=== PATIENT | female | born 1955 | race Caucasian/White ===

== ENCOUNTER 2017-05-17 18:28 | Inpatient (IN) | payer MEDICARE, MEDICAID ==
[~2017-05-17] VITALS: Ht 147.3 cm; Wt 60.0 kg
[~2017-05-17 18:28] MED LIST: ACET1TAB12; ACET325T49 PO; ACET650S15 RC; AZIT-21; BISA10SU6 RC; BSC10SU; CEPH500C PO; DIAZ10TA3; DICL500C PO; DIVA125C10 PO; DIVA125C3; DOCU100C; DOCU50LI PO; DVL125C PO; DVL250TEC; ETHO250C; ETHOSUXIMIDE; FL025NA25; HYOS-19 SL; LEVE100S PO; LEVE100S16 PO; LEVO100T PO; LEVO100T7 PO; LEVO125T PO; LEVO125T6 PO; LORA1TAB SL; LORA2VIA29 IJ; LORA2VIA29 IM; LVT.025T; MAG30ORA2 PO; MAGN400O7 PO; MORP100S3 PO; MULT1TAB63; NAPH15DR51 OP; NAPH15DR51 OU; NF-DIASG RC; NFR150C; POLY119P5 PO; TETR15DR74 OU; VALP250S18; [UNRECOGNIZED DRUG - CODE]; [UNRECOGNIZED DRUG - CODE] PO
--- OUTSIDE RECORDS SUMMARY | 2017-05-17 18:33 | XMS REPORT ---
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 [address]-84 15 MG PT [facility] July 1 tablet by Oral route 2 times per day Results No Known Results Summary Purpose eClinicalWorks Submission
--- OUTSIDE RECORDS SUMMARY | 2017-05-17 18:33 | XMS REPORT ---
Author Author JEANETTE ZHU [facility] Address [address] [place] [address] Care Team Providers Care Animal Nurse Name Role Phone JEANETTE ZHU Unavailable PROBLEMS Type Condition ICD9-CM Code [id number] Code Onset Dates Condition Status SNOMED Code Problem Atopic dermatitis, mild L20.9 Active 47938306 Problem Seizure disorder G40.909 Active 554149441 Problem Seizures R56.9 Active 64347527 Problem Profoundly mentally retarded F73 Active 33183315 Problem Unspecified intellectual disabilities F79 Active 280370789 ALLERGIES No Information SOCIAL HISTORY Never Assessed PLAN OF CARE Activity Details Follow Up prn Reason: VITAL SIGNS MEDICATIONS Medication Instructions Dosage Frequency Start Date End Date Duration Status Visine-A 0.025-0.3 % PLACE TWO DROPS INTO AFFECTED EYE(S) FOUR TIMES DAILY NEEDED RED EYES 6h Active IBU-200 200 mg Orally 3 times a day 2 tablet 8h Active Ativan 1 MG Orally every 4 hours 1 tablet as needed for anxiety/air hunger 4h Active Ativan 2 MG/ML Injection as directed 1 ml as needed for seizures not to exceed 2 doses per day Mar, 30 days Active Divalproex Sodium 125 MG TAKE SIX CAPSULES BY MOUTH EVERY MORNING AND TAKE EIGHT CAPSULES IN THE EVENING 30 Active Acetaminophen 650 MG Rectal every 4 hours as needed 1 suppository Active Docusate Sodium 50 MG/5ML Orally twice a day 10 ml as needed 12h Active Bisacodyl 10 MG Rectal Once a day 1 suppository as needed 24h Active Mag-Al Plus 200-200-20 MG/5ML Orally Four times a day 30 ml as needed for heartburn 6h Active Phenobarbital 16.2 MG Orally Twice a day 1 tablet 12h 27 Apr, 2014 30 days Active Keppra 100 MG/ML Orally every 12 hrs 20 ml 12h 30 days Active Acetaminophen 325 MG Orally every 6 hrs 2 tablet 6h Jun, Active Mylanta 200-200-20 MG/5ML Orally Four times a day 10 ml as needed 6h Active HyoMax-SL 0.125 MG Sublingual every 2 hours 1 tablet under the tongue and allow to dissolve as needed for excessive secretions Active Haldol 5 MG/ML Injection every 8 hrs 0.5 ml 8h Sep, 30 day(s) Active MiraLax N/A Orally Once a day 17gm in 4-8oz of liquid 24h Sep, Active Diastat AcuDial 10 MG insert 1 vial as needed for seizure activity lasts over 5 minutes. Jan, Active Morphine Sulfate (Concentrate) 20 MG/ML Orally every 15 minutes up to 6 consecutive doses 0.5 ml as needed for moderate pain Active Milk of Magnesia 1200 MG/15ML Orally Once a day for Constipation 530as needed Feb, Active Levothyroxine Sodium 125 MCG TAKE 1 TABLET BY MOUTH DAILY AT 6:30 MORINING. 30 Active RESULTS No Results PROCEDURES Procedure Date Ordered Result Body Site Stable Visit (10 minutes) July 12, 2016 IMMUNIZATIONS No Known Immunizations
--- OUTSIDE RECORDS SUMMARY | 2017-05-17 18:33 | XMS REPORT ---
Author Author JEANETTE ZHU Organization eClinical[employer] Address Unknown Phone Unavailable Care Team Providers Care Csr Technician Name Role Phone JEANETTE ZHU CP Unavailable Allergies No Known Allergies Problems Problem Type Condition Code Onset Dates Condition Status Problem Seizures R56.9 Active Assessment Seizures R56.9 Active Problem Unspecified intellectual disabilities F79 Active Assessment Hypothyroidism E03.9 Active Assessment Profoundly mentally retarded F73 Active Assessment Hypoxia R09.02 Active Medications No Known Medications Procedures Procedure Coding System Code Date Stable Visit (10 minutes) CPT-4 89225 Oct 14, 2015 Results No Known Results Summary Purpose eClinicalWorks Submission
--- OUTSIDE RECORDS SUMMARY | 2017-05-17 18:33 | XMS REPORT ---
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 Problem Unspecified mental retardation 319 Active Problem Seizures R56.9 Active Problem Unspecified venous (peripheral) insufficiency 459.81 Active Problem Unspecified intellectual disabilities F79 Active Problem Rash and other nonspecific skin eruption 782.1 Active Problem Unspecified conjunctivitis 372.30 Active Problem 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
--- OUTSIDE RECORDS SUMMARY | 2017-05-17 18:33 | XMS REPORT ---
Author Author JEANETTE ZHU Organization [employer] Address Unknown Phone Unavailable Care Team Providers Care Supervisor Carbon Electrodes Name Role Phone JEANETTE ZHU CP Unavailable Allergies No Known Allergies Problems Problem Type Condition Code Onset Dates Condition Status Problem Seizures R56.9 Active Problem Unspecified intellectual disabilities F79 Active Medications No Known Medications Results No Known Results Summary Purpose eClinicalWorks Submission
--- OUTSIDE RECORDS SUMMARY | 2017-05-17 18:33 | XMS REPORT ---
Author Author JEANETTE ZHU [facility] eClinicalWorks Address Unknown Phone Unavailable Care Team Providers Care Wire Tinner Name Role Phone JEANETTE ZHU CP Unavailable Allergies No Known Allergies Problems Problem Type Condition Code Onset Dates Condition Status Problem Generalized convulsive epilepsy without mention of [...] ankle and foot joint 718.47 Active Medications Medication Code System Code Instructions Start Date End Date Status Dosage Docusate Sodium [facility] [address]-39 50 MG/5ML Orally 2 times a day 10 ml as needed Milk of Magnesia [facility] [address]-32 400 mg/5 mL Feb 20, 2013 1 time per day 30 ML Keppra [facility] [address]-71 100 MG/ML Orally every 12 hrs 20 ml Diastat AcuDial [facility] [address]-17 5-7.5-10 mg Jan 18, 2013 by Intramuscular route 1 time PRN if seizure activity lasts over 5 minutes. Divalproex Sodium [facility] [address]-93 125 MG Orally Once a day 8 capsules at bedtime Depakote Sprinkles [facility] [address]-47 125 MG Orally Once a day Dec 31, 2012 6 capsule Bisacodyl [facility] [address]-11 10 MG Rectal Once a day 1 suppository as needed Acetaminophen [facility] [address]-54 650 MG Rectal every 6 hrs 1 suppository as needed HyoMax-SL [facility] [address]-62 0.125 MG Sublingual every 2 hours 1 tablet under the tongue and allow to dissolve as needed for excessive secretions Morphine Sulfate (Concentrate) [facility] [address]-26 20 MG/ML Orally every 15 minutes up to 6 consecutive doses 0.5 ml as needed for moderate pain Acetaminophen [facility] [address]-19 325 MG Orally every 6 hrs June 06, 2012 2 tablet Mag-Al Plus [facility] [address]-21 200-200-20 MG/5ML Orally Four times a day 30 ml as needed for heartburn Ativan [facility] [address]-31 2 MG/ML Injection Mar 13, 2015 1 ml as needed for seizures not to exceed 2 doses per day Levothyroxine Sodium [facility] [address]-17 100 MCG Orally Once a day 1 tablet Ativan [facility] [address]-50 1 MG Orally every 4 hours 1 tablet as needed for anxiety/air hunger Phenobarbital [facility] [address]-68 16.2 mg May 02, 2014 take 1 tablets by Oral route 2 times per day Visine-A [facility] 19847730215 0.025-0.3 % PLACE TWO DROPS INTO AFFECTED EYE(S) FOUR TIMES DAILY NEEDED RED EYES Results No Known Results Summary Purpose eClinicalWorks Submission
--- OUTSIDE RECORDS SUMMARY | 2017-05-17 18:33 | XMS REPORT ---
Author Author JEANETTE ZHU Organization eClinicalWorks Address Unknown Phone Unavailable Care Team Providers Care Infrastructure Solutions Architect Name Role Phone JEANETTE ZHU CP Unavailable [...] Start Date End Date Status Dosage Phenobarbital [facility] [address]-22 15 MG 1 TAB orally 2 times a day July 05, 2012 1 tablet by Oral route 2 times per day Results No Known Results Summary Purpose eClinicalWorks Submission
--- OUTSIDE RECORDS SUMMARY | 2017-05-17 18:34 | XMS REPORT ---
Author Author JEANETTE ZHU Organization eClinicalWorks Address Unknown Phone Unavailable Care Team Providers Care Pediatric Dietician Name Role Phone JEANETTE ZHU CP Unavailable Allergies No Known Allergies Problems Problem Type Condition Code Onset Dates Condition Status Problem Seizures R56.9 Active Problem Unspecified intellectual disabilities F79 Active Medications Medication Code System Code Instructions Start Date End Date Status Dosage Phenobarbital [facility] [address]-28 16.2 MG Orally ([facility]) Twice a day May 02, 2014 1 tablet Results No Known Results Summary Purpose eClinicalWorks Submission
--- OUTSIDE RECORDS SUMMARY | 2017-05-17 18:34 | XMS REPORT ---
Author Author JEANETTE ZHU Organization eClinicalWorks Address Unknown Phone Unavailable Care Team Providers Care Greens Cutter Name Role Phone JEANETTE ZHU CP Unavailable [...] Instructions Start Date End Date Status Dosage MiraLax [facility] [address]-59 N/A Orally Once a day September 22, 2015 17gm in 4-8oz of liquid Results No Known Results Summary Purpose eClinicalWorks Submission
--- OUTSIDE RECORDS SUMMARY | 2017-05-17 18:34 | XMS REPORT ---
Author Author JEANETTE ZHU Organization eClinicalWorks Address Unknown Phone Unavailable Care Team Providers Care Molasses Preparer Name Role Phone JEANETTE ZHU CP Unavailable [...] Instructions Start Date End Date Status Dosage Ativan [facility] [address]-17 2 MG/ML Injection Mar 13, 2015 1 ml as needed for seizures not to exceed 2 doses per day Results No Known Results Summary Purpose eClinicalWorks Submission
--- OUTSIDE RECORDS SUMMARY | 2017-05-17 18:34 | XMS REPORT ---
Author Author JEANETTE ZHU Organization eClinicalWorks Address Unknown Phone Unavailable Care Team Providers Care Liquor Maker Name Role Phone JEANETTE ZHU CP Unavailable Allergies No Known Allergies Problems Problem Type Condition Code Onset Dates Condition Status Problem Seizures R56.9 Active Assessment Seizure disorder G40.909 Active Problem Unspecified intellectual disabilities F79 Active Assessment Seizures R56.9 Active Medications No Known Medications Procedures Procedure Coding System Code Date Stable Visit (10 minutes) CPT-4 91646 Nov 25, 2015 Results No Known Results Summary Purpose eClinicalWorks Submission
--- OUTSIDE RECORDS SUMMARY | 2017-05-17 18:34 | XMS REPORT ---
Author Author JEANETTE ZHU Organization eClinicalWorks Address Unknown Phone Unavailable Care Team Providers Care Artifacts Conservator Name Role Phone JEANETTE ZHU CP Unavailable [...] Active Problem Unspecified conjunctivitis 372.30 Active Medications No Known Medications Results No Known Results Summary Purpose eClinicalWorks Submission
--- OUTSIDE RECORDS SUMMARY | 2017-05-17 18:34 | XMS REPORT ---
Author Author JEANETTE ZHU [facility] Address [address] [place] [address] Care Team Providers Care Street Light Servicer Helper Name Role Phone JEANETTE ZHU Unavailable PROBLEMS Type Condition ICD9-CM Code [id number] Code Onset Dates Condition Status SNOMED Code Problem Atopic dermatitis, mild L20.9 Active 63399749 Problem Seizure disorder G40.909 Active 208668438 Problem Seizures R56.9 Active 64969602 Problem Profoundly mentally retarded F73 Active 34091958 Problem Unspecified intellectual disabilities F79 Active 631845491 ALLERGIES No Information SOCIAL HISTORY Never Assessed PLAN OF CARE VITAL SIGNS MEDICATIONS Medication Instructions Dosage Frequency Start Date End Date Duration Status Keppra 100 MG/ML Orally every 12 hrs 20 ml 12h 30 days Active RESULTS No Results PROCEDURES No Known procedures IMMUNIZATIONS No Known Immunizations
--- OUTSIDE RECORDS SUMMARY | 2017-05-17 18:34 | XMS REPORT ---
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
--- OUTSIDE RECORDS SUMMARY | 2017-05-17 18:34 | XMS REPORT ---
Author Author JEANETTE ZHU [facility] eClinicalWorks Address Unknown Phone Unavailable Care Team Providers Care Public Health Informatician Name Role Phone JEANETTE ZHU CP Unavailable [...] Start Date End Date Status Dosage Phenobarbital [facility] [address]-28 16.2 MG Orally Twice a day May 02, 2014 1 tablet Results No Known Results Summary Purpose eClinicalWorks Submission
--- OUTSIDE RECORDS SUMMARY | 2017-05-17 18:34 | XMS REPORT ---
Author Author JEANETTE ZHU [facility] Address [address] [place] [address] Care Team Providers Care Tar Boiler Name Role Phone JEANETTE ZHU Unavailable PROBLEMS Type Condition ICD9-CM Code [id number] Code Onset Dates Condition Status SNOMED Code Problem Seizure disorder G40.909 Active 592416427 Problem Profoundly mentally retarded F73 Active 43442979 Problem Unspecified intellectual disabilities F79 Active 077376461 Problem Seizures R56.9 Active 50334722 ALLERGIES Unknown Allergies SOCIAL HISTORY No smoking Hx information available PLAN OF CARE VITAL SIGNS MEDICATIONS Unknown Medications RESULTS No Results PROCEDURES No Known procedures IMMUNIZATIONS No Known Immunizations
--- OUTSIDE RECORDS SUMMARY | 2017-05-17 18:34 | XMS REPORT ---
Author Author JEANETTE ZHU Organization eClinicalWorks Address Unknown Phone Unavailable Care Team Providers Care Director Targeted Marketing Name Role Phone JEANETTE ZHU CP Unavailable Allergies No Known Allergies Problems Problem Type Condition Code Onset Dates Condition Status Problem Seizures R56.9 Active Assessment Fever, unspecified fever cause R50.9 Active Problem Unspecified intellectual disabilities F79 Active Medications No Known Medications Procedures Procedure Coding System Code Date Minor complication (15 mins) CPT-4 80881 Dec 23, 2015 Results No Known Results Summary Purpose eClinicalWorks Submission
--- OUTSIDE RECORDS SUMMARY | 2017-05-17 18:34 | XMS REPORT ---
Author Author JEANETTE ZHU Organization eClinicalWorks Address Unknown Phone Unavailable Care Team Providers Care Billet Inspector Name Role Phone JEANETTE ZHU CP Unavailable Allergies No Known Allergies Problems Problem Type Condition Code Onset Dates Condition Status Assessment Seizures R56.9 Active Assessment Profoundly mentally retarded F73 Active Problem Varicose veins of lower extremities [...] Code Date Stable Visit (10 minutes) CPT-4 56724 Dec 31, 2014 Results No Known Results Summary Purpose eClinicalWorks Submission
--- OUTSIDE RECORDS SUMMARY | 2017-05-17 18:34 | XMS REPORT ---
Author Author JEANETTE ZHU [facility] eClinicalWorks Address Unknown Phone Unavailable Care Team Providers Care Social Services Name Role Phone JEANETTE ZHU Unavailable Allergies No Known Allergies Problems Problem Type Condition Code Onset Dates Condition Status Problem Seizures R56.9 Active Problem Unspecified intellectual disabilities F79 Active Medications Medication Code System Code Instructions Start Date End Date Status Dosage Levothyroxine Sodium [facility] 94851407458 125 MCG TAKE 1 TABLET BY MOUTH DAILY AT 6:30 MORINING. Morphine Sulfate (Concentrate) [facility] [address]-20 20 MG/ML Orally every 15 minutes up to 6 consecutive doses 0.5 ml as needed for moderate pain Milk of Magnesia [facility] [address]-65 1200 MG/15ML Orally Once a day for Constipation Feb 20, 2013 530as needed MiraLax [facility] [address]-21 N/A Orally Once a day September 22, 2015 17gm in 4-8oz of liquid Visine-A [facility] [address]-80 0.025-0.3 % [address] TWO DROPS INTO AFFECTED EYE(S) FOUR TIMES DAILY NEEDED RED EYES Bisacodyl [facility] [address]-72 10 MG Rectal Once a day 1 suppository as needed Acetaminophen [facility] [address]-35 325 MG Orally every 6 hrs June 06, 2012 2 tablet Mag-Al Plus [facility] [address]-73 200-200-20 MG/5ML Orally Four times a day 30 ml as needed for heartburn Diastat AcuDial [facility] [address]-29 10 MG Rectal Jan 18, 2013 insert 1 vial as needed for seizure activity lasts over 5 minutes. Divalproex Sodium [facility] [address]-46 125 MG TAKE SIX CAPSULES BY MOUTH EVERY MORNING AND TAKE EIGHT CAPSULES IN THE EVENING Divalproex Sodium [facility] [address]-01 125 MG Orally ([facility]) Once a day 6 capsules in the morning HyoMax-SL [facility] [address]-20 0.125 MG Sublingual every 2 hours 1 tablet under the tongue and allow to dissolve as needed for excessive secretions Ativan [facility] [address]-37 2 MG/ML Injection as directed Mar 13, 2015 1 ml as needed for seizures not to exceed 2 doses per day Haldol [facility] [address]-44 5 MG/ML Injection every 8 hrs September 10, 2015 0.5 ml IBU-200 [facility] [address]-45 200 mg Orally 3 times a day 2 tablet Docusate Sodium [facility] [address]-12 50 MG/5ML Orally twice a day 10 ml as needed Acetaminophen [facility] [address]-96 650 MG Rectal every 4 hours as needed 1 suppository Keppra [facility] [address]-44 100 MG/ML Orally every 12 hrs 20 ml Mylanta [facility] 96867-[address]898 200-200-20 MG/5ML Orally Four times a day 10 ml as needed Phenobarbital [facility] [address]-55 16.2 MG Orally ([facility]) Twice a day May 02, 2014 1 tablet Ativan [facility] [address]-39 1 MG Orally every 4 hours 1 tablet as needed for anxiety/air hunger Results No Known Results Summary Purpose eClinicalWorks Submission
--- OUTSIDE RECORDS SUMMARY | 2017-05-17 18:34 | XMS REPORT ---
Author Author JEANETTE ZHU [facility] Address [address] [place] [address] Care Team Providers Care Club Lounge Attendant Name Role Phone JEANETTE ZHU Unavailable PROBLEMS Type Condition ICD9-CM Code [id number] Code Onset Dates Condition Status SNOMED Code Problem Atopic dermatitis, mild L20.9 Active 82728319 Problem Seizure disorder G40.909 Active 820430038 Problem Seizures R56.9 Active 08469921 Problem Profoundly mentally retarded F73 Active 09475718 Problem Unspecified intellectual disabilities F79 Active 509468879 ALLERGIES No Information SOCIAL HISTORY Never Assessed PLAN OF CARE VITAL SIGNS MEDICATIONS Medication Instructions Dosage Frequency Start Date End Date Duration Status Levothyroxine Sodium 100 MCG Orally Once a day 1 tablet 24h Active RESULTS No Results PROCEDURES No Known procedures IMMUNIZATIONS No Known Immunizations
--- OUTSIDE RECORDS SUMMARY | 2017-05-17 18:34 | XMS REPORT ---
Author Author JEANETTE ZHU [facility] eClinicalWorks Address Unknown Phone Unavailable Care Team Providers Care Patient Admitting Clerk Name Role Phone JEANETTE ZHU CP Unavailable [...] Start Date End Date Status Dosage Ativan [facility] [address]-64 2 MG/ML Injection Mar 13, 2015 1 ml as needed for seizures not to exceed 2 doses per day Ativan [facility] [address]-57 1 MG Orally every 4 hours 1 tablet as needed for anxiety/air hunger Diastat AcuDial [facility] [address]-68 10 MG Rectal Jan 18, 2013 insert 1 vial as needed for seizure activity lasts over 5 minutes. Keppra [facility] [address]-53 100 MG/ML Orally every 12 hrs 20 ml Phenobarbital [facility] [address]-25 16.2 MG Orally Twice a day May 02, 2014 1 tablet Bisacodyl [facility] [address]-05 10 MG Rectal Once a day 1 suppository as needed Visine-A [facility] [address]-35 0.025-0.3 % [address] TWO DROPS INTO AFFECTED EYE(S) FOUR TIMES DAILY NEEDED RED EYES HyoMax-SL [facility] [address]-26 0.125 MG Sublingual every 2 hours 1 tablet under the tongue and allow to dissolve as needed for excessive secretions Docusate Sodium [facility] [address]-08 50 MG/5ML Orally twice a day 10 ml as needed IBU-200 [facility] [address]-98 200 mg Orally 3 times a day 2 tablet Morphine Sulfate (Concentrate) [facility] [address]-74 20 MG/ML Orally every 15 minutes up to 6 consecutive doses 0.5 ml as needed for moderate pain Milk of Magnesia [facility] [address]-55 1200 MG/15ML Orally Once a day for Constipation Feb 20, 2013 530as needed Acetaminophen [facility] [address]-44 325 MG Orally every 6 hrs June 06, 2012 2 tablet Acetaminophen [facility] [address]8873-[address]02 650 MG Rectal every 4 hours as needed 1 suppository Mag-Al Plus [facility] [address]-90 200-200-20 MG/5ML Orally Four times a day 30 ml as needed for heartburn Divalproex Sodium [facility] [address]-87 125 MG Orally Once a day at HS 8 capsules Divalproex Sodium [facility] [address]-50 125 MG Orally ([facility]) Once a day 6 capsules in the morning Levothyroxine Sodium [facility] 29807996733 125 MCG TAKE 1 TABLET BY MOUTH DAILY AT 6:30 MORINING. Results No Known Results Summary Purpose eClinicalWorks Submission
--- OUTSIDE RECORDS SUMMARY | 2017-05-17 18:34 | XMS REPORT ---
Author Author JEANETTE ZHU Organization [employer] Address Unknown Phone Unavailable Care Team Providers Care Doughnut Batter Mixer Name Role Phone JEANETTE ZHU CP Unavailable Allergies No Known Allergies Problems Problem Type Condition Code Onset Dates Condition Status Assessment Hypoxia R09.02 Active Problem Generalized convulsive epilepsy without mention [...] Code Date Stable Visit (10 minutes) CPT-4 75411 June 10, 2015 Results No Known Results Summary Purpose [employer] Submission
[2017-05-17] MEDS ORDERED: fentaNYL INJECTION 100 MCG/2 ML AMP ONE (18:35)
--- OUTSIDE RECORDS SUMMARY | 2017-05-17 18:35 | XMS REPORT ---
Author Author JEANETTE ZHU [facility] Address [address] [place] [address] Care Team Providers Care Eating Disorder Specialist Name Role Phone JEANETTE ZHU Unavailable PROBLEMS Type Condition ICD9-CM Code WIO52-PL Code Onset Dates Condition Status SNOMED Code Problem Seizure disorder G40.909 Active 146480551 Problem Profoundly mentally retarded F73 Active 41672530 Problem Unspecified intellectual disabilities F79 Active 259448102 Problem Seizures R56.9 Active 91549978 ALLERGIES Unknown Allergies SOCIAL HISTORY No smoking Hx information available PLAN OF CARE VITAL SIGNS MEDICATIONS Medication Instructions Dosage Frequency Start Date End Date Duration Status Divalproex Sodium 125 MG Orally ([facility]) Once a day 6 capsules in the morning 24h 30 days Active RESULTS No Results PROCEDURES No Known procedures IMMUNIZATIONS No Known Immunizations
--- OUTSIDE RECORDS SUMMARY | 2017-05-17 18:35 | XMS REPORT ---
Author Author JEANETTE ZHU Organization [employer] Address Unknown Phone Unavailable Care Team Providers Care Director Of Construction Name Role Phone JEANETTE ZHU CP Unavailable [...] Instructions Start Date End Date Status Dosage Diastat AcuDial [facility] [address]-16 5-7.5-10 mg Jan 18, 2013 by Intramuscular route 1 time PRN if seizure activity lasts over 5 minutes. Results No Known Results Summary Purpose [employer] Submission
--- OUTSIDE RECORDS SUMMARY | 2017-05-17 18:35 | XMS REPORT ---
Author Author JEANETTE ZHU [facility] Address [address] [place] [address] Care Team Providers Care Novelty Worker Name Role Phone JEANETTE ZHU Unavailable PROBLEMS Type Condition ICD9-CM Code [id number]-ZD Code Onset Dates Condition Status SNOMED Code Problem Atopic dermatitis, mild L20.9 Active 14189883 Problem Seizure disorder G40.909 Active 745509773 Problem Seizures R56.9 Active 31509220 Problem Profoundly mentally retarded F73 Active 06723262 Problem Unspecified intellectual disabilities F79 Active [id number] ALLERGIES No Information SOCIAL HISTORY Never Assessed PLAN OF CARE Activity Details Follow Up prn Reason: VITAL SIGNS MEDICATIONS Unknown Medications RESULTS No Results PROCEDURES Procedure Date Ordered Result Body Site Stable Visit (10 minutes) May 05, 2016 IMMUNIZATIONS No Known Immunizations
--- OUTSIDE RECORDS SUMMARY | 2017-05-17 18:35 | XMS REPORT ---
Author Author JEANETTE ZHU Organization [employer] Address Unknown Phone Unavailable Care Team Providers Care Operations Trainer Name Role Phone JEANETTE ZHU CP Unavailable Allergies No Known Allergies Problems Problem Type Condition Code Onset Dates Condition Status Problem Seizures R56.9 Active Problem Unspecified intellectual disabilities F79 Active Medications Medication Code System Code Instructions Start Date End Date Status Dosage Phenobarbital [facility] [address]-09 16.2 MG Orally ([facility]) Twice a day May 02, 2014 1 tablet Results No Known Results Summary Purpose [employer] Submission
--- OUTSIDE RECORDS SUMMARY | 2017-05-17 18:35 | XMS REPORT ---
Author Author JEANETTE ZHU Organization [employer] Address Unknown Phone Unavailable Care Team Providers Care Tree Inspector Name Role Phone JEANETTE ZHU CP [...] Instructions Start Date End Date Status Dosage Haldol [facility] [address]-27 5 MG/ML Injection every 8 hrs September 10, 2015 0.5 ml Results No Known Results Summary Purpose [employer] Submission
--- OUTSIDE RECORDS SUMMARY | 2017-05-17 18:35 | XMS REPORT ---
Author Author JEANETTE ZHU Organization [employer] Address Unknown Phone Unavailable Care Team Providers Care Line Construction Engineer Name Role Phone JEANETTE ZHU CP Unavailable [...] Date End Date Status Dosage Phenobarbital [facility] [address]-86 15 MG 1 TAB orally 2 times a day July 05, 2012 1 tablet by Oral route 2 times per day Results No Known Results Summary Purpose [employer] Submission
[2017-05-17] MEDS ORDERED: ACETAMINOPHEN 650 MG SUPP (TYLENOL) ONE (18:36)
--- OUTSIDE RECORDS SUMMARY | 2017-05-17 18:36 | XMS REPORT | Continuity of Care Document ---
Author Author [facility] Address Unknown Phone Unavailable Allergies Active Description Code Type Severity Reaction Onset Reported/Identified Relationship to Patient Clinical Status Yes estrone Drug Allergy N/A N/A 07/16/2009 Yes piperacillin Drug Allergy N/ A N/A 07/16/2009 Yes Remeron Drug Allergy N/A N/A 07/16/2009 Yes estrone Drug Allergy 07/16/2009 Yes piperacillin Drug Allergy 07/16/2009 Yes Remeron Drug Allergy 07/16/2009 Yes sulfa drug Drug Allergy 07/16/2009 Yes piperacillin [id number] Drug Allergy Mild unknown 12/22/2015 Yes estrone [id number] Drug Allergy Unknown N/A 12/22/2015 Yes mirtazapine [id number] Drug Allergy Unknown N/A 12/22/2015 Yes piperazine [id number] Drug Allergy Unknown N/A 12/22/2015 Yes Sulfa (Sulfonamide Antibiotics) [id number] Drug Allergy Unknown N/A 2015 Medications There is no data. Problems Date Dx Coded Attending Type Code Diagnosis Diagnosed By 12/18/2007 780.39 Convulsions [ as Sx] 12/18/2007 V58.69 taking high- risk medication 12/18/2007 780.39 Convulsions [ as Sx] 12/18/2007 V58.69 taking high- risk medication 12/18/2007 JEANETTE ZHU APRN 780.39 Convulsions [as Sx] 12/18/2007 JEANETTE ZHU APRN V58.69 taking high-risk medication 12/18/2007 780.39 Convulsions [ as Sx] 12/18/2007 V58.69 taking high- risk medication 12/18/2007 780.39 Convulsions [ as Sx] 12/18/2007 V58.69 taking high- risk medication 12/18/2007 780.39 Convulsions [ as Sx] 12/18/2007 V58.69 taking high- risk medication 12/18/2007 MARKO NJ JEANETTE S 780.39 Convulsions [as Sx] 12/18/2007 ELAINE ZHU APRNNDA S V58.69 taking high-risk medication 12/18/2007 THUY ZHU APRNA S 780.39 Convulsions [as Sx] 12/18/2007 THUY ZHU APRNA S V58.69 taking high-risk medication 12/18/2007 TAMIKO MORGAN MD 780.39 Convulsions [as Sx] 12/18/2007 TAMIKO MORGAN MD V58.69 taking high-risk medication 12/18/2007 THUY ZHU APRNA S 780.39 Convulsions [as Sx] 12/18/2007 THUY ZHU APRNA S V58.69 taking high-risk medication 12/18/2007 DULCE GALLAGHER MD 780.39 Convulsions [as Sx] 12/18/2007 DULCE GALLAGHER MD V58.69 taking high-risk medication 12/18/2007 THUY ZHU APRNA S 780.39 Convulsions [as Sx] 12/18/2007 ELAINE ZHU APRNNDA S V58.69 taking high-risk medication 12/18/2007 ELAINE ZHU APRNNDA S 780.39 Convulsions [as Sx] 12/18/2007 ELAINE ZHU APRNNDA S V58.69 taking high-risk medication 12/18/2007 ELAINE ZHU APRNNDA S 780.39 Convulsions [as Sx] 12/18/2007 ELAINE ZHU APRNNDA S V58.69 taking high-risk medication 12/18/2007 ELAINE ZHU APRNNDA S 780.39 Convulsions [as Sx] 12/18/2007 ELAINE ZHU APRNNDA S V58.69 taking high-risk medication 12/18/2007 ELAINE ZHU APRNNDA S 780.39 Convulsions [as Sx] 12/18/2007 ELAINE ZHU APRNNDA S V58.69 taking high-risk medication 12/18/2007 MARKO UNDERGROUND MINE MACHINERY MECHANIC, JEANETTE S 780.39 Convulsions [as Sx] 12/18/2007 MARKO NJ, JEANETTE S V58.69 taking high-risk medication 09/16/2008 285.9 ANEMIA 09/16/2008 319 Mental Retardation 09/16/2008 486 Pneumonitis 09/16/2008 285.9 ANEMIA 09/16/2008 319 Mental Retardation 09/16/2008 486 Pneumonitis 09/16/2008 MARKO NJ, JEANETTE S 285.9 ANEMIA 09/16/2008 MARKO NJ, JEANETTE S 319 Mental Retardation 09/16/2008 MARKO NJ, JEANETTE S 486 Pneumonitis 09/16/2008 285.9 ANEMIA 09/16/2008 319 Mental Retardation 09/16/2008 486 Pneumonitis 09/16/2008 285.9 ANEMIA 09/16/2008 319 Mental Retardation 09/16/2008 486 Pneumonitis 09/16/2008 285.9 ANEMIA 09/16/2008 319 Mental Retardation 09/16/2008 486 Pneumonitis 09/16/2008 MARKO NJ, JEANETTE S 285.9 ANEMIA 09/16/2008 MARKO NJ, JEANETTE S 319 Mental Retardation 09/16/2008 MARKO NJ, JEANETTE S 486 Pneumonitis 09/16/2008 MARKO NJ, JEANETTE S 285.9 ANEMIA 09/16/2008 MARKO NJ, JEANETTE S 319 Mental Retardation 09/16/2008 MARKO NJ, JEANETTE S 486 Pneumonitis 09/16/2008 CATHY NICOLE, TAMIKO Baker 285.9 ANEMIA 09/16/2008 CATHY NICOLE, TAMIKO M 319 Mental Retardation 09/16/2008 TAMIKO MORGAN MD M 486 Pneumonitis 09/16/2008 MARKO NJ, JEANETTE S 285.9 ANEMIA 09/16/2008 MARKO NJ, JEANETTE S 319 Mental Retardation 09/16/2008 MARKO NJ, JEANETTE S 486 Pneumonitis 09/16/2008 DULCE GALLAGHER MD 285.9 ANEMIA 09/16/2008 DULCE GALLAGHER MD 319 Mental Retardation 09/16/2008 DULCE GALLAGHER MD 486 Pneumonitis 09/16/2008 MARKO NJ, JEANETTE S 285.9 ANEMIA 09/16/2008 MARKO UNDERGROUND MINE MACHINERY MECHANIC, JEANETTE S 319 Mental Retardation 09/16/2008 MARKO UNDERGROUND MINE MACHINERY MECHANIC, JEANETTE S 486 Pneumonitis 09/16/2008 MARKO UNDERGROUND MINE MACHINERY MECHANIC, JEANETTE S 285.9 ANEMIA 09/16/2008 MARKO UNDERGROUND MINE MACHINERY MECHANIC, JEANETTE S 319 Mental Retardation 09/16/2008 MARKO UNDERGROUND MINE MACHINERY MECHANIC, JEANETTE S 486 Pneumonitis 09/16/2008 MARKO UNDERGROUND MINE MACHINERY MECHANIC, JEANETTE S 285.9 ANEMIA 09/16/2008 MARKO UNDERGROUND MINE MACHINERY MECHANIC, JEANETTE S 319 Mental Retardation 09/16/2008 MARKO UNDERGROUND MINE MACHINERY MECHANIC, JEANETTE S 486 Pneumonitis 09/16/2008 MARKO UNDERGROUND MINE MACHINERY MECHANIC, JEANETTE S 285.9 ANEMIA 09/16/2008 MARKO UNDERGROUND MINE MACHINERY MECHANIC, JEANETTE S 319 Mental Retardation 09/16/2008 MARKO UNDERGROUND MINE MACHINERY MECHANIC, JEANETTE S 486 Pneumonitis 09/16/2008 MARKO UNDERGROUND MINE MACHINERY MECHANIC, JEANETTE S 285.9 ANEMIA 09/16/2008 MARKO UNDERGROUND MINE MACHINERY MECHANIC, JEANETTE S 319 Mental Retardation 09/16/2008 MARKO UNDERGROUND MINE MACHINERY MECHANIC, JEANETTE S 486 Pneumonitis 09/16/2008 MARKO UNDERGROUND MINE MACHINERY MECHANIC, JEANETTE S 285.9 ANEMIA 09/16/2008 MARKO UNDERGROUND MINE MACHINERY MECHANIC, JEANETTE S 319 Mental Retardation 09/16/2008 MARKO UNDERGROUND MINE MACHINERY MECHANIC, JEANETTE S 486 Pneumonitis 07/08/2009 244.9 HYPOTHYROIDISM 07/08/2009 244.9 HYPOTHYROIDISM 07/08/2009 MARKO UNDERGROUND MINE MACHINERY MECHANIC, JEANETTE S 244.9 HYPOTHYROIDISM 07/08/2009 244.9 HYPOTHYROIDISM 07/08/2009 244.9 HYPOTHYROIDISM 07/08/2009 244.9 HYPOTHYROIDISM 07/08/2009 MARKO UNDERGROUND MINE MACHINERY MECHANIC, JEANETTE S 244.9 HYPOTHYROIDISM 07/08/2009 MARKO UNDERGROUND MINE MACHINERY MECHANIC, JEANETTE S 244.9 HYPOTHYROIDISM 07/08/2009 CATHY NICOLE, TAMIKO Baker 244.9 HYPOTHYROIDISM 07/08/2009 MARKO UNDERGROUND MINE MACHINERY MECHANIC, JEANETTE S 244.9 HYPOTHYROIDISM 07/08/2009 ELLIOTT NICOLE, DULCE 244.9 HYPOTHYROIDISM 07/08/2009 MARKO UNDERGROUND MINE MACHINERY MECHANIC, JEANETTE S 244.9 HYPOTHYROIDISM 07/08/2009 MARKO UNDERGROUND MINE MACHINERY MECHANIC, JEANETTE S 244.9 HYPOTHYROIDISM 07/08/2009 MARKO UNDERGROUND MINE MACHINERY MECHANIC, JEANETTE S 244.9 HYPOTHYROIDISM 07/08/2009 MARKO UNDERGROUND MINE MACHINERY MECHANIC, JEANETTE S 244.9 HYPOTHYROIDISM 07/08/2009 MARKO UNDERGROUND MINE MACHINERY MECHANIC, JEANETTE S 244.9 HYPOTHYROIDISM 07/08/2009 MARKO UNDERGROUND MINE MACHINERY MECHANIC, JEANETTE S 244.9 HYPOTHYROIDISM 08/19/2009 729.5 Pain In Limb 08/19/2009 729.5 Pain In Limb 08/19/2009 MARKO UNDERGROUND MINE MACHINERY MECHANIC, JEANETTE S 729.5 Pain In Limb 08/19/2009 729.5 Pain In Limb 08/19/2009 729.5 Pain In Limb 08/19/2009 729.5 Pain In Limb 08/19/2009 MARKO UNDERGROUND MINE MACHINERY MECHANIC, JEANETTE S 729.5 Pain In Limb 08/19/2009 MARKO UNDERGROUND MINE MACHINERY MECHANIC, JEANETTE S 729.5 Pain In Limb 08/19/2009 CATHY NICOLE, TAMIKO Baker 729.5 Pain In Limb 08/19/2009 MARKO UNDERGROUND MINE MACHINERY MECHANIC, JEANETTE S 729.5 Pain In Limb 08/19/2009 DULCE GALLAGHER MD 729.5 Pain In Limb 08/19/2009 MARKO UNDERGROUND MINE MACHINERY MECHANIC, JEANETTE S 729.5 Pain In Limb 08/19/2009 MARKO UNDERGROUND MINE MACHINERY MECHANIC, JEANETTE S 729.5 Pain In Limb 08/19/2009 MARKO UNDERGROUND MINE MACHINERY MECHANIC, JEANETTE S 729.5 Pain In Limb 08/19/2009 MARKO UNDERGROUND MINE MACHINERY MECHANIC, JEANETTE S 729.5 Pain In Limb 08/19/2009 MARKO UNDERGROUND MINE MACHINERY MECHANIC, JEANETTE S 729.5 Pain In Limb 08/19/2009 MARKO UNDERGROUND MINE MACHINERY MECHANIC, JEANETTE S 729.5 Pain In Limb 08/26/2009 682.7 Other Cellulitis And Abscess, Foot, Except Toes 08/26/2009 682.7 Other Cellulitis And Abscess, Foot, Except Toes 08/26/2009 MARKO UNDERGROUND MINE MACHINERY MECHANIC, JEANETTE S 682.7 Other Cellulitis And Abscess, Foot, Except Toes 08/26/2009 682.7 Other Cellulitis And Abscess, Foot, Except Toes 08/26/2009 682.7 Other Cellulitis And Abscess, Foot, Except Toes 08/26/2009 682.7 Other Cellulitis And Abscess, Foot, Except Toes 08/26/2009 MARKO UNDERGROUND MINE MACHINERY MECHANIC, JEANETTE S 682.7 Other Cellulitis And Abscess, Foot, Except Toes 08/26/2009 MARKO UNDERGROUND MINE MACHINERY MECHANIC, JEANETTE S 682.7 Other Cellulitis And Abscess, Foot, Except Toes 08/26/2009 TAMIKO MORGAN MD 682.7 Other Cellulitis And Abscess, Foot, Except Toes 08/26/2009 MARKO UNDERGROUND MINE MACHINERY MECHANIC, JEANETTE S 682.7 Other Cellulitis And Abscess, Foot, Except Toes 08/26/2009 ELLIOTT NICOLE, DULCE 682.7 Other Cellulitis And Abscess, Foot, Except Toes 08/26/2009 MARKO UNDERGROUND MINE MACHINERY MECHANIC, JEANETTE S 682.7 Other Cellulitis And Abscess, Foot, Except Toes 08/26/2009 MARKO UNDERGROUND MINE MACHINERY MECHANIC, JEANETTE S 682.7 Other Cellulitis And Abscess, Foot, Except Toes 08/26/2009 MARKO UNDERGROUND MINE MACHINERY MECHANIC, JEANETTE S 682.7 Other Cellulitis And Abscess, Foot, Except Toes 08/26/2009 MARKO UNDERGROUND MINE MACHINERY MECHANIC, JEANETTE S 682.7 Other Cellulitis And Abscess, Foot, Except Toes 08/26/2009 MARKO UNDERGROUND MINE MACHINERY MECHANIC, JEANETTE S 682.7 Other Cellulitis And Abscess, Foot, Except Toes 08/26/2009 MARKO UNDERGROUND MINE MACHINERY MECHANIC, JEANETTE S 682.7 Other Cellulitis And Abscess, Foot, Except Toes 12/16/2009 133.0 Scabies 12/16/2009 133.0 Scabies 12/16/2009 MARKO UNDERGROUND MINE MACHINERY MECHANIC, JEANETTE S 133.0 Scabies 12/16/2009 133.0 Scabies 12/16/2009 133.0 Scabies 12/16/2009 133.0 Scabies 12/16/2009 MARKO UNDERGROUND MINE MACHINERY MECHANIC, JEANETTE S 133.0 Scabies 12/16/2009 MARKO UNDERGROUND MINE MACHINERY MECHANIC, JEANETTE S 133.0 Scabies 12/16/2009 TAMIKO MORGAN MD 133.0 Scabies 12/16/2009 MARKO UNDERGROUND MINE MACHINERY MECHANIC, JEANETTE S 133.0 Scabies 12/16/2009 ELLIOTT NICOLE, DULCE 133.0 Scabies 12/16/2009 MARKO UNDERGROUND MINE MACHINERY MECHANIC, JEANETTE S 133.0 Scabies 12/16/2009 MARKO UNDERGROUND MINE MACHINERY MECHANIC, JEANETTE S 133.0 Scabies 12/16/2009 MARKO UNDERGROUND MINE MACHINERY MECHANIC, JEANETTE S 133.0 Scabies 12/16/2009 MARKO UNDERGROUND MINE MACHINERY MECHANIC, JEANETTE S 133.0 Scabies 12/16/2009 MARKO UNDERGROUND MINE MACHINERY MECHANIC, JEANETTE S 133.0 Scabies 12/16/2009 MARKO UNDERGROUND MINE MACHINERY MECHANIC, JEANETTE S 133.0 Scabies 12/23/2009 782.1 Rash 12/23/2009 782.1 Rash 12/23/2009 MARKO UNDERGROUND MINE MACHINERY MECHANIC, JEANETTE S 782.1 Rash 12/23/2009 782.1 Rash 12/23/2009 782.1 Rash 12/23/2009 782.1 Rash 12/23/2009 MARKO UNDERGROUND MINE MACHINERY MECHANIC, JEANETTE S 782.1 Rash 12/23/2009 MARKO UNDERGROUND MINE MACHINERY MECHANIC, JEANETTE S 782.1 Rash 12/23/2009 CATHY NICOLE, TAMIKO M 782.1 Rash 12/23/2009 MARKO UNDERGROUND MINE MACHINERY MECHANIC, JEANETTE S 782.1 Rash 12/23/2009 DULCE GALLAGHER MD 782.1 Rash 12/23/2009 MARKO UNDERGROUND MINE MACHINERY MECHANIC, JEANETTE S 782.1 Rash 12/23/2009 MARKO UNDERGROUND MINE MACHINERY MECHANIC, JEANETTE S 782.1 Rash 12/23/2009 MARKO UNDERGROUND MINE MACHINERY MECHANIC, JEANETTE S 782.1 Rash 12/23/2009 MARKO UNDERGROUND MINE MACHINERY MECHANIC, JEANETTE S 782.1 RASH 12/23/2009 MARKO UNDERGROUND MINE MACHINERY MECHANIC, JEANETTE S 782.1 RASH 12/23/2009 MARKO UNDERGROUND MINE MACHINERY MECHANIC, JEANETTE S 782.1 RASH 02/16/2011 599.0 URINARY TRACT INFECTION SITE NOT SPECIFIED 02/16/2011 599.0 URINARY TRACT INFECTION SITE NOT SPECIFIED 02/16/2011 MARKO UNDERGROUND MINE MACHINERY MECHANIC, JEANETTE S 599.0 URINARY TRACT INFECTION SITE NOT SPECIFIED 02/16/2011 599.0 URINARY TRACT INFECTION SITE NOT SPECIFIED 02/16/2011 599.0 URINARY TRACT INFECTION SITE NOT SPECIFIED 02/16/2011 599.0 URINARY TRACT INFECTION SITE NOT SPECIFIED 02/16/2011 MARKO UNDERGROUND MINE MACHINERY MECHANIC, JEANETTE S 599.0 URINARY TRACT INFECTION SITE NOT SPECIFIED 02/16/2011 MARKO UNDERGROUND MINE MACHINERY MECHANIC, JEANETTE S 599.0 URINARY TRACT INFECTION SITE NOT SPECIFIED 02/16/2011 TAMIKO MORGAN MD 599.0 URINARY TRACT INFECTION SITE NOT SPECIFIED 02/16/2011 MARKO UNDERGROUND MINE MACHINERY MECHANIC, JEANETTE S 599.0 URINARY TRACT INFECTION SITE NOT SPECIFIED 02/16/2011 DULCE GALLAGHER MD 599.0 URINARY TRACT INFECTION SITE NOT SPECIFIED 02/16/2011 MARKO UNDERGROUND MINE MACHINERY MECHANIC, JEANETTE S 599.0 URINARY TRACT INFECTION SITE NOT SPECIFIED 02/16/2011 MARKO UNDERGROUND MINE MACHINERY MECHANIC, JEANETTE S 599.0 URINARY TRACT INFECTION SITE NOT SPECIFIED 02/16/2011 MARKO UNDERGROUND MINE MACHINERY MECHANIC, JEANETTE S 599.0 URINARY TRACT INFECTION SITE NOT SPECIFIED 02/16/2011 MARKO UNDERGROUND MINE MACHINERY MECHANIC, JEANETTE S 599.0 URINARY TRACT INFECTION SITE NOT SPECIFIED 02/16/2011 MARKO UNDERGROUND MINE MACHINERY MECHANIC, JEANETTE S 599.0 URINARY TRACT INFECTION SITE NOT SPECIFIED 02/16/2011 MARKO UNDERGROUND MINE MACHINERY MECHANIC, JEANETTE S 599.0 URINARY TRACT INFECTION SITE NOT SPECIFIED 02/22/2012 345.10 GENERALIZED CONVULSIVE EPILEPSY WITHOUT INTRACTABLE EPILEPSY 02/22/2012 MARKO UNDERGROUND MINE MACHINERY MECHANIC, JEANETTE S 345.10 GENERALIZED CONVULSIVE EPILEPSY WITHOUT INTRACTABLE EPILEPSY 02/22/2012 345.10 GENERALIZED CONVULSIVE EPILEPSY WITHOUT INTRACTABLE EPILEPSY 02/22/2012 345.10 GENERALIZED CONVULSIVE EPILEPSY WITHOUT INTRACTABLE EPILEPSY 02/22/2012 345.10 GENERALIZED CONVULSIVE EPILEPSY WITHOUT INTRACTABLE EPILEPSY 02/22/2012 MARKO UNDERGROUND MINE MACHINERY MECHANIC, JEANETTE S 345.10 GENERALIZED CONVULSIVE EPILEPSY WITHOUT INTRACTABLE EPILEPSY 02/22/2012 MARKO UNDERGROUND MINE MACHINERY MECHANIC, JEANETTE S 345.10 GENERALIZED CONVULSIVE EPILEPSY WITHOUT INTRACTABLE EPILEPSY 02/22/2012 TAMIKO MORGAN MD 345.10 GENERALIZED CONVULSIVE EPILEPSY WITHOUT INTRACTABLE EPILEPSY 02/22/2012 MARKO VILLARN, JEANETTE S 345.10 GENERALIZED CONVULSIVE EPILEPSY WITHOUT INTRACTABLE EPILEPSY 02/22/2012 DULCE GALLAGHER MD 345.10 GENERALIZED CONVULSIVE EPILEPSY WITHOUT INTRACTABLE EPILEPSY 02/22/2012 MARKO VILLARN, JEANETTE S 345.10 GENERALIZED CONVULSIVE EPILEPSY WITHOUT INTRACTABLE EPILEPSY 02/22/2012 MARKO VILLARN, JEANETTE S 345.10 GENERALIZED CONVULSIVE EPILEPSY WITHOUT INTRACTABLE EPILEPSY 02/22/2012 MARKO UNDERGROUND MINE MACHINERY MECHANIC, JEANETTE S 345.10 GENERALIZED CONVULSIVE EPILEPSY WITHOUT INTRACTABLE EPILEPSY 02/22/2012 MARKO UNDERGROUND MINE MACHINERY MECHANIC, JEANETTE S 345.10 GENERALIZED CONVULSIVE EPILEPSY WITHOUT INTRACTABLE EPILEPSY 02/22/2012 MARKO VILLARN, JEANETTE S 345.10 GENERALIZED CONVULSIVE EPILEPSY WITHOUT INTRACTABLE EPILEPSY 02/22/2012 MARKO UNDERGROUND MINE MACHINERY MECHANIC, JEANETTE S 345.10 GENERALIZED CONVULSIVE EPILEPSY WITHOUT INTRACTABLE EPILEPSY 06/27/2012 319 UNSPECIFIED INTELLECTUAL DISABILITIES 06/27/2012 319 UNSPECIFIED INTELLECTUAL DISABILITIES 06/27/2012 319 UNSPECIFIED INTELLECTUAL DISABILITIES 06/27/2012 MARKO NJ, JEANETTE S 319 UNSPECIFIED INTELLECTUAL DISABILITIES 06/27/2012 MARKO NJ, JEANETTE S 319 UNSPECIFIED INTELLECTUAL DISABILITIES 06/27/2012 CATHY NICOLE, TAMIKO M 319 UNSPECIFIED INTELLECTUAL DISABILITIES 06/27/2012 MARKO NJ, JEANETTE S 319 UNSPECIFIED INTELLECTUAL DISABILITIES 06/27/2012 DULCE GALLAGHER MD 319 UNSPECIFIED INTELLECTUAL DISABILITIES 06/27/2012 MARKO NJ, JEANETTE S 319 UNSPECIFIED INTELLECTUAL DISABILITIES 06/27/2012 MARKO NJ, JEANETTE S 319 UNSPECIFIED INTELLECTUAL DISABILITIES 06/27/2012 MARKO NJ, JEANETTE S 319 UNSPECIFIED INTELLECTUAL DISABILITIES 06/27/2012 MARKO NJ, JEANETTE S 319 UNSPECIFIED INTELLECTUAL DISABILITIES 06/27/2012 MARKO NJ, JEANETTE S 319 UNSPECIFIED INTELLECTUAL DISABILITIES 06/27/2012 MARKO VILLARN, JEANETTE S 319 UNSPECIFIED INTELLECTUAL DISABILITIES 02/20/2013 MARKO NJ, JEANETTE S 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 02/20/2013 DULCE GALLAGHER MD 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 02/20/2013 ELAINE ZHU APRNNDA S 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 02/20/2013 ELAINE ZHU APRNNDA S 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 02/20/2013 MARKO UNDERGROUND MINE MACHINERY MECHANIC, JEANETTE S 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 02/20/2013 MARKO UNDERGROUND MINE MACHINERY MECHANIC, JEANETTE S 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 02/20/2013 MARKO UNDERGROUND MINE MACHINERY MECHANIC, JEANETTE S 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 02/20/2013 MARKO NJ, JEANETTE S 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 04/10/2013 DULCE GALLAGHER MD 454.1 VARICOSE VEINS OF LOWER EXTREMITIES WITH INFLAMMATION 04/10/2013 DULCE GALLAGHER MD 459.81 VENOUS (PERIPHERAL) INSUFFICIENCY UNSPECIFIED 04/10/2013 MARKO NJ JEANETTE S 454.1 VARICOSE VEINS OF LOWER EXTREMITIES WITH INFLAMMATION 04/10/2013 MARKO NJ JEANETTE S 459.81 VENOUS (PERIPHERAL) INSUFFICIENCY UNSPECIFIED 04/10/2013 MARKO NJ, JEANETTE S 454.1 VARICOSE VEINS OF LOWER EXTREMITIES WITH INFLAMMATION 04/10/2013 MARKO NJ JEANETTE S 459.81 VENOUS (PERIPHERAL) INSUFFICIENCY UNSPECIFIED 04/10/2013 MARKO NJ, JEANETTE S 454.1 VARICOSE VEINS OF LOWER EXTREMITIES WITH INFLAMMATION 04/10/2013 MARKO NJ, JEANETTE S 459.81 VENOUS (PERIPHERAL) INSUFFICIENCY UNSPECIFIED 04/10/2013 MARKO NJ, JEANETTE S 454.1 VARICOSE VEINS OF LOWER EXTREMITIES WITH INFLAMMATION 04/10/2013 MARKO UNDERGROUND MINE MACHINERY MECHANIC, JEANETTE S 459.81 VENOUS (PERIPHERAL) INSUFFICIENCY UNSPECIFIED 04/10/2013 MARKO NJ, JEANETTE S 454.1 VARICOSE VEINS OF LOWER EXTREMITIES WITH INFLAMMATION 04/10/2013 MARKO UNDERGROUND MINE MACHINERY MECHANIC, JEANETTE S 459.81 VENOUS (PERIPHERAL) INSUFFICIENCY UNSPECIFIED 04/10/2013 MARKO NJ, JEANETTE S 454.1 VARICOSE VEINS OF LOWER EXTREMITIES WITH INFLAMMATION 04/10/2013 MARKO UNDERGROUND MINE MACHINERY MECHANIC, JEANETTE S 459.81 VENOUS (PERIPHERAL) INSUFFICIENCY UNSPECIFIED 11/21/2013 MARKO NJ JEANETTE S 372.30 CONJUNCTIVITIS UNSPECIFIED 11/21/2013 ELAINE ZHU APRNNDA S 782.1 RASH 11/21/2013 MARKO VILLARN, JEANETTE S 372.30 CONJUNCTIVITIS UNSPECIFIED 11/21/2013 MARKO UNDERGROUND MINE MACHINERY MECHANIC, JEANETTE S 782.1 RASH 11/21/2013 MARKO UNDERGROUND MINE MACHINERY MECHANIC, JEANETTE S 372.30 CONJUNCTIVITIS UNSPECIFIED 11/21/2013 MARKO UNDERGROUND MINE MACHINERY MECHANIC, JEANETTE S 782.1 RASH 11/21/2013 MARKO UNDERGROUND MINE MACHINERY MECHANIC, JEANETTE S 372.30 CONJUNCTIVITIS UNSPECIFIED 11/21/2013 MARKO NJ, JEANETTE S 782.1 RASH 05/28/2015 JAYNA ZAMUDIO MD Ot A41.9 SEPSIS, UNSPECIFIED ORGANISM 05/28/2015 JAYNA ZAMUDIO MD Ot E03.9 HYPOTHYROIDISM, UNSPECIFIED 05/28/2015 JAYNA ZAMUDIO MD Ot E46 UNSPECIFIED PROTEIN-CALORIE MALNUTRITION 05/28/2015 JAYNA ZAMUDIO MD Ot F72 SEVERE INTELLECTUAL DISABILITIES 05/28/2015 JAYNA ZAMUDIO MD Ot G40.909 EPILEPSY, UNSP, NOT INTRACTABLE, WITHOUT 05/28/2015 JAYNA ZAMUDIO MD Ot G47.33 OBSTRUCTIVE SLEEP APNEA (ADULT) (PEDIATR 05/28/2015 JAYNA ZAMUDIO MD Ot G82.20 PARAPLEGIA, UNSPECIFIED 05/28/2015 JAYNA ZAMUDIO MD Ot J18.9 PNEUMONIA, UNSPECIFIED ORGANISM 05/28/2015 JAYNA ZAMUDIO MD Ot J96.01 ACUTE RESPIRATORY FAILURE WITH HYPOXIA 05/28/2015 JAYNA ZAMUDIO MD Ot K21.9 GASTRO-ESOPHAGEAL REFLUX DISEASE WITHOUT 05/28/2015 JAYNA ZAMUDIO MD Ot Q02 MICROCEPHALY 05/28/2015 JAYNA ZAMUDIO MD Ot R09.02 05/28/2015 JAYNA ZAMUDIO MD Ot R13.10 DYSPHAGIA, UNSPECIFIED 05/28/2015 JAYNA ZAMUDOI MD Ot R14.0 ABDOMINAL DISTENSION (GASEOUS) 05/28/2015 JAYNA ZAMUDIO MD Ot R74.8 ABNORMAL LEVELS OF OTHER SERUM ENZYMES 05/28/2015 JAYNA ZAMUDIO MD Ot T42.3X5A ADVERSE EFFECT OF BARBITURATES, INITIAL 05/28/2015 JAYNA ZAMUDIO MD, Ot T42.6X5A ADVERSE EFFECT OF ANTIEPILEPTIC AND SED- 05/29/2015 JAYNA ZAMUDIO MD Ot E03.9 HYPOTHYROIDISM, UNSPECIFIED 05/29/2015 JAYNA ZAMUDIO MD Ot F72 SEVERE INTELLECTUAL DISABILITIES 05/29/2015 JAYNA ZAMUDIO MD Ot G40.909 EPILEPSY, UNSP, NOT INTRACTABLE, WITHOUT 05/29/2015 JAYNA ZAMUDIO MD Ot G47.33 OBSTRUCTIVE SLEEP APNEA (ADULT) (PEDIATR 05/29/2015 JAYNA AZMUDIO MD Ot G82.20 PARAPLEGIA, UNSPECIFIED 05/29/2015 JAYNA ZAMUDIO MD Ot J18.9 PNEUMONIA, UNSPECIFIED ORGANISM 05/29/2015 JAYNA ZAMUDIO MD Ot K21.9 GASTRO-ESOPHAGEAL REFLUX DISEASE WITHOUT 05/29/2015 JAYNA ZAMUDIO MD Ot Q02 MICROCEPHALY 05/29/2015 JAYNA ZAMUDIO MD Ot R13.10 DYSPHAGIA, UNSPECIFIED 12/22/2015 LETICIA HASSAN MD Ot A41.9 SEPSIS, UNSPECIFIED ORGANISM 12/22/2015 LETICIA HASSAN MD Ot E03.9 HYPOTHYROIDISM, UNSPECIFIED 12/22/2015 LETICIA HASSAN MD Ot F73 PROFOUND INTELLECTUAL DISABILITIES 12/22/2015 LETICIA HASSAN MD Ot G40.909 EPILEPSY, UNSP, NOT INTRACTABLE, WITHOUT 12/22/2015 LETICIA HASSAN MD Ot G82.20 PARAPLEGIA, UNSPECIFIED 12/22/2015 LETICIA HASSAN MD Ot J18.9 PNEUMONIA, UNSPECIFIED ORGANISM 12/22/2015 LETICIA HASSAN MD Ot K21.9 GASTRO-ESOPHAGEAL REFLUX DISEASE WITHOUT 12/22/2015 LETICIA HASSAN MD Ot Q02 MICROCEPHALY 12/22/2015 LETICIA HASSAN MD Ot Z51.5 ENCOUNTER FOR PALLIATIVE CARE 12/22/2015 LETICIA HASSAN MD, Ot Z66 DO NOT RESUSCITATE Procedures Code [place] [address] OXIMETRY 10/16/2012 Results Test Result Range Complete blood count (CBC) with automated white blood cell (WBC) differential - 12/22/15 06:28 Blood leukocytes automated count (number/volume) 19.3 10*3/uL 4.3-11.0 Blood erythrocytes automated count (number/volume) 4.32 10*6/uL 4.35-5.85 Venous blood hemoglobin measurement (mass/volume) 13.8 g/dL 11.5-16.0 Blood hematocrit (volume fraction) 43 % 35-52 Automated erythrocyte mean corpuscular volume 99 [foz_us] 80-99 Automated erythrocyte mean corpuscular hemoglobin (mass per erythrocyte) 32 pg 25-34 Automated erythrocyte mean corpuscular hemoglobin concentration measurement ( mass/volume) 32 g/dL 32-36 Automated erythrocyte distribution width ratio 14.4 % 10.0-14.5 Automated blood platelet count (count/volume) 229 10*3/uL 130-400 Automated blood platelet mean volume measurement 11.1 [foz_us] 7.4-10.4 Automated blood neutrophils/100 leukocytes 62 % 42-75 Automated blood lymphocytes/100 leukocytes 18 % 12-44 Blood monocytes/100 leukocytes 20 % 0-12 Automated blood eosinophils/100 leukocytes 0 % 0-10 Automated blood basophils/100 leukocytes 0 % 0-10 Blood neutrophils automated count (number/volume) 12.0 10*3 1.8-7.8 Blood lymphocytes automated count (number/volume) 3.5 10*3 1.0-4.0 Blood monocytes automated count (number/volume) 3.8 10*3 0.0-1.0 Automated eosinophil count 0.0 10*3/uL 0.0-0.3 Automated blood basophil count (count/volume) 0.0 10*3/uL 0.0-0.1 Blood lactic acid measurement (moles/volume) - 12/22/15 06:28 Blood lactic acid measurement (moles/volume) 3.4 mmol/L 0.5-2.0 Influenza virus A and B antigen detection - 12/22/15 06:28 FLU RESULT NEGATIVE FOR INFLUENZA A AND B ANTIGENS BY [facility] Comprehensive metabolic panel - 12/22/15 06:28 Serum or plasma sodium measurement (moles/volume) 138 mmol/L 135-145 Serum or plasma potassium measurement (moles/volume) 4.3 mmol/L 3.6-5.0 Serum or plasma chloride measurement (moles/volume) 101 mmol/L 98-107 Carbon dioxide 28 mmol/L 21-32 Serum or plasma anion gap determination (moles/volume) 9 mmol/L 5-14 Serum or plasma urea nitrogen measurement (mass/volume) 12 mg/dL 7-18 Serum or plasma creatinine measurement (mass/volume) 0.61 mg/dL 0.60-1.30 Serum or plasma urea nitrogen/creatinine mass ratio 20 NRG Serum or plasma creatinine measurement with calculation of estimated glomerular filtration rate > NRG Serum or plasma glucose measurement (mass/volume) 108 mg/dL 70-105 Serum or plasma calcium measurement (mass/volume) 9.0 mg/dL 8.5-10.1 Serum or plasma total bilirubin measurement (mass/volume) 0.2 mg/dL 0.1-1.0 Serum or plasma alkaline phosphatase measurement (enzymatic activity/volume) 113 U/L 40-136 Serum or plasma aspartate aminotransferase measurement (enzymatic activity/ volume) 28 U/L 5-34 Serum or plasma alanine aminotransferase measurement (enzymatic activity/volume ) 18 U/L 0-55 Serum or plasma protein measurement (mass/volume) 6.5 g/dL 6.4-8.2 Serum or plasma albumin measurement (mass/volume) 3.0 g/dL 3.2-4.5 Blood manual differential performed detection - 12/22/15 06:28 Blood monocytes/100 leukocytes 18 % NRG Manual blood segmented neutrophils/100 leukocytes 48 % NRG Blood band neutrophils/100 leukocytes 8 % NRG Manual blood lymphocytes/100 leukocytes 25 % NRG Manual eosinophils/100 leukocytes in nose 0 % NRG Manual blood basophils/100 leukocytes 0 % NRG Blood erythrocyte morphology finding identification NORMAL NRG Manual blood myelocytes/100 leukocytes 1 % NRG Serum or plasma phenobarbital measurement (mass/volume) - 12/22/15 06:28 Serum or plasma phenobarbital measurement (mass/volume) 14.2 ug/mL 15.0-40.0 Valproic acid - 12/22/15 06:28 Valproic acid 111.1 ug/mL 50.0-100.0 Bacterial blood culture - 12/22/15 06:28 Bacterial blood culture NG NRG Complete urinalysis with reflex to culture - 12/22/15 06:35 Urine color determination YELLOW NRG Urine clarity determination CLEAR NRG Urine pH measurement by test strip 8 5-9 Specific gravity of urine by test strip 1.010 1.016- 1.022 Urine protein assay by test strip, semi-quantitative NEGATIVE NEGATIVE Urine glucose detection by automated test strip NEGATIVE NEGATIVE Erythrocytes detection in urine sediment by light microscopy NEGATIVE NEGATIVE Urine ketones detection by automated test strip 2+ NEGATIVE Urine nitrite detection by test strip NEGATIVE NEGATIVE Urine total bilirubin detection by test strip NEGATIVE NEGATIVE Urine urobilinogen measurement by automated test strip (mass/volume) 1 mg/dL NORMAL Urine leukocyte esterase detection by dipstick NEGATIVE NEGATIVE Automated urine sediment erythrocyte count by microscopy (number/high power field) RARE NRG Automated urine sediment leukocyte count by microscopy (number/high power field ) RARE NRG Bacteria detection in urine sediment by light microscopy NEGATIVE NRG Squamous epithelial cells detection in urine sediment by light microscopy 0-2 NRG Crystals detection in urine sediment by light microscopy NONE NRG Casts detection in urine sediment by light microscopy NONE NRG Mucus detection in urine sediment by light microscopy NEGATIVE NRG Complete urinalysis with reflex to culture NO NRG Bacterial blood culture - 12/22/15 07:28 Bacterial blood culture NG NRG Serum or plasma lactate measurement (moles/volume) - 12/22/15 09:50 Serum or plasma lactate measurement (moles/volume) 2.6 mmol/L 0.5-2.0 Encounters ACCT No. Visit Date/Time Discharge Status Pt. Type Provider Facility Loc./Unit Complaint [id number] 05/07/2014 07:57:00 05/07/2014 23:59:59 CLS Outpatient JEANETTE ZHU APRN [id number] 03/12/2014 07:44:00 03/12/2014 23:59:59 CLS Outpatient JEANETTE ZHU APRN [id number] 01/08/2014 08:46:00 01/08/2014 23:59:59 CLS Outpatient JEANETTE ZHU APRN [id number] 11/21/2013 09:00:00 11/21/2013 23:59:59 CLS Outpatient JEANETTE ZHU APRN [id number] 10/09/2013 07:31:00 10/09/2013 23:59:59 CLS Outpatient JEANETTE ZHU APRN [id number] 08/07/2013 08:27:00 08/07/2013 23:59:59 CLS Outpatient JEANETTE ZHU APRN [id number] 04/10/2013 10:08:00 04/10/2013 23:59:59 CLS Outpatient DULCE GALLAGHER MD [id number] 02/20/2013 08:09:00 02/20/2013 23:59:59 CLS Outpatient JEANETTE ZHU APRN [id number] 01/09/2013 13:17:00 01/09/2013 23:59:59 CLS Outpatient TAMIKO MORGAN MD [id number] 12/19/2012 08:02:00 12/19/2012 23:59:59 CLS Outpatient THUY ZHU APRNA S [id number] 10/10/2012 15:02:00 10/10/2012 23:59:59 CLS Outpatient JEANETTE ZHU APRN S [id number] 04/25/2012 08:22:00 04/25/2012 23:59:59 CLS Outpatient JEANETTE ZHU APRN S [id number] 02/22/2012 08:38:00 02/22/2012 23:59:59 CLS Outpatient [id number] 12/21/2011 09:33:00 12/21/2011 23:59:59 CLS Outpatient [id number] 10/10/2012 15:02:00 Document Registration [id number] 08/01/2012 08:41:00 Document Registration [id number] 06/27/2012 10:48:00 Document Registration [id number] 12/22/2015 07:27:00 12/22/2015 14:55:00 DIS Inpatient LETICIA HASSAN MD [facility] 4TH SEVERE SEPSIS, PNEUMONIA WITH HYPOXIA [id number] 05/28/2015 12:14:00 05/29/2015 14:20:00 DIS Inpatient JAYNA ZAMUDIO MD [facility] 4TH [id number] 05/23/2015 06:15:00 05/28/2015 11:57:00 DIS Inpatient JAYNA ZAMUDIO MD [facility] 4TH [id number] 04/09/2013 14:31:00 04/09/2013 17:34:00 DIS Emergency [id number] 03/31/2013 14:08:00 03/31/2013 17:05:00 DIS Emergency
[2017-05-17] MEDS ORDERED: NS IV 1000 ML 1,000 ML IV SCH ×2 (18:37→21:02)
[2017-05-17 19:09] LABS: BILIRUBIN,URINE NEGATIVE (NEGATIVE); CLARITY,URINE CLEAR; COLOR,URINE YELLOW; GLUCOSE, URINE (UA) NEGATIVE (NEGATIVE); KETONES,URINE NEGATIVE (NEGATIVE); LEUKOCYTE ESTERASE ,URINE NEGATIVE (NEGATIVE); NITRITE,URINE NEGATIVE (NEGATIVE); PH,URINE 7 (5-9); PROTEIN,URINE NEGATIVE (NEGATIVE); UROBILINOGEN,URINE NORMAL (NORMAL)
[2017-05-17 19:16] LABS: RBC,URINE 0-2 /HPF
--- NOTE | 2017-05-17 19:20 | Diagnostic Imaging Report ---
INDICATION: Fever and constipation. COMPARISON: December 22, 2015. TECHNIQUE: Single frontal radiograph of the chest dated May 17, 2017. FINDINGS: The cardiac silhouette is within normal limits in size. No significant pulmonary vascular congestion. Minimal left basilar interstitial opacities are present. Otherwise, the lungs appear clear. No significant pleural effusion. No pneumothorax. [place] right curvature of the spine. No acute osseous abnormality. IMPRESSION: Minimal left basilar atelectasis and/or pneumonitis. Dictated by: Dictated on workstation # [id number]
[2017-05-17 19:21] LABS: BASOPHILS % (AUTO) 0 % (0-10); EOSINOPHILS # (AUTO) 0.2 10^3/uL (0.0-0.3); EOSINOPHILS % (AUTO) 1 % (0-10); HEMATOCRIT 40 % (35-52); HEMOGLOBIN 13.1 G/DL (11.5-16.0); LYMPHOCYTES # (AUTO) 2.3 X 10^3 (1.0-4.0); LYMPHOCYTES % (AUTO) 12 % (12-44); MEAN CORPUSCULAR HEMOGLOBIN 32 PG (25-34); MEAN CORPUSCULAR HGB CONC 33 G/DL (32-36); MEAN CORPUSCULAR VOLUME 98 FL (80-99); MEAN PLATELET VOLUME 10.1 FL (7.4-10.4); MONOCYTES # (AUTO) 3.3 X 10^3 (0.0-1.0); MONOCYTES % (AUTO) 17 % (0-12); NEUTROPHILS # (AUTO) 13.2 X 10^3 (1.8-7.8); NEUTROPHILS % (AUTO) 70 % (42-75); PLATELET COUNT 351 10^3/uL (130-400); RED BLOOD COUNT 4.11 10^6/uL (4.35-5.85); RED CELL DISTRIBUTION WIDTH 15.4 % (10.0-14.5)
--- NOTE | 2017-05-17 19:29 | ED General ---
General Chief Complaint: Fever-Adult/Adol Stated Complaint: FEVER;CONSTIPATION Source of Information: EMS, Long-Term Records Exam Limitations: Physical Impairments History of Present Illness Date Seen by Provider: May 17, 2017 Time Seen by Provider: 18:30 Initial Comments This patient presents from [facility] in [place] via EMS. She has developed a distended abdomen with pain and tenderness today along with a fever of 103. Patient cannot provide any history as she has significant developmental disabilities. 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 Abdomen does appear distended on exam. No other symptoms were reported. 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 Allergies and Home Medications Allergies Coded Allergies: piperacillin (Verified Allergy, Mild, unknown, 12/22/15) Sulfa (Sulfonamide Antibiotics) (Verified Allergy, Unknown, 12/22/15) estrone (Verified Allergy, Unknown, 12/22/15) mirtazapine (Verified Allergy, Unknown, 12/22/15) piperazine (Verified Allergy, Unknown, 12/22/15) Home Medications Acetaminophen 650 Mg Supp.rect, 650 MG RC Q4H PRN for PAIN, (Reported) Acetaminophen 325 Mg Tablet, 650 MG PO Q6H PRN for PAIN, (Reported) TAKES 2 (325 MG) TABLETS Bisacodyl 10 Mg Supp.rect, 10 MG RC DAILY PRN for CONSTIPATION, (Reported) Diazepam 10 Mg Gel, 10 MG RC DAILY PRN for SEIZURE ACTIVITY, (Reported) GIVE FOR SEIZURE ACTIVITY LASTING OVER 5 MINUTES Divalproex Sodium 125 Mg Cap, 750 MG PO DAILY, (Reported) TAKES 6 (125MG) CAPSULES Divalproex Sodium 125 Mg Cap.sprink, 1,000 MG PO HS, (Reported) TAKES 8 (125MG) CAPSULES Hyoscyamine Sulfate 0.125 Mg Tab.subl, 0.125 MG SL EVERY 2 HOURS PRN for EXCESSIVE SECRETIONS, (Reported) Levetiracetam 100 Mg/Ml Solution, 20 ML PO BID, (Reported) Levothyroxine Sodium 125 Mcg Tablet, 125 MCG PO DAILY, (Reported) Lorazepam 2 Mg/1 Ml Vial, 2 MG IM BID PRN for SEIZURE ACTIVITY, (Reported) NOT TO EXCEED 2 DOSES PER DAY Lorazepam 1 Mg Tablet, 1 MG SL Q4H PRN for AIR HUNGER, (Reported) OR ANXIETY Mag Hydrox/Al Hydrox/Simeth 30 Ml Oral.susp, 30 ML PO PRN PRN for HEARTBURN, ( Reported) Magnesium Hydroxide 400 Mg/5 Ml Oral.susp, 30 ML PO DAILY PRN for CONSTIPATION, (Reported) Morphine Sulfate 100 Mg/5 Ml Solution, 0.5 MG PO Q15M PRN for MODERATE PAIN, ( Reported) Naphazoline HCl/Pheniramine 15 Ml Drops, 2 DROPS OU QID, (Reported) Phenobarbital 16.2 Mg Tablet, 16.2 MG PO BID, (Reported) Polyethylene Glycol 3350 119 Gm Powder, 17 GM PO DAILY, (Reported) Patient Home Medication List Home Medication List Reviewed: Yes Constitutional: see HPI EENTM: no symptoms reported Respiratory: no symptoms reported Cardiovascular: no symptoms reported Gastrointestinal: see HPI Genitourinary: no symptoms reported : No Musculoskeletal: no symptoms reported Skin: no symptoms reported Psychiatric/Neurological: See HPI Hematologic/Lymphatic: No Symptoms Reported Past Iizqwxh-Ltmsop-Egitkv Hx Patient Social History Recent Hopitalizations: No Immunizations Up To Date Date of Pneumonia Vaccine: Jan 10, 2011 Date of Influenza Vaccine: Dec 04, 2014 Seasonal Allergies Seasonal Allergies: No Surgeries History of Surgeries: Yes Surgeries: Orthopedic (Hip Fx) Respiratory Currently Using CPAP: No Currently Using BIPAP: No Cardiovascular History of Cardiac Disorders: No Neurological History of Neurological Disord: Yes Neurological Disorders: Developmental Disorder, Paralysis (Paraplegia, Aphasia , Microcephaly), Seizure Disorder Reproductive System Hx Reproductive Disorders: No Sexually Transmitted Disease: No HIV/AIDS: 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 Genitourinary History of Genitourinary Disor: No Gastrointestinal History of Gastrointestinal Di: Yes Gastrointestinal Disorders: Gastroesophageal Reflux, Chronic Constipation Musculoskeletal History of Musculoskeletal Dis: No Endocrine History of Endocrine Disorders: Yes Endocrine Disorders: Hypothyroidsim HEENT History of HEENT Disorders: Yes ("Lazy right eye", edentulous) Cancer History of Cancer: No Psychosocial History of Psychiatric Problem: No Integumentary History of Skin or Integumenta: No Physical Exam-Suspected Sepsis Physical Exam Vital Signs Vital Signs - First Documented 05/17/17 05/17/17 18:30 18:45 Temp 102.0 Pulse 119 Resp 30 B/P (MAP) 136/91 (106) Pulse Ox 95 O2 Delivery Room Air O2 Flow Rate 4.00 Capillary Refill : General Appearance: No Apparent Distress, Moderate Distress HEENT: PERRL/EOMI, Normal ENT Inspection, Pharynx Normal Neck: Normal Inspection Respiratory: Lungs Clear, Normal Breath Sounds, No Accessory Muscle Use, No Respiratory Distress Cardiovascular: No Edema, No Murmur, Normal Peripheral Pulses, Tachycardia Gastrointestinal: Normal Bowel Sounds, Soft, Distended, Tenderness (generalized ) Extremity: Normal Inspection, No Pedal Edema Neurologic/Psychiatric: Alert, Other (Paraplegia, severe cognitive deficits at baseline) Skin: normal color, warm/dry Focused Exam Evaluation Lactate Level Laboratory Tests 05/17/17 19:10: Lactic Acid Level 3.14*H 05/17/17 21:35: Lactic Acid Level 2.19*H Lactic Acid Level Progress/Results/Core Measures Suspected Sepsis SIRS Temperature: Pulse: Respiratory Rate: Laboratory Tests 05/17/17 18:50: White Blood Count 19.0H 05/18/17 03:20: White Blood Count 18.1H Blood Pressure / Mean: Laboratory Tests 05/17/17 19:10: Lactic Acid Level 3.14*H 05/17/17 21:35: Lactic Acid Level 2.19*H Laboratory Tests 05/17/17 18:50: Platelet Count 351 05/17/17 19:10: Creatinine 0.62, INR Comment 0.9, Total Bilirubin 0.2 05/18/17 03:20: Platelet Count 298, Creatinine 0.57L, Total Bilirubin 0.1 Results/Orders Lab Results Laboratory Tests Test 05/17/17 18:50 05/17/17 19:00 05/17/17 19:10 05/17/17 21:35 Range/Units White Blood Count 19.0 H 4.3-11.0 10^3/uL Red Blood Count 4.11 L 4.35-5.85 10^6/uL Hemoglobin 13.1 11.5-16.0 G/DL Hematocrit 40 35-52 % Mean Corpuscular Volume 98 80-99 FL Mean Corpuscular Hemoglobin 32 25-34 PG Mean Corpuscular Hemoglobin Concent 33 32-36 G/DL Red Cell Distribution Width 15.4 H 10.0-14.5 % Platelet Count 351 130-400 10^3/uL Mean Platelet Volume 10.1 7.4-10.4 FL Neutrophils (%) (Auto) 70 42-75 % Lymphocytes (%) (Auto) 12 12-44 % Monocytes (%) (Auto) 17 H 0-12 % Eosinophils (%) (Auto) 1 0-10 % Basophils (%) (Auto) 0 0-10 % Neutrophils # (Auto) 13.2 H 1.8-7.8 X 10^3 Lymphocytes # (Auto) 2.3 1.0-4.0 X 10^3 Monocytes # (Auto) 3.3 H 0.0-1.0 X 10^3 Eosinophils # (Auto) 0.2 0.0-0.3 10^3/uL Basophils # (Auto) 0.0 0.0-0.1 10^3/uL Neutrophils % (Manual) 50 % Lymphocytes % (Manual) 17 % Monocytes % (Manual) 21 % Eosinophils % (Manual) 1 % Basophils % (Manual) 0 % Band Neutrophils 11 % Blood Morphology Comment NORMAL Urine Color YELLOW Urine Clarity CLEAR Urine pH 7 5-9 Urine Specific [place] 1.010 L 1.016-1.022 Urine Protein NEGATIVE NEGATIVE Urine Glucose (UA) NEGATIVE NEGATIVE Urine Ketones NEGATIVE NEGATIVE Urine Nitrite NEGATIVE NEGATIVE Urine Bilirubin NEGATIVE NEGATIVE Urine Urobilinogen NORMAL NORMAL MG/DL Urine Leukocyte Esterase NEGATIVE NEGATIVE Urine RBC (Auto) 1+ H NEGATIVE Urine RBC 0-2 /HPF Urine WBC NONE /HPF Urine Crystals NONE /LPF Urine Bacteria NONE /HPF Urine Casts NONE /LPF Urine Mucus NEGATIVE /LPF Urine Culture Indicated NO Prothrombin Time 12.6 12.2-14.7 SEC INR Comment 0.9 0.8-1.4 Activated Partial Thromboplast Time 25 24-35 SEC Sodium Level 138 135-145 MMOL/L Potassium Level 4.6 3.6-5.0 MMOL/L Chloride Level 102 98-107 MMOL/L Carbon Dioxide Level 25 21-32 MMOL/L Anion Gap 11 5-14 MMOL/L Blood Urea Nitrogen 16 7-18 MG/DL Creatinine 0.62 0.60-1.30 MG/DL Estimat Glomerular Filtration Rate > 60 BUN/Creatinine Ratio 26 Glucose Level 132 H 70-105 MG/DL Lactic Acid Level 3.14 *H 2.19 *H 0.50-2.00 MMOL/L Calcium Level 9.2 8.5-10.1 MG/DL Total Bilirubin 0.2 0.1-1.0 MG/DL Aspartate Amino Transf (AST/SGOT) 28 5-34 U/L Alanine Aminotransferase (ALT/SGPT) 25 0-55 U/L Alkaline Phosphatase 202 H 40-136 U/L Total Protein 7.3 6.4-8.2 GM/DL Albumin 3.5 3.2-4.5 GM/DL Lipase 27 8-78 U/L Thyroid Stimulating Hormone (TSH) 2.86 0.35-4.94 UIU/ML Free Thyroxine 0.92 0.70-1.48 NG/DL Valproic Acid (Depakene) Level 36.2 L 50.0-100.0 UG/ML Test 05/18/17 03:20 Range/Units White Blood Count 18.1 H 4.3-11.0 10^3/uL Red Blood Count 3.49 L 4.35-5.85 10^6/uL Hemoglobin 11.0 L 11.5-16.0 G/DL Hematocrit 34 L 35-52 % Mean Corpuscular Volume 98 80-99 FL Mean Corpuscular Hemoglobin 32 25-34 PG Mean Corpuscular Hemoglobin Concent 32 32-36 G/DL Red Cell Distribution Width 15.5 H 10.0-14.5 % Platelet Count 298 130-400 10^3/uL Mean Platelet Volume 9.8 7.4-10.4 FL Neutrophils (%) (Auto) 62 42-75 % Lymphocytes (%) (Auto) 19 12-44 % Monocytes (%) (Auto) 19 H 0-12 % Eosinophils (%) (Auto) 0 0-10 % Basophils (%) (Auto) 0 0-10 % Neutrophils # (Auto) 11.2 H 1.8-7.8 X 10^3 Lymphocytes # (Auto) 3.4 1.0-4.0 X 10^3 Monocytes # (Auto) 3.4 H 0.0-1.0 X 10^3 Eosinophils # (Auto) 0.1 0.0-0.3 10^3/uL Basophils # (Auto) 0.0 0.0-0.1 10^3/uL Sodium Level 137 135-145 MMOL/L Potassium Level 4.7 3.6-5.0 MMOL/L Chloride Level 105 98-107 MMOL/L Carbon Dioxide Level 27 21-32 MMOL/L Anion Gap 5 5-14 MMOL/L Blood Urea Nitrogen 10 7-18 MG/DL Creatinine 0.57 L 0.60-1.30 MG/DL Estimat Glomerular Filtration Rate > 60 BUN/Creatinine Ratio 18 Glucose Level 126 H 70-105 MG/DL Calcium Level 8.2 L 8.5-10.1 MG/DL Phosphorus Level 4.0 2.3-4.7 MG/DL Magnesium Level 1.3 L 1.8-2.4 MG/DL Total Bilirubin 0.1 0.1-1.0 MG/DL Aspartate Amino Transf (AST/SGOT) 35 H 5-34 U/L Alanine Aminotransferase (ALT/SGPT) 29 0-55 U/L Alkaline Phosphatase 148 H 40-136 U/L Total Protein 5.9 L 6.4-8.2 GM/DL Albumin 2.8 L 3.2-4.5 GM/DL Micro Results Microbiology 05/17/17 Influenza Types A,B Antigen (RYAN) - Final, Complete My Orders Orders - ERYN CARDOZO MD Cbc With Automated Diff (05/17/17 18:37) Comprehensive Metabolic Panel (05/17/17 18:37) Lactic Acid Analyzer (05/17/17 18:37) Blood Culture (05/17/17 18:37) Sputum Culture (05/17/17 18:37) Ua Culture If Indicated (05/17/17 18:37) Protime With Inr (05/17/17:) Partial Thromboplastin Time (05/17/17 18:37) Chest 1 View, Ap/Pa Only (05/17/17 18:37) O2 (05/17/17 18:37) Saline Lock/Iv-Start (05/17/17 18:37) Saline Lock/Iv-Start (05/17/17 18:37) Vital Signs Adult Sepsis Patie Q1H (05/17/17 18:37) Remove Rings In Anticipation O (05/17/17 18:37) Influenza A And B Antigens (05/17/17 18:37) Saline Lock/Iv-Start (05/17/17 18:37) Ns Iv 1000 Ml (Sodium Chloride 0.9%) (05/17/17 18:37) Valproic Acid (05/17/17 18:37) Thyroid Stimulating Hormone (05/17/17 18:37) Free T4 (Free Thyroxine) (05/17/17 18:37) Fentanyl Injection (Sublimaze Injection (05/17/17 18:35) Acetaminophen Suppository (Tylenol Suppo (05/17/17 18:36) Lipase (05/17/17 18:52) Manual Differential (05/17/17 18:50) Ct Abdomen/Pelvis W (05/17/17 19:49) Levofloxacin 750 Mg/150 Ml Iv (Levaquin (05/17/17 20:00) Iohexol Injection (Omnipaque 350 Mg/Ml 1 (05/17/17 20:15) Ns (Ivpb) (Sodium Chloride 0.9% Ivpb Bag (05/17/17 20:15) Ns Iv 1000 Ml (Sodium Chloride 0.9%) (05/17/17 21:02) Medications Given in ED Current Medications Medications Dose Ordered Sig/Tea Route Start Time Stop Time Status Last Admin Dose Admin Iohexol 100 ml ONCE ONCE IV 05/17/17 20:15 05/17/17 20:16 DC 05/17/17 20:13 100 ML Sodium Chloride 100 ml ONCE ONCE IV 05/17/17 20:15 05/17/17 20:16 DC 05/17/17 20:13 100 ML Vital Signs/I&O Vital Sign - Last 12Hours 05/17/17 05/17/17 05/17/17 05/17/17 22:10 22:15 22:29 22:30 Temp 98.7 Pulse 112 110 115 116 Resp 20 36 22 B/P (MAP) 144/73 133/76 (95) 133/76 (95) Pulse Ox 97 94 93 O2 Delivery OxyMask OxyMask OxyMask O2 Flow Rate 2.00 2.00 05/17/17 05/17/17 05/17/17 05/17/17 23:00 23:00 23:21 23:30 Pulse 108 98 Resp 26 16 B/P (MAP) 143/97 (112) 136/75 (95) Pulse Ox 94 94 98 O2 Delivery OxyMask Nasal Cannula OxyMask OxyMask O2 Flow Rate 2.00 2.00 2.00 2.00 05/18/17 05/18/17 05/18/17 05/18/17 00:00 00:00 00:00 01:00 Pulse 84 94 B/P (MAP) 125/75 (92) Pulse Ox 98 99 O2 Delivery Nasal Cannula OxyMask Nasal Cannula O2 Flow Rate 2.00 2.00 2.00 05/18/17 05/18/17 05/18/17 05/18/17 01:00 02:00 03:00 04:00 Pulse 98 86 80 75 Resp 10 11 B/P (MAP) 110/71 (84) 112/95 (101) 108/67 (81) 117/60 (79) Pulse Ox 90 97 93 98 O2 Delivery Nasal Cannula Nasal Cannula Nasal Cannula Nasal Cannula O2 Flow Rate 2.00 2.00 2.00 2.00 05/18/17 05/18/17 05/18/17 05/18/17 04:00 04:00 05:00 06:00 Temp 99.0 Pulse 77 90 Resp 12 13 B/P (MAP) 101/60 (74) 120/98 (105) Pulse Ox 98 92 95 O2 Delivery Nasal Cannula Nasal Cannula Nasal Cannula O2 Flow Rate 2.00 2.00 2.00 05/18/17 07:00 Pulse 82 Intake and Output 05/18/17 00:00 Intake Total 2100 ml Balance 2100 ml Capillary Refill : Progress Note #1: Progress Note Patient was noted to be tachycardic and febrile. Septic workup was initiated. Rectal Tylenol was administered. Fentanyl was given for pain and did seem to relax her. IV fluids are infusing. Progress Note #2: Time: 21:06 Progress Note Based on CT imaging source of infection was thought to be related to colitis. Patient was also constipated. There was some atelectasis in the right lower lung. Chest x-ray will be repeated in the morning to determine if this is a developing pneumonia. Patient received Levaquin 750 mg IV after blood cultures were drawn. 2 L of IV normal saline were given in the ER. Diagnostic Imaging Diagonstic Imaging: Xray Plain Films/CT/US/NM/MRI: chest Comments Chest x-ray viewed by me and report reviewed. See report below: NAME: URIEL MCDOWELL [facility] REC#: [id number] PT STATUS: REG ER : 1955 PHYSICIAN: ERYN CARDOZO MD ADMIT DATE: 05/17/17/ER Draft Date of Exam:05/17/17 CHEST 1 VIEW, AP/PA ONLY INDICATION: Fever and constipation. COMPARISON: December 22, 2015. TECHNIQUE: Single frontal radiograph of the chest dated May 17, 2017. FINDINGS: The cardiac silhouette is within normal limits in size. No significant pulmonary vascular congestion. Minimal left basilar interstitial opacities are present. Otherwise, the lungs appear clear. No significant pleural effusion. No pneumothorax. [place] right curvature of the spine. No acute osseous abnormality. IMPRESSION: Minimal left basilar atelectasis and/or pneumonitis. Dictated on workstation # [id number] Dict: 05/17/171915 Trans: 05/17/171919 [id number] Interpreted by: BLANCA GOFF MD Departure Communication (Admissions) Time/Spoke to Admitting Phy: 21:[address] Wheeler Impression Impression: Primary Impression: Sepsis Qualified Codes: A41.9 - Sepsis, unspecified organism Additional Impressions: Colitis Constipation Qualified Codes: K59.00 - Constipation, unspecified Abdominal pain Qualified Codes: R10.84 - Generalized abdominal pain Atelectasis of right lung Disposition: ADMITTED INPATIENT Condition: Improved Admissions Decision to Admit Reason: Admit from ER (General) Decision to Admit/Date: May 17, 2017 Time/Decision to Admit Time: 18:35 Departure-Patient Inst. Referrals: JAYNA ZAMUDIO MD (PCP) Primary Care Physician ERYN CARDOZO MD May 17, 2017 19:28
[2017-05-17 19:30] LABS: INR 0.9 (0.8-1.4); PROTHROMBIN TIME PATIENT 12.6 SEC (12.2-14.7)
[2017-05-17 19:38] LABS: BAND NEUTROPHILS 11 %; BASOPHILS % (MANUAL) 0 %; EOSINOPHILS % (MANUAL) 1 %; LYMPHOCYTES % (MANUAL) 17 %; MONOCYTES % (MANUAL) 21 %; NEUTROPHILS % (MANUAL) 50 %; RBC MORPH NORMAL
[2017-05-17 19:40] LABS: ALANINE AMINOTRANSFERASE 25 U/L (0-55); ALBUMIN 3.5 GM/DL (3.2-4.5); ALKALINE PHOSPHATASE 202 U/L (40-136); BILIRUBIN,TOTAL 0.2 MG/DL (0.1-1.0); BUN/CREATININE RATIO 26; CALCIUM 9.2 MG/DL (8.5-10.1); CARBON DIOXIDE 25 MMOL/L (21-32); CHLORIDE 102 MMOL/L (98-107); CREATININE SERUM 0.62 MG/DL (0.60-1.30); GFR ESTIMATED > 60; GLUCOSE 132 MG/DL (70-105); LIPASE 27 U/L (8-78); POTASSIUM 4.6 MMOL/L (3.6-5.0); SODIUM 138 MMOL/L (135-145); TOTAL PROTEIN 7.3 GM/DL (6.4-8.2)
[2017-05-17 20:00] LABS: FREE T4 (FREE THYROXINE) 0.92 NG/DL (0.70-1.48); VALPROIC ACID 36.2 UG/ML (50.0-100.0)
[2017-05-17] MEDS ORDERED: LEVOFLOXACIN 750 MG/150 ML IV 150 ML IV ONE (20:00)
[2017-05-17] MEDS ORDERED: IOHEXOL 350 MG/ML 100 ML (OMNIPAQUE 350) VIAL IV ONE (20:15)
[2017-05-17] MEDS ORDERED: NS 100 ML (IVPB) BAG IV ONE (20:15)
--- NOTE | 2017-05-17 20:37 | Diagnostic Imaging Report ---
INDICATION: Fever, abdominal distention firm to touch. Patient is moaning. Patient has paraplegia. CONTRAST: 100 mL Omnipaque 350 was given intravenously. COMPARISON STUDY: CT scan dated 05/23/2015. FINDINGS: Dependent atelectasis is again seen in the right lung base. No pleural effusions are present. The liver, gallbladder, spleen, pancreas, adrenal glands and kidneys appear normal. A Contreras catheter is present in a decompressed urinary bladder. The uterus and adnexal structures appear unremarkable. Mild circumferential thickening of the rectum and distal sigmoid colon is again identified. Moderate amount of stool is present. The bowel thickening may be due to chronic constipation. Bowel above this is not significantly dilated. Small bowel loops appear normal. No ascites or free air is present. Scoliosis and degenerative changes of the spine are present. IMPRESSION: 1. Mild constipation is present. There is some circumferential thickening of the rectum and distal sigmoid colon consistent with a nonspecific colitis. This could be due to chronic constipation. 2. A Contreras catheter is present in a decompressed urinary bladder. There is some questionable bladder wall thickening suggestive of possible cystitis. 3. Right basilar atelectasis is again identified. Dictated by: Dictated on workstation # [id number]
--- OUTSIDE RECORDS SUMMARY | 2017-05-17 21:21 | XMS REPORT | Continuity of Care Document ---
Author Author [facility] C[facility] of [facility] of [facility] Address Unknown Phone Unavailable Allergies Active Description Code Type Severity Reaction Onset Reported/Identified Relationship to Patient Clinical Status Yes estrone Drug Allergy N/A N/A 07/16/2009 Yes piperacillin Drug Allergy N/ A N/A 07/16/2009 Yes Remeron Drug Allergy N/A N/A 07/16/2009 Yes estrone Drug Allergy 07/16/2009 Yes piperacillin Drug Allergy 07/16/2009 Yes Remeron Drug Allergy 07/16/2009 Yes sulfa drug Drug Allergy 07/16/2009 Yes piperacillin [id number] Drug Allergy Mild unknown 12/22/2015 Yes estrone [id number] Drug Allergy Unknown N/A 12/22/2015 Yes mirtazapine [id number] Drug Allergy Unknown N/A 12/22/2015 Yes piperazine [id number] Drug Allergy Unknown N/A 12/22/2015 Yes Sulfa (Sulfonamide Antibiotics) [id number] Drug Allergy Unknown N/A 2015 Medications There [...] S 780.39 Convulsions [as Sx] 12/18/2007 ELAINE ZUH APRNNDA S V58.69 taking high-risk medication 12/18/2007 ELAINE ZHU APRNNDA S 780.39 Convulsions [as Sx] 12/18/2007 ELAINE ZHU APRNNDA S V58.69 taking high-risk medication 12/18/2007 ELAINE ZHU APRNNDA S 780.39 Convulsions [as Sx] 12/18/2007 ELAINE ZHU APRNNDA S V58.69 taking high-risk medication 12/18/2007 [employer], JEANTETE S 780.39 Convulsions [as Sx] 12/18/2007 MARKO [...] [place], JEANETTE S 285.9 ANEMIA 09/16/2008 [employer], JEANETTE S 319 Mental Retardation 09/16/2008 [employer], JEANETTE S 486 Pneumonitis 09/16/2008 [employer], JEANETTE S 285.9 ANEMIA 09/16/2008 [employer], JEANETTE S 319 Mental Retardation 09/16/2008 [employer], JEANETTE S 486 Pneumonitis 09/16/2008 [employer], JEANETTE S 285.9 ANEMIA 09/16/2008 [employer], JEANETTE S 319 Mental Retardation 09/16/2008 [employer], JEANETTE S 486 Pneumonitis 09/16/2008 [employer], JEANETTE S 285.9 ANEMIA 09/16/2008 [employer], JEANETTE S 319 Mental Retardation 09/16/2008 [employer], JEANETTE S 486 Pneumonitis 09/16/2008 [employer], JEANETTE S 285.9 ANEMIA 09/16/2008 [employer], JEANETTE S 319 Mental Retardation 09/16/2008 [employer], JEANETTE S 486 Pneumonitis 09/16/2008 [employer], JEANETTE S 285.9 ANEMIA 09/16/2008 [employer], JEANETTE S 319 Mental Retardation 09/16/2008 [employer], JEANETTE S 486 Pneumonitis 07/08/2009 244.9 HYPOTHYROIDISM 07/08/2009 244.9 HYPOTHYROIDISM 07/08/2009 [employer], JEANETTE S 244.9 HYPOTHYROIDISM 07/08/2009 244.9 HYPOTHYROIDISM 07/08/2009 244.9 HYPOTHYROIDISM 07/08/2009 244.9 HYPOTHYROIDISM 07/08/2009 [employer], JEANETTE S 244.9 HYPOTHYROIDISM 07/08/2009 [employer], JEANETTE S 244.9 HYPOTHYROIDISM 07/08/2009 CATHY NICOLE, TAMIKO Baker 244.9 HYPOTHYROIDISM 07/08/2009 [employer], JEANETTE S 244.9 HYPOTHYROIDISM 07/08/2009 ELLIOTT NICOLE, DULCE 244.9 HYPOTHYROIDISM 07/08/2009 [employer], JEANETTE S 244.9 HYPOTHYROIDISM 07/08/2009 [employer], JEANETTE S 244.9 HYPOTHYROIDISM 07/08/2009 [employer], JEANETTE S 244.9 HYPOTHYROIDISM 07/08/2009 [employer], JEANETTE S 244.9 HYPOTHYROIDISM 07/08/2009 [employer], JEANETTE S 244.9 HYPOTHYROIDISM 07/08/2009 [employer], JEANETTE S 244.9 HYPOTHYROIDISM 08/19/2009 729.5 Pain In Limb 08/19/2009 729.5 Pain In Limb 08/19/2009 [employer], JEANETTE S 729.5 Pain In Limb 08/19/2009 729.5 Pain In Limb 08/19/2009 729.5 Pain In Limb 08/19/2009 729.5 Pain In Limb 08/19/2009 [employer], JEANETTE S 729.5 Pain In Limb 08/19/2009 [employer], JEANETTE S 729.5 Pain In Limb 08/19/2009 CATHY NICOLE, TAMIKO Baker 729.5 Pain In Limb 08/19/2009 [employer], JEANETTE S 729.5 Pain In Limb 08/19/2009 DULCE GALLAGHER MD 729.5 Pain In Limb 08/19/2009 [employer], JEANETTE S 729.5 Pain In Limb 08/19/2009 [employer], JEANETTE S 729.5 Pain In Limb 08/19/2009 [employer], JEANETTE S 729.5 Pain In Limb 08/19/2009 [employer], JEANETTE S 729.5 Pain In Limb 08/19/2009 [employer], JEANETTE S 729.5 Pain In Limb 08/19/2009 [employer], JEANETTE S 729.5 Pain In Limb 08/26/2009 682.7 Other Cellulitis And Abscess, Foot, Except Toes 08/26/2009 682.7 Other Cellulitis And Abscess, Foot, Except Toes 08/26/2009 [employer], JEANETTE S 682.7 Other Cellulitis And Abscess, Foot, Except Toes 08/26/2009 682.7 Other Cellulitis And Abscess, Foot, Except Toes 08/26/2009 682.7 Other Cellulitis And Abscess, Foot, Except Toes 08/26/2009 682.7 Other Cellulitis And Abscess, Foot, Except Toes 08/26/2009 [employer], JEANETTE S 682.7 Other Cellulitis And Abscess, Foot, Except Toes 08/26/2009 [employer], JEANETTE S 682.7 Other Cellulitis And Abscess, Foot, Except Toes 08/26/2009 TAMIKO MORGAN MD 682.7 Other Cellulitis And Abscess, Foot, Except Toes 08/26/2009 [employer], JEANETTE S 682.7 Other Cellulitis And Abscess, Foot, Except Toes 08/26/2009 ELLIOTT NICOLE, DULCE 682.7 Other Cellulitis And Abscess, Foot, Except Toes 08/26/2009 [employer], JEANETTE S 682.7 Other Cellulitis And Abscess, Foot, Except Toes 08/26/2009 [employer], JEANETTE S 682.7 Other Cellulitis And Abscess, Foot, Except Toes 08/26/2009 [employer], JEANETTE S 682.7 Other Cellulitis And Abscess, Foot, Except Toes 08/26/2009 [employer], EJANETTE S 682.7 Other Cellulitis And Abscess, Foot, Except Toes 08/26/2009 [employer], JEANETTE S 682.7 Other Cellulitis And Abscess, Foot, Except Toes 08/26/2009 [employer], JEANETTE S 682.7 Other Cellulitis And Abscess, Foot, Except Toes 12/16/2009 133.0 Scabies 12/16/2009 133.0 Scabies 12/16/2009 [employer], JEANETTE S 133.0 Scabies 12/16/2009 133.0 Scabies 12/16/2009 133.0 Scabies 12/16/2009 133.0 Scabies 12/16/2009 [employer], JEANETTE S 133.0 Scabies 12/16/2009 [employer], JEANETTE S 133.0 Scabies 12/16/2009 TAMIKO MORGAN MD 133.0 Scabies 12/16/2009 [employer], JEANETTE S 133.0 Scabies 12/16/2009 ELLIOTT NICOLE, DULCE 133.0 Scabies 12/16/2009 [employer], JEANETTE S 133.0 Scabies 12/16/2009 [employer], JEANETTE S 133.0 Scabies 12/16/2009 [employer], JEANETTE S 133.0 Scabies 12/16/2009 [employer], JEANETTE S 133.0 Scabies 12/16/2009 [employer], JEANETTE S 133.0 Scabies 12/16/2009 [employer], JEANETTE S 133.0 Scabies 12/23/2009 782.1 Rash 12/23/2009 782.1 Rash 12/23/2009 [employer], JEANETTE S 782.1 Rash 12/23/2009 782.1 Rash 12/23/2009 782.1 Rash 12/23/2009 782.1 Rash 12/23/2009 [employer], JEANETTE S 782.1 Rash 12/23/2009 [employer], JEANETTE S 782.1 Rash 12/23/2009 CATHY NICOLE, TAMIKO M 782.1 Rash 12/23/2009 [employer], JEANETTE S 782.1 Rash 12/23/2009 DULCE GALLAGHER MD 782.1 Rash 12/23/2009 [employer], JEANETTE S 782.1 Rash 12/23/2009 [employer], JEANETTE S 782.1 Rash 12/23/2009 [employer], JEANETTE S 782.1 Rash 12/23/2009 [employer], JEANETTE S 782.1 RASH 12/23/2009 [employer], JEANETTE S 782.1 RASH 12/23/2009 [employer], JEANETTE S 782.1 RASH 02/16/2011 599.0 URINARY TRACT INFECTION SITE NOT SPECIFIED 02/16/2011 599.0 URINARY TRACT INFECTION SITE NOT SPECIFIED 02/16/2011 [employer], JEANETTE S 599.0 URINARY TRACT INFECTION SITE NOT SPECIFIED 02/16/2011 599.0 URINARY TRACT INFECTION SITE NOT SPECIFIED 02/16/2011 599.0 URINARY TRACT INFECTION SITE NOT SPECIFIED 02/16/2011 599.0 URINARY TRACT INFECTION SITE NOT SPECIFIED 02/16/2011 [employer], JEANETTE S 599.0 URINARY TRACT INFECTION SITE NOT SPECIFIED 02/16/2011 [employer], JEANETTE S 599.0 URINARY TRACT INFECTION SITE NOT SPECIFIED 02/16/2011 TAMIKO MORGAN MD 599.0 URINARY TRACT INFECTION SITE NOT SPECIFIED 02/16/2011 [employer], JEANETTE S 599.0 URINARY TRACT INFECTION SITE NOT SPECIFIED 02/16/2011 DULCE GALLAGHER MD 599.0 URINARY TRACT INFECTION SITE NOT SPECIFIED 02/16/2011 [employer], JEANETTE S 599.0 URINARY TRACT INFECTION SITE NOT SPECIFIED 02/16/2011 [employer], JEANETTE S 599.0 URINARY TRACT INFECTION SITE NOT SPECIFIED 02/16/2011 [employer], JEANETTE S 599.0 URINARY TRACT INFECTION SITE NOT SPECIFIED 02/16/2011 [employer], JEANETTE S 599.0 URINARY TRACT INFECTION SITE NOT SPECIFIED 02/16/2011 [employer], JEANETTE S 599.0 URINARY TRACT INFECTION SITE NOT SPECIFIED 02/16/2011 [employer], JEANETTE S 599.0 URINARY TRACT INFECTION SITE NOT SPECIFIED 02/22/2012 345.10 GENERALIZED CONVULSIVE EPILEPSY WITHOUT INTRACTABLE EPILEPSY 02/22/2012 [employer], JEANETTE S 345.10 GENERALIZED CONVULSIVE EPILEPSY WITHOUT INTRACTABLE EPILEPSY 02/22/2012 345.10 GENERALIZED CONVULSIVE EPILEPSY WITHOUT INTRACTABLE EPILEPSY 02/22/2012 345.10 GENERALIZED CONVULSIVE EPILEPSY WITHOUT INTRACTABLE EPILEPSY 02/22/2012 345.10 GENERALIZED CONVULSIVE EPILEPSY WITHOUT INTRACTABLE EPILEPSY 02/22/2012 [employer], JEANETTE S 345.10 GENERALIZED CONVULSIVE EPILEPSY WITHOUT INTRACTABLE EPILEPSY 02/22/2012 [employer], JEANETTE S 345.10 GENERALIZED CONVULSIVE EPILEPSY WITHOUT [...] CONVULSIVE EPILEPSY WITHOUT INTRACTABLE EPILEPSY 02/22/2012 [employer], JEANETTE S 345.10 GENERALIZED CONVULSIVE EPILEPSY WITHOUT INTRACTABLE EPILEPSY 02/22/2012 [employer], JEANETTE S 345.10 GENERALIZED CONVULSIVE EPILEPSY WITHOUT INTRACTABLE EPILEPSY 02/22/2012 MARKO VILLARN, JEANETTE S 345.10 GENERALIZED CONVULSIVE EPILEPSY WITHOUT INTRACTABLE EPILEPSY 02/22/2012 [employer], JEANETTE S 345.10 GENERALIZED CONVULSIVE EPILEPSY WITHOUT [...] OF ANKLE AND FOOT JOINT 02/20/2013 [employer], JEANETTE S 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 02/20/2013 [employer], JEANETTE S 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 02/20/2013 [employer], JEANETTE S 718.47 CONTRACTURE OF ANKLE AND [...] OF LOWER EXTREMITIES WITH INFLAMMATION 04/10/2013 [employer], JEANETTE S 459.81 VENOUS (PERIPHERAL) INSUFFICIENCY UNSPECIFIED 04/10/2013 MARKO [place], JEANETTE S 454.1 VARICOSE VEINS OF LOWER EXTREMITIES WITH INFLAMMATION 04/10/2013 [employer], JEANETTE S 459.81 VENOUS (PERIPHERAL) INSUFFICIENCY UNSPECIFIED 04/10/2013 MARKO JN, JEANETTE S 454.1 VARICOSE VEINS OF LOWER EXTREMITIES WITH INFLAMMATION 04/10/2013 [employer], JEANETTE S 459.81 VENOUS (PERIPHERAL) INSUFFICIENCY UNSPECIFIED 11/21/2013 MARKO [place] JEANETTE S 372.30 CONJUNCTIVITIS UNSPECIFIED 11/21/2013 ELAINE ZHU APRNNDA S 782.1 RASH 11/21/2013 MARKO VILLARN, JEANETTE S 372.30 CONJUNCTIVITIS UNSPECIFIED 11/21/2013 [employer], JEANETTE S 782.1 RASH 11/21/2013 [employer], JEANETTE S 372.30 CONJUNCTIVITIS UNSPECIFIED 11/21/2013 [employer], JEANETTE S 782.1 RASH 11/21/2013 [employer], JEANETTE S 372.30 CONJUNCTIVITIS UNSPECIFIED 11/21/2013 MARKO [...] MD Ot R13.10 DYSPHAGIA, UNSPECIFIED 05/28/2015 JAYNA ZAMUDIO MD Ot R14.0 ABDOMINAL DISTENSION (GASEOUS) 05/28/2015 [...] OBSTRUCTIVE SLEEP APNEA (ADULT) (PEDIATR 05/29/2015 JAYNA ZAMUDIO MD Ot G82.20 PARAPLEGIA, UNSPECIFIED 05/29/2015 JAYNA [...] Procedures Code [place] [id number] OXIMETRY 10/16/2012 Results Test Result Range Complete [...] FOR INFLUENZA A AND B ANTIGENS BY [facility] [place] Comprehensive metabolic panel - 12/22/15 06:28 Serum [...] plasma lactate measurement (moles/volume) 2.6 mmol/L 0.5-2.0 Complete blood count (CBC) with automated white blood cell (WBC) differential - 05/17/17 18:50 Blood leukocytes automated count (number/volume) 19.0 10*3/uL 4.3-11.0 Blood erythrocytes automated count (number/volume) 4.11 10*6/uL 4.35-5.85 Venous blood hemoglobin measurement (mass/volume) 13.1 g/dL 11.5-16.0 Blood hematocrit (volume fraction) 40 % 35-52 Automated erythrocyte mean corpuscular volume 98 [foz_us] 80-99 Automated erythrocyte mean corpuscular hemoglobin (mass per erythrocyte) 32 pg 25-34 Automated erythrocyte mean corpuscular hemoglobin concentration measurement ( mass/volume) 33 g/dL 32-36 Automated erythrocyte distribution width ratio 15.4 % 10.0-14.5 Automated blood platelet count (count/volume) 351 10*3/uL 130-400 Automated blood platelet mean volume measurement 10.1 [foz_us] 7.4-10.4 Automated blood neutrophils/100 leukocytes 70 % 42-75 Automated blood lymphocytes/100 leukocytes 12 % 12-44 Blood monocytes/100 leukocytes 17 % 0-12 Automated blood eosinophils/100 leukocytes 1 % 0-10 Automated blood basophils/100 leukocytes 0 % 0-10 Blood neutrophils automated count (number/volume) 13.2 10*3 1.8-7.8 Blood lymphocytes automated count (number/volume) 2.3 10*3 1.0-4.0 Blood monocytes automated count (number/volume) 3.3 10*3 0.0-1.0 Automated eosinophil count 0.2 10*3/uL 0.0-0.3 Automated blood basophil count (count/volume) 0.0 10*3/uL 0.0-0.1 Blood manual differential performed detection - 05/17/17 18:50 Blood monocytes/100 leukocytes 21 % NRG Manual blood segmented neutrophils/100 leukocytes 50 % NRG Blood band neutrophils/100 leukocytes 11 % NRG Manual blood lymphocytes/100 leukocytes 17 % NRG Manual eosinophils/100 leukocytes in nose 1 % NRG Manual blood basophils/100 leukocytes 0 % NRG Blood erythrocyte morphology finding identification NORMAL NRG Complete urinalysis with reflex to culture - 05/17/17 19:00 Urine color determination YELLOW NRG Urine clarity determination CLEAR NRG Urine pH measurement by test strip 7 5-9 Specific gravity of urine by test strip 1.010 1.016- 1.022 Urine protein assay by test strip, semi-quantitative NEGATIVE NEGATIVE Urine glucose detection by automated test strip NEGATIVE NEGATIVE Erythrocytes detection in urine sediment by light microscopy 1+ NEGATIVE Urine ketones detection by automated test strip NEGATIVE NEGATIVE Urine nitrite detection by test strip NEGATIVE NEGATIVE Urine total bilirubin detection by test strip NEGATIVE NEGATIVE Urine urobilinogen measurement by automated test strip (mass/volume) NORMAL NORMAL Urine leukocyte esterase detection by dipstick NEGATIVE NEGATIVE Automated urine sediment erythrocyte count by microscopy (number/high power field) [HPF] NRG Automated urine sediment leukocyte count by microscopy (number/high power field ) NONE NRG Bacteria detection in urine sediment by light microscopy NONE NRG Crystals detection in urine sediment by light microscopy NONE NRG Casts detection in urine sediment by light microscopy NONE NRG Mucus detection in urine sediment by light microscopy NEGATIVE NRG Complete urinalysis with reflex to culture NO NRG PT panel in platelet poor plasma by coagulation assay - 05/17/17 19:10 Prothrombin time (PT) in platelet poor plasma by coagulation assay 12.6 s 12.2-14.7 INR in platelet poor plasma or blood by coagulation assay 0.9 0.8-1.4 Activated partial thromboplastin time (aPTT) in platelet poor plasma bycoagulation assay - 05/17/17 19:10 Activated partial thromboplastin time (aPTT) in platelet poor plasma bycoagulation assay 25 s 24-35 Blood lactic acid measurement (moles/volume) - 05/17/17 19:10 Blood lactic acid measurement (moles/volume) 3.14 mmol/L 0.50-2.00 Comprehensive metabolic panel - 05/17/17 19:10 Serum or plasma sodium measurement (moles/volume) 138 mmol/L 135-145 Serum or plasma potassium measurement (moles/volume) 4.6 mmol/L 3.6-5.0 Serum or plasma chloride measurement (moles/volume) 102 mmol/L 98-107 Carbon dioxide 25 mmol/L 21-32 Serum or plasma anion gap determination (moles/volume) 11 mmol/L 5-14 Serum or plasma urea nitrogen measurement (mass/volume) 16 mg/dL 7-18 Serum or plasma creatinine measurement (mass/volume) 0.62 mg/dL 0.60-1.30 Serum or plasma urea nitrogen/creatinine mass ratio 26 NRG Serum or plasma creatinine measurement with calculation of estimated glomerular filtration rate > NRG Serum or plasma glucose measurement (mass/volume) 132 mg/dL 70-105 Serum or plasma calcium measurement (mass/volume) 9.2 mg/dL 8.5-10.1 Serum or plasma total bilirubin measurement (mass/volume) 0.2 mg/dL 0.1-1.0 Serum or plasma alkaline phosphatase measurement (enzymatic activity/volume) 202 U/L 40-136 Serum or plasma aspartate aminotransferase measurement (enzymatic activity/ volume) 28 U/L 5-34 Serum or plasma alanine aminotransferase measurement (enzymatic activity/volume ) 25 U/L 0-55 Serum or plasma protein measurement (mass/volume) 7.3 g/dL 6.4-8.2 Serum or plasma albumin measurement (mass/volume) 3.5 g/dL 3.2-4.5 Lipase - 05/17/17 19:10 Lipase 27 U/L 8-78 THYROID STIMULATING HORMONE - 05/17/17 19:10 THYROID STIMULATING HORMONE 2.86 u[iU]/mL 0.35-4.94 Serum or plasma thyroxine (T4) free measurement (mass/volume) - 05/17/17 19:10 Serum or plasma thyroxine (T4) free measurement (mass/volume) 0.92 ng/dL 0.70-1.48 [id number] - 05/17/17 19:10 [id number] 36.2 ug/mL 50.0-100.0 Influenza virus A and B antigen detection - 05/17/17 19:14 FLU RESULT NEGATIVE FOR INFLUENZA A AND B ANTIGENS BY IA NRG Encounters ACCT No. Visit Date/Time Discharge Status Pt. Type Provider Facility Loc./Unit Complaint [id number] 05/07/2014 07:57:00 05/07/2014 23:59:59 CLS Outpatient ELAINE ZHU APRNNDA S [id number] 03/12/2014 07:44:00 03/12/2014 23:59:59 CLS Outpatient ELAINE ZHU APRNNDA S [id number] 01/08/2014 08:46:00 01/08/2014 23:59:59 CLS Outpatient MARKO [place] JEANETTE S [id number] 11/21/2013 09:00:00 11/21/2013 23:59:59 CLS Outpatient MARKO [place] JEANETTE S [id number] 10/09/2013 07:31:00 10/09/2013 23:59:59 CLS Outpatient MARKO [place] JEANETTE S [id number] 08/07/2013 08:27:00 08/07/2013 23:59:59 CLS Outpatient [employer], JEANETTE S [id number] 04/10/2013 10:08:00 04/10/2013 23:59:59 CLS Outpatient DULCE GALLGAHER MD [id number] 02/20/2013 08:09:00 02/20/2013 23:59:59 CLS Outpatient MARKO [place] JEANETTE S [id number] 01/09/2013 13:17:00 01/09/2013 23:59:59 CLS Outpatient TAMIKO MORGAN MD [id number] 12/19/2012 08:02:00 12/19/2012 23:59:59 CLS Outpatient MARKO [place] JEANETTE S [id number] 10/10/2012 15:02:00 10/10/2012 23:59:59 CLS Outpatient ELAINE ZHU APRNNDA S [id number] 04/25/2012 08:22:00 04/25/2012 23:59:59 CLS Outpatient JEANETTE ZHU APRN [id number] 02/22/2012 08:38:00 02/22/2012 23:59:59 CLS Outpatient [id number] 12/21/2011 09:33:00 12/21/2011 23:59:59 CLS Outpatient [id number] 10/10/2012 15:02:00 Document Registration [id number] 08/01/2012 08:41:00 Document Registration [id number] 06/27/2012 10:48:00 Document Registration [id number] 12/22/2015 07:27:00 12/22/2015 14:55:00 DIS Inpatient SONYA NICOLE, LETICIA Aleman [facility] 4TH SEVERE SEPSIS, PNEUMONIA WITH HYPOXIA [id number] 05/28/2015 12:14:00 05/29/2015 14:20:00 DIS Inpatient JAYNA ZAMUDIO MD [facility] 4TH [id number] 05/23/2015 06:15:00 05/28/2015 11:57:00 DIS Inpatient JAYNA ZAMUDIO MD [facility] 4TH [id number] 04/09/2013 14:31:00 04/09/2013 17:34:00 DIS Emergency [id number] 03/31/2013 14:08:00 03/31/2013 17:05:00 DIS Emergency [id number] 05/17/2017 19:16:00 Document Registration
[2017-05-17 22:15] VITALS: BP 133/76
[2017-05-17 22:30] VITALS: BP 133/76
[2017-05-17] MEDS ORDERED: D5 1/2 NS W/KCL 20 MEQ/L 1,000 ML IV ONE (22:33)
[2017-05-17] MEDS ORDERED: metroNIDAZOLE 500MG/100ML IVPB 100 ML ONE (22:33)
[2017-05-17 23:00] VITALS: BP 143/97
[2017-05-17] MEDS ORDERED: ACETAMINOPHEN 325 MG TABLET/CAPLET (TYLENOL) PO PRN (23:00)
[2017-05-17] MEDS ORDERED: ONDANSETRON 4 MG/2 ML (SDV) Z0FRAN IV PRN (23:00)
[2017-05-17] MEDS ORDERED: ACETAMINOPHEN 650 MG SUPP (TYLENOL) PR PRN (23:00)
[2017-05-17] MEDS ORDERED: fentaNYL INJECTION 100 MCG/2 ML AMP IV PRN (23:00)
[2017-05-17] MEDS: D5 1/2 NS W/KCL 20 MEQ/L 1,000 ML IV SCH (23:06)
[2017-05-17 23:30] VITALS: BP 136/75
[2017-05-18] VITALS (24 sets, daily range): BP systolic 87–125; BP diastolic 45–98
[2017-05-18 03:29] LABS: BASOPHILS % (AUTO) 0 % (0-10); EOSINOPHILS # (AUTO) 0.1 10^3/uL (0.0-0.3); EOSINOPHILS % (AUTO) 0 % (0-10); HEMATOCRIT 34 % (35-52); LYMPHOCYTES # (AUTO) 3.4 X 10^3 (1.0-4.0); LYMPHOCYTES % (AUTO) 19 % (12-44); MEAN CORPUSCULAR HEMOGLOBIN 32 PG (25-34); MEAN CORPUSCULAR HGB CONC 32 G/DL (32-36); MEAN CORPUSCULAR VOLUME 98 FL (80-99); MEAN PLATELET VOLUME 9.8 FL (7.4-10.4); MONOCYTES # (AUTO) 3.4 X 10^3 (0.0-1.0); MONOCYTES % (AUTO) 19 % (0-12); NEUTROPHILS # (AUTO) 11.2 X 10^3 (1.8-7.8); NEUTROPHILS % (AUTO) 62 % (42-75); PLATELET COUNT 298 10^3/uL (130-400); RED BLOOD COUNT 3.49 10^6/uL (4.35-5.85); RED CELL DISTRIBUTION WIDTH 15.5 % (10.0-14.5); WHITE BLOOD COUNT 18.1 10^3/uL (4.3-11.0)
[2017-05-18 03:57] LABS: ALANINE AMINOTRANSFERASE 29 U/L (0-55); ALBUMIN 2.8 GM/DL (3.2-4.5); ALKALINE PHOSPHATASE 148 U/L (40-136); BILIRUBIN,TOTAL 0.1 MG/DL (0.1-1.0); BUN/CREATININE RATIO 18; CALCIUM 8.2 MG/DL (8.5-10.1); CARBON DIOXIDE 27 MMOL/L (21-32); CHLORIDE 105 MMOL/L (98-107); CREATININE SERUM 0.57 MG/DL (0.60-1.30); GFR ESTIMATED > 60; GLUCOSE 126 MG/DL (70-105); MAGNESIUM 1.3 MG/DL (1.8-2.4); POTASSIUM 4.7 MMOL/L (3.6-5.0); SODIUM 137 MMOL/L (135-145); TOTAL PROTEIN 5.9 GM/DL (6.4-8.2)
[2017-05-18] MEDS: metroNIDAZOLE 500 MG/100 ML IVPB (PRE-MIX) IV SCH ×4 (04:09→23:46)
[2017-05-18] MEDS: MAGNESIUM 1 GM/100 ML IVPB 100 ML IV SCH ×3 (04:27→06:11)
[2017-05-18] MEDS: POTASSIUM CL 10MEQ/50ML IVPB 50 ML IV SCH (05:10)
[2017-05-18] MEDS: KCL 20 MEQ TAB (K-DUR) PO SCH (05:11)
[2017-05-18] MEDS ORDERED: INFLUENZA TRIvalent 2017-2018 0.5 ML/45 MCG SYR IM ONE (06:30)
--- NOTE | 2017-05-18 06:59 | Diagnostic Imaging Report ---
INDICATION: Sepsis. COMPARISON: 05/18/2007 FINDINGS: Single frontal radiographic view of the chest was obtained and demonstrates normal cardiac silhouette and pulmonary vasculature. Lungs show low inspiratory volumes with some platelike atelectasis in the lateral left base. There is prominent appearance to the central hilar structures, bilaterally. This, however, may be related to crowding of the central structures from low inspiratory volumes. No large effusion or pneumothorax is seen. Bony structures show no gross acute abnormalities. IMPRESSION: 1. Low lung volumes with left basilar atelectasis, but no gross acute-appearing cardiopulmonary process. Dictated by: Dictated on workstation # [id number]
[2017-05-18] MEDS: D5 1/2 NS W/KCL 20 MEQ/L 1,000 ML IV SCH ×2 (07:09→19:59)
[2017-05-18] MEDS: FAMOTIDINE 20MG/2ML IV (PEPCID) IVP SCH ×2 (09:01→20:34)
[2017-05-18] MEDS ORDERED: LOPE-134 PO (11:17)
[2017-05-18] MEDS ORDERED: ALBU2.5V4 NEB (11:17)
[2017-05-18] MEDS ORDERED: LEVO100T7 PO (11:17)
[2017-05-18] MEDS ORDERED: [UNRECOGNIZED DRUG - CODE] TP (11:17)
--- NOTE | 2017-05-18 12:16 | History & Physicial (CHS) ---
HPI History of Present Illness: Non Verbal patient from [place] that came in with fever and grimacing with abdominal distention. Nurse at the [place] states that she was refusing to eat. She had not had any BMs for a couple of days and looked to be more distended. When they checked her vitals she had a temperature and was tachycardic. When she arrived at ER she was still awake and responding to her name but had decreased intake. Concerns for sepsis upon presentation to ER. She has known seizure disorder and the nurse at [facility] is not sure when her last seizure was. Source: RN/MD, old records Exam Limitations: physical impairment Date seen by provider: May 19, 2017 Time Seen by Provider: 09:15 Attending Physician Linnea Wheeler MD PCP Farzaneh Abreu MD Consult Date of Admission May 17, 2017 at 21:14 Home Medications Home Medications Reviewed patient Home Medication Reconciliation performed by pharmacy medication reconciliations electronics repair technician and/or nursing. Patients Allergies have been reviewed. Allergies Coded Allergies: piperacillin (Verified Allergy, Mild, unknown, 12/22/15) Sulfa (Sulfonamide Antibiotics) (Verified Allergy, Unknown, 12/22/15) estrone (Verified Allergy, Unknown, 12/22/15) mirtazapine (Verified Allergy, Unknown, 12/22/15) piperazine (Verified Allergy, Unknown, 12/22/15) MJX-Pioicz-Vzljqw Hx Patient Social History Living Status: Retirement patient Alcohol Use: Denies Use Recreational Drug Use: No Smoking Status: Never a Smoker Recent Foreign Travel: No Contact w/other who traveled: No Recent Hopitalizations: No Recent Infectious Disease Expo: No Physical Abuse Screen: No (unexplained bruises present) Sexual Abuse: No Immunizations Up To Date Date of Pneumonia Vaccine: Jan 10, 2011 Date of Influenza Vaccine: Dec 09, 2016 Past Medical History PMHx: Seizure disorder MR Hypothyroidism PSurgHx: Hip fracture Review of Systems ([facility]C) Constitutional: other (Unable to get due to non verbal status) Reviewed Test Results Reviewed Test Results Lab Laboratory Tests Test 05/17/17 18:50 05/17/17 19:00 05/17/17 19:10 05/17/17 21:35 Range/Units White Blood Count 19.0 H 4.3-11.0 10^3/uL Red Blood Count 4.11 L 4.35-5.85 10^6/uL Hemoglobin 13.1 11.5-16.0 G/DL Hematocrit 40 35-52 % Mean Corpuscular Volume 98 80-99 FL Mean Corpuscular Hemoglobin 32 25-34 PG Mean Corpuscular Hemoglobin Concent 33 32-36 G/DL Red Cell Distribution Width 15.4 H 10.0-14.5 % Platelet Count 351 130-400 10^3/uL Mean Platelet Volume 10.1 7.4-10.4 FL Neutrophils (%) (Auto) 70 42-75 % Lymphocytes (%) (Auto) 12 12-44 % Monocytes (%) (Auto) 17 H 0-12 % Eosinophils (%) (Auto) 1 0-10 % Basophils (%) (Auto) 0 0-10 % Neutrophils # (Auto) 13.2 H 1.8-7.8 X 10^3 Lymphocytes # (Auto) 2.3 1.0-4.0 X 10^3 Monocytes # (Auto) 3.3 H 0.0-1.0 X 10^3 Eosinophils # (Auto) 0.2 0.0-0.3 10^3/uL Basophils # (Auto) 0.0 0.0-0.1 10^3/uL Neutrophils % (Manual) 50 % Lymphocytes % (Manual) 17 % Monocytes % (Manual) 21 % Eosinophils % (Manual) 1 % Basophils % (Manual) 0 % Band Neutrophils 11 % Blood Morphology Comment NORMAL Urine Color YELLOW Urine Clarity CLEAR Urine pH 7 5-9 Urine Specific [place] 1.010 L 1.016-1.022 Urine Protein NEGATIVE NEGATIVE Urine Glucose (UA) NEGATIVE NEGATIVE Urine Ketones NEGATIVE NEGATIVE Urine Nitrite NEGATIVE NEGATIVE Urine Bilirubin NEGATIVE NEGATIVE Urine Urobilinogen NORMAL NORMAL MG/DL Urine Leukocyte Esterase NEGATIVE NEGATIVE Urine RBC (Auto) 1+ H NEGATIVE Urine RBC 0-2 /HPF Urine WBC NONE /HPF Urine Crystals NONE /LPF Urine Bacteria NONE /HPF Urine Casts NONE /LPF Urine Mucus NEGATIVE /LPF Urine Culture Indicated NO Prothrombin Time 12.6 12.2-14.7 SEC INR Comment 0.9 0.8-1.4 Activated Partial Thromboplast Time 25 24-35 SEC Sodium Level 138 135-145 MMOL/L Potassium Level 4.6 3.6-5.0 MMOL/L Chloride Level 102 98-107 MMOL/L Carbon Dioxide Level 25 21-32 MMOL/L Anion Gap 11 5-14 MMOL/L Blood Urea Nitrogen 16 7-18 MG/DL Creatinine 0.62 0.60-1.30 MG/DL Estimat Glomerular Filtration Rate > 60 BUN/Creatinine Ratio 26 Glucose Level 132 H 70-105 MG/DL Lactic Acid Level 3.14 *H 2.19 *H 0.50-2.00 MMOL/L Calcium Level 9.2 8.5-10.1 MG/DL Total Bilirubin 0.2 0.1-1.0 MG/DL Aspartate Amino Transf (AST/SGOT) 28 5-34 U/L Alanine Aminotransferase (ALT/SGPT) 25 0-55 U/L Alkaline Phosphatase 202 H 40-136 U/L Total Protein 7.3 6.4-8.2 GM/DL Albumin 3.5 3.2-4.5 GM/DL Lipase 27 8-78 U/L Thyroid Stimulating Hormone (TSH) 2.86 0.35-4.94 UIU/ML Free Thyroxine 0.92 0.70-1.48 NG/DL Valproic Acid (Depakene) Level 36.2 L 50.0-100.0 UG/ML Test 05/18/17 03:20 05/18/17 09:38 05/19/17 02:05 Range/Units White Blood Count 18.1 H 12.0 H 4.3-11.0 10^3/uL Red Blood Count 3.49 L 3.70 L 4.35-5.85 10^6/uL Hemoglobin 11.0 L 11.8 11.5-16.0 G/DL Hematocrit 34 L 36 35-52 % Mean Corpuscular Volume 98 97 80-99 FL Mean Corpuscular Hemoglobin 32 32 25-34 PG Mean Corpuscular Hemoglobin Concent 32 33 32-36 G/DL Red Cell Distribution Width 15.5 H 15.5 H 10.0-14.5 % Platelet Count 298 333 130-400 10^3/uL Mean Platelet Volume 9.8 10.4 7.4-10.4 FL Neutrophils (%) (Auto) 62 57 42-75 % Lymphocytes (%) (Auto) 19 25 12-44 % Monocytes (%) (Auto) 19 H 15 H 0-12 % Eosinophils (%) (Auto) 0 3 0-10 % Basophils (%) (Auto) 0 0 0-10 % Neutrophils # (Auto) 11.2 H 6.9 1.8-7.8 X 10^3 Lymphocytes # (Auto) 3.4 3.0 1.0-4.0 X 10^3 Monocytes # (Auto) 3.4 H 1.8 H 0.0-1.0 X 10^3 Eosinophils # (Auto) 0.1 0.3 0.0-0.3 10^3/uL Basophils # (Auto) 0.0 0.0 0.0-0.1 10^3/uL Sodium Level 137 138 135-145 MMOL/L Potassium Level 4.7 4.6 3.6-5.0 MMOL/L Chloride Level 105 104 98-107 MMOL/L Carbon Dioxide Level 27 28 21-32 MMOL/L Anion Gap 5 6 5-14 MMOL/L Blood Urea Nitrogen 10 5 L 7-18 MG/DL Creatinine 0.57 L 0.54 L 0.60-1.30 MG/DL Estimat Glomerular Filtration Rate > 60 > 60 BUN/Creatinine Ratio 18 9 Glucose Level 126 H 102 70-105 MG/DL Calcium Level 8.2 L 8.9 8.5-10.1 MG/DL Phosphorus Level 4.0 3.9 2.3-4.7 MG/DL Magnesium Level 1.3 L 2.0 1.8-2.4 MG/DL Total Bilirubin 0.1 0.1-1.0 MG/DL Aspartate Amino Transf (AST/SGOT) 35 H 5-34 U/L Alanine Aminotransferase (ALT/SGPT) 29 0-55 U/L Alkaline Phosphatase 148 H 40-136 U/L Total Protein 5.9 L 6.4-8.2 GM/DL Albumin 2.8 L 3.2-4.5 GM/DL Lactic Acid Level 0.98 0.50-2.00 MMOL/L Radiology Date of Exam: 05/17/17 CT ABDOMEN/PELVIS W INDICATION: Fever, abdominal distention firm to touch. Patient is moaning. Patient has paraplegia. CONTRAST: 100 mL Omnipaque 350 was given intravenously. COMPARISON STUDY: CT scan dated 05/23/2015. FINDINGS: Dependent atelectasis is again seen in the right lung base. No pleural effusions are present. The liver, gallbladder, spleen, pancreas, adrenal glands and kidneys appear normal. A Contreras catheter is present in a decompressed urinary bladder. The uterus and adnexal structures appear unremarkable. Mild circumferential thickening of the rectum and distal sigmoid colon is again identified. Moderate amount of stool is present. The bowel thickening may be due to chronic constipation. Bowel above this is not significantly dilated. Small bowel loops appear normal. No ascites or free air is present. Scoliosis and degenerative changes of the spine are present. IMPRESSION: 1. Mild constipation is present. There is some circumferential thickening of the rectum and distal sigmoid colon consistent with a nonspecific colitis. This could be due to chronic constipation. 2. A Contreras catheter is present in a decompressed urinary bladder. There is some questionable bladder wall thickening suggestive of possible cystitis. 3. Right basilar atelectasis is again identified. Physical Exam-([facility]) Physical Exam Vital Signs VS - Last 72 Hours, by Label 05/17/17 05/17/17 05/17/17 05/17/17 18:30 18:45 22:10 22:15 Temp 102.0 98.7 Pulse 119 112 110 Resp 30 20 36 B/P (MAP) 136/91 (106) 144/73 133/76 (95) Pulse Ox 95 97 94 O2 Delivery Room Air OxyMask OxyMask OxyMask O2 Flow Rate 4.00 2.00 05/17/17 05/17/17 05/17/17 05/17/17 22:29 22:30 23:00 23:00 Pulse 115 116 108 Resp 22 26 B/P (MAP) 133/76 (95) 143/97 (112) Pulse Ox 93 94 O2 Delivery OxyMask OxyMask Nasal Cannula O2 Flow Rate 2.00 2.00 2.00 05/17/17 05/17/17 05/18/17 05/18/17 23:21 23:30 00:00 00:00 Pulse 98 Resp 16 B/P (MAP) 136/75 (95) Pulse Ox 94 98 98 O2 Delivery OxyMask OxyMask Nasal Cannula OxyMask O2 Flow Rate 2.00 2.00 2.00 2.00 05/18/17 05/18/17 05/18/17 05/18/17 00:00 01:00 01:00 02:00 Pulse 84 94 98 86 B/P (MAP) 125/75 (92) 110/71 (84) 112/95 (101) Pulse Ox 99 90 97 O2 Delivery Nasal Cannula Nasal Cannula Nasal Cannula O2 Flow Rate 2.00 2.00 2.00 05/18/17 05/18/17 05/18/17 05/18/17 03:00 04:00 04:00 04:00 Temp 99.0 Pulse 80 75 Resp 10 11 B/P (MAP) 108/67 (81) 117/60 (79) Pulse Ox 93 98 98 O2 Delivery Nasal Cannula Nasal Cannula Nasal Cannula O2 Flow Rate 2.00 2.00 2.00 05/18/17 05/18/17 05/18/17 05/18/17 05:00 06:00 07:00 07:00 Pulse 77 90 82 84 Resp 12 13 15 B/P (MAP) 101/60 (74) 120/98 (105) 106/68 (81) Pulse Ox 92 95 100 O2 Delivery Nasal Cannula Nasal Cannula Nasal Cannula O2 Flow Rate 2.00 2.00 2.00 05/18/17 05/18/17 05/18/17 05/18/17 08:00 08:00 08:00 09:00 Temp 97.2 Pulse 82 90 Resp 17 15 B/P (MAP) 101/59 (73) 90/51 (64) Pulse Ox 96 95 96 O2 Delivery Room Air Room Air Nasal Cannula Nasal Cannula O2 Flow Rate 2.00 2.00 05/18/17 05/18/17 05/18/17 05/18/17 10:00 11:00 12:00 12:00 Pulse 81 85 84 Resp 17 10 B/P (MAP) 89/70 (76) 101/66 (78) 118/89 (99) Pulse Ox 95 97 97 96 O2 Delivery Nasal Cannula Nasal Cannula Room Air Nasal Cannula O2 Flow Rate 2.00 2.00 2.00 05/18/17 05/18/17 05/18/17 05/18/17 12:00 13:00 13:00 14:00 Temp 97.5 Pulse 80 80 82 Resp 10 11 B/P (MAP) 111/64 (80) 117/45 (69) Pulse Ox 97 96 O2 Delivery Nasal Cannula Nasal Cannula O2 Flow Rate 2.00 2.00 05/18/17 05/18/17 05/18/17 05/18/17 15:00 16:00 16:00 16:00 Temp 97.1 Pulse 93 76 Resp 11 9 B/P (MAP) 98/46 (63) 91/48 (62) Pulse Ox 96 96 90 O2 Delivery Nasal Cannula Room Air Nasal Cannula O2 Flow Rate 2.00 2.00 05/18/17 05/18/17 05/18/17 05/18/17 17:00 18:00 19:00 19:00 Pulse 73 79 71 71 Resp 9 10 10 B/P (MAP) 92/49 (63) 99/54 (69) 96/68 (77) Pulse Ox 93 93 92 O2 Delivery Nasal Cannula Nasal Cannula Room Air O2 Flow Rate 2.00 2.00 05/18/17 05/18/17 05/18/17 05/18/17 20:00 20:00 20:00 21:00 Temp 97.6 Pulse 67 87 Resp 9 20 B/P (MAP) 87/52 (64) 116/73 (87) Pulse Ox 96 93 91 O2 Delivery Room Air Room Air Room Air O2 Flow Rate 05/18/17 05/18/17 05/19/17 05/19/17 22:00 23:00 00:00 00:00 Temp 98.3 Pulse 81 70 80 Resp 14 10 24 B/P (MAP) 114/70 (85) 119/85 (96) 112/65 (81) Pulse Ox 95 93 92 O2 Delivery Room Air Room Air Room Air Room Air O2 Flow Rate 05/19/17 05/19/17 05/19/17 05/19/17 00:00 01:00 01:00 02:00 Pulse 79 79 80 Resp 34 24 B/P (MAP) 99/67 (78) 118/71 (87) Pulse Ox 96 92 95 O2 Delivery Room Air Room Air Room Air 05/19/17 05/19/17 05/19/17 05/19/17 03:00 04:00 04:00 04:00 Temp 98.9 Pulse 73 72 Resp 12 10 B/P (MAP) 114/61 (78) 114/56 (75) Pulse Ox 93 95 96 O2 Delivery Room Air Room Air Room Air 05/19/17 05/19/17 05/19/17 05/19/17 05:00 06:00 07:00 07:00 Pulse 74 76 78 79 Resp 12 12 43 B/P (MAP) 125/69 (87) 122/76 (91) 117/84 (95) Pulse Ox 95 94 93 O2 Delivery Room Air Room Air Room Air 05/19/17 05/19/17 05/19/17 05/19/17 07:42 08:00 09:00 10:00 Pulse 77 79 75 Resp 16 12 14 B/P (MAP) 94/62 (73) 118/74 (89) 108/62 (77) Pulse Ox 96 92 91 92 O2 Delivery Room Air Room Air Room Air Room Air 05/19/17 05/19/17 11:00 11:40 Temp 98.0 Pulse 76 83 Resp 11 18 B/P (MAP) 110/80 (90) 102/74 (83) Pulse Ox 93 94 O2 Delivery Room Air Room Air Capillary Refill : Less Than 3 Seconds General Appearance: thin, other (Non verbal patient, awake ) HEENT: PERRL/EOMI Respiratory: chest non-tender, lungs clear, normal breath sounds, no respiratory distress, no accessory muscle use Cardiovascular: normal peripheral pulses, regular rate, rhythm, no murmur Gastrointestinal: normal bowel sounds, non tender, soft, no organomegaly, distended Extremities: normal capillary refill, pedal edema Neurologic/Psychiatric: other (Moving UE bilaterally, Paraplegic LE) Skin: normal color, warm/dry Lymphatic: no adenopathy Assessment/Plan Assessment/Plan Admission Status: Inpatient Order (span 2 midnights) Reason for Inpatient Admission: ICU care with IV antiboitics (1) Sepsis Status: Acute Assessment & Plan: - Repeat LA pending - Cultures pending - Vital signs stable - IVFs running - IV antibiotics started to cover for abdominal and Lung infections Qualifiers: Qualified Codes: A41.9 - Sepsis, unspecified organism (2) Lactic acidosis Status: Acute Assessment & Plan: See Above (3) Non-verbal learning disorder Status: Chronic (4) Abdominal distention Status: Acute Assessment & Plan: - See Above (5) Hypomagnesemia Status: Acute Assessment & Plan: - Replaced and repeat BMP (6) Protein-energy malnutrition Status: Chronic Qualifiers: Qualified Codes: E44.0 - Moderate protein-calorie malnutrition (7) Hx of seizure disorder Status: Chronic Assessment & Plan: - Continue home meds (8) Paraplegia Status: Chronic (9) DVT prophylaxis Status: Acute Assessment & Plan: - Lovenox Clinical Quality Measures DVT/VTE Risk/Contraindication: Risk Factor Score Per Nursin RFS Level Per Nursing on Admit: 4+=Very High Copy Copies To 1: ANTHONY, LINNEA Henry MD May 18, 2017 12:16
[2017-05-18] MEDS: LEVOFLOXACIN 750 MG/D5W 150 ML PRE-MIX IV SCH (19:59)
[2017-05-18] MEDS: LEVETIRACETAM 500 MG/ 5 ML UDC ORAL SOLN (KEPPRA) PO SCH (20:33)
[2017-05-18] MEDS: DIVALPROX SPRINKLE 125 MG (DEPAKOTE) CAP PO SCH (20:33)
[2017-05-18] MEDS: PHENobarbital 16.2 MG (1/4 GRAIN) TABLET PO SCH (20:34)
[2017-05-19] VITALS (15 sets, daily range): BP systolic 94–125; BP diastolic 53–84
[2017-05-19 02:30] LABS: BASOPHILS % (AUTO) 0 % (0-10); EOSINOPHILS # (AUTO) 0.3 10^3/uL (0.0-0.3); EOSINOPHILS % (AUTO) 3 % (0-10); HEMATOCRIT 36 % (35-52); HEMOGLOBIN 11.8 G/DL (11.5-16.0); LYMPHOCYTES % (AUTO) 25 % (12-44); MEAN CORPUSCULAR HEMOGLOBIN 32 PG (25-34); MEAN CORPUSCULAR HGB CONC 33 G/DL (32-36); MEAN CORPUSCULAR VOLUME 97 FL (80-99); MEAN PLATELET VOLUME 10.4 FL (7.4-10.4); MONOCYTES # (AUTO) 1.8 X 10^3 (0.0-1.0); MONOCYTES % (AUTO) 15 % (0-12); NEUTROPHILS # (AUTO) 6.9 X 10^3 (1.8-7.8); NEUTROPHILS % (AUTO) 57 % (42-75); PLATELET COUNT 333 10^3/uL (130-400); RED CELL DISTRIBUTION WIDTH 15.5 % (10.0-14.5)
[2017-05-19 02:56] LABS: BUN/CREATININE RATIO 9; CALCIUM 8.9 MG/DL (8.5-10.1); CARBON DIOXIDE 28 MMOL/L (21-32); CHLORIDE 104 MMOL/L (98-107); CREATININE SERUM 0.54 MG/DL (0.60-1.30); GFR ESTIMATED > 60; GLUCOSE 102 MG/DL (70-105); PHOSPHORUS 3.9 MG/DL (2.3-4.7); POTASSIUM 4.6 MMOL/L (3.6-5.0); SODIUM 138 MMOL/L (135-145)
[2017-05-19] MEDS: metroNIDAZOLE 500 MG/100 ML IVPB (PRE-MIX) IV SCH ×3 (04:42→15:19)
[2017-05-19] MEDS: POTASSIUM CL 10MEQ/50ML IVPB 50 ML IV SCH (06:48)
[2017-05-19] MEDS: KCL 20 MEQ TAB (K-DUR) PO SCH (06:49)
[2017-05-19] MEDS: MAGNESIUM 1 GM/100 ML IVPB 100 ML IV SCH (06:49)
[2017-05-19] MEDS: LEVOTHYROXINE 100 MCG (LEVOTHROID) TAB PO SCH (06:52)
--- NOTE | 2017-05-19 07:41 | Diagnostic Imaging Report ---
INDICATION: Sepsis. Frontal chest obtained at 1:53 a.m. and compared with yesterday. FINDINGS: The heart is normal in size. Mediastinal silhouette is unremarkable. There is some mild infiltrate in the right infrahilar region. There is some mild left basilar infiltrate versus atelectasis. There is no pneumothorax or gross pleural fluid. IMPRESSION: Mild right infrahilar infiltrate. Mild left basilar atelectatic change. No pneumothorax or pleural fluid. Stable appearance compared to the prior study. Dictated by: Dictated on workstation # [id number]
[2017-05-19] MEDS: FAMOTIDINE 20MG/2ML IV (PEPCID) IVP SCH (07:54)
[2017-05-19] MEDS: LEVETIRACETAM 500 MG/ 5 ML UDC ORAL SOLN (KEPPRA) PO SCH ×3 (07:55→22:47)
[2017-05-19] MEDS: PHENobarbital 16.2 MG (1/4 GRAIN) TABLET PO SCH ×3 (07:55→22:50)
[2017-05-19] MEDS: DIVALPROX SPRINKLE 125 MG (DEPAKOTE) CAP PO SCH ×3 (07:55→22:50)
--- NOTE | 2017-05-19 10:53 | Progress Note (SOAP) ---
Subjective Subjective/Events-last exam More alert this AM. Watching TV and interacting with staff. Still not interested in drinking or eating. Review of Systems Date Seen by Provider: May 19, 2017 Time Seen by Provider: 10:15 Patient nonverbal unable to get ROS Focused Exam Evaluation Lactate Level Laboratory Tests 05/17/17 19:10: Lactic Acid Level 3.14*H 05/17/17 21:35: Lactic Acid Level 2.19*H 05/18/17 09:38: Lactic Acid Level 0.98 Objective Exam Last Set of Vital Signs Vital Signs Date Time Temp Pulse Resp B/P (MAP) Pulse Ox O2 Delivery O2 Flow Rate FiO2 05/19/17 08:00 77 16 94/62 (73) 92 Room Air 05/19/17 04:00 98.9 05/18/17 22:00 Capillary Refill : Less Than 3 Seconds I&O Intake and Output 05/18/17 23:59 Intake Total 705 ml Output Total 4875 ml Balance -4170 ml Intake Oral 205 ml IV Total 500 ml Output Urine Total 4875 ml General: No Acute Distress, Other (Awake and interacting with staff) HEENT: PERRLA Lungs: Clear to Auscultation, Normal Air Movement Heart: Regular Rate, No Murmurs Abdomen: Normal Bowel Sounds, Soft, No Tenderness Results/Procedures Lab Laboratory Tests 05/19/17 02:05: White Blood Count 12.0H, Red Blood Count 3.70L, Hemoglobin 11.8, Hematocrit 36, Mean Corpuscular Volume 97, Mean Corpuscular Hemoglobin 32, Mean Corpuscular Hemoglobin Concent 33, Red Cell Distribution Width 15.5H, Platelet Count 333, Mean Platelet Volume 10.4, Neutrophils (%) (Auto) 57, Lymphocytes (%) (Auto) 25 , Monocytes (%) (Auto) 15H, Eosinophils (%) (Auto) 3, Basophils (%) (Auto) 0, Neutrophils # (Auto) 6.9, Lymphocytes # (Auto) 3.0, Monocytes # (Auto) 1.8H, Eosinophils # (Auto) 0.3, Basophils # (Auto) 0.0, Sodium Level 138, Potassium Level 4.6, Chloride Level 104, Carbon Dioxide Level 28, Anion Gap 6, Blood Urea Nitrogen 5L, Creatinine 0.54L, Estimat Glomerular Filtration Rate > 60, BUN/ Creatinine Ratio 9, Glucose Level 102, Calcium Level 8.9, Phosphorus Level 3.9, Magnesium Level 2.0 Microbiology 05/17/17 Blood Culture - Preliminary, Resulted No growth 05/17/17 Influenza Types A,B Antigen (RYAN) - Final, Complete Assessment/Plan Assessment/Plan Reason for Inpatient Admission: Need for IV antibiotics (1) Sepsis Status: Resolved Assessment & Plan: - Normal Repeat LA - Cultures pending - D/c neal - Transfer patient to floor Qualifiers: Qualified Codes: A41.9 - Sepsis, unspecified organism (2) Lactic acidosis Status: Resolved (3) Non-verbal learning disorder Status: Chronic (4) Abdominal distention Status: Acute Assessment & Plan: - See Above, Improved today, several BM last night, no grimace on exam (5) Hypomagnesemia Status: Acute (6) Protein-energy malnutrition Status: Chronic Qualifiers: Qualified Codes: E44.0 - Moderate protein-calorie malnutrition (7) Hx of seizure disorder Status: Chronic Assessment & Plan: - Continue home meds (8) Paraplegia Status: Chronic (9) DVT prophylaxis Status: Acute Assessment & Plan: - Lovenox Clinical Quality Measures DVT/VTE Risk/Contraindication: Risk Factor Score Per Nursin RFS Level Per Nursing on Admit: 4+=Very High LINNEA MATIAS MD May 19, 2017 10:53
[2017-05-19] MEDS: D5 1/2 NS W/KCL 20 MEQ/L 1,000 ML IV SCH (11:51)
[2017-05-19] MEDS: LEVOFLOXACIN 750 MG/D5W 150 ML PRE-MIX IV SCH (21:40)
[2017-05-20] VITALS: BP 136/76
[2017-05-20] MEDS: metroNIDAZOLE 500 MG/100 ML IVPB (PRE-MIX) IV SCH ×3 (00:18→09:30)
[2017-05-20 04:00] VITALS: BP 112/58
[2017-05-20] MEDS: D5 1/2 NS W/KCL 20 MEQ/L 1,000 ML IV SCH (05:05)
[2017-05-20] MEDS: LEVOTHYROXINE 100 MCG (LEVOTHROID) TAB PO SCH (06:02)
[2017-05-20 08:00] VITALS: BP 131/60
[2017-05-20] MEDS: DIVALPROX SPRINKLE 125 MG (DEPAKOTE) CAP PO SCH (09:30)
[2017-05-20] MEDS: PHENobarbital 16.2 MG (1/4 GRAIN) TABLET PO SCH (09:30)
[2017-05-20] MEDS: LEVETIRACETAM 500 MG/ 5 ML UDC ORAL SOLN (KEPPRA) PO SCH (09:30)
[2017-05-20] MEDS ORDERED: LEVO750T39 PO (10:44)
[2017-05-20] MEDS ORDERED: METR500T PO (10:44)
--- NOTE | 2017-05-20 10:51 | Discharge Instructions ---
Discharge [facility] Discharge Medications New, Converted or Re-Newed RX: Transmitted to Pharmacy New Medications: Levofloxacin (Levofloxacin) 750 Mg Tablet 750 MG PO DAILY for 7 Days, #7 TAB 0 Refills Metronidazole (Flagyl) 500 Mg Tablet 500 MG PO TID for 7 Days, #21 TAB 0 Refills Continued Medications: Acetaminophen (Acetaminophen) 650 Mg Supp.rect 650 MG RC Q4H PRN for MILD PAIN/TEMP, SUPP.RECT Acetaminophen (Acetaminophen) 325 Mg Tablet 650 MG PO Q6H PRN for MILD PAIN/TEMP, TAB TAKES 2 (325 MG) TABLETS Albuterol Sulfate (Albuterol Sulfate) 2.5 Mg/3 Ml Vial.neb 2.5 MG NEB Q4H PRN for RESPIRATORY INFECTION, EA Bisacodyl (Bisacodyl) 10 Mg Supp.rect 10 MG RC DAILY PRN for CONSTIPATION-4TH LINE, SUPP.RECT Colloidal Oatmeal (Gold Mcclain Ultimate Eczema Rlf) 226 Gm Cream..g. TP Q12H PRN for RASH, TUBE Divalproex Sodium (Depakote Sprinkle) 125 Mg Cap 750 MG PO DAILY TAKES 6 (125MG) CAPSULES Divalproex Sodium (Divalproex Sodium) 125 Mg Cap.sprink 1000 MG PO HS TAKES 8 (125MG) CAPSULES Levetiracetam (Levetiracetam) 100 Mg/Ml Solution 20 ML PO BID, EA Levothyroxine Sodium (Levothyroxine Sodium) 100 Mcg Tablet 100 MCG PO DAILY, TAB Loperamide HCl (Imodium A-D) 2 Mg Tablet PO UD PRN for DIARRHEA, TAB GIVE 2 TABS AFTER INITAL EPISODE, THEN 1 TAB AFTER EACH EPISODE, NOT TO EXCEED 4 TABS IN 1 DAY Mag Hydrox/Al Hydrox/Simeth (Mylanta Suspension) 30 Ml Oral.susp 30 ML PO UD PRN for HEARTBURN, EA Magnesium Hydroxide (Milk of Magnesia) 400 Mg/5 Ml Oral.susp 30 ML PO DAILY PRN for CONSTIPATION-7TH LINE, EA Naphazoline HCl/Pheniramine (Visine-A Eye Drops) 15 Ml Drops 2 DROPS OU QID, EA Phenobarbital (Phenobarbital) 16.2 Mg Tablet 16.2 MG PO BID, TAB Polyethylene Glycol 3350 (Miralax) 119 Gm Powder 17 GM PO DAILY, EA Patient Instructions Goal/Follow Up Appt: Serena Riuz APRN [facility] to The [facility] For: Fever, inability to keep down liquids or antibiotics, severe abdominal pain Activity & Diet Discharge Diet: Regular Diet Activity as Tolerated: Yes Copy Copies To 1: ONDINA Sherwood BETHANY N MD May 20, 2017 10:51 am
--- NOTE | 2017-05-20 10:58 | Discharge Summary ---
Diagnosis/Chief Complaint Date of Admission May 17, 2017 at 9:14 pm Date of Discharge May 20, 2017 Admission Diagnosis Admission Diagnosis (1) Sepsis Qualifiers: Qualified Codes: A41.9 - Sepsis, unspecified organism (2) Lactic acidosis (3) Non-verbal learning disorder (4) Abdominal distention (5) Hypomagnesemia (6) Protein-energy malnutrition (7) Hx of seizure disorder (8) Paraplegia (9) DVT prophylaxis Discharge Diagnosis (1) Sepsis Status: Resolved Assessment & Plan: - Normal Repeat LA - Cultures no growth at time of d/c, CT of abdomen consistent with colitis- improved on cipro and flagyl- prescribed 7 days on d/c. Qualifiers: Qualified Codes: A41.9 - Sepsis, unspecified organism (2) Lactic acidosis Status: Resolved (3) Non-verbal learning disorder Status: Chronic (4) Abdominal distention Status: Acute Assessment & Plan: - Improved, with no apparent pain or distention on d/c (5) Hypomagnesemia Replaced (6) Protein-energy malnutrition Status: Chronic Qualifiers: Qualified Codes: E44.0 - Moderate protein-calorie malnutrition (7) Hx of seizure disorder Status: Chronic Assessment & Plan: - Continued home meds (8) Paraplegia Status: Chronic (9) DVT prophylaxis Status: Acute Assessment & Plan: - Lovenox Chief Complaint/HPI Chief Complaint/HPI Non Verbal patient from [facility] that came in with fever and grimacing with abdominal distention. Nurse at the [facility] states that she was refusing to eat. She had not had any BMs for a couple of days and looked to be more distended. When they checked her vitals she had a temperature and was tachycardic. When she arrived at ER she was still awake and responding to her name but had decreased intake. Concerns for sepsis upon presentation to ER. She has known seizure disorder and the nurse at [facility] is not sure when her last seizure was. Discharge Summary-Simple/Stand Consultations Discharge Physical Examination Allergies: Coded Allergies: piperacillin (Verified Allergy, Mild, unknown, 12/22/15) Sulfa (Sulfonamide Antibiotics) (Verified Allergy, Unknown, 12/22/15) estrone (Verified Allergy, Unknown, 12/22/15) mirtazapine (Verified Allergy, Unknown, 12/22/15) piperazine (Verified Allergy, Unknown, 12/22/15) Vitals & I&Os Vital Sign - Last 12Hours Date Time Temp Pulse Resp B/P (MAP) Pulse Ox O2 Delivery O2 Flow Rate FiO2 05/20/17 08:00 97.4 83 20 131/60 (83) 94 Room Air 05/18/17 22:00 Intake and Output 05/20/17 00:00 Intake Total 610 ml Balance 610 ml General Appearance: Alert, No Acute Distress Respiratory: Clear to Auscultation, Normal Air Movement Cardiovascular: Regular Rate, No Murmurs Abdominal: Normal Bowel Sounds, Soft, No Tenderness Psych/Mental Status: Other (non-verbal, smiling and making eye contact, no apparent pain) Hospital Course See final discharge diagnosis. Radiology Reviewed Date of Exam: 05/17/17 CT ABDOMEN/PELVIS W INDICATION: Fever, abdominal distention firm to touch. Patient is moaning. Patient has paraplegia. CONTRAST: 100 mL Omnipaque 350 was given intravenously. COMPARISON STUDY: CT scan dated 05/23/2015. FINDINGS: Dependent atelectasis is again seen in the right lung base. No pleural effusions are present. The liver, gallbladder, spleen, pancreas, adrenal glands and kidneys appear normal. A Contreras catheter is present in a decompressed urinary bladder. The uterus and adnexal structures appear unremarkable. Mild circumferential thickening of the rectum and distal sigmoid colon is again identified. Moderate amount of stool is present. The bowel thickening may be due to chronic constipation. Bowel above this is not significantly dilated. Small bowel loops appear normal. No ascites or free air is present. Scoliosis and degenerative changes of the spine are present. IMPRESSION: 1. Mild constipation is present. There is some circumferential thickening of the rectum and distal sigmoid colon consistent with a nonspecific colitis. This could be due to chronic constipation. 2. A Contreras catheter is present in a decompressed urinary bladder. There is some questionable bladder wall thickening suggestive of possible cystitis. 3. Right basilar atelectasis is again identified. Discharge Instructions to patient/family Please see electronic discharge instructions given to patient. Discharge Medications Reviewed and agree with Discharge Medication list on patient's Discharge Instruction sheet Clinical Quality Measures DVT/VTE Risk/Contraindication: Risk Factor Score Per Nursin RFS Level Per Nursing on Admit: 4+=Very High Copy Copies To 1: ONDINA Sherwood BETHANY N MD May 20, 2017 10:57 am
[2017-05-20 12:00] VITALS: BP 126/81
== END 2017-05-20 14:32 | DRG 872 ==
LOC: EDUNIT# 18:28 → ER 18:29 → ICU 21:14 → 4TH 05-19 11:30
PROVIDERS: ADMIT Family Medicine; ATTEND Family Medicine
DX: A41.9 Sepsis, unspecified organism (principal); A09 Infectious gastroenteritis and colitis, unspecified; E87.2 Acidosis; J98.11 Atelectasis; E44.0 Moderate protein-calorie malnutrition; G82.20 Paraplegia, unspecified; R47.01 Aphasia; Z66 Do not resuscitate; K59.00 Constipation, unspecified; F79 Unspecified intellectual disabilities; Q02 Microcephaly; G40.909 Epilepsy, unspecified, not intractable, without status epilepticus; K21.9 Gastro-esophageal reflux disease without esophagitis; E03.9 Hypothyroidism, unspecified; E83.42 Hypomagnesemia
CPT/HCPCS: 36415; 51702; 71045; 74177; 80048; 80053; 80164; 81000; 83605; 83690; 83735; 84100; 84439; 84443; 85007; 85025; 85027; 85610; 85730; 87040; 87804; 96361; 96365; 96375

== ENCOUNTER 2018-03-06 18:20 | Inpatient (IN) | payer MEDICARE, MEDICAID ==
[~2018-03-06] VITALS: Ht 147.3 cm; Wt 60.9 kg
[~2018-03-06 18:20] MED LIST changes: +ALBU2.5V4 NEB; +DIVA125C PO; -DVL125C PO; +LEVO750T39 PO; +LOPE-134 PO; -LORA2VIA29 IJ; -LORA2VIA29 IM; +LORA2VIA30 IJ; +LORA2VIA30 IM; +METR500T PO; +[UNRECOGNIZED DRUG - CODE] TP
--- OUTSIDE RECORDS SUMMARY | 2018-03-06 18:25 | XMS REPORT ---
Author Author JEANETTE ZHU Organization [facility] [place] Address [address] [place] [address] Care Team Providers Care Security Ambassador Name Role Phone JEANETTE ZHU Unavailable PROBLEMS Type Condition ICD9-CM Code EPY22-IA Code Onset Dates Condition Status SNOMED Code Problem Atopic dermatitis, mild L20.9 Active 92613069 Problem Seizure disorder G40.909 Active 702095421 Problem Seizures R56.9 Active 99375606 Problem Profoundly mentally retarded F73 Active 55885803 Problem Unspecified intellectual disabilities F79 Active [id number] ALLERGIES No Information ENCOUNTERS Encounter Location Date Diagnosis [place] [id number] [place] [address] 51329- 1002 Nov, [facility] [address] [place] [id number] Oct, Profoundly mentally retarded F73 and Seizures R56.9 [place] [id number] [place] [address] 74659- 9896 Sep, [facility] [address] [place] [id number] Aug, [place] [id number] [place] [address] 20701- 3736 Aug, [place] [id number] [place] [address] [id number]- 7331 Aug, [facility] [address] [place] [id number] July, Profoundly mentally retarded F73 and Seizures R56.9 [facility] [place] [address]- 17[address] Jun, [facility] [address] [id number] May, Sepsis, due to unspecified organism A41.9 [facility] [address] [id number] May, Profoundly mentally retarded F73 and Seizures R56.9 [facility] [id number] [id number] Apr, [facility] [id number] [id number] Mar, [facility] [place] [address], [place] [address] 5[address] Mar, [facility] [address] [id number] Mar, Profoundly mentally retarded F73 and Seizures R56.9 [facility] [id number], [place] [id number] Mar, [facility] [place] [id number] [place] [address] 21182- 4827 Mar, Acute pain of right knee M25.561 [facility] [address] [id number] Mar, Acute pain of right knee M25.561 and Profoundly mentally retarded F73 [facility] [place] [address], [place] [address] 3043 Feb, [facility] [address] [id number] Jan, Profoundly mentally retarded F73 and Seizure disorder G40.909 [facility] [place] [address] [id number], [place] [address] 0420 Jan, [facility] [id number] [id number] Jan, Upper respiratory tract infection, unspecified type J06.9 [facility] [id number] [id number] Nov, [facility] [address] [id number] Nov, Atopic dermatitis, mild L20.9 [facility] [address] [id number] Nov, Profoundly mentally retarded F73 [facility] [id number] [place] [address] [id number] Oct, [facility] [place] [id number] [place] [address] 44466- 5946 Sep, [facility] [address] [place] [id number] Sep, Profoundly mentally retarded F73 [facility] [place] [id number] [place] [address] 05275- 5306 July, [facility] [address] [id number] July, Profoundly mentally retarded F73 and Seizure disorder G40.909 [facility] [place] [id number] [place] [address] 16162- 1623 Jun, [facility] [place] [id number] [place] [address] 78002- 1165 Jun, [facility] [place] [address] [place] [address] 17662- 1573 May, [facility] [address] [id number] May, Profoundly mentally retarded F73 [facility] [place] [address] [place] [address] 11472- 6648 Mar, Seizures R56.9 [facility] [place] [id number] [place] [address] 83073- 8520 Mar, Seizures R56.[address] [facility] [address] [id number] Feb, Profoundly mentally retarded F73 and Hx of bacterial pneumonia Z87.01 [facility] [place] [id number] [place] [address] 61500- 5576 Jan, [facility] [place] [id number] [place] [address] 41497- 9967 Jan, [facility] [address] [address] Dec, Fever, unspecified fever cause R50.[address] [facility] [address] [id number] Nov, Seizure disorder G40.909 and Seizures R56.9 [facility] [place] [id number] [place] [address] 76773- 5822 Oct, [facility] [place] [id number] [place] [address] 81839- 7676 Oct, [facility] [place] [id number] [place] [address] 80515- 7504 Oct, [facility] [address] [place] [id number] Oct, Seizures R56.9 ; Profoundly mentally retarded F73 ; Hypoxia R09.02 and Hypothyroidism E03.9 [facility] [place] [id number] [place] [address] 45900- 8646 Sep, [facility] [place] [id number] [place] [address] 18898- 8992 Sep, [facility] [place] [id number] [place] [address] 88911- 2189 Sep, [facility] [address] [id number] Aug, Profoundly mentally retarded F73 [facility] [place] [id number] [place] [address] 50925- 7754 July, Seizures R56.9 [facility] [place] [id number] [place] [address] 62568- 8196 Jun, [facility] [place] [id number] [place] [address] 26983- 7072 Jun, [facility] [place] [address] [place] [address] 42925- 7040 Jun, [facility] [address] [place] [id number] Jun, Hypoxia R09.02 [facility] [place] [address], [place] [address]- 7852 May, [facility] [place] [id number] [place] [address] 89833- 6238 May, [facility] [place] [id number] [place] [address] 96681- 0482 Apr, [facility] [place] [id number] [place] [address] 71274- 3801 Apr, [facility] [address] [id number] Apr, Unspecified intellectual disabilities F79 [facility] [place] [id number] [place] [address] 27369- 8245 Mar, [facility] [place] [id number] [place] [address] 61022- 8684 Mar, [facility] [place] [id number] [place] [address] 04902- 6575 Mar, [facility] [place] [id number] [place] [address] 63243- 9071 Mar, [facility] [place] [id number] [place] [address] 19937- 7568 Feb, [facility] [place] [id number] [place] [address] 98007- 3297 Jan, [facility] [place] [id number] [place] [address] 65414- 2611 Dec, Seizures R56.9 and Profoundly mentally retarded F73 [facility] [place] [id number] [place] [address] 41343- 6970 Dec, [facility] [place] [id number] [place] [address] 31969- 7710 Nov, Mental retardation 319 and Seizures 780.39 [facility] [place] [id number] [place] [address] 49951- 5100 Sep, Seizures 780.39 and Severely mentally retarded 318.1 [facility] [address] [id number] July, Seizures 780.39 and Severe mental retardation 318.1 [facility] [place] [address] [facility] [id number], [place] [address]- 3318 Jun, [facility] [place] [address] [facility] [id number], [place] [address]- 0204 Jun, [facility] [place] [address] [facility] [id number], [place] [address] 1939 May, [facility] [address] [id number] May, [facility] [place] [address] [id number], [place] [address]- 5639 Apr, [facility] [place] [address]- 9449 Apr, [facility] [place] [address] [id number], [place] [address]- 4694 Mar, [facility] [place] [address], [place] [address]- 3109 Mar, [facility] [place] [address] [id number], [place] [address]- 2020 Mar, [facility] [address] [id number] Mar, [facility] [place] [address] [facility] [id number], [place] [address]- 8383 Jan, [facility] [place] [address] [id number], [place] [address]- 6160 Jan, [facility] [place] [address] [id number], [place] [address]- 4994 Jan, [facility] [address] [id number] Jan, [facility] [place] [facility] [address] [id number] [place] [address]- 5576 Dec, [facility] [address] [id number] [place] [address]- 8369 Dec, [facility] [address] [id number] [place] [address]- 4762 Nov, [facility] [address] [id number] Nov, [facility] [address] [id number] [place] [address]- 3420 Oct, [facility] [address] [id number] [place] [address]- 5158 Oct, [facility] [address] [id number] [place] [address]- 3547 Oct, [facility] [address] [id number] Oct, [facility] [address] [id number] [place] [address]- 0148 Aug, [facility] [address] [id number], [place] [address]- 7971 Aug, [facility] [address] [id number], [place] [address]- 1106 Aug, [facility] [address] [id number] Aug, [facility] [address] [id number], [place] [address]- 2597 Aug, [facility] [address] [id number] [place] [address]- 8973 Aug, [facility] [address] [id number] [place] [address]- 5972 Jun, [facility] [place] [facility] [address] [id number] [place] [address]- 9000 Jun, [facility] [address] [id number], [place] [address]- 1201 Jun, [facility] [address] [id number] 9562 Jun, [facility] [address] [id number], [place] [address]- 1221 May, [facility] [address] [facility] [id number], [place] [address]- 6713 May, [facility] [address] [id number] Apr, [facility] [address] [id number], [place] [address]- 7218 Apr, [facility] [address] [id number], [place] [address]- 6820 Apr, [facility] [address] [facility] [id number], [place] [address]- 4918 Apr, [facility] [address] [id number], [place] [address]- 8849 Mar, [facility] [address] [id number], [place] [address]- 1130 Mar, [facility] [address] [facility] [id number], [place] [address]- 3758 Feb, [facility] [address] [id number] Feb, [facility] [address] [id number], [place] [address]- 1998 Feb, [facility] [address] [id number], [place] [address]- 4166 Feb, [facility] [address] [facility] [id number], [place] [address]- 1500 Jan, [facility] [address] [facility] [id number], [place] [address]- 7562 Jan, [facility] [address] [id number] Jan, [facility] [address] [id number] [place] [address]- 9733 Jan, [facility] [address] [id number] [place] [address]- 7900 Jan, [facility] [address] [id number] [place] [address]- 6472 Jan, [facility] [address] [id number] [place] [address]- 6250 Dec, [facility] [address] [id number] [place] [address]- 2874 Dec, [facility] [address] [id number] [place] 2101 Dec, [facility] [address] [id number] [place] [address]- 3078 Dec, [facility] [address] [id number] [place] [address]- 6217 Dec, [facility] [address] [id number] Dec, [facility] [address] [id number], [place] [address]- 0976 Dec, [facility] [address] [id number], [place] [address]- 4786 Oct, [facility] [address] [id number] Oct, [facility] [address] [id number] [place] [address]- 9121 Sep, [facility] [address] [id number] [place] [address]- 2037 Sep, [facility] [place] [facility] [address] [id number] [place] [address]- 3193 Sep, [facility] [address] [id number], [place] [address]- 1986 Aug, [facility] [place] [address] [id number], [place] [address]- 2121 July, [facility] [place] [address] [facility] [id number], [place] [address]- 5092 July, [facility] [address] [facility] [id number] Jun, [facility] [place] [address] [facility] [id number], [place] [address]- 5836 Jun, [facility] [address] [facility] [id number] Apr, [facility] [place] [address] [facility] [id number], [place] [address]- 1696 Feb, [facility] [address] [facility] [id number] Feb, [facility] [address] [facility] [id number] Dec, [facility] [place] [address] [id number], [place] [address]- 5744 Dec, [facility] [address] [facility] [id number] Oct, [facility] [place] [address] [id number], [place] [address]- 1726 Aug, [facility] [address] [facility] [id number] Aug, [facility] [place] [address] [id number], [place]176 July, [facility] [address] [facility] [id number] Jun, [facility] [place] [address] [facility] [id number], [place] [address]- 9496 May, [facility] [address] [facility] [id number] 15 Apr, 2011 [facility] [place] [id number] [place] [address] 27124- 2161 Mar, [facility] [place] [address]- 5344 Feb, [facility] [place] [address], [place] [address]- 2048 Feb, [facility] [place] [address], [place] [address]- 0667 Feb, [facility] [place] [id number] [place] [address] 34987- 1608 Jan, [facility] [place] [address], [place] [address]- 5586 Jan, [facility] [place] [id number] [place] [address] 63009- 7894 Dec, [facility] [place] [address] [place] [address] 124518- 5570 Jan, [facility] [place] [address] [place] [address] 75613- 3931 Dec, [facility] [place] [id number] [place] [address] 783141- 0028 Dec, [facility] [place] [address] [address]46[address]576- 6056 Feb, [facility] [place] [address], [place] [address]- 8320 Jan, [facility] [place] [address] [address]- 8391 Dec, [facility] [place] [address], [place] [address]- 2976 Sep, IMMUNIZATIONS No Known Immunizations SOCIAL HISTORY Never Assessed REASON FOR VISIT Med list review PLAN OF CARE VITAL SIGNS MEDICATIONS Medication Instructions Dosage Frequency Start Date End Date Duration Status Milk of Magnesia 1200 MG/15ML Orally Once a day for Constipation 530as needed Feb, Active Keppra 100 MG/ML Orally every 12 hrs 20 ml 12h 30 Active Albuterol Sulfate (2.5 MG/3ML) 0.083% Inhalation every 4 hrs 3 ml as needed 4h Active Levothyroxine Sodium 100 MCG TAKE 1 TABLET BY MOUTH EVERY DAY 30 Active Acetaminophen 650 MG Rectal every 4 hours as needed 1 suppository Active Acetaminophen 325 MG Orally every 6 hrs 2 tablet 6h Jun, Active Visine-A 0.025-0.3 % PLACE 2 DROPS IN BOTH EYES FOUR TIMES DAILY 34 Active Phenobarbital 16.2 MG Orally Twice a day 1 tablet 12h 30 Active Bisacodyl 10 MG Rectal Once a day 1 suppository as needed 24h Active Divalproex Sodium 125 MG TAKE SIX CAPSULES BY MOUTH EVERY MORNING AND TAKE EIGHT CAPSULES IN THE EVENING 30 Active Gold Mcclain Maximum Relief 1-1 % Externally every 12 hrs as needed Active RESULTS No Results PROCEDURES No Known procedures INSTRUCTIONS MEDICATIONS ADMINISTERED No Known Medications
--- OUTSIDE RECORDS SUMMARY | 2018-03-06 18:25 | XMS REPORT ---
Author Author JEANETTE ZHU Organization [facility] Address [address] [place] [address] Care Team Providers Care Booth Supervisor Name Role Phone JEANETTE ZHU Unavailable PROBLEMS Type Condition ICD9-CM Code API20-BT Code Onset Dates Condition Status SNOMED Code Problem Hypothyroidism E03.9 Active 21518308 Problem Atopic dermatitis, mild L20.9 Active 84056749 Problem Seizures R56.9 Active 07373839 Problem Unspecified intellectual disabilities F79 Active 710766067 Problem Seizure disorder G40.909 Active 843088841 Problem Profoundly mentally retarded F73 Active [id number] ALLERGIES No Information ENCOUNTERS Encounter Location Date Diagnosis [facility] [id number] [place] [address] 18044- 3468 Jan, [facility] [id number] [place] [address] 19477- 4468 Jan, [facility] [address] [place] [id number] Dec, Profoundly mentally retarded F73 ; Seizures R56.9 and Hypothyroidism E03.9 [facility] [address] [id number] [address] Nov, [facility] [address] [place] [id number] Oct, Profoundly mentally retarded F73 and Seizures R56.9 [facility] [id number] [place] [address] 88554- 9597 Sep, [facility] [address] [place] [id number] Aug, [facility] [address] [address] Aug, [facility] [id number] [address] 0796 Aug, [facility] [address] [place] [id number] July, Profoundly mentally retarded F73 and Seizures R56.9 [facility] [address] [address] Jun, [facility] [address] [id number] May, Sepsis, due to unspecified organism A41.9 [facility] [place] [address] [place] [id number] May, Profoundly mentally retarded F73 and Seizures R56.9 [facility] [place] [id number] [place] [id number] Apr, [facility] [place] [id number] [place] [address] [id number] Mar, [facility] [address] [place] [address] 67067- 0936 Mar, [facility] [address] [id number] Mar, Profoundly mentally retarded F73 and Seizures R56.9 [facility] [place] [id number] [place] [address] [id number] Mar, [facility] [id number] [address]287 Mar, Acute pain of right knee M25.561 [facility] [place] [address] [place] [id number] Mar, Acute pain of right knee M25.561 and Profoundly mentally retarded F73 [facility] [id number] [place] [address] 90947- 3669 Feb, [facility] [address] [place] [id number] Jan, Profoundly mentally retarded F73 and Seizure disorder G40.909 [facility] [address] [place] [address] 49887- 3571 Jan, [facility] [place] [id number] [id number] Jan, Upper respiratory tract infection, unspecified type J06.9 [facility] [place] [id number] [address] Nov, [facility] [address] [place] [id number] Nov, Atopic dermatitis, mild L20.9 [facility] [address] [place] [id number] Nov, Profoundly mentally retarded F73 [facility] [place] [id number] [id number] Oct, [facility] [address] [address] 6[address] Sep, [facility] [address] [place] [id number] Sep, Profoundly mentally retarded F73 [facility] [address] [address] 5[address] July, [facility] [address] [id number] July, Profoundly mentally retarded F73 and Seizure disorder G40.909 [facility] [id number] [address] 2835 Jun, [facility] [address] [address] 4949 Jun, [facility] [id number] [address] 1046 May, [facility] [address] [place] [id number] May, Profoundly mentally retarded F73 [facility] [address] [address] 5186 Mar, Seizures R56.9 [facility] [address] [address] 8567 Mar, Seizures R56.[address] [facility] [address] [id number] Feb, Profoundly mentally retarded F73 and Hx of bacterial pneumonia Z87.01 [facility] [address] [address] 7[address] Jan, [facility] [id number] [place] [address] 95759- 3465 Jan, [facility] [address] [place] [id number] Dec, Fever, unspecified fever cause R50.[address] [facility] [address] [id number] Nov, Seizure disorder G40.909 and Seizures R56.9 [facility] [id number] [place] [address] 72372- 0528 Oct, [facility] [id number] [place] [address] 45478- 3636 Oct, [facility] [id number] [place] [address] 19221- 4519 Oct, [facility] [address] [id number] Oct, Seizures R56.9 ; Profoundly mentally retarded F73 ; Hypoxia R09.02 and Hypothyroidism E03.9 [facility] [address]65[address] [address]- 1029 Sep, [facility] [id number] [place] [address] 79532- 9901 Sep, [facility] [id number] [place] [address] 46667- 7906 Sep, [facility] [address] [id number] Aug, Profoundly mentally retarded F73 [facility] [address] [place] [address] 65356- 9039 July, Seizures R56.9 [address] [address] [id number] [place] [address]- 6305 Jun, [facility] [address] [id number] [place] [address]- 4234 Jun, [facility] [address] [facility] [id number] [place] [address]- 2546 Jun, [facility] [address] [place] [id number] Jun, Hypoxia R09.02 [facility] [address] [id number] [place] [address]- 1259 May, [facility] [address] [id number] [place] [address]- 0706 May, [facility] [address] [facility] [id number] [place] [address]- 5916 Apr, [facility] [address] [facility] [id number] [place] [address]- 3546 Apr, [facility] [address] [facility] [id number] Apr, Unspecified intellectual disabilities F79 [facility] [address] [facility] [id number] [place] [address]- 3206 Mar, [facility] [address] [facility] [id number] [place] [address]- 6686 Mar, [facility] [address] [facility] [id number] [place] [address]- 1486 Mar, [facility] [address] [facility] [id number] [place] [address]- 9363 Mar, [facility] [address] [facility] [id number] [place] [address]- 6156 Feb, [facility] [address] [facility] [id number] [place] [address]- 0886 Jan, [facility] [address] [facility] [id number] [place] [address] 35575- 3870 Dec, Seizures R56.9 and Profoundly mentally retarded F73 [facility] [address] [place] [address] 65836- 9355 Dec, [facility] [address] [address] Nov, Mental retardation 319 and Seizures 780.39 [facility] [id number] [place] [address] 722882- 5550 Sep, Seizures 780.39 and Severely mentally retarded 318.1 [facility] [address] [place] [address] July, Seizures 780.39 and Severe mental retardation 318.1 [facility] [address] [address]- 5300 Jun, [facility] [address] [place] [address] 18610- 2850 Jun, [facility] [address] [address]- 0876 May, [facility] [address] [place] [id number] May, [facility] [address] [address]- 0770 Apr, [facility] [address] [address]- 4165 Apr, [facility] [address] [address]- 4413 Mar, [facility] [address] [address]- 2606 Mar, [facility] [address] 5348 Mar, [facility] [address] [place] [id number] Mar, [facility] [id number] [place] [address] [place] [address]- 2597 Jan, [facility] [address] [id number] [place] [address]- 7697 Jan, [facility] [address] [id number] [place] [address]- 6386 Jan, [facility] [address] [place] [id number] Jan, [facility] [address] [id number] [place] [address]- 0238 Dec, [facility] [address] [id number] [place] [address]- 9302 Dec, [facility] [address] [id number] [address]- 6060 Nov, [facility] [address] [place] [id number] Nov, [facility] [address] [id number] [address]- 6639 Oct, [facility] [address] [id number] [place] [address]- 1156 Oct, [facility] [address] [id number] [place] [address]- 1033 Oct, [facility] [address] [place] [id number] Oct, [facility] [address] [id number] [place] [address]- 0108 Aug, [facility] [address] [id number] [place] [address]- 6444 Aug, [facility] [address] [id number] [place] [address]- 8883 Aug, [facility] [address] [place] [id number] Aug, [facility] [address] [id number] [place] [address]- [address], [facility] [address] [id number] [place] [address]- 3161 Aug, [facility] [address] [id number] [place] [address]- 3249 Jun, [facility] [address] [id number] [place] [address]- 8267 Jun, [facility] [address] [id number] [place] [address]- 4329 Jun, [facility] [address] [id number] [place] [address]- 1470 Jun, [facility] [address] [id number] [place] [address]- 9848 May, [facility] [address] [id number] [place] [address]- 8771 May, [facility] [address] [place] [id number] Apr, [facility] [address] [id number] [place] [address]- 5277 Apr, [facility] [address] [id number] [place] [address]- 7842 Apr, [facility] [address] [id number] [place] [address]- 5023 Apr, [facility] [address] [id number] [place] [address]- 8109 Mar, [facility] [address] [id number] [place] [address]- 6929 Mar, [facility] [address] [id number] [place] [address]- 2296 Feb, [facility] [address] [place] [id number] Feb, [facility] [address] [id number] [place] [address]- [address] Feb, [facility] [address] [id number] [place] [address]- 6222 Feb, [facility] [address] [id number] [address]- 5600 Jan, [facility] [address] [id number] [place] [address]- 8348 Jan, [facility] [address] [place] [id number] Jan, [facility] [address] [id number] [place] [address]- 4470 Jan, [facility] [address] [id number] [place] [address]- 5369 Jan, [facility] [address] [id number] [place] [address]- [address] Jan, [facility] [address] [id number] [place] [address]- [address] Dec, [facility] [address] [id number] [place] [address]- 3844 Dec, [facility] [address] [id number] [place] [address]- [address] Dec, [facility] [address] [id number] [address]- 7836 Dec, [facility] [address] [id number] [place] [address]- 1154 Dec, [facility] [address] [place] [id number] Dec, [facility] [address] [id number] [place] [address]- 9546 Dec, [facility] [address] [id number] [address]- 2546 Oct, [facility] [address] [place] [id number] Oct, [facility] [address] [id number] [place] [address]- 8919 Sep, [facility] [address] [id number] [place] [address]- 7580 Sep, [facility] [address] [id number] [place] [address]- 8940 Sep, [facility] [address] [id number] [place] [address]- 2717 Aug, [facility] [address] [id number] [address]- 9910 July, [facility] [address] [id number] [place] [address]- 8582 July, [facility] [address] [facility] [id number] Jun, [facility] [address] [id number] [place] [address]- 3789 Jun, [facility] [address] [facility] [id number] Apr, [facility] [address] [id number] [place] [address]- 3744 Feb, [facility] [address] [facility] [id number] Feb, [facility] [address] [facility] [id number] Dec, [facility] [address] [id number] [place] [address]- 6126 Dec, [facility] [address] [facility] [id number] Oct, [facility] [address] [id number] [place] [address]- 8866 Aug, [facility] [address] [facility] [id number] Aug, [facility] [address] [id number] [place] [address]- 0436 July, [facility] [address] [facility] [id number] Jun, [facility] [address] [id number] [place] [address]- 2376 May, [facility] [address] [facility] [id number] 15 Apr, 2011 [facility] [address] [id number] [place] [address]- 3976 Mar, [facility] [address] [id number] [place] [address]- 5950 Feb, [facility] [address] [id number] [place] [address]- 5198 Feb, [facility] [address] [id number] [place] 3041 Feb, [facility] [address] [id number] [place] [address]- 9108 Jan, [facility] [address] [id number] [place] [address]- [address] Jan, [facility] [address] [id number] [place] [address]- 4051 Dec, [facility] [address] [id number] [place] [address]- 5486 Jan, [facility] [address] [id number] [address]- 8851 Dec, [facility] [address] [id number] [place] [address]- 3439 Dec, [facility] [address] [id number] [place] [address]- 1531 31 Feb, 2009 [facility] [address] [id number] [place] [address]- 4606 04 Jan, 2009 [facility] [address] [id number] [place] [address]- 7126 Dec, [facility] [address] [facility] [id number] [place] [address]- 8744 Sep, IMMUNIZATIONS No Known Immunizations SOCIAL HISTORY Never Assessed REASON FOR VISIT Controlled Med Refill PLAN OF CARE VITAL SIGNS MEDICATIONS Medication Instructions Dosage Frequency Start Date End Date Duration Status Phenobarbital 16.2 MG Orally Twice a day 1 tablet 12h 30 Active RESULTS No Results PROCEDURES No Known procedures INSTRUCTIONS MEDICATIONS ADMINISTERED No Known Medications MEDICAL (GENERAL) HISTORY Type Description Date Surgical History No Surgical history information
--- OUTSIDE RECORDS SUMMARY | 2018-03-06 18:25 | XMS REPORT ---
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 Role Phone JEANETTE ZHU Unavailable PROBLEMS Type Condition ICD9-CM Code NAQ09-BB Code Onset Dates Condition Status SNOMED Code Problem Hypothyroidism E03.9 Active 64856731 Problem Atopic dermatitis, mild L20.9 Active 84991917 Problem Seizures R56.9 Active 03225848 Problem Unspecified intellectual disabilities F79 Active 276186981 Problem Seizure disorder G40.909 Active 969395417 Problem Profoundly mentally retarded F73 Active [id number] ALLERGIES No Information ENCOUNTERS Encounter Location Date Diagnosis [place] [id number] [place] [address]2442- [address]247 Jan, [facility] [place] [address] [place] [id number] Dec, Profoundly mentally retarded F73 ; Seizures R56.9 and Hypothyroidism E03.[address] [place] [id number] [place] [address] 80134- 9756 Nov, [facility] [address] [place] [id number] Oct, Profoundly mentally retarded F73 and Seizures R56.[address] [place] [address] 56974- 5069 Sep, [facility] [address] [place] [id number] Aug, [place] [id number] [place] [address] 00356- 6517 Aug, [place] [address] [place] [id number] [place] [address] 65903- 7168 Aug, [facility] [address] [place] [id number] July, Profoundly mentally retarded F73 and Seizures R56.9 [facility] [id number] [address] Jun, [facility] [place] [address] [id number] May, Sepsis, due to unspecified organism A41.9 [facility] [address] [place] [id number] May, Profoundly mentally retarded F73 and Seizures R56.9 [facility] [id number] [id number] Apr, [facility] [id number] [place] [id number] Mar, [facility] [address]00565100[place] [address] Mar, [facility] [address] [place] [id number] Mar, Profoundly mentally retarded F73 and Seizures R56.9 [facility] [id number] [place] [address] [id number] Mar, [facility] [id number] [address]- 27[address] Mar, Acute pain of right knee M25.561 [facility] [address] [id number] Mar, Acute pain of right knee M25.561 and Profoundly mentally retarded F73 [facility] [id number] [address] 6[address] Feb, [facility] [address] [place] [id number] Jan, Profoundly mentally retarded F73 and Seizure disorder G40.909 [facility] [id number] [address] 8236 Jan, [facility] [id number] [place] [id number] Jan, Upper respiratory tract infection, unspecified type J06.9 [facility] [address] [id number] [id number] Nov, [facility] [address] [id number] Nov, Atopic dermatitis, mild L20.[address] [facility] [address] [id number] Nov, Profoundly mentally retarded F73 [facility] [id number] [place] [address] [id number] Oct, [facility] [id number] [place] [address] 08046- 2546 Sep, [facility] [address] [id number] Sep, Profoundly mentally retarded F73 [facility] [id number] [place] [address] 44948- 1326 July, [facility] [address] [id number] July, Profoundly mentally retarded F73 and Seizure disorder G40.909 [facility] [id number] [place] [address] 14735- 7735 Jun, [facility] [id number] [place] [address] 53695- 9855 Jun, [facility] [address] [place] [address] 46365- 0676 May, [facility] [place] [address] [place] [id number] May, Profoundly mentally retarded F73 [facility] [address] [place] [address] 28450- 2106 Mar, Seizures R56.9 [facility] [id number] [place] [address] 16104- 1416 Mar, Seizures R56.[address] [facility] [address] [id number] Feb, Profoundly mentally retarded F73 and Hx of bacterial pneumonia Z87.01 [facility] [id number] [place] [address] 74447- 1546 Jan, [facility] [id number] [place] [address] 37210- 6887 Jan, [facility] [address] [id number] Dec, Fever, unspecified fever cause R50.[address] [facility] [address] [id number] Nov, Seizure disorder G40.909 and Seizures R56.9 [facility] [address] [address]- 4968 Oct, [place] [address] [id number] [place] [address] 86018- 2875 Oct, [facility] [address] 38298- 2384 Oct, [facility] [address] [id number] Oct, Seizures R56.9 ; Profoundly mentally retarded F73 ; Hypoxia R09.02 and Hypothyroidism E03.9 [facility] [id number] [place] [address] 44010- 9649 Sep, [facility] [id number] [place] [address] 81655- 6765 Sep, [facility] [id number] [place] [address] 34631- 6277 Sep, [facility] [address] [id number] Aug, Profoundly mentally retarded F73 [facility] [id number] [place] [address] 83985- 4396 July, Seizures R56.9 [facility] [id number] [place] [address] 00228- 2021 Jun, [place] [address] [address]- 8369 Jun, [facility] [address] [address]- 5746 Jun, [facility] [address] [place] [id number] Jun, Hypoxia R09.02 [facility] [address] [address]- 7640 May, [facility] [address] [address]- 1839 May, [facility] [address] [place] [address]- 0828 Apr, [facility] [address] [address]- 2147 Apr, [facility] [place] [address] [place] [id number] Apr, Unspecified intellectual disabilities F79 [facility] [address] [place] [address]- 2378 Mar, [facility] [address] [address]- 8482 Mar, [facility] [address] [address]- 9589 Mar, [facility] [address] [address]- 0408 Mar, [facility] [address] [address]- 3510 Feb, [facility] [address] [address]- 2923 Jan, [facility] [address] [address]- 7416 Dec, Seizures R56.9 and Profoundly mentally retarded F73 [facility] [address] [address]- 2546 Dec, [facility] [id number] [address]- 2326 Nov, Mental retardation 319 and Seizures 780.39 [facility] [id number] [address]- 2546 Sep, Seizures 780.39 and Severely mentally retarded 318.1 [facility] [place] [address] [place] [id number] July, Seizures 780.39 and Severe mental retardation 318.1 [facility] [address] [address]- 9476 Jun, [facility] [address] [address]- 2546 Jun, [facility] [address] [address]- 1806 May, [facility] [place] [address] [place] [id number] May, [facility] [address] [address]- 5361 Apr, [facility] [address] [address]- 3616 Apr, [facility] [id number] [address]- 6606 Mar, [facility] [address] [address]- 4856 Mar, [facility] [id number] [address]- 4776 Mar, [facility] [place] [address] [place] [id number] Mar, [facility] [id number] [address]- 2546 Jan, [facility] [address] [address]- 4698 Jan, [facility] [address] [id number] [place] [address]- 2619 Jan, [facility] [address] [id number] Jan, [facility] [address] [id number] [place] [address]- 7082 Dec, [facility] [address] [id number] [address]- 3390 Dec, [facility] [address] [id number] [place] [address]- 1676 Nov, [facility] [address] [place] [id number] Nov, [facility] [address] [id number] [place] [address]- 0239 Oct, [facility] [address] [id number] [place] [address]- 4527 Oct, [facility] [address] [id number] [address]- 8613 Oct, [facility] [address] [place] [id number] Oct, [facility] [address] [id number] [place] [address]- 4799 Aug, [facility] [address] [id number] [place] [address]- 2665 Aug, [facility] [address] [id number] [place] [address]- 2095 Aug, [facility] [place] [address] [place] [id number] Aug, [facility] [address] [id number] [address]- 0530 Aug, [facility] [address] [id number] [place] [address]- 9410 Aug, [facility] [address] [id number] [place] [address]- 1289 Jun, [facility] [address] [id number] [place] [address]- 1927 Jun, [facility] [address] [id number] [place] [address]- 2084 Jun, [facility] [address] [id number] [place] [address]- 8666 Jun, [facility] [address] [id number] [place] [address]- 8059 May, [facility] [address] [id number] [place] [address]- 6053 May, [facility] [address] [place] [id number] Apr, [facility] [address] [id number] [place] [address]- 1998 Apr, [facility] [address] [id number] [place] [address]- 8796 Apr, [facility] [address] [id number] [place] [address]- 3565 Apr, [facility] [address] [id number] [place] [address]- 6973 Mar, [facility] [address] [id number] [place] [address]- 0668 Mar, [facility] [address] [id number] [place] [address]- 0157 Feb, [facility] [place] [address] [place] [id number] Feb, [facility] [address] [id number] [place] [address]- 4976 Feb, [facility] [address] [id number] [place] [address]- 4789 Feb, [facility] [address] [id number] [place] [address]- 2464 Jan, [facility] [address] [id number] [place] [address]- 0355 Jan, [facility] [place] [address] [place] [id number] Jan, [facility] [address] [id number] [place] [address]- 2181 Jan, [facility] [address] [id number] [place] 4626 Jan, [facility] [address] [id number] [place] [address]- 2579 Jan, [facility] [address] [id number] [place] [address]- 5752 Dec, [facility] [address] [id number] [place] [address]- 5095 Dec, [facility] [address] [id number] [place] [address]- 6515 Dec, [facility] [address] [id number] [place] [address]- 5658 Dec, [facility] [address] [id number] [place] [address]- 7857 Dec, [facility] [address] [place] [id number] Dec, [facility] [address] [id number] [place] [address]- 2488 Dec, [facility] [address] [id number] [place] [address]- 5641 Oct, [facility] [address] [place] [id number] Oct, [facility] [address] [id number] [place] [address]- 5355 Sep, [facility] [address] [id number] [place] [address]- 0525 Sep, [facility] [address] [id number] [place] [address]- 5396 Sep, [facility] [address] [id number] [address]- 2416 Aug, [facility] [address] [id number] [place] [address]- 5796 July, [facility] [address] [id number] [place] [address]- 5996 July, [facility] [place] [address] [facility] [id number] Jun, [facility] [address] [id number] [place] [address]- 2546 Jun, [facility] [address] [facility] [id number] Apr, [facility] [address] [id number] [place] [address]- 3916 Feb, [facility] [address] [facility] [id number] Feb, [facility] [address] [facility] [id number] Dec, [facility] [address] [id number] [place] [address]- 2546 Dec, [facility] [address] [facility] [id number] Oct, [facility] [address] [id number] [place] [address]- 2546 Aug, [facility] [address] [facility] [id number] Aug, [facility] [address] [id number] [place] [address]- 2546 July, [facility] [address] [place] [id number] Jun, [facility] [address] [id number] [place] [address]- 2905 May, [facility] [address] [facility] [id number] 15 Apr, 2011 [facility] [address] [id number] [place] [address]- 9105 Mar, [facility] [address] [id number] [place] [address]- 9069 Feb, [facility] [address] [id number] [place] [address]- 6296 14 Feb, 2011 [facility] [address] [id number] [place] [address]- 9596 Feb, [facility] [address] [id number] [place] [address]- 6853 Jan, [facility] [address] [id number] [place] [address]- 2409 Jan, [facility] [address] [id number] [place] [address]- 8604 Dec, [facility] [address] [id number] [place] [address]- 6538 Jan, [facility] [address] [id number] [place] [address]- 1053 Dec, [facility] [address] [id number] [place] [address]- 2251 Dec, [facility] [address] [id number] [place] [address]- 4791 Feb, [facility] [place] [facility] [address] [id number] [place] [address]- 7306 Jan, [facility] [address] [id number] [place] [address]- 1590 Dec, [facility] [address] [id number] [place] [address]- 8103 Sep, IMMUNIZATIONS No Known Immunizations SOCIAL HISTORY Never Assessed REASON FOR VISIT medication reconciliation-- PR order summary PLAN OF CARE VITAL SIGNS MEDICATIONS Medication Instructions Dosage Frequency Start Date End Date Duration Status Divalproex Sodium 125 MG TAKE SIX CAPSULES BY MOUTH EVERY MORNING AND TAKE EIGHT CAPSULES IN THE EVENING 30 Active Levothyroxine Sodium 100 MCG TAKE 1 TABLET BY MOUTH EVERY DAY 30 Active Visine-A 0.025-0.3 % PLACE 2 DROPS IN BOTH EYES FOUR TIMES DAILY 34 Active Phenobarbital 16.2 MG Orally Twice a day 1 tablet 12h 30 Active Bisacodyl 10 MG Rectal Once a day 1 suppository as needed 24h Active Gold Mcclain Maximum Relief 1-1 % Externally every 12 hrs as needed Active Levetiracetam 100 MG/ML GIVE 20 ML BY MOUTH EVERY 12 HOURS 30 Not-Taking Acetaminophen 325 MG Orally every 6 hrs 2 tablet 6h Jun, Active Albuterol Sulfate (2.5 MG/3ML) 0.083% Inhalation every 4 hrs 3 ml as needed 4h Active Acetaminophen 650 MG Rectal every 4 hours as needed 1 suppository Active Keppra 100 MG/ML Orally every 12 hrs 20 ml 12h 30 Active Milk of Magnesia 1200 MG/15ML Orally Once a day for Constipation 530as needed Feb, Active RESULTS No Results PROCEDURES No Known procedures INSTRUCTIONS MEDICATIONS ADMINISTERED No Known Medications MEDICAL (GENERAL) HISTORY Type Description Date Surgical History No Surgical history information
--- OUTSIDE RECORDS SUMMARY | 2018-03-06 18:26 | XMS REPORT ---
Author Author JEANETTE ZHU Organization [facility] Address [address] [place] [address] Care Team Providers Care Internal Affairs Investigator Name Role Phone JEANETTE ZHU Unavailable PROBLEMS Type Condition ICD9-CM Code XGD43-WI Code Onset Dates Condition Status SNOMED Code Problem Atopic dermatitis, mild L20.9 Active 08893095 Problem Seizure disorder G40.909 Active 866914291 Problem Seizures R56.9 Active 89431833 Problem Profoundly mentally retarded F73 Active 55386720 Problem Unspecified intellectual disabilities F79 Active [id number] ALLERGIES No Information ENCOUNTERS Encounter Location Date Diagnosis [facility] [address] [place], [place] [id number] Oct, Profoundly mentally retarded F73 and Seizures R56.9 [facility] [id number] [place] [address] [id number] Sep, [facility] [address] [place] [id number] Aug, [facility] [id number] [place] [address] [id number]- 7241 Aug, [facility] [id number] [place] [address] [id number]- 0422 Aug, [facility] [address] [place] [id number] July, Profoundly mentally retarded F73 and Seizures R56.9 [facility] [id number] [place] [address] 85886- 1448 Jun, [facility] [address] [place] [id number] May, Sepsis, due to unspecified organism A41.9 [facility] [address] [place] [id number] May, Profoundly mentally retarded F73 and Seizures R56.9 [facility] [id number] [id number] Apr, [facility] [id number][place] [id number] Mar, [facility] [address] [id number], [place] [address]- 1051 Mar, [facility] [id number] Mar, Profoundly mentally retarded F73 and Seizures R56.9 [facility] [id number] [id number] Mar, [facility] [id number] [place] [address] 137736- 8348 Mar, Acute pain of right knee M25.[address] [facility] [address] [id number] Mar, Acute pain of right knee M25.561 and Profoundly mentally retarded F73 [facility] [address] [id number] [address] 6241 Feb, [facility] [address] [id number] Jan, Profoundly mentally retarded F73 and Seizure disorder G40.909 [facility] [address] [id number], [place] [address] 9806 Jan, [facility] [id number] [place] [address] [id number] Jan, Upper respiratory tract infection, unspecified type J06.9 [facility] [id number] [address] Nov, [facility] [address] [id number] Nov, Atopic dermatitis, mild L20.[address] [facility] [address] [id number] Nov, Profoundly mentally retarded F73 [facility] [address] [id number] [id number] Oct, [facility] [id number] [place] [address] 80356- 5985 Sep, [facility] [address] [id number] Sep, Profoundly mentally retarded F73 [facility] [id number] [place] [address] 65615- 2173 July, [facility] [address] [id number] July, Profoundly mentally retarded F73 and Seizure disorder G40.909 [facility] [id number] [place] [address] 19070- 5160 Jun, [facility] [id number] [place] [address] 37359- 0074 Jun, [facility] [id number] [place] [address] 11117- 0402 May, [facility] [address] [id number] May, Profoundly mentally retarded F73 [facility] [id number] [place] [address] 86078- 2508 Mar, Seizures R56.9 [facility] [id number] [place] [address] 46526- 1130 Mar, Seizures R56.[address] [facility] [address] [id number] Feb, Profoundly mentally retarded F73 and Hx of bacterial pneumonia Z87.01 [facility] [id number] [place] [address] 16048- 0331 Jan, [facility] [id number] [place] [address] 90066- 6717 Jan, [facility] [address] [place] [id number] Dec, Fever, unspecified fever cause R50.9 [facility] [address] [place] [address] Nov, Seizure disorder G40.909 and Seizures R56.9 [facility] [id number] [place] [address] 07516- 3373 Oct, [facility] [id number] [place] [address] 44225- 3991 Oct, [facility] [id number] [place] [address] 64878- 4962 Oct, [facility] [address] [place] [id number] Oct, Seizures R56.9 ; Profoundly mentally retarded F73 ; Hypoxia R09.02 and Hypothyroidism E03.9 [facility] [id number] [place] [address] 40391- 0283 Sep, [facility] [id number] [place] [address] 35071- 2155 Sep, [facility] [id number] [place] [address] 40476- 4779 Sep, [facility] [address] [place] [id number] Aug, Profoundly mentally retarded F73 [facility] [id number] [place] [address] 84933- 1983 July, Seizures R56.9 [facility] [address] [id number] [address]- 5011 Jun, [facility] [id number] [place] [address] 33418- 5261 Jun, [facility] [id number] [place] [address] 57177- 2802 Jun, [facility] [address] [place] [id number] Jun, Hypoxia R09.02 [facility] [id number] [place] [address] 04018- 4237 May, [facility] [address]00565100[place], [place] [address]- 4979 May, [facility] [address]00565[address], [place] [address]- 6246 Apr, [facility] [address]00565[address], [place] [address]- 9026 Apr, [facility] [address] [place] [id number] Apr, Unspecified intellectual disabilities F79 [facility] [address]00565[address], [place] [address]- 5478 Mar, [facility] [address]00565100[place], [place] [address]- 5268 Mar, [facility] [address]00565[address], [place] [address]- 8516 Mar, [facility] [address]00565[address], [place] [address]- 0195 Mar, [facility] [address]00565[address], [place] [address]- 1506 Feb, [facility] [address]00565[address], [place] [address]- 4670 Jan, [facility] [address]00565[address], [place] [address]- 4610 Dec, Seizures R56.9 and Profoundly mentally retarded F73 [facility] [address]00565100[place], [place] [address]- 1890 Dec, [facility] [address]00565[address], [place] [address]- 1099 Nov, Mental retardation 319 and Seizures 780.39 [facility] [address] [id number] 308003- 5877 Sep, Seizures 780.39 and Severely mentally retarded 318.1 [facility] [address] [place] [id number] July, Seizures 780.39 and Severe mental retardation 318.1 [facility] [address]00565[address], [place] [address]- 7773 Jun, [facility] [address] [facility] [id number], [place] [address]- 6631 Jun, [facility] [address]00565100[place], [place] [address]- 4984 May, [facility] [address] [place] [id number] May, [facility] [address]00565100[place], [place] [address]- 9784 Apr, [facility] [address]00565100[place], [place] [address]- 5223 Apr, [facility] [address]00565[address], [place] [address]- 6734 Mar, [facility] [address] [id number], [place] [address]- 0077 Mar, [facility] [address]00565[address], [place] [address]- 1450 Mar, [facility] [address] [place] [id number] Mar, [facility] [address] [id number], [place] [address]- 8740 Jan, [facility] [address] [id number], [place] [address]- 5960 Jan, [facility] [address] [id number], [place] [address]- 7733 Jan, [facility] [address] [place] [id number] Jan, [facility] [address] [id number], [place] [address]- 8106 Dec, [facility] [place] [facility] [address] [id number], [place] [address]- 4603 Dec, [facility] [address] [id number] [place] [address]- 0162 Nov, [facility] [address] [place] [id number] Nov, [facility] [address] [id number] [place] [address]- 5471 Oct, [facility] [place] [facility] [address] [id number] [place] [address]- 2490 Oct, [facility] [address] [id number] [place] [address]- 5228 Oct, [facility] [address] [place] [id number] Oct, [facility] [address] [id number], [place] [address]- 8383 Aug, [facility] [place] [facility] [address] [id number], [place] [address]- 7486 Aug, [facility] [address] [id number], [place] [address]- 2244 Aug, [facility] [address] [place] [id number] Aug, [facility] [place] [facility] [address] [id number], [place] [address]- 9062 Aug, [facility] [place] [facility] [address] [id number], [place] [address]- 3279 Aug, [facility] [place] [facility] [address] [id number] [place] [address]- 4527 Jun, [facility] [place] [facility] [address] [id number] [place] [address]- 4532 Jun, [facility] [place] [facility] [address] [id number] [place] [address]- 6239 Jun, [facility] [place] [facility] [address] [id number], [place] [address]- 0534 Jun, [facility] [address] [id number], [place] [address]- 9852 May, [facility] [address] [facility] [id number], [place] [address]- 1555 May, [facility] [address] [place] [id number] Apr, [facility] [address] [id number], [place] [address]- 8440 Apr, [facility] [address] [id number], [place] [address]- 8621 Apr, [facility] [address] [facility] [id number], [place] [address]- 9142 Apr, [facility] [address] [id number], [place] [address]- 6461 Mar, [facility] [address] [facility] [id number], [place] [address]- 0179 Mar, [facility] [address] [id number], [place] [address]- 6108 Feb, [facility] [address] [place] [id number] Feb, [facility] [address] [id number], [place] [address]- 3704 Feb, [facility] [address] [facility] [id number], [place] [address]- 5318 Feb, [facility] [address] [facility] [id number], [place] [address]- 4749 Jan, [facility] [address] [facility] [id number], [place] [address]- 9382 Jan, [facility] [address] [place] [id number] Jan, [facility] [address] [facility] [id number], [place] [address] 2546 Jan, [facility] [address] [id number] [place] [address]- 3694 Jan, [facility] [address] [id number], [place] [address]- 9799 Jan, [facility] [address] [id number] [place] [address]- 6058 Dec, [facility] [address] [id number] [place] [address]- 2891 Dec, [facility] [address] [id number] [place] [address]- 3532 Dec, [facility] [address] [id number] [place] [address]- 3426 Dec, [facility] [address] [id number], [place] [address]- 4372 Dec, [facility] [address] [place] [id number] Dec, [facility] [address] [id number], [place] [address]- 6201 Dec, [facility] [address] [id number], [place] [address]- 7725 Oct, [facility] [address] [place] [id number] Oct, [facility] [address] [id number], [place] [address]- 2116 Sep, [facility] [address] [id number], [place] [address]- 0242 Sep, [facility] [address] [id number], [place] [address]- 8494 Sep, [facility] [address] [id number], [place] [address]- 6597 Aug, [facility] [address] [id number], [place] [address]- 3356 July, [facility] [address] [id number], [place] [address]- 8326 July, [facility] [address] [facility] [id number] Jun, [facility] [address] [id number], [place] [address] 2546 Jun, [facility] [address] [facility] [id number] Apr, [facility] [address] [id number], [place] [address]- 0868 Feb, [facility] [address] [facility], [place] [id number] Feb, [facility] [address] [facility] [id number] Dec, [facility] [address] [id number], [place] [address]- 3686 Dec, [facility] [address] [facility] [id number] Oct, [facility] [address] [id number], [place] [address]- 4326 Aug, [facility] [address] [facility] [id number] Aug, [facility] [address] [id number], [place] [address]- 2806 July, [facility] [address] [facility] [id number] Jun, [facility] [address] [id number], [place] [address]- 7886 May, [facility] [address] [facility] [id number] Apr, [facility] [address] [id number], [place] [address]- 9006 Mar, [facility] [address] [id number], [place] [address] 2546 Feb, [facility] [address] [facility] [id number], [place] [address]- 3890 14 Feb, 2011 [facility] [address] [facility] [id number], [place] [address]- 7026 Feb, [facility] [address] [facility] [id number], [place] [address] 2546 Jan, [facility] [address] [facility] [id number], [place] [address] 2546 Jan, [facility] [address] [facility] [id number], [place] [address]- 3483 Dec, [facility] [address] [id number], [place] [address]- 8421 Jan, [facility] [address]65[address], [place] [address]- 4866 Dec, [facility] [address] [id number], [place] [address] 2543 Dec, [facility] [address] [id number], [place] [address]- 4089 Feb, [facility] [address]65[address], [place] [address] 2546 Jan, [facility] [address] [id number], [place] [address]- 0403 Dec, [facility] [address] [id number], [place] [address] 2545 Sep, IMMUNIZATIONS No Known Immunizations SOCIAL HISTORY Never Assessed REASON FOR VISIT Pharmacy recommendation PLAN OF CARE VITAL SIGNS MEDICATIONS Unknown Medications RESULTS No Results PROCEDURES No Known procedures INSTRUCTIONS MEDICATIONS ADMINISTERED No Known Medications
--- OUTSIDE RECORDS SUMMARY | 2018-03-06 18:26 | XMS REPORT ---
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 Name Role Phone JEANETTE ZHU Unavailable PROBLEMS Type Condition ICD9-CM Code OMJ19-DP Code Onset Dates Condition Status SNOMED Code Problem Atopic dermatitis, mild L20.9 Active 60692015 Problem Seizure disorder G40.909 Active 240978555 Problem Seizures R56.9 Active 53955104 Problem Profoundly mentally retarded F73 Active 88282875 Problem Unspecified intellectual disabilities F79 Active [id number] ALLERGIES No Information ENCOUNTERS Encounter Location Date Diagnosis [place] [id number] [place] [address] 05250- 2870 Nov, [facility] [address] [place] [id number] Oct, Profoundly mentally retarded F73 and Seizures R56.9 [place] [id number] [place] [address] 068391- 7947 Sep, [facility] [address] [place] [id number] Aug, [place] [id number] [place] [address] 27155- 5333 Aug, [place] [id number] [place] [address] 52838715- 3946 Aug, [facility] [address] [place] [id number] July, Profoundly mentally retarded F73 and Seizures R56.9 [facility] [address] [address] 7[address] Jun, [facility] [address] [place] [id number] May, Sepsis, due to unspecified organism A41.9 [facility] [address] [place] [address] May, Profoundly mentally retarded F[address] [facility] [id number] [address] Apr, [facility] [id number][place] [address] Mar, [facility] [address]65[address], [place] [address]- 9260 Mar, [facility] [address] [place] [id number] Mar, Profoundly mentally retarded F[address] [facility] [id number] [address] Mar, [facility] [address] [place] [address] 74969- 0898 Mar, Acute pain of right knee M25.561 [facility] [address] [place] [address] Mar, Acute pain of right knee M25.561 and Profoundly mentally retarded F73 [facility] [address]65100[place], [place] [address]- 8113 Feb, [facility] [address] [place] [address] Jan, Profoundly mentally retarded F73 and Seizure disorder G40.909 [facility] [address] [id number], [place] [address] Jan, [facility] [id number] [address] Jan, Upper respiratory tract infection, unspecified type J06.9 [facility] [id number][place] [address] Nov, [facility] [address] [place] [address] Nov, Atopic dermatitis, mild L20.9 [facility] [address] [place] [address] Nov, Profoundly mentally retarded F73 [facility] [id number] [place] [address] [id number] Oct, [facility] [id number] [place] [address] 45465- 5736 Sep, [facility] [address] [place] [address] Sep, Profoundly mentally retarded F73 [facility] [id number] [place] [address] 87467- 1386 July, [facility] [address] [id number] July, Profoundly mentally retarded F73 and Seizure disorder G40.909 [facility] [id number] [place] [address] 86393- 3081 Jun, [facility] [id number] [place] [address] 58753- 2335 Jun, [facility] [address] [place] [address] 68685- 8062 May, [facility] [address] [id number] May, Profoundly mentally retarded F73 [facility] [address] [place] [address] 58394- 8850 Mar, Seizures R56.9 [facility] [id number] [place] [address] 81959- 2430 Mar, Seizures R56.[address] [facility] [address] [id number] Feb, Profoundly mentally retarded F73 and Hx of bacterial pneumonia Z87.01 [facility] [id number] [place] [address] 99082- 8749 Jan, [facility] [id number] [place] [address] 71253- 9762 Jan, [facility] [address] [place] [id number] Dec, Fever, unspecified fever cause R50.[address] [facility] [address] [id number] Nov, Seizure disorder G40.909 and Seizures R56.9 [facility] [id number] [place] [address] 18100- 1951 Oct, [facility] [id number] [place] [address] 81065- 1667 Oct, [facility] [id number] [place] [address] 05601- 1828 Oct, [facility] [address] [place] [id number] Oct, Seizures R56.9 ; Profoundly mentally retarded F73 ; Hypoxia R09.02 and Hypothyroidism E03.9 [facility] [id number] [place] [address] 87015- 0728 Sep, [facility] [id number] [place] [address] 13590- 0809 Sep, [facility] [id number] [place] [address] 68062- 2802 Sep, [facility] [address] [id number] Aug, Profoundly mentally retarded F73 [facility] [id number] [place] [address] 89631- 5405 July, Seizures R56.9 [facility] [id number] [place] [address] 47218- 6254 Jun, [facility] [id number] [place] [address] 09925- 5872 Jun, [facility] [address] [place] [address] 21307- 9754 Jun, [facility] [address] [place] [id number] Jun, Hypoxia R09.02 [facility] [address]00565100[place], [place] [address]- 3622 May, [facility] [id number] [place] [address] 99735- 3520 May, [facility] [id number] [place] [address] 96649- 9685 Apr, [facility] [id number] [place] [address] 32016- 8598 Apr, [facility] [address] [place] [id number] Apr, Unspecified intellectual disabilities F79 [facility] [id number] [place] [address] 82171- 9286 Mar, [facility] [id number] [place] [address] 85817- 0598 Mar, [facility] [id number] [place] [address] 00781- 4671 Mar, [facility] [id number] [place] [address] 92780- 8689 Mar, [facility] [id number] [place] [address] 46964- 7251 Feb, [facility] [id number] [place] [address] 64091- 7466 Jan, [facility] [id number] [place] [address] 54968- 2134 Dec, Seizures R56.9 and Profoundly mentally retarded F73 [facility] [id number] [place] [address] 91508- 1295 Dec, [facility] [id number] [place] [address] 73495- 3275 Nov, Mental retardation 319 and Seizures 780.39 [facility] [id number] [place] [address] 99780- 9150 Sep, Seizures 780.39 and Severely mentally retarded 318.1 [facility] [address] [place] [id number] July, Seizures 780.39 and Severe mental retardation 318.1 [facility] [address] [facility] [id number] [address]- 4418 Jun, [facility] [address] [facility] [id number], [place] [address]- 0725 Jun, [facility] [address] [facility] [id number][place] [address]- 2913 May, [facility] [address] [place] [id number] May, [facility] [id number], [place] [address]- 7724 Apr, [facility] [address]65[address]- 5348 Apr, [facility] [address] [id number], [place] [address]- 7030 Mar, [facility] [address]65100[place], [place] [address]- 2322 Mar, [facility] [address] [id number], [place] [address]- 1964 Mar, [facility] [address] [place] [id number] Mar, [facility] [address] [facility] [id number], [place] [address]- 6600 Jan, [facility] [address] [id number], [place] [address]- 4158 Jan, [facility] [id number], [place] [address]- 6914 Jan, [facility] [address] [place] [id number] Jan, [facility] [place] [facility] [address] [id number] [place] [address]- 9024 Dec, [facility] [address] [id number] [place] [address]- 0475 Dec, [facility] [address] [id number] [place] [address]- 6673 Nov, [facility] [address] [place] [id number] Nov, [facility] [address] [id number] [place] [address]- 5705 Oct, [facility] [address] [id number] [place] [address]- 3119 Oct, [facility] [address] [id number] [place] [address]- 3553 Oct, [facility] [address] [place] [id number] Oct, [facility] [address] [id number] [place] [address]- 3716 Aug, [facility] [address] [id number], [place] [address]- 9310 Aug, [facility] [address] [id number], [place] [address]- 8382 Aug, [facility] [address] [place] [id number] Aug, [facility] [address] [id number], [place] [address]- 7327 Aug, [facility] [address] [id number] [place] [address]- 8695 Aug, [facility] [address] [id number] [place] [address]- 7298 Jun, [facility] [place] [facility] [address] [id number] [place] [address]- 0607 Jun, [facility] [address] [id number], [place] [address]- 4320 Jun, [facility] [address] [id number]- 4285 Jun, [facility] [address] [id number], [place] [address]- 9864 May, [facility] [address] [facility] [id number], [place] [address]- 3116 May, [facility] [address] [place] [address] Apr, [facility] [address] [id number], [place] [address]- 7146 Apr, [facility] [address] [id number], [place] [address]- 5650 Apr, [facility] [address] [facility] [id number], [place] [address]- 4738 Apr, [facility] [address] [id number], [place] [address]- 1756 Mar, [facility] [address] [id number], [place] [address]- 3773 Mar, [facility] [address] [facility] [id number][place] [address]- 1124 Feb, [facility] [address] [place] [address] Feb, [facility] [address] [id number], [place] [address]- 5210 Feb, [facility] [address] [id number]- 4976 Feb, [facility] [address] [facility] [id number], [place] [address]- 5033 Jan, [facility] [address] [facility] [id number], [place] [address]- 9321 Jan, [facility] [address] [place] [address] Jan, [facility] [address] [id number] [place] [address]- 1720 Jan, [facility] [address] [id number] [place] [address]- 6031 Jan, [facility] [address] [id number] [place] [address]- 9579 Jan, [facility] [address] [id number] [place] [address]- 5328 Dec, [facility] [address] [id number] [place] [address]- 9722 Dec, [facility] [address] [id number] [place]- 6723 Dec, [facility] [address] [id number] [place] [address]- 5344 Dec, [facility] [address] [id number] [place] [address]- 9694 Dec, [facility] [address] [place] [address] Dec, [facility] [address] [id number], [place] [address]- 9642 Dec, [facility] [address] [id number], [place] [address]- 0946 Oct, [facility] [address] [place] [id number] Oct, [facility] [address] [id number] [place] [address]- 0290 Sep, [facility] [address] [id number] [place] [address]- 2655 Sep, [facility] [place] [facility] [address] [id number] [place] [address]- 4528 Sep, [facility] [address] [id number], [place] [address]- 6986 Aug, [facility] [address] [id number], [place] [address]- 7097 July, [facility] [address] [facility] [id number], [place] [address]- 2602 July, [facility] [address] [facility] [id number] Jun, [facility] [address] [facility] [id number], [place] [address]- 0556 Jun, [facility] [address] [facility] [address] Apr, [facility] [address] [facility] [id number], [place] [address]- 4576 Feb, [facility] [address] [facility] [id number] Feb, [facility] [address] [facility] [id number] Dec, [facility] [address] [id number], [place] [address]- 1684 Dec, [facility] [address] [facility] [id number] Oct, [facility] [address] [id number], [place] [address]- 9286 Aug, [facility] [address] [facility] [address] Aug, [facility] [address] [id number], [place] [address]- 8696 July, [facility] [address] [facility] [id number] Jun, [facility] [address] [facility] [id number], [place] [address]- 3536 May, [facility] [address] [facility] [id number] 15 Apr, 2011 [facility] [address] [id number], [place] [address]- 4716 Mar, [facility] [address] [facility] [id number][place] [address]- 1770 Feb, [facility] [address] [facility] [id number], [place] [address]- 2266 Feb, [facility] [address] [facility] [id number], [place] [address]- 9496 Feb, [facility] [address] [facility] [id number], [place] [address]- 8402 Jan, [facility] [address] [facility] [id number], [place] [address]- 5746 Jan, [facility] [address] [facility] [id number] [place] [address] 55228- 7006 Dec, [facility] [address]65100[place], [place] [address]- 0226 Jan, [facility] [address] [id number], [place] [address]- 4839 Dec, [facility] [address] [id number], [place] [address]- 1484 Dec, [facility] [address]65100[place], [place] [address]- 9165 Feb, [facility] [address]65100[place], [place] [address]- 2456 Jan, [facility] [address]65100[place], [place] [address] 2544 Dec, [facility] [address] [id number], [place] [address]- 8149 Sep, IMMUNIZATIONS No Known Immunizations SOCIAL HISTORY Never Assessed REASON FOR VISIT Routine visit PLAN OF CARE Activity Details Follow Up prn Reason: VITAL SIGNS MEDICATIONS Unknown Medications RESULTS No Results PROCEDURES Procedure Date Ordered Result Body Site Stable Visit (10 minutes) Oct 12, 2017 INSTRUCTIONS MEDICATIONS ADMINISTERED No Known Medications
--- OUTSIDE RECORDS SUMMARY | 2018-03-06 18:26 | XMS REPORT ---
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 Name Role Phone JEANETTE ZHU Unavailable PROBLEMS Type Condition ICD9-CM Code CGV95-TR Code Onset Dates Condition Status SNOMED Code Problem Atopic dermatitis, mild L20.9 Active 38301376 Problem Seizure disorder G40.909 Active 307794203 Problem Seizures R56.9 Active 61317345 Problem Profoundly mentally retarded F73 Active 60682005 Problem Unspecified intellectual disabilities F79 Active 239186655 ALLERGIES No Information ENCOUNTERS Encounter Location Date Diagnosis [facility] [address] [place] [id number] Oct, Profoundly mentally retarded F73 and Seizures R56.9 [facility] [id number] [place] [address] [id number]- 6752 Sep, [facility] [address] [place] [id number] Aug, [facility] [id number] [place] [address] [id number]- 5400 Aug, [facility] [id number] [place] [address] [id number]- 3164 Aug, [facility] [address] [place] [id number] July, Profoundly mentally retarded F73 and Seizures R56.9 [facility] [id number] [place] [address] 81069- 5500 Jun, [facility] [address] [place] [id number] May, Sepsis, due to unspecified organism [facility]41.9 [facility] [address] [place] [id number] May, Profoundly mentally retarded F73 and Seizures R56.9 [facility] [id number] [place] [id number] Apr, [facility] [id number] [place] [address] Mar, [facility] [address] [id number] [address] 65[address] Mar, [facility] [id number] Mar, Profoundly mentally retarded F73 and Seizures R56.9 [facility] [id number] [place] [id number] Mar, [facility] [id number] [place] [address] 626970- 6533 Mar, Acute pain of right knee M25.[address] [facility] [address] [id number] Mar, Acute pain of right knee M25.561 and Profoundly mentally retarded F73 [facility] [address] [id number] [address]24 Feb, [facility] [address] [id number] Jan, Profoundly mentally retarded F73 and Seizure disorder G40.909 [facility] [address] [id number] [address]- 0236 Jan, [facility] [id number] [place] [address] [id number] Jan, Upper respiratory tract infection, unspecified type J06.9 [facility] [id number] [place] [id number] Nov, [facility] [address] [id number] Nov, Atopic dermatitis, mild L20.[address] [facility] [address] [id number] Nov, Profoundly mentally retarded F73 [facility] [address] [id number] [address] Oct, [facility] [address] [place] [address] 93602- 1013 Sep, [facility] [address] [id number] Sep, Profoundly mentally retarded F73 [facility] [id number] [place] [address] 90971- 0114 July, [facility] [address] [id number] July, Profoundly mentally retarded F73 and Seizure disorder G40.909 [facility] [id number] [place] [address] 42414- 3156 Jun, [facility] [id number] [place] [address] 92232- 4461 Jun, [facility] [id number] [place] [address] 63371- 6893 May, [facility] [address] [id number] May, Profoundly mentally retarded F73 [facility] [address] [place] [address] 03226- 1903 Mar, Seizures R56.9 [facility] [address] [place] [address] 03343- 0531 Mar, Seizures R56.[address] [facility] [address] [id number] Feb, Profoundly mentally retarded F73 and Hx of bacterial pneumonia Z87.01 [facility] [id number] [place] [address] 64339- 8264 Jan, [facility] [id number] [place] [address] 54287- 6294 Jan, [facility] [address] [place] [id number] Dec, Fever, unspecified fever cause R50.9 [facility] [address] [place] [id number] Nov, Seizure disorder G40.909 and Seizures R56.9 [facility] [id number] [place] [address] 03085- 6828 Oct, [facility] [id number] [place] [address] 95765- 0423 Oct, [facility] [id number] [place] [address] 42560- 0466 Oct, [facility] [address] [place] [id number] Oct, Seizures R56.9 ; Profoundly mentally retarded F73 ; Hypoxia R09.02 and Hypothyroidism E03.9 [facility] [id number] [place] [address] 20301- 5277 Sep, [facility] [id number] [place] [address] 08880- 9257 Sep, [facility] [id number] [place] [address] 34376- 0229 Sep, [facility] [address] [place] [id number] Aug, Profoundly mentally retarded F73 [facility] [address] [place] [address] 50843- 7660 July, Seizures R56.9 [facility] [address] [id number] [address]- 5019 Jun, [facility] [id number] [place] [address] 54542- 3099 Jun, [facility] [id number] [place] [address] 95786- 3312 Jun, [facility] [address] [place] [id number] Jun, Hypoxia R09.02 [facility] [id number] [place] [address] 76430- 4630 May, [facility] [address]00565100[place] [address]- 5822 May, [facility] [address]00565100[place] [address]- 9694 Apr, [facility] [address]00565[address] [address] 1943 Apr, [facility] [address] [place] [id number] Apr, Unspecified intellectual disabilities F79 [facility] [address]00565[address] [address]- 7179 Mar, [facility] [address]00565[address] [address]- 6069 Mar, [facility] [address]00565[address] [address]- 5782 Mar, [facility] [address]00565[address] [address]- 9301 Mar, [facility] [address]00565[address] [address]- 7146 Feb, [facility] [address]00565[address] [address]- 9161 Jan, [facility] [address] [address]- 3489 Dec, Seizures R56.9 and Profoundly mentally retarded F73 [facility] [address]00565[address] [address]- 7114 Dec, [facility] [address] [address]- 0909 Nov, Mental retardation 319 and Seizures 780.39 [facility] [address] [id number] 2534 Sep, Seizures 780.39 and Severely mentally retarded 318.1 [facility] [address] [place] [id number] July, Seizures 780.39 and Severe mental retardation 318.1 [facility] [address]00565[address] [address]- 2965 Jun, [facility] [address] [facility] [id number] [place] [address]- 4471 Jun, [facility] [address]65[address] [address]- 4164 May, [facility] [address] [place] [id number] May, [facility] [address]00565100[place] [address]- 7817 Apr, [facility] [address]00565[address] [address]- 7369 Apr, [facility] [address]65[address] [address]- 8089 Mar, [facility] [address] [id number] [address]- 8185 Mar, [facility] [address]00565[address] [address]- 3552 Mar, [facility] [address] [place] [id number] Mar, [facility] [address] [id number] [address]- 2355 Jan, [facility] [address] [id number] [address]- 8525 Jan, [facility] [address] [id number] [address]- 7866 Jan, [facility] [address] [place] [id number] Jan, [facility] [address] [id number] [address]- 3976 Dec, [facility] [place] [facility] [address] [id number] [place] [address]- 5424 Dec, [facility] [address] [id number] [place] [address]- 5938 Nov, [facility] [address] [place] [id number] Nov, [facility] [address] [id number] [place] [address]- 7317 Oct, [facility] [place] [facility] [address] [id number] [place] [address]- 7757 Oct, [facility] [address] [id number] [place] [address]- 0946 Oct, [facility] [address] [place] [id number] Oct, [facility] [address] [id number] [place] [address]- 8145 Aug, [facility] [place] [facility] [address] [id number] [place] [address]- 8206 Aug, [facility] [address] [id number] [place] [address]- 9178 Aug, [facility] [address] [place] [id number] Aug, [facility] [place] [facility] [address] [id number] [place] [address]- 3682 Aug, [facility] [place] [facility] [address] [id number] [place] [address]- 1211 Aug, [facility] [place] [facility] [address] [id number] [place] [address]- 8444 Jun, [facility] [place] [facility] [address] [id number] [place] [address]- 7955 Jun, [facility] [place] [facility] [address] [id number] [place] [address]- 7616 Jun, [facility] [place] [facility] [address] [id number] [place] [address]- 3330 Jun, [facility] [address] [id number] [place] [address]- 2697 May, [facility] [address] [facility] [id number] [place] [address]- 5678 May, [facility] [address] [place] [id number] Apr, [facility] [address] [id number] [place] [address]- 8139 Apr, [facility] [address] [id number] [place] [address]- 5229 Apr, [facility] [address] [facility] [id number] [place] [address]- 8428 Apr, [facility] [address] [id number] [address]- 7194 Mar, [facility] [address] [facility] [id number] [place] [address]- 5473 Mar, [facility] [address] [id number] [address]- 9362 Feb, [facility] [address] [place] [id number] Feb, [facility] [place] [address] [id number] [address]- 0979 Feb, [facility] [address] [facility] [id number] [place] [address]- 1670 Feb, [facility] [address] [facility] [id number] [place] [address]- 1261 Jan, [facility] [address] [facility] [id number] [place] [address]- 9430 Jan, [facility] [address] [place] [id number] Jan, [facility] [place] [address] [facility] [id number] [place] [address] 2546 Jan, [facility] [address] [id number] [place] [address]- 5551 Jan, [facility] [address] [id number] [place] [address]- 7581 Jan, [facility] [address] [id number] [place] [address]- 7526 Dec, [facility] [address] [id number] [place] [address]- 6160 Dec, [facility] [address] [id number] [place] [address]- 3312 Dec, [facility] [address] [id number] [place] [address]- 1045 Dec, [facility] [address] [id number] [place] [address]- 9730 Dec, [facility] [address] [place] [id number] Dec, [facility] [address] [id number] [place] [address]- 6207 Dec, [facility] [address] [id number] [place] [address]- 0016 Oct, [facility] [address] [place] [id number] Oct, [facility] [address] [id number] [place] [address]- 3095 Sep, [facility] [address] [id number] [place] [address]- 7971 Sep, [facility] [address] [id number] [place] [address]- 6316 Sep, [facility] [address] [id number] [place] [address]- 1168 Aug, [facility] [address] [id number] [place] [address]- 6416 July, [facility] [address] [id number] [place] [address]- 6066 July, [facility] [address] [facility] [id number] Jun, [facility] [address] [id number] [place] [address] 2546 Jun, [facility] [address] [facility] [id number] Apr, [facility] [address] [id number] [place] [address]- 7630 Feb, [facility] [address] [facility] [id number] Feb, [facility] [address] [facility] [address] Dec, [facility] [address] [id number] [place] [address]- 4156 Dec, [facility] [address] [facility] [id number] Oct, [facility] [address] [id number] [place] [address]- 5796 Aug, [facility] [address] [facility] [id number] Aug, [facility] [address] [id number] [place] [address]- 9026 July, [facility] [address] [facility] [id number] Jun, [facility] [address] [id number] [place] [address]- 2946 May, [facility] [address] [facility] [id number] Apr, [facility] [address] [id number] [place] [address]- 4706 Mar, [facility] [address] [id number] [place] [address]- 9156 Feb, [facility] [address] [facility] [id number] [place] [address]- 3370 Feb, [facility] [address] [facility] [id number] [place] [address]- 9576 Feb, [facility] [address] [facility] [id number] [place] [address] 2546 Jan, [facility] [address] [facility] [id number] [place] [address] 2546 Jan, [facility] [address] [facility] [id number] [place] [address]- 2670 Dec, [facility] [address] [facility] [id number] [place] [address]- 2551 Jan, [facility] [address]65[address] [address]- 4645 Dec, [facility] [address] [id number] [address]- 3291 Dec, [facility] [address] [id number] [address]- 4242 Feb, [facility] [address]65[address] [address]- 2046 Jan, [facility] [address] [id number] [address]- 5521 Dec, [facility] [address]65[address] [address] 2541 Sep, IMMUNIZATIONS No Known Immunizations SOCIAL HISTORY Never Assessed REASON FOR VISIT Residential PLAN OF CARE Activity Details Follow Up prn Reason: VITAL SIGNS MEDICATIONS Unknown Medications RESULTS No Results PROCEDURES Procedure Date Ordered Result Body Site Stable Visit (10 minutes) August 03, 2017 INSTRUCTIONS MEDICATIONS ADMINISTERED No Known Medications
--- OUTSIDE RECORDS SUMMARY | 2018-03-06 18:27 | XMS REPORT ---
Author Author JEANETTE ZHU Organization [facility] Address [address] [place] [address] Care Team Providers Care Certified Ophthalmic Technologist Name Role Phone JEANETTE ZHU Unavailable PROBLEMS Type Condition ICD9-CM Code YDS25-OJ Code Onset Dates Condition Status SNOMED Code Problem Atopic dermatitis, mild L20.9 Active 00523402 Problem Seizure disorder G40.909 Active 853481034 Problem Seizures R56.9 Active 51855807 Problem Profoundly mentally retarded F73 Active 06348804 Problem Unspecified intellectual disabilities F79 Active [id number] ALLERGIES No Information ENCOUNTERS Encounter Location Date Diagnosis [facility] [address] [place] [id number] Oct, Profoundly mentally retarded F73 and Seizures R56.9 [facility] [address] [place] [id number]- 1465 Sep, [facility] [address] [place] [id number] Aug, [facility] [address] [place] [address] 91845- 5502 Aug, [facility] [id number] [place] [address] [id number]- 4396 Aug, [facility] [address] [place] [id number] July, Profoundly mentally retarded F73 and Seizures R56.9 [facility] [id number] [place] [address] 54752- 4117 Jun, [facility] [address] [place] [id number] May, Sepsis, due to unspecified organism A41.9 [facility] [address] [place] [id number] May, Profoundly mentally retarded F73 and Seizures R56.9 [facility] [id number] [id number] Apr, [facility] [id number] [id number] Mar, [facility] [address] [id number] [address] 6[address] Mar, [facility] [id number] Mar, Profoundly mentally retarded F73 and Seizures R56.9 [facility] [id number] [id number] Mar, [facility] [address] [place] [address] 608104- 3081 Mar, Acute pain of right knee M25.[address] [facility] [address] [id number] Mar, Acute pain of right knee M25.561 and Profoundly mentally retarded F73 [facility] [address] [id number] [address] 8624 Feb, [facility] [address] [id number] Jan, Profoundly mentally retarded F73 and Seizure disorder G40.909 [facility] [address] [id number], [place] [address] 1056 Jan, [facility] [id number] [place] [id number] Jan, Upper respiratory tract infection, unspecified type J06.9 [facility] [id number] [id number] Nov, [facility] [address] [id number] Nov, Atopic dermatitis, mild L20.[address] [facility] [address] [id number] Nov, Profoundly mentally retarded F73 [facility] [place] [address] [id number] [id number] Oct, [facility] [address] [place] [address] 53296- 1154 Sep, [facility] [address] [id number] Sep, Profoundly mentally retarded F73 [facility] [id number] [place] [address] 43237- 5176 July, [facility] [address] [id number] July, Profoundly mentally retarded F73 and Seizure disorder G40.909 [facility] [id number] [place] [address] 50396- 5802 Jun, [facility] [id number] [place] [address] 55164- 5489 Jun, [facility] [id number] [place] [address] 65533- 8077 May, [facility] [address] [id number] May, Profoundly mentally retarded F73 [facility] [address] [place] [address] 08196- 4912 Mar, Seizures R56.9 [facility] [address] [place] [address] 37305- 8418 Mar, Seizures R56.[address] [facility] [address] [id number] Feb, Profoundly mentally retarded F73 and Hx of bacterial pneumonia Z87.01 [facility] [address] [place] [address] 81529- 6448 Jan, [facility] [id number] [place] [address] 69836- 3492 Jan, [facility] [address] [place] [id number] Dec, Fever, unspecified fever cause R50.9 [facility] [address] [place] [id number] Nov, Seizure disorder G40.909 and Seizures R56.9 [facility] [id number] [place] [address] 17046- 6608 Oct, [facility] [id number] [place] [address] 97025- 8448 Oct, [facility] [id number] [place] [address] 62230- 0592 Oct, [facility] [address] [place] [id number] Oct, Seizures R56.9 ; Profoundly mentally retarded F73 ; Hypoxia R09.02 and Hypothyroidism E03.9 [facility] [id number] [place] [address] 93165- 4890 Sep, [facility] [id number] [place] [address] 87478- 6714 Sep, [facility] [id number] [place] [address] 58157- 9396 Sep, [facility] [address] [place] [id number] Aug, Profoundly mentally retarded F73 [facility] [address] [place] [address] 56241- 6118 July, Seizures R56.9 [facility] [address] [id number] [address] 3484 Jun, [facility] [id number] [place] [address] 05019- 4546 Jun, [facility] [id number] [place] [address] 35404- 8868 Jun, [facility] [address] [place] [address] Jun, Hypoxia R09.02 [facility] [id number] [place] [address] 59596- 3622 May, [facility] [address]65[address], [place] [address]- 9863 May, [facility] [address]00565100[place], [place] [address]- 9705 Apr, [facility] [address]00565100[place], [place] [address]- 3892 Apr, [facility] [address] [place] [id number] Apr, Unspecified intellectual disabilities F79 [facility] [address]00565100[place], [place] [address]- 0018 Mar, [facility] [address]00565100[place], [place] [address]- 3030 Mar, [facility] [address]00565[address], [place] [address]- 5364 Mar, [facility] [address]00565[address], [place] [address]- 1690 Mar, [facility] [address]00565[address], [place] [address]- 0317 Feb, [facility] [address]00565[address], [place] [address]- 1386 Jan, [facility] [address]00565[address], [place] [address]- 1435 Dec, Seizures R56.9 and Profoundly mentally retarded F73 [facility] [address]00565[address], [place] [address]- 9213 Dec, [facility] [address]00565100[place], [place] [address]- 1193 Nov, Mental retardation 319 and Seizures 780.39 [facility] [address] [id number] 1842 Sep, Seizures 780.39 and Severely mentally retarded 318.1 [facility] [address] [place] [id number] July, Seizures 780.39 and Severe mental retardation 318.1 [facility] [address]00565[address], [place] [address]- 3497 Jun, [facility] [address] [facility] [id number], [place] [address]- 5239 Jun, [facility] [address]65[address], [place] [address]- 8074 May, [facility] [address] [place] [id number] May, [facility] [address]65[address], [place] [address]- 8593 Apr, [facility] [address]00565[address], [place] [address]- 3762 Apr, [facility] [address]65[address], [place] [address]- 9045 Mar, [facility] [address] [id number] [address]- 2018 Mar, [facility] [address]00565[address], [place] [address]- 5964 Mar, [facility] [address] [place] [id number] Mar, [facility] [address] [id number], [place] [address]- 4139 Jan, [facility] [address] [id number], [place] [address]- 9331 Jan, [facility] [address] [id number], [place] [address]- 4925 Jan, [facility] [address] [place] [id number] Jan, [facility] [address] [id number], [place] [address]- 7296 Dec, [facility] [place] [facility] [address] [id number], [place] [address]- 2270 Dec, [facility] [address] [id number] [place] [address]- 7308 Nov, [facility] [address] [place] [id number] Nov, [facility] [address] [id number] [place] [address]- 9925 Oct, [facility] [place] [facility] [address] [id number] [place] [address]- 0550 Oct, [facility] [address] [id number] [place] [address]- 6449 Oct, [facility] [address] [place] [id number] Oct, [facility] [address] [id number], [place] [address]- 1269 Aug, [facility] [place] [facility] [address] [id number], [place] [address]- 3807 Aug, [facility] [address] [id number], [place] [address]- 6777 Aug, [facility] [address] [place] [id number] Aug, [facility] [place] [facility] [address] [id number], [place] [address]- 6677 Aug, [facility] [place] [facility] [address] [id number], [place] [address]- 1882 Aug, [facility] [place] [facility] [address] [id number] [place] [address]- 6683 Jun, [facility] [place] [facility] [address] [id number] [place] [address]- 5956 Jun, [facility] [place] [facility] [address] [id number] [place] [address]- 7857 Jun, [facility] [place] [facility] [address] [id number], [place] [address]- 6371 Jun, [facility] [address] [id number], [place] [address]- 6819 May, [facility] [address] [facility] [id number][place] [address]- 4061 May, [facility] [address] [place] [id number] Apr, [facility] [address] [id number], [place] [address]- 9444 Apr, [facility] [address] [id number][place] [address]- 4457 Apr, [facility] [address] [facility] [id number], [place] [address]- 8302 Apr, [facility] [address] [id number], [place] [address]- 3416 Mar, [facility] [address] [facility] [id number], [place] [address]- 5172 Mar, [facility] [address] [id number], [place] [address]- 4134 Feb, [facility] [address] [place] [id number] Feb, [facility] [address] [id number], [place] [address]- 5826 Feb, [facility] [address] [facility] [id number], [place] [address]- 1396 Feb, [facility] [address] [facility] [id number], [place] [address]- 9814 Jan, [facility] [address] [facility] [id number], [place] [address]- 6957 Jan, [facility] [address] [place] [id number] Jan, [facility] [address] [facility] [id number], [place] [address] 2546 Jan, [facility] [address] [id number] [address]- 0629 Jan, [facility] [address] [id number], [place] [address]- 8629 Jan, [facility] [address] [id number] [address]- 7139 Dec, [facility] [address] [id number] [place] [address]- 1377 Dec, [facility] [address] [id number] [place] [address]- 2140 Dec, [facility] [address] [id number] [place] [address]- 5235 Dec, [facility] [address] [id number], [place] [address]- 0444 Dec, [facility] [address] [place] [id number] Dec, [facility] [address] [id number], [place] [address]- 8731 Dec, [facility] [address] [id number], [place] [address]- 9377 Oct, [facility] [address] [place] [id number] Oct, [facility] [address] [id number], [place] [address]- 1073 Sep, [facility] [address] [id number], [place] [address]- 6614 Sep, [facility] [address] [id number], [place] [address]- 0096 Sep, [facility] [address] [id number], [place] [address]- 3924 Aug, [facility] [address] [id number][place] [address]- 3126 July, [facility] [address] [id number], [place] [address]- 0366 July, [facility] [address] [facility] [id number] Jun, [facility] [address] [id number], [place] [address] 2546 Jun, [facility] [address] [facility] [id number] Apr, [facility] [address] [id number], [place] [address]- 8525 Feb, [facility] [address] [facility] [id number] Feb, [facility] [address] [facility] [id number] Dec, [facility] [address] [id number], [place] [address]- 2036 Dec, [facility] [address] [facility] [id number] Oct, [facility] [address] [id number], [place] [address]- 3176 Aug, [facility] [address] [facility] [id number] Aug, [facility] [address] [id number], [place] [address]- 7686 July, [facility] [address] [facility] [id number] Jun, [facility] [address] [id number], [place] [address]- 3716 May, [facility] [address] [facility] [id number] Apr, [facility] [address] [id number], [place] [address]- 5126 Mar, [facility] [address] [id number], [place] [address]- 6356 Feb, [facility] [address] [facility] [id number], [place] [address]- 0319 Feb, [facility] [address] [facility] [id number], [place] [address]- 5926 Feb, [facility] [address] [facility] [id number], [place] [address] 2546 Jan, [facility] [address] [facility] [id number], [place] [address]- 2546 Jan, [facility] [address] [facility] [id number], [place] [address]- 0965 Dec, [facility] [address] [facility] [id number], [place] [address]- 2141 Jan, [facility] [address] [id number], [place] [address]- 5966 Dec, [facility] [address] [facility] [id number], [place] [address]- 0733 Dec, [facility] [address] [facility] [id number], [place] [address]- 1507 Feb, [facility] [address] [facility] [id number], [place] [address] 2546 Jan, [facility] [address] [id number], [place] [address]- 8252 Dec, [facility] [address] [id number], [place] [address] 2542 Sep, IMMUNIZATIONS No Known Immunizations SOCIAL HISTORY Never Assessed REASON FOR VISIT Controlled Med Refill PLAN OF CARE VITAL SIGNS MEDICATIONS Medication Instructions Dosage Frequency Start Date End Date Duration Status Phenobarbital 16.2 MG Orally Twice a day 1 tablet 12h 30 Active RESULTS No Results PROCEDURES No Known procedures INSTRUCTIONS MEDICATIONS ADMINISTERED No Known Medications
--- OUTSIDE RECORDS SUMMARY | 2018-03-06 18:27 | XMS REPORT ---
Author Author JEANETTE ZHU Organization [facility] Address [address] [place] [address] Care Team Providers Care Ward Service Supervisor Name Role Phone JEANETTE ZHU Unavailable PROBLEMS Type Condition ICD9-CM Code BIP38-IV Code Onset Dates Condition Status SNOMED Code Problem Atopic dermatitis, mild L20.9 Active 37972881 Problem Seizure disorder G40.909 Active 274634100 Problem Seizures R56.9 Active 12003273 Problem Profoundly mentally retarded F73 Active 31569320 Problem Unspecified intellectual disabilities F79 Active 485880153 ALLERGIES No Information ENCOUNTERS Encounter Location Date Diagnosis [facility] [address] [place], [place] [id number] Oct, Profoundly mentally retarded F73 and Seizures R56.9 [facility] [id number] [place] [address]237[address]- 6840 Sep, [facility] [address] [place] [id number] Aug, [facility] [id number] [place] [address] 54215- 8439 Aug, [facility] [id number] [place] [address] [id number]- 2994 Aug, [facility] [address] [place] [id number] July, Profoundly mentally retarded F73 and Seizures R56.9 [facility] [id number] [place] [address] 35996- 8544 Jun, [facility] [address] [place] [id number] May, Sepsis, due to unspecified organism [facility]41.9 [facility] [address] [place] [id number] May, Profoundly mentally retarded F73 and Seizures R56.9 [facility] [id number] [id number] Apr, [facility] [id number] [place] [address] Mar, [facility] [address] [id number] [address] 7139 Mar, [facility] [id number] Mar, Profoundly mentally retarded F73 and Seizures R56.9 [facility] [id number] [place] [address] Mar, [facility] [address] [place] [address] 027059- 9411 Mar, Acute pain of right knee M25.[address] [facility] [address] [id number] Mar, Acute pain of right knee M25.561 and Profoundly mentally retarded F73 [facility] [address] [id number] [address] [address] Feb, [facility] [address] [id number] Jan, Profoundly mentally retarded F73 and Seizure disorder G40.909 [facility] [address] [id number] [address] 7996 Jan, [facility] [id number] [place] [address] [id number] Jan, Upper respiratory tract infection, unspecified type J06.9 [facility] [id number] [place] [address] Nov, [facility] [address] [id number] Nov, Atopic dermatitis, mild L20.[address] [facility] [address] [id number] Nov, Profoundly mentally retarded F73 [facility] [address] [id number] [address] Oct, [facility] [address] [place] [address] 53674- 1866 Sep, [facility] [address] [id number] Sep, Profoundly mentally retarded F73 [facility] [id number] [place] [address] 89439- 1766 July, [facility] [address] [id number] July, Profoundly mentally retarded F73 and Seizure disorder G40.909 [facility] [id number] [place] [address] 81909- 4405 Jun, [facility] [id number] [place] [address] 41026- 2963 Jun, [facility] [id number] [place] [address] 80773- 9558 May, [facility] [address] [id number] May, Profoundly mentally retarded F73 [facility] [address] [place] [address] 43616- 2497 Mar, Seizures R56.9 [facility] [address] [place] [address] 78046- 0042 Mar, Seizures R56.[address] [facility] [address] [id number] Feb, Profoundly mentally retarded F73 and Hx of bacterial pneumonia Z87.01 [facility] [address] [place] [address] 62518- 4392 Jan, [facility] [id number] [place] [address] 59857- 9574 Jan, [facility] [address] [place] [id number] Dec, Fever, unspecified fever cause R50.9 [facility] [address] [place] [address] Nov, Seizure disorder G40.909 and Seizures R56.9 [facility] [id number] [place] [address] 11333- 9263 Oct, [facility] [id number] [place] [address] 12042- 6717 Oct, [facility] [id number] [place] [address] 02671- 2048 Oct, [facility] [address] [place] [id number] Oct, Seizures R56.9 ; Profoundly mentally retarded F73 ; Hypoxia R09.02 and Hypothyroidism E03.9 [facility] [id number] [place] [address] 54227- 5834 Sep, [facility] [id number] [place] [address] 87583- 3337 Sep, [facility] [id number] [place] [address] 77618- 8357 Sep, [facility] [address] [place] [id number] Aug, Profoundly mentally retarded F73 [facility] [address] [place] [address] 43933- 9006 July, Seizures R56.9 [facility] [address] [id number] [address]- 5891 Jun, [facility] [id number] [place] [address] 53552- 7625 Jun, [facility] [id number] [place] [address] 40592- 9565 Jun, [facility] [address] [place] [id number] Jun, Hypoxia R09.02 [facility] [id number] [place] [address] 74277- 5061 May, [facility] [address]00565100[place] [address]- 6750 May, [facility] [address]00565100[place] [address]- 2318 Apr, [facility] [address]00565100[place] [address]- 4701 Apr, [facility] [address] [place] [id number] Apr, Unspecified intellectual disabilities F79 [facility] [address]00565100[place] [address]- 4876 Mar, [facility] [address]00565100[place] [address]- 1164 Mar, [facility] [address]00565100[place] [address]- 8597 Mar, [facility] [address]00565100[place] [address]- 8254 Mar, [facility] [address]00565100[place] [address]- 6325 Feb, [facility] [address]00565100[place] [address]- 9969 Jan, [facility] [address]00565100[place] [address]- 1149 Dec, Seizures R56.9 and Profoundly mentally retarded F73 [facility] [address]00565100[place] [address]- 4026 Dec, [facility] [address]00565100[place] [address]- 0428 Nov, Mental retardation 319 and Seizures 780.39 [facility] [address] [id number] 7668 Sep, Seizures 780.39 and Severely mentally retarded 318.1 [facility] [address] [place] [id number] July, Seizures 780.39 and Severe mental retardation 318.1 [facility] [address]00565100[place] [address]- 8731 Jun, [facility] [address] [facility] [id number] [address]- 0057 Jun, [facility] [address]00565100[place] [address]- 8924 May, [facility] [address] [place] [id number] May, [facility] [address]00565100[place] [address]- 1294 Apr, [facility] [address]00565100[place] [address]- 0892 Apr, [facility] [address]00565100[place] [address]- 1621 Mar, [facility] [address] [id number] [address]- 0596 Mar, [facility] [address]00565100[place] [address]- 9838 Mar, [facility] [address] [place] [id number] Mar, [facility] [address] [id number] [address]- 1353 Jan, [facility] [address] [id number] [address]- 2715 Jan, [facility] [address] [id number] [address]- 0469 Jan, [facility] [address] [place] [id number] Jan, [facility] [address] [id number] [address]- 1866 Dec, [facility] [place] [facility] [address] [id number] [place] [address]- 7666 Dec, [facility] [address] [id number] [place] [address]- 7585 Nov, [facility] [address] [place] [id number] Nov, [facility] [address] [id number] [place] [address]- 1225 Oct, [facility] [place] [facility] [address] [id number] [place] [address]- 1837 Oct, [facility] [address] [id number] [place] [address]- 0382 Oct, [facility] [address] [place] [id number] Oct, [facility] [address] [id number] [address]- 5996 Aug, [facility] [place] [facility] [address] [id number] [address]- 2956 Aug, [facility] [address] [id number] [place] [address]- 6671 Aug, [facility] [address] [place] [id number] Aug, [facility] [place] [facility] [address] [id number] [address]- 5381 Aug, [facility] [place] [facility] [address] [id number] [place] [address]- 7048 Aug, [facility] [place] [facility] [address] [id number] [place] [address]- 1376 Jun, [facility] [place] [facility] [address] [id number] [place] [address]- 2341 Jun, [facility] [place] [facility] [address] [id number] [place] [address]- 8512 Jun, [facility] [place] [facility] [address] [id number] [address]- 7471 Jun, [facility] [address] [id number] [address]- 9337 May, [facility] [address] [facility] [id number] [address]- 1437 May, [facility] [address] [place] [id number] Apr, [facility] [address] [id number] [address]- 1948 Apr, [facility] [address] [id number] [address]- 5349 Apr, [facility] [address] [facility] [id number] [place] [address]- 2424 Apr, [facility] [address] [id number] [address]- 6575 Mar, [facility] [address] [facility] [id number] [place] [address]- 3623 Mar, [facility] [address] [id number] [address]- 2234 Feb, [facility] [address] [place] [id number] Feb, [facility] [address] [id number] [address]- 1694 Feb, [facility] [address] [facility] [id number] [address]- 4809 Feb, [facility] [address] [facility] [id number] [place] [address]- 7091 Jan, [facility] [address] [facility] [id number] [place] [address]- 0475 Jan, [facility] [address] [place] [id number] Jan, [facility] [address] [facility] [id number] [place] [address] 2546 Jan, [facility] [address] [id number] [place] [address]- 9341 Jan, [facility] [address] [id number] [address]- 4588 Jan, [facility] [address] [id number] [place] [address]- 9562 Dec, [facility] [address] [id number] [place] [address]- 5344 Dec, [facility] [address] [id number] [place] [address]- 6298 Dec, [facility] [address] [id number] [place] [address]- 9984 Dec, [facility] [address] [id number] [address]- 2044 Dec, [facility] [address] [place] [id number] Dec, [facility] [address] [id number] [place] [address]- 0304 Dec, [facility] [address] [id number] [place] [address]- 9775 Oct, [facility] [address] [place] [id number] Oct, [facility] [address] [id number] [place] [address]- 0515 Sep, [facility] [address] [id number] [place] [address]- 8891 Sep, [facility] [address] [id number] [place] [address]- 9617 Sep, [facility] [address] [id number] [place] [address]- 6737 Aug, [facility] [address] [id number] [place] [address]- 3846 July, [facility] [address] [id number] [place] [address]- 7406 July, [facility] [address] [facility] [id number] Jun, [facility] [address] [id number] [place] [address] 2546 Jun, [facility] [address] [facility] [id number] Apr, [facility] [address] [id number] [address]- 7735 Feb, [facility] [address] [facility] [id number] Feb, [facility] [address] [facility] [id number] Dec, [facility] [address] [id number] [address]- 6976 Dec, [facility] [address] [facility] [id number] Oct, [facility] [address] [id number] [place] [address]- 8806 Aug, [facility] [address] [facility] [id number] Aug, [facility] [address] [id number] [place] [address]- 2396 July, [facility] [address] [facility] [id number] Jun, [facility] [address] [id number] [place] [address]- 8016 May, [facility] [address] [facility] [address] Apr, [facility] [address] [id number] [place] [address]- 7716 Mar, [facility] [address] [id number] [place] [address]- 4726 Feb, [facility] [address]00565[address] 4215 Feb, [facility] [address] [facility] [id number] [place] [address]- 0146 Feb, [facility] [address]00565100[place] [address]- 6596 Jan, [facility] [address] [facility] [id number] [place] [address]- 3306 Jan, [facility] [address]00565100[place] [address]- 8614 Dec, [facility] [id number] [place] [address] 26862- 2314 Jan, [facility] [address]00565100[place] [address]- 2959 Dec, [facility] [address]00565100[place] [address]- 2968 Dec, [facility] [address]00565100[place] 3416 Feb, [facility] [address]00565100[place] [address]- 2211 Jan, [facility] [address] [id number] [address]- 3680 Dec, [facility] [address]65[address] [address]- 1208 Sep, IMMUNIZATIONS No Known Immunizations SOCIAL HISTORY Never Assessed REASON FOR VISIT Med list review PLAN OF CARE VITAL SIGNS MEDICATIONS Medication Instructions Dosage Frequency Start Date End Date Duration Status Acetaminophen 325 MG Orally every 6 hrs 2 tablet 6h Jun, Active Gold Mcclain Maximum Relief 1-1 % Externally every 12 hrs as needed Active MiraLax N/A Orally Once a day 17gm in 4-8oz of liquid 24h Sep, Active Mylanta 200-200-20 MG/5ML Orally Four times a day 10 ml as needed 6h Active Keppra 100 MG/ML Orally every 12 hrs 20 ml 12h 30 Active Levothyroxine Sodium 100 MCG Orally Once a day 1 capsule 24h Active Phenobarbital 16.2 MG Orally Twice a day 1 tablet 12h 30 Active Milk of Magnesia 1200 MG/15ML Orally Once a day for Constipation 530as needed Feb, Active Loperamide A-D 2 MG Orally PRN 1 tablet as needed Active Visine-A 0.025-0.3 % PLACE 2 DROPS IN BOTH EYES FOUR TIMES DAILY 34 Active Acetaminophen 650 MG Rectal every 4 hours as needed 1 suppository Active Bisacodyl 10 MG Rectal Once a day 1 suppository as needed 24h Active Albuterol Sulfate (2.5 MG/3ML) 0.083% Inhalation every 4 hrs 3 ml as needed 4h Active Divalproex Sodium 125 MG TAKE SIX CAPSULES BY MOUTH EVERY MORNING AND TAKE EIGHT CAPSULES IN THE EVENING 30 Active RESULTS No Results PROCEDURES No Known procedures INSTRUCTIONS MEDICATIONS ADMINISTERED No Known Medications
--- OUTSIDE RECORDS SUMMARY | 2018-03-06 18:27 | XMS REPORT ---
Author Author JEANETTE ZHU Organization [facility] Address [address] [place] [address] Care Team Providers Care Car Filler Name Role Phone JEANETTE ZHU Unavailable PROBLEMS Type Condition ICD9-CM Code LCN38-DH Code Onset Dates Condition Status SNOMED Code Problem Atopic dermatitis, mild L20.9 Active 08973033 Problem Seizure disorder G40.909 Active 447573973 Problem Seizures R56.9 Active 21724811 Problem Profoundly mentally retarded F73 Active 71865968 Problem Unspecified intellectual disabilities F79 Active [id number] ALLERGIES No Information ENCOUNTERS Encounter Location Date Diagnosis [facility] [address] [place] [id number] Oct, Profoundly mentally retarded F[address] [facility] [id number] [place] [address] [id number]- 5502 Sep, [facility] [address] [place] [id number] Aug, [facility] [id number] [place] [address] [id number] 7260 Aug, [facility] [id number] [place] [address] [phone]- 7789 Aug, [facility] [address] [place] [id number] July, Profoundly mentally retarded F[address] [facility] [id number] [place] [address] 44175- 3289 Jun, [facility] [address] [place] [id number] May, Sepsis, due to unspecified organism [facility]41.9 [facility] [address] [place] [id number] May, Profoundly mentally retarded F73 and Seizures R56.9 [facility] [id number] [place] [id number] Apr, [facility] [id number] [place] [id number] Mar, [facility] [address] [id number] [address] 34[address] Mar, [facility] [id number] Mar, Profoundly mentally retarded F73 and Seizures R56.9 [facility] [id number] [place] [address] Mar, [facility] [address] [place] [address] 717100- 3646 Mar, Acute pain of right knee M25.[address] [facility] [address] [id number] Mar, Acute pain of right knee M25.561 and Profoundly mentally retarded F73 [facility] [address] [id number] [address] 6410 Feb, [facility] [address] [id number] Jan, Profoundly mentally retarded F73 and Seizure disorder G40.909 [facility] [address] [id number] [address] 4476 Jan, [facility] [id number] [place] [address] [id number] Jan, Upper respiratory tract infection, unspecified type J06.9 [facility] [id number] [place] [id number] Nov, [facility] [address] [id number] Nov, Atopic dermatitis, mild L20.[address] [facility] [address] [id number] Nov, Profoundly mentally retarded F73 [facility] [address] [id number] [id number] Oct, [facility] [address] [place] [address] 58925- 3460 Sep, [facility] [address] [id number] Sep, Profoundly mentally retarded F73 [facility] [id number] [place] [address] 18128- 9113 July, [facility] [address] [id number] July, Profoundly mentally retarded F73 and Seizure disorder G40.909 [facility] [id number] [place] [address] 16450- 8500 Jun, [facility] [id number] [place] [address] 41240- 5357 Jun, [facility] [id number] [place] [address] 33834- 8955 May, [facility] [address] [id number] May, Profoundly mentally retarded F73 [facility] [address] [place] [address] 94169- 8359 Mar, Seizures R56.9 [facility] [address] [place] [address] 08474- 4364 Mar, Seizures R56.[address] [facility] [address] [id number] Feb, Profoundly mentally retarded F73 and Hx of bacterial pneumonia Z87.01 [facility] [address] [place] [address] 29863- 7893 Jan, [facility] [id number] [place] [address] 39095- 1463 Jan, [facility] [address] [place] [id number] Dec, Fever, unspecified fever cause R50.9 [facility] [address] [place] [id number] Nov, Seizure disorder G40.[address] [facility] [id number] [place] [address] 27312- 8570 Oct, [facility] [id number] [place] [address] 51297- 9636 Oct, [facility] [id number] [place] [address] 26429- 0724 Oct, [facility] [address] [place] [id number] Oct, Seizures R56.9 ; Profoundly mentally retarded F73 ; Hypoxia R09.[address] [facility] [id number] [place] [address] 52125- 2379 Sep, [facility] [id number] [place] [address] 70728- 4813 Sep, [facility] [id number] [place] [address] 49578- 8535 Sep, [facility] [address] [place] [id number] Aug, Profoundly mentally retarded F73 [facility] [address] [place] [address] 66975- 6947 July, Seizures R56.9 [facility] [address] [id number] [address] Jun, [facility] [id number] [place] [address] 11723- 5729 Jun, [facility] [id number] [place] [address] 39883- 5632 Jun, [facility] [address] [place] [id number] Jun, Hypoxia R09.02 [facility] [id number] [place] [address] 98552- 5857 May, [facility] [address]00565100[place] [address] 9828 May, [facility] [address]00565100[place] [address]120 Apr, [facility] [address]00565[address] [address]- 3937 Apr, [facility] [address] [place] [id number] Apr, Unspecified intellectual disabilities F79 [facility] [address]005[address] [address] Mar, [facility] [address]005[address] [address]- 4692 Mar, [facility] [address]005[address] [address]- 9631 Mar, [facility] [address]005[address] [address]- 8295 Mar, [facility] [address]005[address] [address]- 1109 Feb, [facility] [address]00565100[place] [address]- 3844 Jan, [facility] [address]005[address] [address]- 0131 Dec, Seizures R56.9 and Profoundly mentally retarded F73 [facility] [address]00565[address] [address]- 5136 Dec, [facility] [address]00565[address] [address]- 4133 Nov, Mental retardation [address] [facility] [address] [id number] 2697 Sep, Seizures 780.39 and Severely mentally retarded 318.1 [facility] [address] [place] [id number] July, Seizures 780.39 and Severe mental retardation 318.1 [facility] [address]005[address] [address]- 6799 Jun, [facility] [address] [facility] [id number] [place] [address]- 2607 Jun, [facility] [address]00565[address] [address]- 4550 May, [facility] [address] [place] [id number] May, [facility] [address]00565[address] [address]- 2133 Apr, [facility] [address]005[address] [address]- 4327 Apr, [facility] [address]005[address] [address]- 4731 Mar, [facility] [address] [id number] [address]- 0059 Mar, [facility] [address]00565[address] [address]- 2729 Mar, [facility] [address] [place] [id number] Mar, [facility] [address] [id number] [address]- 9490 Jan, [facility] [address] [id number] [address]- 2162 Jan, [facility] [address] [id number] [address]- 9245 Jan, [facility] [address] [place] [id number] Jan, [facility] [address] [id number] [address]- 4436 Dec, [facility] [place] [facility] [address] [id number] [place] [address]- 1889 Dec, [facility] [address] [id number] [place] [address]- 1009 Nov, [facility] [address] [place] [id number] Nov, [facility] [address] [id number] [place] [address]- 7604 Oct, [facility] [place] [facility] [address] [id number] [place] [address]- 4122 Oct, [facility] [address] [id number] [place] [address]- 3546 Oct, [facility] [address] [place] [id number] Oct, [facility] [address] [id number] [place] [address]- 4553 Aug, [facility] [place] [facility] [address] [id number] [place] [address]- 7906 Aug, [facility] [address] [id number] [place] [address]- 1438 Aug, [facility] [address] [place] [id number] Aug, [facility] [place] [facility] [address] [id number] [place] [address]- 2935 Aug, [facility] [place] [facility] [address] [id number] [place] [address]- 0480 Aug, [facility] [place] [facility] [address] [id number] [place] [address]- 4884 Jun, [facility] [place] [facility] [address] [id number] [place] [address]- 6955 Jun, [facility] [place] [facility] [address] [id number] [place] [address]- 9507 Jun, [facility] [place] [facility] [address] [id number] [place] [address]- 6171 Jun, [facility] [address] [id number] [place] [address]- 9780 May, [facility] [address] [facility] [id number] [place] [address]- 3956 May, [facility] [address] [place] [id number] Apr, [facility] [address] [id number] [place] [address]- 9940 Apr, [facility] [address] [id number] [place] [address]- 8884 Apr, [facility] [address] [facility] [id number] [place] [address]- 0913 Apr, [facility] [address] [id number] [address]- 5309 Mar, [facility] [address] [facility] [id number] [place] [address]- 6385 Mar, [facility] [address] [id number] [address]- 3902 Feb, [facility] [address] [place] [id number] Feb, [facility] [address] [id number] [address]- 6678 Feb, [facility] [address] [facility] [id number] [place] [address]- 2821 Feb, [facility] [address] [facility] [id number] [place] [address]- 5668 Jan, [facility] [address] [facility] [id number] [place] [address]- 0441 Jan, [facility] [address] [place] [id number] Jan, [facility] [address] [facility] [id number] [place] [address] 2546 Jan, [facility] [address] [id number] [place] [address]- 6939 Jan, [facility] [address] [id number] [place] [address]- 5985 Jan, [facility] [address] [id number] [place] [address]- 4621 Dec, [facility] [address] [id number] [place] [address]- 1446 Dec, [facility] [address] [id number] [place] [address]- 0140 Dec, [facility] [address] [id number] [place] [address]- 2982 Dec, [facility] [address] [id number] [place] [address]- 1662 Dec, [facility] [address] [place] [id number] Dec, [facility] [address] [id number] [place] [address]- 3607 Dec, [facility] [address] [id number] [place] [address]- 5488 Oct, [facility] [address] [place] [id number] Oct, [facility] [address] [id number] [place] [address]- 3373 Sep, [facility] [address] [id number] [place] [address]- 2774 Sep, [facility] [address] [id number] [place] [address]- 5501 Sep, [facility] [address] [id number] [place] [address]- 5992 Aug, [facility] [address] [id number] [place] [address]- 4086 July, [facility] [address] [id number] [place] [address]- 0266 July, [facility] [address] [facility] [id number] Jun, [facility] [address] [id number] [place] [address] 2546 Jun, [facility] [address] [facility] [id number] Apr, [facility] [address] [id number] [place] [address]- 4262 Feb, [facility] [address] [facility] [id number] Feb, [facility] [address] [facility] [id number] Dec, [facility] [address] [id number] [place] [address]- 5516 Dec, [facility] [address] [facility] [id number] Oct, [facility] [address] [id number] [place] [address]- 6056 Aug, [facility] [address] [facility] [id number] Aug, [facility] [address] [id number] [place] [address]- 4456 July, [facility] [address] [facility] [id number] Jun, [facility] [address] [id number] [place] [address]- 1486 May, [facility] [address] [facility] [id number] Apr, [facility] [address] [id number] [place] [address]- 9156 Mar, [facility] [address] [id number] [place] [address]- 5046 Feb, [facility] [address] [facility] [id number] [place] [address]- 5843 14 Feb, 2011 [facility] [address] [facility] [id number] [place] [address]- 1766 Feb, [facility] [address] [facility] [id number] [place] [address] 2540 Jan, [facility] [address] [facility] [id number] [place] [address] [address], [facility] [address] [facility] [id number] [place] [address]- 5714 Dec, [facility] [address] [facility] [id number] [place] [address]- [address]3 Jan, [facility] [address]005[address] [address]- 5056 Dec, [facility] [address] [id number] [address]- 9049 Dec, [facility] [address] [id number] [address]- 5073 Feb, [facility] [address] [id number] [address]- [address]059 Jan, [facility] [address] [id number] [address]- 6924 Dec, [facility] [address]00565[address] [address]- 6936 Sep, IMMUNIZATIONS No Known Immunizations SOCIAL HISTORY Never Assessed REASON FOR VISIT Requests return call PLAN OF CARE VITAL SIGNS MEDICATIONS Unknown Medications RESULTS No Results PROCEDURES No Known procedures INSTRUCTIONS MEDICATIONS ADMINISTERED No Known Medications
--- OUTSIDE RECORDS SUMMARY | 2018-03-06 18:28 | XMS REPORT ---
Author Author JEANETTE ZHU Organization [facility] Address [address] [place] [address] Care Team Providers Care Field Adjuster Name Role Phone JEANETTE ZHU Unavailable PROBLEMS Type Condition ICD9-CM Code YHP84-TB Code Onset Dates Condition Status SNOMED Code Problem Atopic dermatitis, mild L20.9 Active 34393652 Problem Seizure disorder G40.909 Active 361382189 Problem Seizures R56.9 Active 50131615 Problem Profoundly mentally retarded F73 Active 56092830 Problem Unspecified intellectual disabilities F79 Active [id number] ALLERGIES No Information ENCOUNTERS Encounter Location Date Diagnosis [place] [id number] [address] [id number] [place] [address]128- [address]796 Sep, [facility] [address] [place] [id number] Aug, [place] [address] [address] Aug, [place] [id number] [place] [address] [id number]- 4652 Aug, [facility] [address] [place] [id number] July, Profoundly mentally retarded F73 and Seizures R56.9 [facility] [id number] [place] [address] [id number]- 4600 Jun, [facility] [address] [place] [id number] May, Sepsis, due to unspecified organism [facility]41.9 [facility] [address] [place] [id number] May, Profoundly mentally retarded F73 and Seizures R56.9 [facility] [id number] [place] [address] [id number] Apr, [facility] [id number] [address] Mar, [facility] [address]00565100[place], [place] [address] Mar, [facility] [address] [place] [id number] Mar, Profoundly mentally retarded 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 and Seizures R56.9 [facility] [address] [id number] [id number] Mar, [facility] [address] [id number], [place] [address] Mar, Acute pain of right knee M25.[address] [facility] [address] [id number] Mar, Acute pain of right knee M25.561 and Profoundly mentally retarded F73 [facility] [address]65100[place], [place] [address] Feb, [facility] [address] [id number] Jan, Profoundly mentally retarded F73 and Seizure disorder G40.909 [facility] [address] [id number], [place] [address] 3234 Jan, [facility] [id number][place] [id number] Jan, Upper respiratory tract infection, unspecified type J06.9 [facility] [id number][place] [id number] Nov, [facility] [address] [place] [id number] Nov, Atopic dermatitis, mild L20.9 [facility] [address] [place] [id number] Nov, Profoundly mentally retarded F73 [facility] [id number], [place] [id number] Oct, [facility] [address]65100[place], [place] [address]- 0889 Sep, [facility] [address] [place] [id number] Sep, Profoundly mentally retarded F73 [facility] [address]65100[place], [place] [address]- 6788 July, [facility] [address] [id number] July, Profoundly mentally retarded F73 and Seizure disorder G40.909 [facility] [address]65100[place], [place] [address] 3[address] Jun, [facility] [id number] [place] [address] 99757- 1836 Jun, [facility] [id number] [place] [address] 29451- 4185 May, [facility] [address] [place] [id number] May, Profoundly mentally retarded F73 [facility] [id number] [place] [address] 83308- 7506 Mar, Seizures R56.9 [facility] [id number] [place] [address] 21589- 0827 Mar, Seizures R56.[address] [id number] Feb, Profoundly mentally retarded F73 and Hx of bacterial pneumonia Z87.01 [facility] [address]65100[place], [place] [address] 8048 Jan, [facility] [id number] [place] [address] 87560- 1046 Jan, [facility] [address] [place] [id number] Dec, Fever, unspecified fever cause R50.[address] [facility] [address] [id number] Nov, Seizure disorder G40.909 and Seizures R56.9 [facility] [address] [id number] [address] 0029 Oct, [facility] [id number] [place] [address] 62783- 8156 Oct, [facility] [address]65100[place], [place] [address]- 74[address] Oct, [facility] [address] [place] [id number] Oct, Seizures R56.9 ; Profoundly mentally retarded 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 ; Hypoxia R09.02 and Hypothyroidism E03.9 [facility] [id number] [place] [address] 18670- 4098 Sep, [facility] [id number] [place] [address] 81192- 5651 Sep, [facility] [id number] [place] [address] 14579- 7002 Sep, [facility] [address] [place] [id number] Aug, Profoundly mentally retarded F73 [facility] [id number] [place] [address] 41[address]- 4804 July, Seizures R56.9 [facility] [id number] [place] [address] 02593- 5397 Jun, [facility] [id number] [place] [address] 90534- 5015 Jun, [facility] [id number] [place] [address] 70333- 4779 Jun, [facility] [address] [place] [address] Jun, Hypoxia R09.02 [facility] [id number] [address]- 9942 May, [facility] [id number] [place] [address] 80920- 3604 May, [facility] [id number], [place] [address]- 8452 Apr, [facility] [address]65100[place], [place] [address]- 6[address] Apr, [facility] [address] [place] [id number] 10 Apr, 2015 Unspecified intellectual disabilities F79 [facility] [address]100[place], [place] [address]- 2188 Mar, [facility] [address]65100[place], [place] [address]- 2428 Mar, [facility] [address]100[place], [place] [address]- 4689 Mar, [facility] [address]100[place], [place] [address]- 6304 Mar, [facility] [address], [place] [address]- 8450 Feb, [facility] [address], [place] [address]- 7202 Jan, [facility] [address]100[place], [place] [address] 2632 Dec, Seizures R56.9 and Profoundly mentally retarded F73 [facility] [address], [place] [address]- 3589 Dec, [facility] [address], [place] [address]- 0145 Nov, Mental retardation 319 and Seizures 780.39 [facility] [address]- 6866 Sep, Seizures 780.39 and Severely mentally retarded 318.1 [facility] [address] [place] [id number] July, Seizures 780.39 and Severe mental retardation 318.1 [facility] [id number] [address]- 9731 14 Jun, 2014 [facility] [address] [id number] [place] [address]- 0988 Jun, [facility] [address] [id number], [place] [address]- 9163 May, [facility] [address] [place] [id number] May, [facility] [address] [id number], [place] [address]- 4280 Apr, [facility] [address] [id number] [place] [address]- 3141 Apr, [facility] [address] [id number] [place] [address]- 1348 Mar, [facility] [address] [id number], [place] [address]- 1439 Mar, [facility] [address] [id number], [place] [address]- 7433 Mar, [facility] [address] [place] [id number] Mar, [facility] [address] [id number], [place] [address]- 5461 Jan, [facility] [address] [id number], [place] [address]- 4474 Jan, [facility] [address] [id number] [address]- 1036 Jan, [facility] [address] [place] [id number] Jan, [facility] [address] [id number], [place] [address]- 7575 Dec, [facility] [address] [id number], [place] [address]- 1235 Dec, [facility] [address] [id number] [address]- 8113 Nov, [facility] [address] [place] [id number] Nov, [facility] [address] [id number] [place] [address]- 8373 Oct, [facility] [address] [id number] [place] [address]- 5558 Oct, [facility] [address] [id number], [place] [address]- 3061 Oct, [facility] [address] [place] [id number] Oct, [facility] [address] [id number] [place] [address]- 2278 Aug, [facility] [address] [id number] [place] [address]- 8938 Aug, [facility] [address] [id number] [address]- 4217 Aug, [facility] [address] [place] [id number] Aug, [facility] [address] [id number], [place] [address]- 3188 Aug, [facility] [address] [id number], [place] [address]- 5178 Aug, [facility] [address] [id number], [place] [address]- 4371 Jun, [facility] [address] [id number] [place] [address]- 3905 Jun, [facility] [address] [id number] [place] [address]- 9345 Jun, [facility] [address] [id number] [place] [address]- 2168 Jun, [facility] [address] [id number], [place] [address]- 3856 May, [facility] [address] [id number], [place] [address]- 8410 May, [facility] [address] [facility] [id number] Apr, [facility] [address] [id number], [place] [address]- 6836 Apr, [facility] [address] [id number], [place] [address]- 5370 Apr, [facility] [address] [id number] [place] [address]- 0627 Apr, [facility] [address] [id number], [place] [address]- 6941 Mar, [facility] [address] [id number], [place] [address]- 6825 Mar, [facility] [address] [id number], [place] [address]- 6457 Feb, [facility] [address] [place] [id number] Feb, [facility] [address] [id number], [place] [address]- 7766 Feb, [facility] [address] [id number], [place] [address]- 7576 Feb, [facility] [address] [id number] [address]- 1166 Jan, [facility] [address] [id number], [place] [address]- 8548 Jan, [facility] [address] [place] [address] Jan, [facility] [address] [id number], [place] [address]- 5476 Jan, [facility] [address] [id number] [address]- 2415 Jan, [facility] [address] [id number] [place] [address]- 1223 Jan, [facility] [address] [id number] [place] [address]- 4006 Dec, [facility] [address] [id number] [place] [address]- 2546 Dec, [facility] [address] [id number] [place] [address]- 3156 Dec, [facility] [address] [id number] [place] [address]- 1438 Dec, [facility] [address] [id number] [place] [address]- 4806 Dec, [facility] [address] [place] [id number] Dec, [facility] [address] [id number], [place] [address]- 2546 Dec, [facility] [address] [id number] [place] [address]- 2546 Oct, [facility] [address] [place] [id number] Oct, [facility] [address] [id number], [place] [address]- 2546 Sep, [facility] [address] [id number][place] [address]- 6946 Sep, [facility] [address] [id number], [place] [address]- 3287 Sep, [facility] [address] [id number] [place] [address]- 7056 Aug, [facility] [address] [id number] [place] [address]- 2546 July, [facility] [address] [id number] [place] [address]- 1860 July, [facility] [address] [facility] [id number] Jun, [facility] [address] [id number], [place] [address]- 2546 Jun, [facility] [address] [facility] [id number] Apr, [facility] [address], [place] [address]- 6336 Feb, [facility] [address] [facility] [id number] Feb, [facility] [address] [facility] [id number] Dec, [facility] [address] [id number], [place] [address]- 2546 Dec, [facility] [address] [facility] [id number] Oct, [facility] [address] [id number], [place] [address]- 7756 Aug, [facility] [address] [facility] [id number] Aug, [facility] [address] [id number], [place] [address]- 5966 July, [facility] [address] [facility] [id number] Jun, [facility] [address] [id number], [place] [address]- 5736 May, [facility] [address] [facility] [id number] Apr, [facility] [address] [id number], [place] [address]- 3646 Mar, [facility] [address] [id number], [place] [address]- 5656 Feb, [facility] [address] [id number], [place] [address]- 0302 14 Feb, 2011 [facility] [address] [facility] [id number][place] [address]- 3369 13 Feb, 2011 [facility] [address] [facility] [id number], [place] [address]- 6886 16 Jan, 2011 [facility] [address] [facility] [id number], [place] [address] 2546 Jan, [facility] [address] [facility] [id number], [place] [address]- 8434 Dec, [facility] [address] [facility] [id number], [place] [address]- 1966 Jan, [facility] [address] [facility] [id number] [place] [address] 13797- 4198 Dec, [facility] [address] [facility] [id number], [place] [address]- 8102 Dec, [facility] [address] [id number], [place] [address]- 0518 Feb, [facility] [address] [facility] [id number][place] [address]- 3832 Jan, [facility] [address] [id number], [place] [address]- 1234 Dec, [facility] [address] [facility] [id number], [place] [address]- 1575 Sep, IMMUNIZATIONS No Known Immunizations SOCIAL HISTORY Never Assessed REASON FOR VISIT Controlled Med Refill PLAN OF CARE VITAL SIGNS MEDICATIONS Medication Instructions Dosage Frequency Start Date End Date Duration Status Phenobarbital 16.2 MG Orally Twice a day 1 tablet 12h 30 Active RESULTS No Results PROCEDURES No Known procedures INSTRUCTIONS MEDICATIONS ADMINISTERED No Known Medications
--- OUTSIDE RECORDS SUMMARY | 2018-03-06 18:28 | XMS REPORT ---
Author Author JEANETTE ZHU Organization [facility] Address [address] [place] [address] Care Team Providers Care Windmill Technician Name Role Phone JEANETTE ZHU Unavailable PROBLEMS Type Condition ICD9-CM Code TOL58-GJ Code Onset Dates Condition Status SNOMED Code Problem Atopic dermatitis, mild L20.9 Active 30370095 Problem Seizure disorder G40.909 Active 579340776 Problem Seizures R56.9 Active 26121652 Problem Profoundly mentally retarded F73 Active 70438936 Problem Unspecified intellectual disabilities F79 Active [id number] ALLERGIES No Information ENCOUNTERS Encounter Location Date Diagnosis [place] [id number] [place] [address]602- 9300 Sep, [facility] [address] [place] [id number] Aug, [place] [address] [address] Aug, [place] [id number] [place] [address] [id number]- 4882 Aug, [facility] [address] [place] [id number] July, Profoundly mentally retarded F73 and Seizures R56.9 [facility] [id number] [place] [address] 18653928- 7262 Jun, [facility] [address] [place] [id number] May, Sepsis, due to unspecified organism A41.9 [facility] [address] [place] [id number] May, Profoundly mentally retarded F73 and Seizures R56.9 [facility] [id number] [place] [id number] Apr, [facility] [id number] [place] [id number] Mar, [facility] [address] [address] 44[address] Mar, [facility] [address] [place] [id number] Mar, Profoundly mentally retarded F73 and Seizures R56.9 [facility] [address] [id number] [place] [id number] Mar, [facility] [address] [id number] [address] 8[address] Mar, Acute pain of right knee M25.[address] [facility] [address] [id number] Mar, Acute pain of right knee M25.561 and Profoundly mentally retarded F73 [facility] [address] [address] 77[address] Feb, [facility] [address] [id number] Jan, Profoundly mentally retarded F73 and Seizure disorder G40.909 [facility] [address] [id number] [address]- 3657 Jan, [facility] [id number] [place] [id number] Jan, Upper respiratory tract infection, unspecified type J06.9 [facility] [id number] [place] [id number] Nov, [facility] [address] [place] [id number] Nov, Atopic dermatitis, mild L20.9 [facility] [address] [place] [id number] Nov, Profoundly mentally retarded F73 [facility] [id number] [place] [id number] Oct, [facility] [address]00565[address] [address]- 8984 Sep, [facility] [address] [place] [address] Sep, Profoundly mentally retarded F73 [facility] [address] [address]- 63[address] July, [facility] [address] [id number] July, Profoundly mentally retarded F73 and Seizure disorder G40.909 [facility] [address] [address]- 4925 Jun, [facility] [id number] [place] [address] 01847- 9040 Jun, [facility] [id number] [place] [address] 47161- 9355 May, [facility] [address] [place] [id number] May, Profoundly mentally retarded F73 [facility] [address] [place] [address] 54000- 9989 Mar, Seizures R56.9 [facility] [id number] [place] [address] 62427- 9677 Mar, Seizures R56.[address] [id number] Feb, Profoundly mentally retarded F73 and Hx of bacterial pneumonia Z87.01 [facility] [address] [address]- 9987 Jan, [facility] [address] [place] [address] 61482- 3010 Jan, [facility] [address] [place] [id number] Dec, Fever, unspecified fever cause R50.[address] [facility] [address] [id number] Nov, Seizure disorder G40.909 and Seizures R56.9 [facility] [address] [id number] [address]- 0201 Oct, [facility] [id number] [place] [address] 14865- 1077 Oct, [facility] [address] [address]- 0139 Oct, [facility] [address] [place] [id number] Oct, Seizures R56.9 ; Profoundly mentally retarded F73 ; Hypoxia R09.02 and Hypothyroidism E03.9 [facility] [id number] [place] [address] 64687- 2263 Sep, [facility] [id number] [place] [address] 85983- 2519 Sep, [facility] [id number] [place] [address] 76526- 4971 Sep, [facility] [address] [place] [id number] Aug, Profoundly mentally retarded F73 [facility] [id number] [place] [address] 35745- 6088 July, Seizures R56.9 [facility] [address] [place] [address] 12273- 6423 Jun, [facility] [id number] [place] [address] 65789- 4111 Jun, [facility] [address] [place] [address] 68981- 1979 Jun, [facility] [address] [place] [id number] Jun, Hypoxia R09.02 [facility] [address] [id number] [address]- 2648 May, [facility] [id number] [place] [address] 54078- 0162 May, [facility] [address] [id number] [address]- 8997 Apr, [facility] [address] [address]- 9998 Apr, [facility] [address] [place] [id number] 10 Apr, 2015 Unspecified intellectual disabilities F79 [facility] [address] [address]- 5072 Mar, [facility] [address]005[address] [address]- 0067 Mar, [facility] [address] [address]- 6446 Mar, [facility] [address] [address]- 3542 Mar, [facility] [address] [address]- 2886 Feb, [facility] [address] [address]- 8986 Jan, [facility] [address] [address]- 5872 Dec, Seizures R56.9 and Profoundly mentally retarded F73 [facility] [address] [address]- 7750 Dec, [facility] [address] [address]- 7811 Nov, Mental retardation 319 and Seizures 780.39 [facility] [address] [address]279 Sep, Seizures 780.39 and Severely mentally retarded 318.1 [facility] [address] [place] [id number] July, Seizures 780.39 and Severe mental retardation 318.1 [facility] [address] [id number] [place] [address]- 2344 14 Jun, 2014 [facility] [address] [id number] [place] [address]- 4188 Jun, [facility] [address] [id number] [place] [address]- 3798 May, [facility] [address] [place] [id number] May, [facility] [address] [id number] [place] [address]- 9252 Apr, [facility] [address] [id number] [place] [address]- 6604 Apr, [facility] [address] [id number] [place] [address]- 9324 Mar, [facility] [address] [id number] [place] [address]- 3443 Mar, [facility] [address] [id number] [place] [address]- 3442 Mar, [facility] [address] [place] [id number] Mar, [facility] [address] [id number] [place] [address]- 7691 Jan, [facility] [address] [id number] [place] [address]- 6655 Jan, [facility] [address] [id number] [place] [address]- 1991 Jan, [facility] [address] [place] [id number] Jan, [facility] [address] [id number] [place] [address]- 8704 Dec, [facility] [address] [id number] [place] [address]- 0487 Dec, [facility] [address] [id number] [place] [address]- 9805 Nov, [facility] [address] [place] [id number] Nov, [facility] [address] [id number] [place] [address]- 3801 Oct, [facility] [address] [id number] [place] [address]- 4836 Oct, [facility] [address] [id number] [place] [address]- 1556 Oct, [facility] [address] [place] [id number] Oct, [facility] [address] [id number] [place] [address]- 3098 Aug, [facility] [address] [id number] [place] [address]- 4120 Aug, [facility] [address] [id number] [place] [address]- 5392 Aug, [facility] [address] [place] [id number] Aug, [facility] [address] [id number] [place] [address]- 6415 Aug, [facility] [address] [id number] [place] [address]- 9685 Aug, [facility] [address] [id number] [place] [address]- 3711 Jun, [facility] [address] [id number] [place] [address]- 8179 Jun, [facility] [address] [id number] [place] [address]- 0665 Jun, [facility] [address] [id number] [place] [address]- 1749 Jun, [facility] [address] [id number] [place] [address]- 6546 May, [facility] [address] [id number] [place] [address]- 1364 May, [facility] [address] [facility] [id number] Apr, [facility] [address] [id number] [place] [address]- 0386 Apr, [facility] [address] [id number] [place] [address]- 0952 Apr, [facility] [address] [id number] [place] [address]- 4754 Apr, [facility] [address] [id number] [place] [address]- 1489 Mar, [facility] [address] [id number] [place] [address]- 9140 Mar, [facility] [address] [id number] [place] [address]- 9991 Feb, [facility] [address] [place] [id number] Feb, [facility] [address] [id number] [place] [address]- 6136 Feb, [facility] [address] [id number] [place] [address]- 0986 Feb, [facility] [address] [id number] [place] [address]- 3156 Jan, [facility] [address] [id number] [place] [address]- 5372 Jan, [facility] [address] [place] [id number] Jan, [facility] [address] [id number] [place] [address]- 6276 Jan, [facility] [address] [id number] [place] [address]- 4774 Jan, [facility] [address] [id number] [place] [address]- 0702 Jan, [facility] [address] [id number] [place] [address]- 7646 Dec, [facility] [address] [id number] [place] [address]- 2546 Dec, [facility] [address] [id number] [place] [address]- 1606 Dec, [facility] [address] [id number] [place] [address]- 4968 Dec, [facility] [address] [id number] [place] [address]- 4586 Dec, [facility] [address] [place] [id number] Dec, [facility] [address] [id number] [place] [address]- 2546 Dec, [facility] [address] [id number] [place] [address]- 2546 Oct, [facility] [address] [place] [id number] Oct, [facility] [address] [id number] [place] [address]- 2546 Sep, [facility] [address] [id number] [place] [address]- 4846 Sep, [facility] [address] [id number] [place] [address]- 1848 Sep, [facility] [address] [id number] [place] [address]- 2776 Aug, [facility] [address] [id number] [place] [address]- 2546 July, [facility] [address] [id number] [place] [address]- 5908 July, [facility] [address] [facility] [id number] Jun, [facility] [address] [id number] [place] [address]- 2546 Jun, [facility] [address] [facility] [id number] Apr, [facility] [address]005[address] [address]- 8366 Feb, [facility] [address] [facility] [id number] Feb, [facility] [address] [facility] [id number] Dec, [facility] [address] [id number] [place] [address]- 2546 Dec, [facility] [address] [facility] [id number] Oct, [facility] [address] [id number] [place] [address]- 9656 Aug, [facility] [address] [facility] [id number] Aug, [facility] [address] [id number] [place] [address]- 5946 July, [facility] [address] [facility] [id number] Jun, [facility] [address] [id number] [place] [address]- 4506 May, [facility] [address] [facility] [id number] Apr, [facility] [address] [id number] [place] [address]- 6036 Mar, [facility] [address] [id number] [place] [address]- 4056 Feb, [facility] [address] [id number] [place] [address]- 5796 14 Feb, 2011 [facility] [address] [facility] [id number] [place] [address]- 3184 13 Feb, 2011 [facility] [address] [facility] [id number] [place] [address] 2546 Jan, [facility] [address] [facility] [id number] [place] [address]- 2546 Jan, [facility] [address] [facility] [id number] [place] [address] 55992- 3526 Dec, [facility] [address] [facility] [id number] [place] [address]- 2924 Jan, [facility] [id number] [place] [address] 69408- 7776 Dec, [facility] [address] [address] 2547 Dec, [facility] [id number] [place] [address] 57676- 1111 Feb, [facility] [address] [address]- 5024 Jan, [facility] [address] [address]- 6703 Dec, [facility] [address] [address]- 1868 Sep, IMMUNIZATIONS No Known Immunizations SOCIAL HISTORY Never Assessed REASON FOR VISIT Hospital follow up PLAN OF CARE Activity Details Follow Up prn Reason: VITAL SIGNS MEDICATIONS Unknown Medications RESULTS No Results PROCEDURES Procedure Date Ordered Result Body Site Stable Visit (10 minutes) May 23, 2017 INSTRUCTIONS MEDICATIONS ADMINISTERED No Known Medications
--- OUTSIDE RECORDS SUMMARY | 2018-03-06 18:28 | XMS REPORT ---
Author Author JEANETTE ZHU Organization [facility] Address [address] [place] [address] Care Team Providers Care Narcotics Detective Name Role Phone JEANETTE ZHU Unavailable PROBLEMS Type Condition ICD9-CM Code BRP52-GZ Code Onset Dates Condition Status SNOMED Code Problem Atopic dermatitis, mild L20.9 Active 00013607 Problem Seizure disorder G40.909 Active 104295055 Problem Seizures R56.9 Active 51746736 Problem Profoundly mentally retarded F73 Active 28464873 Problem Unspecified intellectual disabilities F79 Active 437924030 ALLERGIES No Information ENCOUNTERS Encounter Location Date Diagnosis [place] [id number] [place] [address]04- 5656 Sep, [facility] [address] [place] [id number] Aug, [place] [address] [address] Aug, [place] [id number] [place] [address] [id number]- 0706 Aug, [facility] [address] [place] [id number] July, Profoundly mentally retarded F73 and Seizures R56.9 [facility] [id number] [place] [address] [id number]- 6127 Jun, [facility] [address] [place] [address] May, Sepsis, due to unspecified organism [facility]41.9 [facility] [address] [place] [address] May, Profoundly mentally retarded F73 and Seizures R56.9 [facility] [id number] [place] [id number] Apr, [facility] [id number] [place] [id number] Mar, [facility] [address]00565100[place] [address] Mar, [facility] [address] [place] [id number] Mar, Profoundly mentally retarded F73 and Seizures R56.9 [facility] [address] [id number] [id number] Mar, [facility] [address] [id number] [address] Mar, Acute pain of right knee M25.[address] [facility] [address] [id number] Mar, Acute pain of right knee M25.561 and Profoundly mentally retarded F73 [facility] [address]00565100[place] [address] 8[address] Feb, [facility] [address] [id number] Jan, Profoundly mentally retarded F73 and Seizure disorder G40.909 [facility] [address] [id number] [address] 72[address] Jan, [facility] [id number] [place] [address] Jan, Upper respiratory tract infection, unspecified type J06.9 [facility] [id number] [place] [id number] Nov, [facility] [address] [place] [id number] Nov, Atopic dermatitis, mild L20.9 [facility] [address] [place] [id number] Nov, Profoundly mentally retarded F73 [facility] [id number] [place] [id number] Oct, [facility] [address]00565100[place] [address]- 0420 Sep, [facility] [address] [place] [id number] Sep, Profoundly mentally retarded F73 [facility] [address]00565100[place] [address] July, [facility] [address] [id number] July, Profoundly mentally retarded F73 and Seizure disorder G40.909 [facility] [address]00565100[place] [address] 0948 Jun, [facility] [id number] [place] [address] 74356- 6251 Jun, [facility] [id number] [place] [address] 51885- 8457 May, [facility] [address] [place] [id number] May, Profoundly mentally retarded F73 [facility] [address] [place] [address] 00992- 2952 Mar, Seizures R56.9 [facility] [id number] [place] [address] 82560- 1756 Mar, Seizures R56.[address] [id number] Feb, Profoundly mentally retarded F73 and Hx of bacterial pneumonia Z87.01 [facility] [address]00565100[place] [address]- 6281 Jan, [facility] [address] [place] [address] 54731- 2693 Jan, [facility] [address] [place] [address] Dec, Fever, unspecified fever cause R50.[address] [facility] [address] [id number] Nov, Seizure disorder G40.909 and Seizures R56.9 [facility] [address] [id number] [address]- 2060 Oct, [facility] [id number] [place] [address] 43657- 6669 Oct, [facility] [address]00565100[place] [address]- 5896 Oct, [facility] [address] [place] [id number] Oct, Seizures R56.9 ; Profoundly mentally retarded F73 ; Hypoxia R09.02 and Hypothyroidism E03.9 [facility] [id number] [place] [address] 00486- 5950 Sep, [facility] [id number] [place] [address] 00279- 3469 Sep, [facility] [id number] [place] [address] 14787- 8343 Sep, [facility] [address] [place] [id number] Aug, Profoundly mentally retarded F73 [facility] [id number] [place] [address] 81508- 9623 July, Seizures R56.9 [facility] [address] [place] [address] 32148- 2962 Jun, [facility] [id number] [place] [address] 22441- 3132 Jun, [facility] [address] [place] [address] 56761- 2683 Jun, [facility] [address] [place] [address] Jun, Hypoxia R09.02 [facility] [address] [id number] [address]- 0099 May, [facility] [id number] [place] [address] 40522- 9360 May, [facility] [address] [id number] [address]- 2890 Apr, [facility] [address]00565100[place] [address]- 4752 Apr, [facility] [address] [place] [id number] 10 Apr, 2015 Unspecified intellectual disabilities F79 [facility] [address]00565100[place] [address]- 3916 Mar, [facility] [address]00565100[place] [address]- 3319 Mar, [facility] [address]00565100[place] [address]- 2372 Mar, [facility] [address]00565100[place] [address]- 4722 Mar, [facility] [address]00565100[place] [address]- 7421 Feb, [facility] [address]00565100[place] [address]- 6527 Jan, [facility] [address]00565100[place] [address]- 1510 Dec, Seizures R56.9 and Profoundly mentally retarded F73 [facility] [address]00565100[place] [address]- 7306 Dec, [facility] [address]00565100[place] [address]- 3280 Nov, Mental retardation 319 and Seizures 780.39 [facility] [address]00565100[place] 1478 Sep, Seizures 780.39 and Severely mentally retarded 318.1 [facility] [address] [place] [id number] July, Seizures 780.39 and Severe mental retardation 318.1 [facility] [address] [id number] [address]- 3809 14 Jun, 2014 [facility] [address] [id number] [place] [address]- 6841 Jun, [facility] [address] [id number] [address]- 2619 May, [facility] [address] [place] [id number] May, [facility] [address] [id number] [place] [address]- 5238 Apr, [facility] [address] [id number] [place] [address]- 2199 Apr, [facility] [address] [id number] [place] [address]- 1431 Mar, [facility] [address] [id number] [address]- 9601 Mar, [facility] [address] [id number] [address]- 2203 Mar, [facility] [address] [place] [id number] Mar, [facility] [address] [id number] [address]- 9589 Jan, [facility] [address] [id number] [place] [address]- 5459 Jan, [facility] [address] [id number] [address]- 7989 Jan, [facility] [address] [place] [id number] Jan, [facility] [address] [id number] [address]- 6248 Dec, [facility] [address] [id number] [address]- 9714 Dec, [facility] [address] [id number] [address]- 8410 Nov, [facility] [address] [place] [address] Nov, [facility] [address] [id number] [place] [address]- 7386 Oct, [facility] [address] [id number] [place] [address]- 7137 Oct, [facility] [address] [id number] [address]- 4176 Oct, [facility] [address] [place] [id number] Oct, [facility] [address] [id number] [place] [address]- 4317 Aug, [facility] [address] [id number] [place] [address]- 0280 Aug, [facility] [address] [id number] [address]- 8487 Aug, [facility] [address] [place] [id number] Aug, [facility] [address] [id number] [place] [address]- 0020 Aug, [facility] [address] [id number] [address]- 0808 Aug, [facility] [address] [id number] [address]- 6266 Jun, [facility] [address] [id number] [place] [address]- 3028 Jun, [facility] [address] [id number] [place] [address]- 0575 Jun, [facility] [address] [id number] [place] [address]- 8818 Jun, [facility] [address] [id number] [address]- 2146 May, [facility] [address] [id number] [address]- 5765 May, [facility] [address] [facility] [id number] Apr, [facility] [address] [id number] [address]- 3426 Apr, [facility] [address] [id number] [address]- 2484 Apr, [facility] [address] [id number] [place] [address]- 3521 Apr, [facility] [address] [id number] [address]- 6952 Mar, [facility] [address] [id number] [address]- 1789 Mar, [facility] [address] [id number] [place] [address]- 0783 Feb, [facility] [address] [place] [id number] Feb, [facility] [address] [id number] [address]- 5976 Feb, [facility] [address] [id number] [address]- 7686 Feb, [facility] [address] [id number] [address]- 1326 Jan, [facility] [address] [id number] [address]- 8398 Jan, [facility] [address] [place] [id number] Jan, [facility] [address] [id number] [address]- 5066 Jan, [facility] [address] [id number] [place] [address]- 3821 Jan, [facility] [address] [id number] [place] [address]- 7308 Jan, [facility] [address] [id number] [place] [address]- 2196 Dec, [facility] [address] [id number] [place] [address]- 2546 Dec, [facility] [address] [id number] [place] [address]- 8316 Dec, [facility] [address] [id number] [place] [address]- 6169 Dec, [facility] [address] [id number] [place] [address]- 5436 Dec, [facility] [address] [place] [id number] Dec, [facility] [address] [id number] [address]- 2546 Dec, [facility] [address] [id number] [place] [address]- 2546 Oct, [facility] [address] [place] [id number] Oct, [facility] [address] [id number] [place] [address]- 2546 Sep, [facility] [address] [id number] [address]- 5926 Sep, [facility] [address] [id number] [place] [address]- 7597 Sep, [facility] [address] [id number] [place] [address]- 8716 Aug, [facility] [address] [id number] [place] [address]- 2546 July, [facility] [address] [id number] [place] [address]- 8037 July, [facility] [address] [facility] [id number] Jun, [facility] [address] [id number] [place] [address]- 2546 Jun, [facility] [address] [facility] [id number] Apr, [facility] [address]00565100[place] [address]- 8076 Feb, [facility] [address] [facility] [id number] Feb, [facility] [address] [facility] [address] Dec, [facility] [address] [id number] [address]- 2546 Dec, [facility] [address] [facility] [id number] Oct, [facility] [address] [id number] [place] [address]- 9916 Aug, [facility] [address] [facility] [id number] Aug, [facility] [address] [id number] [address]- 4666 July, [facility] [address] [facility] [id number] Jun, [facility] [address] [id number] [place] [address]- 5106 May, [facility] [address] [facility] [id number] Apr, [facility] [address] [id number] [address]- 0806 Mar, [facility] [address] [id number] [address]- 6466 Feb, [facility] [address] [id number] [place] [address]- 1092 14 Feb, 2011 [facility] [address]00565100[place] [address]- 7159 Feb, [facility] [address]00565100[place] [address]- 8376 Jan, [facility] [address]00565100[place] [address]- 2986 Jan, [facility] [id number] [place] [address] 64867- 1895 Dec, [facility] [address] [place] [address] 60059- 6451 Jan, [facility] [id number] [place] [address] 32770- 4482 Dec, [facility] [id number] [place] [address] 32163- 9113 Dec, [facility] [id number] [place] [address] 28733- 2243 Feb, [facility] [address] [place] [address] 46578- 5073 Jan, [facility] [address] [place] [address] 54806- 4322 Dec, [facility] [address]00565100[place] [address]- 0436 Sep, IMMUNIZATIONS No Known Immunizations SOCIAL HISTORY Never Assessed REASON FOR VISIT Routine visit PLAN OF CARE Activity Details Follow Up prn Reason: VITAL SIGNS MEDICATIONS Medication Instructions Dosage Frequency Start Date End Date Duration Status MiraLax N/A Orally Once a day 17gm in 4-8oz of liquid 24h Sep, Active Tylenol with Codeine #3 300-30 MG Orally every 4-6 hrs 1 tablet as needed Mar, Active Visine-A 0.025-0.3 % PLACE TWO DROPS INTO AFFECTED EYE(S) FOUR TIMES DAILY NEEDED RED EYES 6h Active Keppra 100 MG/ML Orally every 12 hrs 20 ml 12h 30 Active Albuterol Sulfate (2.5 MG/3ML) 0.083% Inhalation every 4 hrs 3 ml as needed 4h Active Acetaminophen 325 MG Orally every 6 hrs 2 tablet 6h Jun, Active Bisacodyl 10 MG Rectal Once a day 1 suppository as needed 24h Active Divalproex Sodium 125 MG TAKE SIX CAPSULES BY MOUTH EVERY MORNING AND TAKE EIGHT CAPSULES IN THE EVENING 30 Active Loperamide A-D 2 MG Orally PRN 1 tablet as needed Active Gold Mcclain Maximum Relief 1-1 % Externally every 12 hrs as needed Active Mylanta 200-200-20 MG/5ML Orally Four times a day 10 ml as needed 6h Active Phenobarbital 16.2 MG Orally Twice a day 1 tablet 12h 30 Active Levothyroxine Sodium 100 MCG Orally Once a day 1 tablet on an empty stomach in the morning 24h Active Acetaminophen 650 MG Rectal every 4 hours as needed 1 suppository Active Milk of Magnesia 1200 MG/15ML Orally Once a day for Constipation 530as needed Feb, Active RESULTS No Results PROCEDURES Procedure Date Ordered Result Body Site Stable Visit (10 minutes) May 11, 2017 INSTRUCTIONS MEDICATIONS ADMINISTERED No Known Medications
--- OUTSIDE RECORDS SUMMARY | 2018-03-06 18:29 | XMS REPORT ---
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 Handler Name Role Phone JEANETTE ZHU Unavailable PROBLEMS Type Condition ICD9-CM Code CNI59-MM Code Onset Dates Condition Status SNOMED Code Problem Atopic dermatitis, mild L20.9 Active 52736875 Problem Seizure disorder G40.909 Active 560681173 Problem Seizures R56.9 Active 25260547 Problem Profoundly mentally retarded F73 Active 37792580 Problem Unspecified intellectual disabilities F79 Active [id number] ALLERGIES No Information ENCOUNTERS Encounter Location Date Diagnosis [facility] [id number] [place] [phone] Aug, [facility] [address] [place] [id number] July, Profoundly mentally retarded F73 and Seizures R56.9 [facility] [address] [address] Jun, [facility] [address] [place] [id number] May, Sepsis, due to unspecified organism A41.9 [facility] [address] [place] [id number] May, Profoundly mentally retarded F73 and Seizures R56.9 [facility] [id number] [id number] Apr, [facility] [id number] [id number] Mar, [facility] [address], [place] [address] Mar, [facility] [address] [place] [id number] Mar, Profoundly mentally retarded F73 and Seizures R56.9 [facility] [id number] [id number] Mar, [facility] [address], [place] [address] Mar, Acute pain of right knee M25.561 [facility] [address] [place] [id number] Mar, Acute pain of right knee M25.561 and Profoundly mentally retarded F73 [facility] [address] [id number], [place] [address] Feb, [facility] [address] [place] [id number] Jan, Profoundly mentally retarded F73 and Seizure disorder G40.909 [facility] [address], [place] [address] Jan, [facility] [id number] [place] [address] [id number] Jan, Upper respiratory tract infection, unspecified type J06.9 [facility] [id number] [place] [id number] Nov, [facility] [address] [id number] Nov, Atopic dermatitis, mild L20.[address] [facility] [address] [id number] Nov, Profoundly mentally retarded F73 [facility] [id number] [id number] Oct, [facility] [id number] [place] [address]- 0090 Sep, [facility] [address] [place] [id number] Sep, Profoundly mentally retarded F73 [facility] [address] [id number], [place] [address] July, [facility] [id number] July, Profoundly mentally retarded F73 and Seizure disorder G40.909 [facility] [address] [place] [address]- 7751 Jun, [facility] [id number] [place] [address] 09874- 1781 Jun, [facility] [id number] [place] [address]33- 9057 May, [facility] [address] [id number] May, Profoundly mentally retarded F73 [facility] [id number] [place] [address]50- 5086 Mar, Seizures R56.9 [facility] [id number] [place] [address]66- 1879 Mar, Seizures R56.[address] [facility] [address] [id number] Feb, Profoundly mentally retarded F73 and Hx of bacterial pneumonia Z87.01 [facility] [id number] [place] [address]61- 6483 Jan, [facility] [id number] [place] [address] 96111- 4489 Jan, [facility] [address] [id number] Dec, Fever, unspecified fever cause R50.[address] [id number] Nov, Seizure disorder G40.909 and Seizures R56.9 [facility] [id number] [place] [address]606- 2247 Oct, [facility] [id number] [place] [address] 68732- 1781 Oct, [facility] [id number] [place] [address] 30757- 6781 Oct, [facility] [address] [place] [id number] Oct, Seizures R56.9 ; Profoundly mentally retarded F73 ; Hypoxia R09.02 and Hypothyroidism E03.9 [facility] [address]100[place], [place] [address] 8005 Sep, [facility] [id number] [place] [address]- 3744 Sep, [facility] [address]00565100[place], [place] [address]78 Sep, [facility] [address] [place] [id number] Aug, Profoundly mentally retarded F73 [facility] [address]100[place], [place] [address] July, Seizures R56.9 [facility] [address] [id number], [place] [address] 4504 Jun, [facility] [address]100[place], [place] [address] 9776 Jun, [facility] [address]100[place], [place] [address]- 6196 Jun, [facility] [address] [place] [address] Jun, Hypoxia R09.02 [facility] [address]100[place], [place] [address]- 4949 May, [facility] [address], [place] [address]- 0505 May, [facility] [address]100[place], [place] [address]- 0575 Apr, [facility] [address] [id number], [place] [address] 2077 Apr, [facility] [address] [place] [id number] Apr, Unspecified intellectual disabilities F79 [facility] [address] [id number], [place] [address] 0408 Mar, [facility] [address] [address] 9080 Mar, [facility] [address]100[place], [place] [address]- 8593 Mar, [facility] [address] [address] 8[address] Mar, [facility] [address], [place] [address]- 5548 Feb, [facility] [address]100[place], [place] [address]- 9075 Jan, [facility] [address], [place] [address]- 4428 Dec, Seizures R56.9 and Profoundly mentally retarded F73 [facility] [address], [place] [address]- 7513 Dec, [facility] [address], [place] [address]- 3021 Nov, Mental retardation 319 and Seizures 780.39 [facility] [address], [place] [address]- 8656 Sep, Seizures 780.39 and Severely mentally retarded 318.1 [facility] [address] [place] [id number] July, Seizures 780.39 and Severe mental retardation 318.1 [facility] [address], [place] [address]- 0795 Jun, [facility] [address], [place] [address]- 0497 Jun, [facility] [address] [id number], [place] [address]- 7114 May, [facility] [address] [place] [id number] May, [facility] [address] [id number], [place] [address]- 1843 Apr, [facility] [address] [id number], [place] [address]- 9483 Apr, [facility] [address] [id number], [place] [address]- 8844 Mar, [facility] [address] [id number], [place] [address]- 5283 Mar, [facility] [address] [id number], [place] [address]- 3374 Mar, [facility] [address] [place] [id number] Mar, [facility] [address] [id number], [place] [address]- 8295 Jan, [facility] [address] [id number], [place] [address]- 1800 Jan, [facility] [address] [id number], [place] [address]- 6376 Jan, [facility] [address] [place] [id number] Jan, [facility] [address] [id number], [place] [address]- 7021 Dec, [facility] [address] [id number], [place] [address]- 6259 Dec, [facility] [address] [id number], [place] [address]- 3666 Nov, [facility] [address] [place] [id number] Nov, [facility] [address] [id number], [place] [address]- 9466 Oct, [facility] [address] [id number] [place] [address]- 5826 Oct, [facility] [address] [id number] [place] [address]- 6195 Oct, [facility] [address] [place] [address] Oct, [facility] [address] [id number] [place] [address]- 8649 Aug, [facility] [address] [id number], [place] [address]- 2245 Aug, [facility] [address] [id number] [place] [address]- 4388 Aug, [facility] [address] [place] [id number] Aug, [facility] [address] [id number] [place] [address]- 9962 Aug, [facility] [address] [id number] [place] [address]- 8554 Aug, [facility] [address] [id number] [place] [address]- 2733 Jun, [facility] [address] [id number] [place] [address]- 5736 Jun, [facility] [address] [id number], [place] [address]- 7321 Jun, [facility] [address] [id number], [place] [address]- 0490 Jun, [facility] [address] [id number] [place] [address]- 8901 May, [facility] [address] [id number] [place] [address]- 5504 May, [facility] [address] [facility] [place] [id number] Apr, [facility] [address] [id number], [place] [address]- 1428 Apr, [facility] [address] [id number] [place] [address]- 3104 Apr, [facility] [address] [id number], [place] [address]- 1613 Apr, [facility] [address] [id number] [place] [address]- 8087 Mar, [facility] [address] [id number], [place] [address]- 9416 Mar, [facility] [address] [id number], [place] [address]- 2297 Feb, [facility] [address] [place] [id number] Feb, [facility] [address] [facility] [id number], [place] [address]- 0160 Feb, [facility] [address] [id number], [place] [address]- 3856 Feb, [facility] [address] [id number], [place] [address]- 4362 Jan, [facility] [address] [facility] [id number], [place] [address]- 4300 Jan, [facility] [address] [place] [id number] Jan, [facility] [address] [id number], [place] [address]- 1458 Jan, [facility] [address] [id number], [place] [address]- 1080 Jan, [facility] [address] [id number], [place] [address]- 3736 Jan, [facility] [address] [id number], [place] [address]- 3051 Dec, [facility] [address] [id number], [place] [address]- 3846 Dec, [facility] [address] [id number] [place] [address]- 3606 Dec, [facility] [address] [id number], [place] [address]- 0426 Dec, [facility] [address] [id number], [place] [address] 2546 Dec, [facility] [address] [place] [id number] Dec, [facility] [address] [id number] [place] [address] 2546 Dec, [facility] [address] [id number], [place] [address]- 4396 Oct, [facility] [address] [place] [id number] Oct, [facility] [address] [id number], [place] [address]- 5996 Sep, [facility] [address] [id number] [place] [address]- 1553 Sep, [facility] [address] [id number], [place] [address]- 9710 Sep, [facility] [address] [id number], [place] [address]- 3666 Aug, [facility] [address] [id number], [place] [address]- 2546 July, [facility] [address] [id number], [place] [address]- 2546 July, [facility] [address] [place] [id number] Jun, [facility] [address] [id number], [place] [address]- 2546 Jun, [facility] [address] [place] [id number] Apr, [facility] [address] [id number], [place] [address]- 3606 Feb, [facility] [address] [facility] [place] [id number] Feb, [facility] [address] [facility] [place] [id number] Dec, [facility] [address] [id number], [place] [address]- 4886 Dec, [facility] [address] [facility] [place] [id number] Oct, [facility] [address] [id number], [place] [address]- 6626 Aug, [facility] [address] [facility] [place] [id number] Aug, [facility] [address] [id number], [place] [address]- 7546 July, [facility] [address] [facility] [place] [id number] Jun, [facility] [address] [id number], [place] [address]- 6850 May, [facility] [address] [facility] [place] [id number] Apr, [facility] [address] [id number], [place] [address]- 5756 Mar, [facility] [address] [id number], [place] [address]- 7436 Feb, [facility] [address] [id number], [place] [address]- 9908 Feb, [facility] [address] [id number], [place] [address]- 7846 Feb, [facility] [address] [id number], [place] [address]- 2940 16 Jan, 2011 [facility] [address] [id number], [place] [address]- 2546 Jan, [facility] [address], [place] [address] 2546 Dec, [facility] [address], [place] [address] 2546 Jan, [facility] [address], [place] [address]- 2546 Dec, [facility] [address] [place] [address]99- 2546 Dec, [facility] [address], [place] [address] 2548 Feb, [facility] [address], [place] [address]- 2546 Jan, [facility] [address], [place] [address] 2546 Dec, [facility] [address], [place] [address]- 2546 Sep, IMMUNIZATIONS No Known Immunizations SOCIAL HISTORY Never Assessed REASON FOR VISIT follow up PLAN OF CARE Activity Details Follow Up prn Reason: VITAL SIGNS MEDICATIONS Unknown Medications RESULTS No Results PROCEDURES Procedure Date Ordered Result Body Site Stable Visit (10 minutes) Mar 16, 2017 INSTRUCTIONS MEDICATIONS ADMINISTERED No Known Medications
--- OUTSIDE RECORDS SUMMARY | 2018-03-06 18:29 | XMS REPORT ---
Author Author JEANETTE ZHU Organization [facility] [place] Address [address] [place] [address] Care Team Providers Care Vp Project Name Role Phone JEANETTE ZHU Unavailable PROBLEMS Type Condition ICD9-CM Code FOH64-RZ Code Onset Dates Condition Status SNOMED Code Problem Atopic dermatitis, mild L20.9 Active 45358552 Problem Seizure disorder G40.909 Active 413341697 Problem Seizures R56.9 Active 04825341 Problem Profoundly mentally retarded F73 Active 75244407 Problem Unspecified intellectual disabilities F79 Active 636000510 ALLERGIES No Information ENCOUNTERS Encounter Location Date Diagnosis [facility] [place] [id number] [place] [id number]- [address] Aug, [facility] [address] [place] [id number] July, Profoundly mentally retarded F73 and Seizures R56.9 [facility] [place] [address] [address] Jun, [facility] [address] [place] [id number] May, Sepsis, due to unspecified organism A41.9 [facility] [address] [place] [id number] May, Profoundly mentally retarded F73 and Seizures R56.9 [facility] [id number] [id number] Apr, [facility] [id number] [id number] Mar, [facility] [place] [address], [place] [address] Mar, [facility] [address] [id number] Mar, Profoundly mentally retarded F73 and Seizures R56.9 [facility] [id number] [id number] Mar, [facility] [place] [address], [place] [address] Mar, Acute pain of right knee M25.561 [facility] [place] [address] [place] [id number] Mar, Acute pain of right knee M25.561 and Profoundly mentally retarded F73 [facility] [place] [address] [id number], [place] [address] Feb, [facility] [address] [place] [id number] Jan, Profoundly mentally retarded F73 and Seizure disorder G40.909 [facility] [place] [address]65[address], [place] [address] Jan, [facility] [id number] [place] [address] [id number] Jan, Upper respiratory tract infection, unspecified type J06.9 [facility] [id number] [place] [id number] Nov, [facility] [address] [id number] Nov, Atopic dermatitis, mild L20.[address] [facility] [address] [id number] Nov, Profoundly mentally retarded F73 [facility] [id number] [id number] Oct, [facility] [place] [id number] [place] [address]- 9949 Sep, [facility] [address] [id number] Sep, Profoundly mentally retarded F73 [facility] [place] [address] [id number], [place] [address] July, [facility] [id number] July, Profoundly mentally retarded F73 and Seizure disorder G40.909 [facility] [place] [address] [place] [address]907- 8796 Jun, [facility] [place] [id number] [place] [address]- 1587 Jun, [facility] [place] [id number] [place] [address]- 8775 May, [facility] [address] [id number] May, Profoundly mentally retarded F73 [facility] [place] [id number] [place] [address]- 5705 Mar, Seizures R56.9 [facility] [place] [id number] [place] [address] 94629- 6185 Mar, Seizures R56.[address] [facility] [address] [id number] Feb, Profoundly mentally retarded F73 and Hx of bacterial pneumonia Z87.01 [facility] [place] [id number] [place] [address] 89485- 5194 Jan, [facility] [place] [id number] [place] [address] 64084- 3458 Jan, [facility] [address] [id number] Dec, Fever, unspecified fever cause R50.[address] [id number] Nov, Seizure disorder G40.909 and Seizures R56.9 [facility] [place] [id number] [place] [address] 64822- 9742 Oct, [facility] [place] [id number] [place] [address] 44130- 3458 Oct, [facility] [place] [id number] [place] [address] 75208- 8405 Oct, [facility] [address] [id number] Oct, Seizures R56.9 ; Profoundly mentally retarded F73 ; Hypoxia R09.02 and Hypothyroidism E03.9 [facility] [place] [address], [place] [address] Sep, [facility] [place] [id number] [place] [address] 63525- 3495 Sep, [facility] [place] [address], [place] [address]- 3936 Sep, [facility] [address] [id number] Aug, Profoundly mentally retarded F73 [facility] [place] [address], [place] [address] 3317 July, Seizures R56.9 [facility] [place] [address] [id number], [place] [address] 4582 Jun, [facility] [place] [address], [place] [address]- 5451 Jun, [facility] [place] [address], [place] [address]- 4897 Jun, [facility] [address] [id number] Jun, Hypoxia R09.02 [facility] [place] [address], [place] [address]- 6217 May, [facility] [place] [address], [place] [address]- 8536 May, [facility] [place] [address], [place] [address]- 3665 Apr, [facility] [place] [address] [id number], [place] [address]- 8190 Apr, [facility] [address] [id number] Apr, Unspecified intellectual disabilities F79 [facility] [place] [address] [id number], [place] [address]- 7728 Mar, [facility] [place] [address] [address] 3409 Mar, [facility] [place] [address], [place] [address]- 4555 Mar, [facility] [place] [address]- 2055 Mar, [facility] [place] [address], [place] [address]- 5250 Feb, [facility] [place] [address], [place] [address]- 8511 Jan, [facility] [place] [address], [place] [address]- 1409 Dec, Seizures R56.9 and Profoundly mentally retarded F73 [facility] [place] [address], [place] [address]- 8056 Dec, [facility] [place] [address], [place] [address]- 5055 Nov, Mental retardation 319 and Seizures 780.39 [facility] [place] [address], [place] [address]- 7648 Sep, Seizures 780.39 and Severely mentally retarded 318.1 [facility] [address] [id number] July, Seizures 780.39 and Severe mental retardation 318.1 [facility] [place] [address], [place] [address]- 0287 Jun, [facility] [place] [address], [place] [address]- 3320 Jun, [facility] [place] [address] [id number], [place] [address]- 8738 May, [facility] [address] [id number] May, [facility] [address] [id number], [place] [address]- 6511 Apr, [facility] [address] [id number], [place] [address]- 2893 Apr, [facility] [address] [id number], [place] [address]- 0519 Mar, [facility] [address] [id number], [place] [address]- 0067 Mar, [facility] [address] [id number], [place] [address]- 0298 Mar, [facility] [address] [id number] Mar, [facility] [address] [id number], [place] [address]- 9377 Jan, [facility] [address] [id number], [place] [address]- 8034 Jan, [facility] [address] [id number], [place] [address]- 0080 Jan, [facility] [address] [id number] Jan, [facility] [address] [id number], [place] [address]- 8968 Dec, [facility] [address] [id number], [place] [address]- 2210 Dec, [facility] [address] [id number], [place] [address]- 2373 Nov, [facility] [address] [id number] Nov, [facility] [address] [id number], [place] [address]- 6546 Oct, [facility] [address] [id number] [place] [address]- 2729 Oct, [facility] [address] [id number] [place] [address]- 8691 Oct, [facility] [address] [id number] Oct, [facility] [address] [id number] [place] [address]- 8513 Aug, [facility] [address] [id number], [place] [address]- 9227 Aug, [facility] [address] [id number] [place] [address]- 0922 Aug, [facility] [address] [id number] Aug, [facility] [address] [id number] [place] [address]- 3022 Aug, [facility] [address] [id number] [place] [address]- 0810 Aug, [facility] [address] [id number] [place] [address]- 7559 Jun, [facility] [address] [id number] [place] [address]- 2373 Jun, [facility] [address] [id number], [place] [address]- 6761 Jun, [facility] [address] [id number], [place] [address]- 5053 Jun, [facility] [address] [id number] [place] [address]- 9027 May, [facility] [address] [id number] [place] [address]- 2369 May, [facility] [address] [facility] [id number] Apr, [facility] [address] [id number], [place] [address]- 3651 Apr, [facility] [address] [id number] [place] [address]- 1252 Apr, [facility] [address] [id number], [place] [address]- 7983 Apr, [facility] [address] [id number] [place] [address]- 0660 Mar, [facility] [address] [id number], [place] [address]- 8954 Mar, [facility] [address] [id number], [place] [address]- 4040 Feb, [facility] [address] [id number] Feb, [facility] [address] [facility] [id number], [place] [address]- 7355 Feb, [facility] [address] [id number], [place] [address]- 9208 Feb, [facility] [address] [id number], [place] [address]- 7478 Jan, [facility] [address] [facility] [id number], [place] [address]- 1576 Jan, [facility] [address] [id number] Jan, [facility] [address] [id number], [place] [address]- 2060 Jan, [facility] [address] [id number], [place] [address]- 7853 Jan, [facility] [address] [id number], [place] [address]- 8047 Jan, [facility] [address] [id number], [place] [address]- 1939 Dec, [facility] [address] [id number], [place] [address]- 8626 Dec, [facility] [address] [id number] [place] [address]- 8926 Dec, [facility] [address] [id number], [place] [address]- 3796 Dec, [facility] [address] [id number], [place] [address] 2546 Dec, [facility] [address] [id number] Dec, [facility] [address] [id number] [place] [address] 2546 Dec, [facility] [address] [id number], [place] [address]- 6866 Oct, [facility] [address] [id number] Oct, [facility] [address] [id number], [place] [address]- 1156 Sep, [facility] [address] [id number] [place] [address]- 5681 Sep, [facility] [address] [id number], [place] [address]- 6445 Sep, [facility] [address] [id number], [place] [address]- 7156 Aug, [facility] [address] [id number], [place] [address]- 2546 July, [facility] [address] [id number], [place] [address]- 2546 July, [facility] [address] [id number] Jun, [facility] [address] [id number], [place] [address]- 2546 Jun, [facility] [address] [id number] Apr, [facility] [place] [address] [id number], [place] [address]- 9336 Feb, [facility] [address] [facility] [id number] Feb, [facility] [address] [facility] [id number] Dec, [facility] [place] [address] [id number], [place] [address]- 6206 Dec, [facility] [address] [facility] [id number] Oct, [facility] [place] [address] [id number], [place] [address]- 9626 Aug, [facility] [address] [facility] [id number] Aug, [facility] [place] [address] [id number], [place] [address]- 0696 July, [facility] [address] [facility] [id number] Jun, [facility] [place] [address] [id number], [place] [address]- 5826 May, [facility] [address] [facility] [id number] Apr, [facility] [place] [address] [id number], [place] [address]- 6396 Mar, [facility] [place] [address] [id number], [place] [address]- 7536 Feb, [facility] [place] [address] [id number], [place] [address]- 9597 Feb, [facility] [place] [address] [id number], [place] [address]- 2426 Feb, [facility] [place] [address] [id number], [place] [address]- 6312 16 Jan, 2011 [facility] [place] [address] [id number], [place] [address]- 2546 Jan, [facility] [place] [address], [place] [address] 2546 Dec, [facility] [place] [address], [place] [address] 2546 Jan, [facility] [place] [address], [place] [address]- 2546 Dec, [facility] [place] [address] [place] [address]- 2546 Dec, [facility] [place] [address], [place] [address]- 8996 Feb, [facility] [place] [address] [place] [address] 47[address]- 2546 Jan, [facility] [place] [address], [place] [address]- 8466 Dec, [facility] [place] [address], [place] [address] 2546 Sep, IMMUNIZATIONS No Known Immunizations SOCIAL HISTORY Never Assessed REASON FOR VISIT Routine visit PLAN OF CARE Activity Details Follow Up prn Reason: VITAL SIGNS MEDICATIONS Medication Instructions Dosage Frequency Start Date End Date Duration Status Diastat AcuDial 10 MG insert 1 vial as needed for seizure activity lasts over 5 minutes. 15 Jan, 2013 Active Indocin 50 mg Orally 3 times a day 1 capsule 8h Mar, Mar, 07 days Active Haldol 5 MG/ML Injection every 8 hrs 0.5 ml 8h Sep, 30 day(s) Active Mag-Al Plus 200-200-20 MG/5ML Orally Four times a day 30 ml as needed for heartburn 6h Active HyoMax-SL 0.125 MG Sublingual every 2 hours 1 tablet under the tongue and allow to dissolve as needed for excessive secretions Active IBU-200 200 mg Orally 3 times a day 2 tablet 8h Active Acetaminophen 650 MG Rectal every 4 hours as needed 1 suppository Active Visine-A 0.025-0.3 % PLACE TWO DROPS INTO AFFECTED EYE(S) FOUR TIMES DAILY NEEDED RED EYES 6h Active Phenobarbital 16.2 MG Orally Twice a day 1 tablet 12h 30 Active Docusate Sodium 50 MG/5ML Orally twice a day 10 ml as needed 12h Active MiraLax N/A Orally Once a day 17gm in 4-8oz of liquid 24h Sep, Active Mylanta 200-200-20 MG/5ML Orally Four times a day 10 ml as needed 6h Active Acetaminophen 325 MG Orally every 6 hrs 2 tablet 6h Jun, Active Levothyroxine Sodium 100 MCG TAKE 1 TABLET BY MOUTH EVERY DAY 30 Active Milk of Magnesia 1200 MG/15ML Orally Once a day for Constipation 530as needed Feb, Active Morphine Sulfate (Concentrate) 20 MG/ML Orally every 15 minutes up to 6 consecutive doses 0.5 ml as needed for moderate pain Active Keppra 100 MG/ML Orally every 12 hrs 20 ml 12h 30 Active Tylenol with Codeine #3 300-30 MG Orally every 4-6 hrs 1 tablet as needed Mar, Active Bisacodyl 10 MG Rectal Once a day 1 suppository as needed 24h Active Divalproex Sodium 125 MG TAKE SIX CAPSULES BY MOUTH EVERY MORNING AND TAKE EIGHT CAPSULES IN THE EVENING 30 Active RESULTS No Results PROCEDURES Procedure Date Ordered Result Body Site Stable Visit (10 minutes) Mar 07, 2017 INSTRUCTIONS MEDICATIONS ADMINISTERED No Known Medications
--- OUTSIDE RECORDS SUMMARY | 2018-03-06 18:30 | XMS REPORT ---
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 [employer] Name Role Phone JEANETTE ZHU Unavailable PROBLEMS Type Condition ICD9-CM Code BHN64-WG Code Onset Dates Condition Status SNOMED Code Problem Atopic dermatitis, mild L20.9 Active 96074083 Problem Seizure disorder G40.909 Active 794216118 Problem Seizures R56.9 Active 32434059 Problem Profoundly mentally retarded F73 Active 25039230 Problem Unspecified intellectual disabilities F79 Active 210659511 ALLERGIES No Information ENCOUNTERS Encounter Location Date Diagnosis [facility] [address] [id number] [address] Jun, [facility] [address] [place] [id number] May, Sepsis, due to unspecified organism A41.9 [facility] [address] [place] [address] May, Profoundly mentally retarded F73 and Seizures R56.9 [facility] [id number] [address] Apr, [facility] [address] [id number] [address] Mar, [facility] [address] [facility] [id number] [address] Mar, [facility] [address] [place] [id number] Mar, Profoundly mentally retarded F73 and Seizures R56.9 [facility] [address] [id number] [address] Mar, [facility] [address] [id number] [address] Mar, Acute pain of right knee M25.561 [facility] [address] [place] [address] Mar, Acute pain of right knee M25.561 and Profoundly mentally retarded F73 [facility] [address] [id number], [place] [address] Feb, [facility] [address] [place] [address] Jan, Profoundly mentally retarded F73 and Seizure disorder G40.909 [facility] [address] [id number], [place] [address] Jan, [facility] [id number] [place] [id number] Jan, Upper respiratory tract infection, unspecified type J06.9 [facility] [address] [id number] [address] Nov, [facility] [address] [place] [id number] Nov, Atopic dermatitis, mild L20.[address] [facility] [address] [id number] Nov, Profoundly mentally retarded F73 [facility] [address] [id number] [address] Oct, [facility] [address] [id number], [place] [address] Sep, [facility] [address] [place] [address] Sep, Profoundly mentally retarded F73 [facility] [address] [id number], [place] [address] July, [facility] [address] [place] [address] July, Profoundly mentally retarded F73 and Seizure disorder G40.909 [facility] [address] [id number], [place] [address] Jun, [facility] [address]00565100[place], [place] [address] Jun, [place] [id number] [place] [address]796 May, [facility] [address] [place] [id number] May, Profoundly mentally retarded F73 [place] [id number] [place] [address]- 1327 Mar, Seizures R56.9 [place] [id number] [place] [address]326 Mar, Seizures R56.[address] [facility] [address] [id number] Feb, Profoundly mentally retarded F73 and Hx of bacterial pneumonia Z87.01 [place] [id number] [place] [address]- 5730 Jan, [place] [id number] [place] [address]- 4456 Jan, [facility] [address] [place] [id number] Dec, Fever, unspecified fever cause R50.9 [facility] [address] [place] [address] Nov, Seizure disorder G40.909 and Seizures R56.9 [place] [id number] [place] [address]- 4078 Oct, [place] [id number] [place] [address]- 9824 Oct, [place] [id number] [place] [address]- 8260 Oct, [facility] [address] [place] [id number] Oct, Seizures R56.9 ; Profoundly mentally retarded F73 ; Hypoxia R09.02 and Hypothyroidism E03.9 [place] [address] [id number], [place] [address] Sep, [facility] [address]00565100[place], [place] [address] Sep, [facility] [address]00565100[place], [place] [address] Sep, [facility] [address] [place] [id number] Aug, Profoundly mentally retarded F73 [facility] [address]00565100[place], [place] [address] July, Seizures R56.9 [facility] [address] [id number], [place] [address] Jun, [facility] [address], [place] [address] Jun, [facility] [id number] [place] [address]- 3337 Jun, [facility] [address] [place] [id number] Jun, Hypoxia R09.02 [facility] [address]005[address], [place] [address] May, [facility] [address]005[address]100[place], [place] [address] May, [facility] [address], [place] [address] Apr, [facility] [address] [id number], [place] [address] Apr, [facility] [address] [place] [address] Apr, Unspecified intellectual disabilities F79 [facility] [address] [id number], [place] [address] Mar, [facility] [address]005[address], [place] [address] 2806 Mar, [facility] [address] [id number] [address] Mar, [facility] [address]005[address] [address] 88[address] Mar, [facility] [id number] [address] Feb, [facility] [address]00565100[place], [place] [address]- 9[address] Jan, [facility] [address], [place] [address] 9867 Dec, Seizures R56.9 and Profoundly mentally retarded F73 [facility] [address]005[address], [place] [address] Dec, [facility] [address], [place] [address] 65[address] Nov, Mental retardation 319 and Seizures 780.39 [facility] [address], [place] [address] Sep, Seizures 780.39 and Severely mentally retarded 318.1 [facility] [address] [place] [address] July, Seizures 780.39 and Severe mental retardation 318.1 [facility] [address] [id number], [place] [address] 67[address] Jun, [facility] [address], [place] [address]- 2569 Jun, [facility] [address] [id number], [place] [address] 3[address] May, [facility] [address] [place] [address] May, [facility] [id number], [place] [address] 1900 Apr, [facility] [address], [place] [address] Apr, [facility] [address] [id number], [place] [address]- [address] Mar, [facility] [address] [id number] [place] [address] Mar, [facility] [address] [id number], [place] [address] 6[address] Mar, [facility] [address] [place] [id number] Mar, [facility] [address] [id number] [place] [address]- [address]32 Jan, [facility] [address] [id number], [place] [address]- 2470 Jan, [facility] [address] [id number], [place] [address]- 2409 Jan, [facility] [address] [place] [id number] Jan, [facility] [address] [id number] [place] [address]- 3409 Dec, [facility] [address] [id number], [place] [address]- 0[address] Dec, [facility] [address] [id number], [place] [address]- 2947 Nov, [facility] [address] [place] [id number] Nov, [facility] [address] [id number], [place] [address]- 4493 Oct, [facility] [address] [id number], [place] [address]- 2967 Oct, [facility] [address] [id number], [place] [address]- 8968 Oct, [facility] [address] [place] [address] Oct, [facility] [address] [id number] [place] [address]- 9864 Aug, [facility] [address] [id number] [place] [address]- 9770 Aug, [facility] [address] [id number] [place] [address]- 8019 Aug, [facility] [address] [facility] [id number] Aug, [facility] [address] [id number] [place] [address]- 3493 Aug, [facility] [address] [id number] [place] [address]- 8094 Aug, [facility] [address] [id number] [place] [address]- 7622 Jun, [facility] [address] [id number] [place] [address]- 9754 Jun, [facility] [address] [id number] [place] [address]- 1972 Jun, [facility] [address] [id number] [place] [address]- 0911 Jun, [facility] [address] [id number] [place] [address]- 2589 May, [facility] [address] [id number] [place] [address]- 3341 May, [facility] [address] [facility] [id number] Apr, [facility] [place] [facility] [address] [id number] [place] [address]- 3736 Apr, [facility] [place] [facility] [address] [id number] [place] [address]- 5046 Apr, [facility] [place] [facility] [address] [id number] [place] [address]- 0525 Apr, [facility] [address] [id number] [place] [address]- 0110 Mar, [facility] [address] [id number] [place] [address]- 5832 Mar, [facility] [address] [id number] [place] [address]- 0565 Feb, [facility] [address] [place] [id number] Feb, [facility] [address] [id number] [place] [address]- 0710 Feb, [facility] [address] [id number] [place] [address]- 1240 Feb, [facility] [address] [id number] [place] [address]- 9005 Jan, [facility] [address] [id number], [place] [address]- 1877 Jan, [facility] [address] [facility] [id number] Jan, [facility] [address] [id number], [place] [address]- 8824 Jan, [facility] [address] [id number], [place] [address]- 0992 Jan, [facility] [address] [id number], [place] [address]- 9273 Jan, [facility] [address] [id number], [place] [address]- 5431 Dec, [facility] [address] [id number] [place] [address]- 6400 Dec, [facility] [address] [id number], [place] [address]- 3701 Dec, [facility] [address] [id number], [place] [address]- 7032 Dec, [facility] [address] [id number] [place] [address]- 3976 Dec, [facility] [address] [facility] [id number] Dec, [facility] [address] [id number], [place] [address]- 9786 Dec, [facility] [address] [id number], [place] [address]- 9786 Oct, [facility] [address] [facility] [id number] Oct, [facility] [address] [id number] [place] [address]- 0606 Sep, [facility] [address] [id number] [place] [address]- 2480 Sep, [facility] [address] [id number], [place] [address]- 3077 Sep, [facility] [address] [id number] [place] [address]- 3373 Aug, [facility] [address] [id number], [place] [address]- 0596 July, [facility] [address] [id number], [place] [address]- 2626 July, [facility] [address] [place] [id number] Jun, [facility] [address] [id number], [place] [address]- 2546 Jun, [facility] [address] [facility] [id number] Apr, [facility] [address] [id number], [place] [address]- 2546 Feb, [facility] [address] [facility] [id number] Feb, [facility] [address] [facility], [place] [id number] 17 Dec, 2011 [facility] [address] [id number], [place] [address]- 1066 17 Dec, 2011 [facility] [address] [facility], [place] [id number] Oct, [facility] [address] [id number], [place] [address] 2546 Aug, [facility] [address] [facility] [id number] Aug, [facility] [address] [id number], [place] [address]- 8209 July, [facility] [address] [facility] [id number] Jun, [facility] [address] [id number], [place] [address]- 1226 May, [facility] [address] [facility] [id number] Apr, [facility] [address] [id number], [place] [address]- 2373 Mar, [facility] [address] [id number] [place] [address]- 4238 Feb, [facility] [address] [id number], [place] [address]- 2484 14 Feb, 2011 [facility] [address] [id number] [place] [address]- 3858 13 Feb, 2011 [facility] [address] [id number] [place] [address]- 8028 16 Jan, 2011 [facility] [address] [id number] [place]- 3017 Jan, [facility] [address] [id number] [place]- 8259 19 Dec, 2010 [facility] [address] [id number] [place] [address]- 4591 Jan, [facility] [address] [facility] [id number], [place] [address]- 9089 Dec, [facility] [address], [place] [address]- 0026 Dec, [facility] [address]100[place], [place] [address]- 2350 Feb, [facility] [id number] [place] [address] 7[address]- 8338 Jan, [facility] [address], [place] [address]- 7850 Dec, [facility] [address], [place] [address]- 0462 Sep, IMMUNIZATIONS No Known Immunizations SOCIAL HISTORY Never Assessed REASON FOR VISIT Routine Visit PLAN OF CARE Activity Details Follow Up prn Reason: VITAL SIGNS MEDICATIONS Medication Instructions Dosage Frequency Start Date End Date Duration Status Haldol 5 MG/ML Injection every 8 hrs 0.5 ml 8h Sep, 30 day(s) Active Morphine Sulfate (Concentrate) 20 MG/ML Orally every 15 minutes up to 6 consecutive doses 0.5 ml as needed for moderate pain Active Acetaminophen 325 MG Orally every 6 hrs 2 tablet 6h Jun, Active MiraLax N/A Orally Once a day 17gm in 4-8oz of liquid 24h Sep, Active Ativan 2 MG/ML Injection as directed 1 ml as needed for seizures not to exceed 2 doses per day Mar, 30 days Active Phenobarbital 16.2 MG Orally Twice a day 1 tablet 12h 30 Active Mylanta 200-200-20 MG/5ML Orally Four times a day 10 ml as needed 6h Active Mag-Al Plus 200-200-20 MG/5ML Orally Four times a day 30 ml as needed for heartburn 6h Active Ativan 1 MG Orally every 4 hours 1 tablet as needed for anxiety/air hunger 4h Active Keppra 100 MG/ML Orally every 12 hrs 20 ml 12h 30 Active Divalproex Sodium 125 MG TAKE SIX CAPSULES BY MOUTH EVERY MORNING AND TAKE EIGHT CAPSULES IN THE EVENING 30 Active Acetaminophen 650 MG Rectal every 4 hours as needed 1 suppository Active IBU-200 200 mg Orally 3 times a day 2 tablet 8h Active Diastat AcuDial 10 MG insert 1 vial as needed for seizure activity lasts over 5 minutes. Jan, Active Visine-A 0.025-0.3 % PLACE TWO DROPS INTO AFFECTED EYE(S) FOUR TIMES DAILY NEEDED RED EYES 6h Active Levothyroxine Sodium 100 MCG TAKE 1 TABLET BY MOUTH EVERY DAY 30 Active HyoMax-SL 0.125 MG Sublingual every 2 hours 1 tablet under the tongue and allow to dissolve as needed for excessive secretions Active Milk of Magnesia 1200 MG/15ML Orally Once a day for Constipation 530as needed Feb, Active Docusate Sodium 50 MG/5ML Orally twice a day 10 ml as needed 12h Active Bisacodyl 10 MG Rectal Once a day 1 suppository as needed 24h Active RESULTS No Results PROCEDURES Procedure Date Ordered Result Body Site Stable Visit (10 minutes) Nov 15, 2016 INSTRUCTIONS MEDICATIONS ADMINISTERED No Known Medications
--- OUTSIDE RECORDS SUMMARY | 2018-03-06 18:30 | XMS REPORT ---
Author Author JEANETTE ZHU Organization [facility] Address [address] [place] [address] Care Team Providers Care Industry Analyst Name Role Phone JEANETTE ZHU Unavailable PROBLEMS Type Condition ICD9-CM Code ETZ45-GZ Code Onset Dates Condition Status SNOMED Code Problem Atopic dermatitis, mild L20.9 Active 36512402 Problem Seizure disorder G40.909 Active 158049027 Problem Seizures R56.9 Active 93743433 Problem Profoundly mentally retarded F73 Active 78093956 Problem Unspecified intellectual disabilities F79 Active [id number] ALLERGIES No Information ENCOUNTERS Encounter Location Date Diagnosis [facility] [address] [id number] [address] Jun, [facility] [address] [place] [id number] May, Sepsis, due to unspecified organism A41.9 [facility] [address] [place] [id number] May, Profoundly mentally retarded F73 and Seizures R56.9 [facility] [id number] [id number] Apr, [facility] [address] [id number] [id number] Mar, [facility] [address] [facility] [id number] [address] Mar, [facility] [address] [id number] Mar, Profoundly mentally retarded F73 and Seizures R56.9 [facility] [address] [id number] [id number] Mar, [facility] [id number] [address] Mar, Acute pain of right knee M25.561 [facility] [address] [address] Mar, Acute pain of right knee M25.561 and Profoundly mentally retarded F73 [facility] [address] [id number], [place] [address] Feb, [facility] [address] [id number] Jan, Profoundly mentally retarded F73 and Seizure disorder G40.909 [facility] [address] [id number], [place] [address] Jan, [facility] [id number] [place] [id number] Jan, Upper respiratory tract infection, unspecified type J06.9 [facility] [address] [id number] [address] Nov, [facility] [address] [address] Nov, Atopic dermatitis, mild L20.[address] [facility] [address] [id number] Nov, Profoundly mentally retarded F73 [facility] [address] [id number] [id number] Oct, [facility] [address] [id number], [place] [address] Sep, [facility] [address] [id number] Sep, Profoundly mentally retarded F73 [facility] [address] [id number], [place] [address] July, [facility] [address] [place] [address] July, Profoundly mentally retarded F73 and Seizure disorder G40.909 [facility] [address] [id number], [place] [address] Jun, [facility] [address]00565[address], [place] [address] Jun, [id number] [place] [address] May, [facility] [address] [place] [address] May, Profoundly mentally retarded F73 [place] [id number] [place] [address]- 8227 Mar, Seizures R56.9 [place] [id number] [place] [address]- 3946 Mar, Seizures R56.[address] [facility] [address] [id number] Feb, Profoundly mentally retarded F73 and Hx of bacterial pneumonia Z87.01 [place] [id number] [place] [address]- 6145 Jan, [place] [id number] [place] [address]- 7922 Jan, [facility] [address] [place] [id number] Dec, Fever, unspecified fever cause R50.9 [facility] [address] [place] [address] Nov, Seizure disorder G40.909 and Seizures R56.9 [place] [id number] [place] [address]- 5277 Oct, [place] [id number] [place] [address] 72380- 3443 Oct, [place] [id number] [place] [address]- 6878 Oct, [facility] [address] [place] [id number] Oct, Seizures R56.9 ; Profoundly mentally retarded F73 ; Hypoxia R09.02 and Hypothyroidism E03.9 [place] [facility] [address] [id number], [place] [address] Sep, [facility] [address]00565100[place], [place] [address] 79[address] Sep, [facility] [address]00565100[place], [place] [address] 9[address] Sep, [facility] [address] [id number] Aug, Profoundly mentally retarded F73 [facility] [address]00565100[place], [place] [address] July, Seizures R56.9 [facility] [address] [id number], [place] [address] Jun, [facility] [address]00565100[place], [place] [address]- 3984 Jun, [facility] [address] [place] [address]- 8753 Jun, [facility] [address] [address] Jun, Hypoxia R09.02 [facility] [address]00565100[place], [place] [address] 72[address] May, [facility] [address]00565100[place], [place] [address] May, [facility] [address]00565100[place], [place] [address] Apr, [facility] [address] [id number], [place] [address] Apr, [facility] [address] [address] Apr, Unspecified intellectual disabilities F79 [facility] [address] [id number], [place] [address] 6466 Mar, [facility] [address]65100[place], [place] [address] 4[address] Mar, [facility] [id number] [address] 3[address] Mar, [facility] [address] [address] 6[address] Mar, [facility] [id number] [address] 3068 Feb, [facility] [address]00565100[place], [place] [address]- 2[address] Jan, [facility] [address]00565100[place], [place] [address]147 Dec, Seizures R56.9 and Profoundly mentally retarded F73 [facility] [address]00565100[place], [place] [address] 98[address] Dec, [facility] [address]00565100[place], [place] [address] 5[address] Nov, Mental retardation 319 and Seizures 780.39 [facility] [address]00565100[place], [place] [address] 350[address] Sep, Seizures 780.39 and Severely mentally retarded 318.1 [facility] [address] [place] [id number] July, Seizures 780.39 and Severe mental retardation 318.1 [facility] [address] [id number], [place] [address] 6924 Jun, [facility] [address]65[address], [place] [address]- 6284 Jun, [facility] [address] [id number], [place] [address] 0114 May, [facility] [address] [id number] May, [facility] [id number], [place] [address]- 6226 Apr, [facility] [address], [place] [address] 1388 Apr, [facility] [address] [id number], [place] [address] 95[address] Mar, [facility] [address] [id number] [place] [address]- 5006 Mar, [facility] [address] [id number], [place] [address]- 5526 Mar, [facility] [address] [address] Mar, [facility] [address] [id number] [place] [address]- 9744 Jan, [facility] [address] [id number], [place] [address]- 1691 Jan, [facility] [address] [id number], [place] [address]- 0165 Jan, [facility] [address] [address] Jan, [facility] [address] [id number] [place] [address]- 6910 Dec, [facility] [address] [id number], [place] [address]- 3029 Dec, [facility] [address] [id number], [place] [address]- 2094 Nov, [facility] [address] [id number] Nov, [facility] [address] [id number], [place] [address]- 5501 Oct, [facility] [address] [id number], [place] [address]- 3116 Oct, [facility] [address] [id number], [place] [address]- 2646 Oct, [facility] [address] [address] Oct, [facility] [address] [id number] [place] [address]- 5607 Aug, [facility] [address] [id number] [place] [address]- 8984 Aug, [facility] [address] [id number] [place] [address]- 7049 Aug, [facility] [address] [facility] [place] [id number] Aug, [facility] [address] [id number] [place] [address]- 4919 Aug, [facility] [address] [id number] [place] [address]- 8518 Aug, [facility] [address] [id number] [place] [address]- 9143 Jun, [facility] [address] [id number] [place] [address]- 9151 Jun, [facility] [address] [id number] [place] [address]- 2543 Jun, [facility] [address] [id number] [place] [address]- 3654 Jun, [facility] [address] [id number] [place] [address]- 1319 May, [facility] [address] [id number] [place] [address]- 3489 May, [facility] [address] [facility] [id number] Apr, [facility] [place] [facility] [address] [id number] [place] [address]- 4106 Apr, [facility] [place] [facility] [address] [id number] [place] [address]- 8836 Apr, [facility] [place] [facility] [address] [id number] [place] [address]- 5749 Apr, [facility] [address] [id number] [place] [address]- 0854 Mar, [facility] [address] [id number] [place] [address]- 9119 Mar, [facility] [address] [id number] [place] [address]- 7235 Feb, [facility] [address] [address] Feb, [facility] [address] [id number] [place] [address]- 8890 Feb, [facility] [address] [id number] [place] [address]- 6488 Feb, [facility] [address] [id number] [place] [address]- 1809 Jan, [facility] [address] [id number], [place] [address]- 7505 Jan, [facility] [address] [facility] [id number] Jan, [facility] [address] [id number], [place] [address]- 2770 Jan, [facility] [address] [id number], [place] [address]- 4622 Jan, [facility] [address] [id number], [place] [address]- 2864 Jan, [facility] [address] [id number], [place] [address]- 2400 Dec, [facility] [address] [id number] [place] [address]- 1935 Dec, [facility] [address] [id number], [place] [address]- 3434 Dec, [facility] [address] [id number], [place] [address]- 5522 Dec, [facility] [address] [id number] [place] [address]- 8896 Dec, [facility] [address] [facility] [id number] Dec, [facility] [address] [id number], [place] [address]- 8576 Dec, [facility] [address] [id number], [place] [address]- 2316 Oct, [facility] [address] [facility] [id number] Oct, [facility] [address] [id number] [place] [address]- 2876 Sep, [facility] [address] [id number] [place] [address]- 8227 Sep, [facility] [address] [id number], [place] [address]- 0880 Sep, [facility] [address] [id number] [place] [address]- 5887 Aug, [facility] [address] [id number], [place] [address]- 9366 July, [facility] [address] [id number], [place] [address]- 9966 July, [facility] [address] [address] Jun, [facility] [address] [id number], [place] [address]- 2546 Jun, [facility] [address] [facility] [id number] Apr, [facility] [address] [id number], [place] [address]- 2546 Feb, [facility] [address] [facility] [id number] Feb, [facility] [address] [facility] [id number] 17 Dec, 2011 [facility] [address] [id number], [place] [address]- 7606 17 Dec, 2011 [facility] [address] [facility] [id number] Oct, [facility] [address] [id number], [place] [address] 2546 Aug, [facility] [address] [facility] [id number] Aug, [facility] [address] [id number], [place] [address]- 0594 July, [facility] [address] [facility] [id number] Jun, [facility] [address] [id number], [place] [address]- 7396 May, [facility] [address] [facility], [place] [id number] Apr, [facility] [address] [id number], [place] [address]- 2545 Mar, [facility] [address] [id number] [place] [address]- 8825 Feb, [facility] [address] [id number], [place] [address]- 9787 14 Feb, 2011 [facility] [address] [id number] [place] [address]- 5339 13 Feb, 2011 [facility] [address] [id number] [place] [address]- 7591 16 Jan, 2011 [facility] [address] [id number] [place]- 5758 Jan, [facility] [address] [id number] [place]- 0063 19 Dec, 2010 [facility] [address] [id number] [place] [address]- 5102 Jan, [facility] [address] [id number], [place] [address] 2546 Dec, [facility] [address], [place] [address]- 2546 Dec, [facility] [address], [place] [address]- 2546 Feb, [facility] [address], [place] [address]- 2546 Jan, [facility] [address] [id number], [place] [address]- 7340 Dec, [facility] [address] [id number], [place] [address]- 4293 Sep, IMMUNIZATIONS No Known Immunizations SOCIAL HISTORY Never Assessed REASON FOR VISIT DC Lorazepam PLAN OF CARE VITAL SIGNS MEDICATIONS Unknown Medications RESULTS No Results PROCEDURES No Known procedures INSTRUCTIONS MEDICATIONS ADMINISTERED No Known Medications
--- OUTSIDE RECORDS SUMMARY | 2018-03-06 18:31 | XMS REPORT ---
Author Author JEANETTE ZHU Organization [facility] Address [address] [place] [address] Care Team Providers Care Care Transitions Nurse Name Role Phone JEANETTE ZHU Unavailable PROBLEMS Type Condition ICD9-CM Code MUR60-ML Code Onset Dates Condition Status SNOMED Code Problem Atopic dermatitis, mild L20.9 Active 40914181 Problem Seizure disorder G40.909 Active 330527885 Problem Seizures R56.9 Active 36392496 Problem Profoundly mentally retarded F73 Active 64597700 Problem Unspecified intellectual disabilities F79 Active 249807057 ALLERGIES No Information ENCOUNTERS Encounter Location Date Diagnosis [facility] [address] [id number] [address] Jun, [facility] [address] [place] [id number] May, Sepsis, due to unspecified organism A41.9 [facility] [address] [place] [id number] May, Profoundly mentally retarded F73 and Seizures R56.9 [facility] [id number] [id number] Apr, [facility] [address] [id number] [address] Mar, [facility] [address] [facility] [id number] [address] Mar, [facility] [address] [place] [id number] Mar, Profoundly mentally retarded F73 and Seizures R56.9 [facility] [address] [id number] [address] Mar, [facility] [address] [id number] [address] Mar, Acute pain of right knee M25.561 [facility] [address] [place] [address] Mar, Acute pain of right knee M25.561 and Profoundly mentally retarded F73 [facility] [address] [id number], [place] [address] Feb, [facility] [address] [place] [address] Jan, Profoundly mentally retarded F73 and Seizure disorder G40.909 [facility] [address] [id number], [place] [address] Jan, [facility] [id number] [place] [id number] Jan, Upper respiratory tract infection, unspecified type J06.9 [facility] [address] [id number] [address] Nov, [facility] [address] [place] [id number] Nov, Atopic dermatitis, mild L20.[address] [facility] [address] [id number] Nov, Profoundly mentally retarded F73 [facility] [address] [id number] [id number] Oct, [facility] [address] [id number], [place] [address] Sep, [facility] [address] [place] [address] Sep, Profoundly mentally retarded F73 [facility] [address] [id number], [place] [address] July, [facility] [address] [place] [address] July, Profoundly mentally retarded F73 and Seizure disorder G40.909 [facility] [address] [id number] [address] Jun, [facility] [address]00565100[place], [place] [address] Jun, [place] [id number] [place] [address] May, [facility] [address] [address] May, Profoundly mentally retarded F73 [address] [id number] [place] [address] 6666 Mar, Seizures R56.9 [place] [id number] [place] [address]17 Mar, Seizures R56.[address] [facility] [address] [id number] Feb, Profoundly mentally retarded F73 and Hx of bacterial pneumonia Z87.01 [place] [id number] [place] [address]- 3844 Jan, [place] [id number] [place] [address]- 4382 Jan, [facility] [address] [place] [address] Dec, Fever, unspecified fever cause R50.9 [facility] [address] [place] [address] Nov, Seizure disorder G40.909 and Seizures R56.9 [place] [id number] [place] [address] 9818 Oct, [place] [id number] [place] [address]- 2961 Oct, [place] [id number] [place] [address]- 0849 Oct, [facility] [address] [place] [address] Oct, Seizures R56.9 ; Profoundly mentally retarded F73 ; Hypoxia R09.02 and Hypothyroidism E03.9 [place] [address] [id number], [place] [address] Sep, [facility] [address], [place] [address] Sep, [facility] [address]100[place], [place] [address] Sep, [facility] [address] [place] [id number] Aug, Profoundly mentally retarded F73 [facility] [address]00565100[place], [place] [address] July, Seizures R56.9 [facility] [address] [id number], [place] [address] Jun, [facility] [address]65100[place], [place] [address] Jun, [facility] [address] [place] [address]- 0217 Jun, [facility] [address] [place] [address] Jun, Hypoxia R09.02 [facility] [address], [place] [address] May, [facility] [address], [place] [address] May, [facility] [address]005[address], [place] [address] 9[address] Apr, [facility] [address] [id number], [place] [address] Apr, [facility] [address] [place] [id number] Apr, Unspecified intellectual disabilities F79 [facility] [address] [id number], [place] [address] 93[address] Mar, [facility] [address], [place] [address] Mar, [facility] [address] [id number] [address] Mar, [facility] [address] [address] Mar, [facility] [address] [id number] [address] 1631 Feb, [facility] [address], [place] [address] Jan, [facility] [address], [place] [address] Dec, Seizures R56.9 and Profoundly mentally retarded F73 [facility] [address], [place] [address] Dec, [facility] [address], [place] [address] Nov, Mental retardation 319 and Seizures 780.39 [facility] [address], [place] [address] Sep, Seizures 780.39 and Severely mentally retarded 318.1 [facility] [address] [place] [address] July, Seizures 780.39 and Severe mental retardation 318.1 [facility] [address] [id number], [place] [address] Jun, [facility] [address], [place] [address] Jun, [facility] [address] [id number], [place] [address] 65[address] May, [facility] [address] [place] [id number] May, [facility] [address] [id number], [place] [address] 10[address] Apr, [facility] [address], [place] [address] Apr, [facility] [address] [id number] [address]- [address] Mar, [facility] [address] [id number] [place] [address]- 7824 Mar, [facility] [address] [id number] [address] Mar, [facility] [address] [place] [id number] Mar, [facility] [address] [id number] [place] [address]- [address] Jan, [facility] [address] [id number], [place] [address]- 5992 Jan, [facility] [address] [id number], [place] [address]- [address] Jan, [facility] [address] [place] [address] Jan, [facility] [address] [id number] [place] [address]- 9082 Dec, [facility] [address] [id number] [address]- 7120 Dec, [facility] [address] [id number] [address]- 9472 Nov, [facility] [address] [id number] Nov, [facility] [address] [id number], [place] [address]- 4[address] Oct, [facility] [address] [id number], [place] [address]- 6047 Oct, [facility] [address] [id number] [address]- 8[address] Oct, [facility] [address] [id number] Oct, [facility] [address] [id number] [place] [address]- 9066 Aug, [facility] [address] [id number] [place] [address]- 8917 Aug, [facility] [address] [id number] [place] [address]- 1445 Aug, [facility] [address] [facility] [place] [id number] Aug, [facility] [address] [id number] [place] [address]- 7003 Aug, [facility] [address] [id number] [place] [address]- 1587 Aug, [facility] [address] [id number] [place] [address]- 1627 Jun, [facility] [address] [id number] [place] [address]- 0837 Jun, [facility] [address] [id number] [place] [address]- 3559 Jun, [facility] [address] [id number] [place] [address]- 0527 Jun, [facility] [address] [id number] [place] [address]- 1836 May, [facility] [address] [id number] [place] [address]- 6577 May, [facility] [address] [facility] [id number] Apr, [facility] [place] [facility] [address] [id number] [place] [address]- 9756 Apr, [facility] [place] [facility] [address] [id number] [place] [address]- 0516 Apr, [facility] [place] [facility] [address] [id number] [place] [address]- 1656 Apr, [facility] [address] [id number] [place] [address]- 5535 Mar, [facility] [address] [id number] [place] [address]- 6683 Mar, [facility] [address] [id number] [place] [address]- 1513 Feb, [facility] [address] [id number] Feb, [facility] [address] [id number] [place] [address]- 8489 Feb, [facility] [address] [id number] [place] [address]- 3493 Feb, [facility] [address] [id number] [place] [address]- 9546 Jan, [facility] [address] [id number], [place] [address]- 2178 Jan, [facility] [address] [facility] [id number] Jan, [facility] [address] [id number], [place] [address]- 3103 Jan, [facility] [address] [id number], [place] [address]- 8496 Jan, [facility] [address] [id number] [address]- 9834 Jan, [facility] [address] [id number] [address]- 5092 Dec, [facility] [address] [id number] [place] [address]- 1808 Dec, [facility] [address] [id number] [address]- 7251 Dec, [facility] [address] [id number] [address]- 8230 Dec, [facility] [address] [id number] [place] [address]- 6246 Dec, [facility] [address] [facility] [id number] Dec, [facility] [address] [id number] [address]- 2056 Dec, [facility] [address] [id number], [place] [address]- 7256 Oct, [facility] [address] [facility] [id number] Oct, [facility] [address] [id number] [place] [address]- 3406 Sep, [facility] [address] [id number] [place] [address]- 9008 Sep, [facility] [address] [id number], [place] [address]- 0651 Sep, [facility] [address] [id number] [place] [address]- 5959 Aug, [facility] [address] [id number], [place] [address]- 5266 July, [facility] [address] [id number], [place] [address]- 2706 July, [facility] [address] [id number] Jun, [facility] [address] [id number], [place] [address]- 2546 Jun, [facility] [address] [facility] [id number] Apr, [facility] [address] [id number][place] [address]- 2546 Feb, [facility] [address] [facility] [id number] Feb, [facility] [address] [facility] [id number] 17 Dec, 2011 [facility] [address] [id number] [address]- 8326 17 Dec, 2011 [facility] [address] [facility] [id number] Oct, [facility] [address] [id number], [place] [address] 2546 Aug, [facility] [address] [facility] [id number] Aug, [facility] [address] [id number], [place] [address]- 9421 July, [facility] [address] [facility] [id number] Jun, [facility] [address] [id number], [place] [address]- 8436 May, [facility] [address] [facility] [id number] Apr, [facility] [address] [id number], [place] [address]- 6546 Mar, [facility] [address] [id number] [place] [address]- 3922 Feb, [facility] [address] [id number] [address]- 5076 14 Feb, 2011 [facility] [address] [id number] [place] [address]- 7246 13 Feb, 2011 [facility] [address] [id number] [place] [address]- 4437 16 Jan, 2011 [facility] [address] [id number] [place] [address] Jan, [facility] [address] [id number] [place]- 3313 19 Dec, 2010 [facility] [address] [id number] [place] [address]- 0617 Jan, [facility] [address] [facility] [id number] [address]- 4565 Dec, [facility] [address], [place] [address]- 6576 Dec, [facility] [address] [id number], [place] [address]- 4783 Feb, [facility] [address] [place] [address]- 8765 Jan, [facility] [address] [address]- 3479 Dec, [facility] [address], [place] [address]- 5451 Sep, IMMUNIZATIONS No Known Immunizations SOCIAL HISTORY Never Assessed REASON FOR VISIT Body rash PLAN OF CARE Activity Details Follow Up prn Reason: VITAL SIGNS MEDICATIONS Medication Instructions Dosage Frequency Start Date End Date Duration Status IBU-200 200 mg Orally 3 times a day 2 tablet 8h Active Morphine Sulfate (Concentrate) 20 MG/ML Orally every 15 minutes up to 6 consecutive doses 0.5 ml as needed for moderate pain Active Ativan 2 MG/ML Injection as directed 1 ml as needed for seizures not to exceed 2 doses per day Mar, 30 days Active Visine-A 0.025-0.3 % PLACE TWO DROPS INTO AFFECTED EYE(S) FOUR TIMES DAILY NEEDED RED EYES 6h Active Diastat AcuDial 10 MG insert 1 vial as needed for seizure activity lasts over 5 minutes. Jan, Active Betamethasone Dipropionate 0.05 % Externally Once a day 1 application to both arms daily 24h Nov, Dec, 10 days Active Keppra 100 MG/ML Orally every 12 hrs 20 ml 12h 30 Active HyoMax-SL 0.125 MG Sublingual every 2 hours 1 tablet under the tongue and allow to dissolve as needed for excessive secretions Active Acetaminophen 325 MG Orally every 6 hrs 2 tablet 6h Jun, Active Bisacodyl 10 MG Rectal Once a day 1 suppository as needed 24h Active Acetaminophen 650 MG Rectal every 4 hours as needed 1 suppository Active Phenobarbital 16.2 MG Orally Twice a day 1 tablet 12h 30 Active Haldol 5 MG/ML Injection every 8 hrs 0.5 ml 8h Sep, 30 day(s) Active Levothyroxine Sodium 100 MCG TAKE 1 TABLET BY MOUTH EVERY DAY 30 Active Mag-Al Plus 200-200-20 MG/5ML Orally Four times a day 30 ml as needed for heartburn 6h Active Ativan 1 MG Orally every 4 hours 1 tablet as needed for anxiety/air hunger 4h Active MiraLax N/A Orally Once a day 17gm in 4-8oz of liquid 24h Sep, Active Mylanta 200-200-20 MG/5ML Orally Four times a day 10 ml as needed 6h Active Gold Mcclani Ultra Eczema Relief 2 % Externally 2 times a day to both arms 12h Nov, Nov, 10 days Active Docusate Sodium 50 MG/5ML Orally twice a day 10 ml as needed 12h Active Milk of Magnesia 1200 MG/15ML Orally Once a day for Constipation 530as needed Feb, Active Divalproex Sodium 125 MG TAKE SIX CAPSULES BY MOUTH EVERY MORNING AND TAKE EIGHT CAPSULES IN THE EVENING 30 Active RESULTS No Results PROCEDURES Procedure Date Ordered Result Body Site Stable Visit (10 minutes) Nov 22, 2016 INSTRUCTIONS MEDICATIONS ADMINISTERED No Known Medications
--- OUTSIDE RECORDS SUMMARY | 2018-03-06 18:31 | XMS REPORT ---
Author Author JEANETTE ZHU Organization [facility] Address [address] [place] [address] Care Team Providers Care Patient Access Associate Name Role Phone JEANETTE ZHU Unavailable PROBLEMS Type Condition ICD9-CM Code HBO40-RH Code Onset Dates Condition Status SNOMED Code Problem Atopic dermatitis, mild L20.9 Active 54392515 Problem Seizure disorder G40.909 Active 069494515 Problem Seizures R56.9 Active 47351074 Problem Profoundly mentally retarded F73 Active 17943378 Problem Unspecified intellectual disabilities F79 Active [id number] ALLERGIES No Information ENCOUNTERS Encounter Location Date Diagnosis [facility] [id number] [place] [id number] Aug, [facility] [address] [place] [id number] July, Profoundly mentally retarded F73 and Seizures R56.9 [facility] [address] [address] Jun, [facility] [address] [place] [id number] May, Sepsis, due to unspecified organism A41.9 [facility] [address] [place] [id number] May, Profoundly mentally retarded F73 and Seizures R56.9 [facility] [id number] [id number] Apr, [facility] [address] [id number] [id number] Mar, [facility] [address], [place] [address] Mar, [facility] [address] [place] [id number] Mar, Profoundly mentally retarded F73 and Seizures R56.9 [facility] [id number] [id number] Mar, [facility] [address], [place] [address] Mar, Acute pain of right knee M25.561 [facility] [address] [place] [id number] Mar, Acute pain of right knee M25.561 and Profoundly mentally retarded F73 [facility] [address] [id number], [place] [address] Feb, [facility] [address] [place] [id number] Jan, Profoundly mentally retarded F73 and Seizure disorder G40.909 [facility] [address], [place] [address] Jan, [facility] [id number] [place] [id number] Jan, Upper respiratory tract infection, unspecified type J06.9 [facility] [id number] [place] [id number] Nov, [facility] [address] [id number] Nov, Atopic dermatitis, mild L20.[address] [facility] [address] [id number] Nov, Profoundly mentally retarded F73 [facility] [id number] [id number] Oct, [facility] [id number] [place] [address]- [address]115 Sep, [facility] [address] [place] [id number] Sep, Profoundly mentally retarded F73 [facility] [address] [id number], [place] [address] July, [facility] [id number] July, Profoundly mentally retarded F73 and Seizure disorder G40.909 [facility] [address] [place] [address]- 4114 Jun, [facility] [id number] [place] [address]- 2772 Jun, [facility] [id number] [place] [address]- 6151 May, [facility] [address] [id number] May, Profoundly mentally retarded F73 [facility] [id number] [place] [address]- 3212 Mar, Seizures R56.9 [facility] [id number] [place] [address]- 9026 Mar, Seizures R56.[address] [facility] [address] [id number] Feb, Profoundly mentally retarded F73 and Hx of bacterial pneumonia Z87.01 [facility] [id number] [place] [address]683- 0397 Jan, [facility] [id number] [place] [address]- [address]255 Jan, [facility] [address] [id number] Dec, Fever, unspecified fever cause R50.[address] [id number] Nov, Seizure disorder G40.909 and Seizures R56.9 [facility] [id number] [place] [address]- 9353 Oct, [facility] [id number] [place] [address] 826[address]- 0049 Oct, [facility] [id number] [place] [address]- 2881 Oct, [facility] [address] [place] [id number] Oct, Seizures R56.9 ; Profoundly mentally retarded F73 ; Hypoxia R09.02 and Hypothyroidism E03.9 [facility] [address], [place] [address] 0[address] Sep, [facility] [id number] [place] [address]- 5103 Sep, [facility] [address]00565100[place], [place] [address] Sep, [facility] [address] [place] [id number] Aug, Profoundly mentally retarded F73 [facility] [address], [place] [address] July, Seizures R56.9 [facility] [address] [id number], [place] [address] Jun, [facility] [address], [place] [address] 9983 Jun, [facility] [address], [place] [address] Jun, [facility] [address] [place] [id number] Jun, Hypoxia R09.02 [facility] [address], [place] [address] 9099 May, [facility] [address], [place] [address] 9[address] May, [facility] [address], [place] [address] 6[address] Apr, [facility] [address] [id number], [place] [address] Apr, [facility] [address] [place] [id number] Apr, Unspecified intellectual disabilities F79 [facility] [address] [id number], [place] [address] 3[address] Mar, [facility] [address] Mar, [facility] [address], [place] [address] 0028 Mar, [facility] [address] 70[address] Mar, [facility] [address], [place] [address]- 7626 Feb, [facility] [address], [place] [address] 0[address] Jan, [facility] [address], [place] [address] 6236 Dec, Seizures R56.9 and Profoundly mentally retarded F73 [facility] [address], [place] [address] 4[address] Dec, [facility] [address], [place] [address] 9658 Nov, Mental retardation 319 and Seizures 780.39 [facility] [address], [place] [address] 3044 Sep, Seizures 780.39 and Severely mentally retarded 318.1 [facility] [address] [place] [id number] July, Seizures 780.39 and Severe mental retardation 318.1 [facility] [address], [place] [address] 7184 Jun, [facility] [address], [place] [address]- 0266 Jun, [facility] [address] [id number], [place] [address] 5810 May, [facility] [address] [place] [id number] May, [facility] [address] [id number], [place] [address] 7965 Apr, [facility] [address] [id number], [place] [address]- 2487 Apr, [facility] [address] [id number], [place] [address]- 69[address] Mar, [facility] [address] [id number], [place] [address] Mar, [facility] [address] [id number], [place] [address]- 9083 Mar, [facility] [address] [place] [id number] Mar, [facility] [address] [id number], [place] [address]- 9267 Jan, [facility] [address] [id number], [place] [address]- 8031 Jan, [facility] [address] [id number], [place] [address] 1239 Jan, [facility] [address] [place] [id number] Jan, [facility] [address] [id number], [place] [address]- 5619 Dec, [facility] [address] [id number], [place] [address]- 1798 Dec, [facility] [address] [id number], [place] [address]- 5364 Nov, [facility] [address] [place] [id number] Nov, [facility] [address] [id number], [place] [address]- 9441 Oct, [facility] [address] [id number] [place] [address]- 1860 Oct, [facility] [address] [id number] [place] [address]- 4760 Oct, [facility] [address] [place] [id number] Oct, [facility] [address] [id number] [place] [address]- 0399 Aug, [facility] [address] [id number], [place] [address]- 8566 Aug, [facility] [address] [id number] [place] [address]- 5387 Aug, [facility] [address] [place] [id number] Aug, [facility] [address] [id number] [place] [address]- 3938 Aug, [facility] [address] [id number] [place] [address]- 1038 Aug, [facility] [address] [id number] [place] [address]- 0583 Jun, [facility] [address] [id number] [place] [address]- 7360 Jun, [facility] [address] [id number], [place] [address]- 5473 Jun, [facility] [address] [id number], [place] [address]- 3227 Jun, [facility] [address] [id number] [place] [address]- 3839 May, [facility] [address] [id number] [place] [address]- 1740 May, [facility] [address] [facility] [id number] Apr, [facility] [address] [id number], [place] [address]- 3401 Apr, [facility] [address] [id number] [place] [address]- 8283 Apr, [facility] [address] [id number], [place] [address]- 1069 Apr, [facility] [address] [id number] [place] [address]- 1702 Mar, [facility] [address] [id number], [place] [address]- 6392 Mar, [facility] [address] [id number], [place] [address]- 8580 Feb, [facility] [address] [place] [id number] Feb, [facility] [address] [facility] [id number], [place] [address]- 2229 Feb, [facility] [address] [id number], [place] [address]- 7300 Feb, [facility] [address] [id number], [place] [address]- 6383 Jan, [facility] [address] [facility] [id number], [place] [address]- 3337 Jan, [facility] [address] [place] [id number] Jan, [facility] [address] [id number], [place] [address]- 9280 Jan, [facility] [address] [id number], [place] [address]- 6254 Jan, [facility] [address] [id number], [place] [address]- 2007 Jan, [facility] [address] [id number], [place] [address]- 2719 Dec, [facility] [address] [id number], [place] [address]- 9166 Dec, [facility] [address] [id number] [place] [address]- 2896 Dec, [facility] [address] [id number], [place] [address]- 8376 Dec, [facility] [address] [id number], [place] [address] 2546 Dec, [facility] [address] [place] [id number] Dec, [facility] [address] [id number] [place] [address] 2546 Dec, [facility] [address] [id number], [place] [address]- 2866 Oct, [facility] [address] [place] [id number] Oct, [facility] [address] [id number], [place] [address]- 9876 Sep, [facility] [address] [id number] [place] [address]- 6481 Sep, [facility] [address] [id number], [place] [address]- 8341 Sep, [facility] [address] [id number], [place] [address]- 3116 Aug, [facility] [address] [id number], [place] [address]- 2546 July, [facility] [address] [id number], [place] [address]- 2546 July, [facility] [address] [place] [id number] Jun, [facility] [address] [id number], [place] [address]- 2546 Jun, [facility] [address] [place] [id number] Apr, [facility] [address] [id number], [place] [address]- 7506 Feb, [facility] [address] [facility] [id number] Feb, [facility] [address] [facility] [id number] Dec, [facility] [address] [id number], [place] [address]- 8446 Dec, [facility] [address] [facility] [id number] Oct, [facility] [address] [id number], [place] [address]- 1186 Aug, [facility] [address] [facility] [id number] Aug, [facility] [address] [id number], [place] [address]- 5486 July, [facility] [address] [facility] [id number] Jun, [facility] [address] [id number], [place] [address]- 0528 May, [facility] [address] [facility] [id number] Apr, [facility] [address] [id number], [place] [address]- 3476 Mar, [facility] [address] [id number], [place] [address]- 5496 Feb, [facility] [address] [id number], [place] [address]- 3838 Feb, [facility] [address] [id number], [place] [address]- 9856 Feb, [facility] [address] [id number], [place] [address]- 8089 16 Jan, 2011 [facility] [address] [id number], [place] [address]- 2546 Jan, [facility] [address], [place] [address]- 8636 Dec, [facility] [address], [place] [address]- 2876 Jan, [facility] [address], [place] [address] 2546 Dec, [facility] [address] [place] [address] 2548 Dec, [facility] [address], [place] [address]- 9508 Feb, [facility] [address], [place] [address] 2546 Jan, [facility] [address], [place] [address]- 1337 Dec, [facility] [address], [place] [address]- 4666 Sep, IMMUNIZATIONS No Known Immunizations SOCIAL HISTORY Never Assessed REASON FOR VISIT Uric Acid Level PLAN OF CARE VITAL SIGNS MEDICATIONS Unknown Medications RESULTS No Results PROCEDURES No Known procedures INSTRUCTIONS MEDICATIONS ADMINISTERED No Known Medications
--- OUTSIDE RECORDS SUMMARY | 2018-03-06 18:32 | XMS REPORT ---
Author Author JEANETTE ZHU [facility] Address [address] [place] [address] Care Team Providers Care Educational Program Director Name Role Phone JEANETTE ZHU Unavailable PROBLEMS Type Condition ICD9-CM Code [id number] Code Onset Dates Condition Status SNOMED Code Problem Atopic dermatitis, mild L20.9 Active 46430509 Problem Seizure disorder G40.909 Active 896692271 Problem Seizures R56.9 Active 03243603 Problem Profoundly mentally retarded F73 Active 72139681 Problem Unspecified intellectual disabilities F79 Active [id number] ALLERGIES No Information ENCOUNTERS Encounter Location Date Diagnosis [facility] [id number] [place] [address] 24366- 0934 Aug, [facility] [id number] [place] [address] 73645- 8118 Aug, [facility] [address] [place] [id number] July, Profoundly mentally retarded F73 and Seizures R56.9 [facility] [id number] [place] [address] 57715- 9054 Jun, [facility] [address] [place] [id number] May, Sepsis, due to unspecified organism [facility]41.[facility] [address] [place] [id number] May, Profoundly mentally retarded F73 and Seizures R56.9 [facility] [id number] [place] [address] [id number] Apr, [facility] [id number] [place] [address] [id number] Mar, [facility] [id number] [place] [address] 29089- 5976 Mar, [facility] [address] [place] [id number] Mar, Profoundly mentally retarded F73 and Seizures R56.9 [facility] [id number] [id number] Mar, [facility] [address] [place] [address] 584681- 8901 Mar, Acute pain of right knee M25.561 [facility] [address] [place] [id number] Mar, Acute pain of right knee M25.561 and Profoundly mentally retarded F73 [facility] [address]100[place] [address] 38[address] Feb, [facility] [address] [place] [id number] Jan, Profoundly mentally retarded F73 and Seizure disorder G40.909 [facility] [address] [address] Jan, [facility] [id number] [place] [address] [id number] Jan, Upper respiratory tract infection, unspecified type J06.9 [facility] [id number] [place] [id number] Nov, [facility] [address] [place] [id number] Nov, Atopic dermatitis, mild L20.[address] [facility] [address] [id number] Nov, Profoundly mentally retarded F73 [facility] [id number] [place] [id number] Oct, [facility] [id number] [place] [address] 19019- 9463 Sep, [facility] [address] [place] [id number] Sep, Profoundly mentally retarded F73 [facility] [address]65100[place] [address] July, [facility] [address] [id number] July, Profoundly mentally retarded F73 and Seizure disorder G40.909 [facility] [address]65100[place] [address] 1434 Jun, [facility] [id number] [place] [address] 55751- 5908 Jun, [facility] [id number] [place] [address] 53301- 4864 May, [facility] [address] [id number] May, Profoundly mentally retarded F[address] [place] [address] [place] [address] 20318- 7062 Mar, Seizures R56.9 [facility] [id number] [place] [address] 48399- 6665 Mar, Seizures R56.[address] [facility] [address] [id number] Feb, Profoundly mentally retarded F73 and Hx of bacterial pneumonia Z87.01 [facility] [address]00565100[place] [address] 1728 Jan, [facility] [address] [place] [address] 10444- 5003 Jan, [facility] [address] [place] [id number] Dec, Fever, unspecified fever cause R50.[address] [facility] [address] [id number] Nov, Seizure disorder G40.909 and Seizures R56.9 [facility] [address] [place] [address] 19538- 8178 Oct, [facility] [id number] [place] [address] 78777- 1843 Oct, [facility] [address]00565100[place] [address] 77[address] Oct, [facility] [address] [place] [id number] Oct, Seizures R56.9 ; Profoundly mentally retarded F73 ; Hypoxia R09.02 and Hypothyroidism E03.9 [facility] [id number] [place] [address] 40414- 7338 Sep, [facility] [address] [facility] [id number] [place] [address] 14678- 7407 Sep, [facility] [id number] [place] [address] 44570- 2114 Sep, [facility] [address] [place] [id number] Aug, Profoundly mentally retarded F73 [facility] [id number] [place] [address] 50271- 4479 July, Seizures R56.9 [facility] [address] [id number] [address]- 1319 Jun, [facility] [id number] [place] [address] 85043- 0558 Jun, [facility] [address]00565100[place] [address]- 4144 Jun, [facility] [address] [place] [id number] Jun, Hypoxia R09.02 [facility] [address]00565100[place] [address]- 4912 May, [facility] [id number] [place] [address] 83058- 0106 May, [facility] [address]00565100[place] [address]- 2597 Apr, [facility] [address] [id number] [address]- 9449 Apr, [facility] [address] [place] [id number] Apr, Unspecified intellectual disabilities F79 [facility] [address]00565100[place] [address]- 2279 Mar, [facility] [address]65100[place] [address]- 2007 Mar, [facility] [id number] [place] [address] 44768- 2768 Mar, [facility] [address]00565100[place] [address]- 3682 Mar, [facility] [id number] [place] [address] 20899- 4243 Feb, [facility] [id number] [place] [address] 38193- 7115 Jan, [facility] [address]00565100[place] [address]- 4797 Dec, Seizures R56.9 and Profoundly mentally retarded F73 [facility] [id number] [place] [address] 30985- 0272 Dec, [facility] [address]00565100[place] [address]- 6823 Nov, Mental retardation 319 and Seizures 780.39 [facility] [address]65100[place] [address]- 9424 Sep, Seizures 780.39 and Severely mentally retarded 318.1 [facility] [address] [place] [address] July, Seizures 780.39 and Severe mental retardation 318.1 [facility] [address]65100[place] [address]209 Jun, [facility] [address]00565100[place] [address]- 2647 Jun, [facility] [address] [id number] [address]- 7426 May, [facility] [address] [place] [id number] May, [facility] [address] [id number] [address]- 8630 Apr, [facility] [address] [id number] [address]- 0255 Apr, [facility] [address] [id number] [place] [address]- 1317 Mar, [facility] [address] [id number] [place] [address]- 8360 Mar, [facility] [address] [facility] [id number] [place] [address]- 5379 Mar, [facility] [address] [place] [id number] Mar, [facility] [address] [id number] [address]- 8378 Jan, [facility] [address] [id number] [address]- 9149 Jan, [facility] [address] [facility] [id number] [address]- 2013 Jan, [facility] [address] [place] [id number] Jan, [facility] [address] [id number] [address]- 9919 Dec, [facility] [address] [id number] [address]- 1799 Dec, [facility] [address] [facility] [id number] [place] [address]- 2987 Nov, [facility] [address] [place] [id number] Nov, [facility] [address] [id number] [place] [address]- 8230 Oct, [facility] [address] [id number] [place] [address]- 7453 Oct, [facility] [address] [id number] [place] [address]- 4275 Oct, [facility] [address] [place] [id number] Oct, [facility] [address] [id number] [address]- 4195 Aug, [facility] [address] [id number] [place] [address]- 2240 Aug, [facility] [address] [id number] [place] [address]- 3957 Aug, [facility] [address] [place] [id number] Aug, [facility] [address] [id number] [address]- 1437 Aug, [facility] [address] [id number] [place] [address]- 4935 Aug, [facility] [address] [id number] [place] [address]- 5700 Jun, [facility] [address] [id number] [address]- 3496 Jun, [facility] [place] [facility] [address] [id number] [place] [address]- 7341 Jun, [facility] [place] [facility] [address] [id number] [place] [address]- 2708 Jun, [facility] [address] [id number] [place] [address]- 7334 May, [facility] [place] [facility] [address] [id number] [place] [address]- 3059 May, [facility] [address] [place] [id number] Apr, [facility] [address] [id number] [place] [address]- 6815 Apr, [facility] [address] [id number] [address]- 5008 Apr, [facility] [address] [id number] [place] [address]- 7556 Apr, [facility] [address] [id number] [place] [address]- 6411 Mar, [facility] [address] [id number] [place] [address]- 6983 Mar, [facility] [address] [id number] [place] [address]- 7115 Feb, [facility] [address] [place] [id number] Feb, [facility] [address] [facility] [id number] [address]- 5332 Feb, [facility] [address] [id number] [address]- 0104 Feb, [facility] [address] [id number] [address]- 4174 Jan, [facility] [address] [id number] [address]- 9631 Jan, [facility] [address] [place] [id number] Jan, [facility] [place] [facility] [address] [id number] [place] [address]- 6750 Jan, [facility] [address] [facility] [id number] [address]- 4837 Jan, [facility] [place] [facility] [address] [facility] [id number] [address]- 0218 Jan, [facility] [address] [facility] [id number] [place] [address]- 6804 Dec, [facility] [address] [id number] [place] [address]- 9135 Dec, [facility] [address] [id number] [place] [address]- 2913 Dec, [facility] [address] [id number] [place] [address]- 2296 Dec, [facility] [address] [id number] [place] [address]- 0896 Dec, [facility] [address] [facility] [id number] Dec, [facility] [address] [id number] [place] [address]- 9226 Dec, [facility] [address] [id number] [place] [address]- 0536 Oct, [facility] [address] [place] [id number] Oct, [facility] [address] [id number] [place] [address]- 1976 Sep, [facility] [address] [id number] [address]- 0218 Sep, [facility] [address] [id number] [place] [address]- 1165 Sep, [facility] [address] [id number] [place] [address]- 0708 Aug, [facility] [address] [id number] [place] [address]- 5403 July, [facility] [address] [id number] [place] [address]- 2546 July, [facility] [address] [place] [id number] Jun, [facility] [address] [id number] [place] [address] 2546 Jun, [facility] [address] [facility] [place] [id number] Apr, [facility] [address] [id number] [place] [address]- 9036 Feb, [facility] [address] [facility] [place] [id number] Feb, [facility] [address] [facility] [address] Dec, [facility] [address] [id number] [place] [address]- 2546 Dec, [facility] [address] [facility] [place] [id number] Oct, [facility] [address] [id number] [address]- 3716 Aug, [facility] [address] [facility] [place] [id number] Aug, [facility] [address] [address]- 8456 July, [facility] [address] [facility] [address] Jun, [facility] [address] [address]- 4926 May, [facility] [address] [facility] [place] [id number] 15 Apr, 2011 [facility] [address] [id number] [place] [address]- 8726 Mar, [facility] [address] [id number] [address]- 2795 Feb, [facility] [address] [id number] [place] [address]- 4096 14 Feb, 2011 [facility] [address] [id number]- 2961 13 Feb, 2011 [facility] [address] [id number] [place] [address] 2546 Jan, [facility] [address] [address] 2546 Jan, [facility] [address] [address]- 8736 Dec, [facility] [address] [address]- 2075 Jan, [facility] [id number] [place] [address] 33229- 2408 Dec, [facility] [address] [address]- 6694 Dec, [facility] [id number] [place] [address] 03738- 2429 Feb, [facility] [address] [address]- 8066 Jan, [facility] [address] [address]- 8166 Dec, [facility] [address] [address]- 1078 Sep, IMMUNIZATIONS No Known Immunizations SOCIAL HISTORY Never Assessed REASON FOR VISIT Increased temp and rash PLAN OF CARE VITAL SIGNS MEDICATIONS Unknown Medications RESULTS No Results PROCEDURES No Known procedures INSTRUCTIONS MEDICATIONS ADMINISTERED No Known Medications
--- OUTSIDE RECORDS SUMMARY | 2018-03-06 18:32 | XMS REPORT ---
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 Name Role Phone JEANETTE ZHU Unavailable PROBLEMS Type Condition ICD9-CM Code DLO52-TM Code Onset Dates Condition Status SNOMED Code Problem Atopic dermatitis, mild L20.9 Active 50664584 Problem Seizure disorder G40.909 Active 391539375 Problem Seizures R56.9 Active 51002074 Problem Profoundly mentally retarded F73 Active 12106995 Problem Unspecified intellectual disabilities F79 Active 589362558 ALLERGIES No Information ENCOUNTERS Encounter Location Date Diagnosis [facility] [address] [place] [id number] July, Profoundly mentally retarded F73 and Seizures R56.9 [facility] [address] [id number] [address] Jun, [facility] [address] [place] [id number] May, Sepsis, due to unspecified organism A41.9 [facility] [address] [place] [id number] May, Profoundly mentally retarded F73 and Seizures R56.9 [facility] [address] [id number] [id number] Apr, [facility] [address] [id number] [address] Mar, [facility] [address] [id number] [address] Mar, [facility] [address] [place] [id number] Mar, Profoundly mentally retarded F73 and Seizures R56.9 [facility] [id number] [id number] Mar, [facility] [address] [id number], [place] [address] Mar, Acute pain of right knee M25.561 [facility] [address] [place] [id number] Mar, Acute pain of right knee M25.561 and Profoundly mentally retarded F73 [facility] [address] [id number], [place] [address] Feb, [facility] [address] [place] [address] Jan, Profoundly mentally retarded F73 and Seizure disorder G40.909 [facility] [address] [id number] [address] Jan, [facility] [address] [id number] [address] Jan, Upper respiratory tract infection, unspecified type J06.9 [facility] [id number] [id number] Nov, [facility] [address] [place] [address] Nov, Atopic dermatitis, mild L20.[address] [facility] [address] [id number] Nov, Profoundly mentally retarded F73 [facility] [id number], [place] [address] Oct, [facility] [address] [id number], [place] [address] Sep, [facility] [address] [place] [id number] Sep, Profoundly mentally retarded F73 [facility] [address] [id number], [place] [address] July, [facility] [address] [place] [id number] July, Profoundly mentally retarded F73 and Seizure disorder G40.909 [facility] [address]00565100[place], [place] [address] Jun, [facility] [address] [place] [address] 9826 Jun, [facility] [address]00565100[place], [place] [address] May, [facility] [address] [place] [address] May, Profoundly mentally retarded F73 [facility] [address] [place] [address] Mar, Seizures R56.9 [facility] [id number] [place] [address] Mar, Seizures R56.[address] [id number] Feb, Profoundly mentally retarded F73 and Hx of bacterial pneumonia Z87.01 [facility] [address]00565100[place], [place] [address] Jan, [facility] [address] [place] [address]- 6851 Jan, [facility] [address] [place] [address] Dec, Fever, unspecified fever cause R50.9 [facility] [address] [place] [address] Nov, Seizure disorder G40.909 and Seizures R56.9 [facility] [address]65100[place], [place] [address] Oct, [facility] [id number] [place] [address]- 1308 Oct, [facility] [address]00565100[place], [place] [address] Oct, [facility] [address] [place] [address] Oct, Seizures R56.9 ; Profoundly mentally retarded F73 ; Hypoxia R09.02 and Hypothyroidism E03.9 [facility] [id number] [place] [address]- 5136 Sep, [facility] [id number] [place] [address]- 1210 Sep, [facility] [id number] [place] [address]- 8056 Sep, [facility] [address] [place] [address] Aug, Profoundly mentally retarded F73 [facility] [id number] [place] [address]- [address]345 July, Seizures R56.9 [facility] [id number] [place] [address]- 2397 Jun, [facility] [id number] [place] [address]- 5480 Jun, [facility] [id number] [place] [address]- 2058 Jun, [facility] [address] [place] [address] Jun, Hypoxia R09.02 [facility] [id number] [place] [address]- 6596 May, [facility] [id number] [place] [address]- 8682 May, [facility] [id number] [place] [address]- 4838 Apr, [facility] [id number] [place] [address]- 1422 Apr, [facility] [address] [place] [address] Apr, Unspecified intellectual disabilities F79 [facility] [id number] [place] [address]- 2546 Mar, [facility] [address] [id number], [place] [address] 1210 Mar, [facility] [address]00565100[place], [place] [address] Mar, [facility] [address]65100[place], [place] [address] 119[address] Mar, [facility] [address]00565100[place], [place] [address] Feb, [facility] [address]00565100[place], [place] [address] Jan, [facility] [address]00565100[place], [place] [address] Dec, Seizures R56.9 and Profoundly mentally retarded F73 [facility] [address]00565100[place], [place] [address] Dec, [facility] [address]100[place], [place] [address] 1498 Nov, Mental retardation 319 and Seizures 780.39 [facility] [address]65100[place], [place] [address] Sep, Seizures 780.39 and Severely mentally retarded 318.1 [facility] [address] [address] July, Seizures 780.39 and Severe mental retardation 318.1 [facility] [address] [id number], [place] [address] 39[address] Jun, [facility] [address]00565100[place], [place] [address] 1534 Jun, [facility] [address]00565100[place], [place] [address] 8[address] May, [facility] [address] [address] May, [facility] [address] [id number] [place] [address] Apr, [facility] [address] [id number] [place] [address]- 8767 Apr, [facility] [address] [id number] [place] [address]- 6061 Mar, [facility] [address] [id number] [place] [address]- 4674 Mar, [facility] [address] [id number] [place] [address]- 5917 Mar, [facility] [address] [place] [id number] Mar, [facility] [address] [id number] [place] [address]- 8093 Jan, [facility] [address] [id number], [place] [address]- [address] Jan, [facility] [address] [id number], [place] [address]- 3181 Jan, [facility] [address] [id number] Jan, [facility] [address] [id number], [place] [address]- 4484 Dec, [facility] [address] [id number], [place] [address]- 3047 Dec, [facility] [address] [id number], [place] [address]- 4314 Nov, [facility] [address] [place] [id number] Nov, [facility] [address] [id number], [place] [address]- 3532 Oct, [facility] [address] [id number], [place] [address]- 8216 Oct, [facility] [address] [id number], [place] [address]- 978[address] Oct, [facility] [address] [facility] [id number] Oct, [facility] [address] [id number], [place] [address]- 2211 Aug, [facility] [address] [id number] [place] [address]- 3855 Aug, [facility] [address] [id number], [place] [address]- 7562 Aug, [facility] [address] [facility] [id number] Aug, [facility] [address] [id number] [place] [address]- 5708 Aug, [facility] [address] [id number] [place] [address]- 5575 Aug, [facility] [address] [id number], [place] [address]- 2072 Jun, [facility] [address] [id number] [place] [address]- 8828 Jun, [facility] [address] [id number], [place] [address]- 9942 Jun, [facility] [address] [id number], [place] [address]- 3370 Jun, [facility] [address] [id number], [place] [address]- 4769 May, [facility] [address] [id number], [place] [address]- 2577 May, [facility] [address] [facility] [id number] Apr, [facility] [address] [id number], [place] [address]- 6201 Apr, [facility] [address] [id number], [place] [address]- 1088 Apr, [facility] [address] [id number], [place] [address]- 9776 Apr, [facility] [address] [id number] [address]- 2694 Mar, [facility] [address] [id number], [place] [address]- 4452 Mar, [facility] [address] [id number], [place] [address]- 6068 Feb, [facility] [address] [id number] Feb, [facility] [address] [id number], [place] [address]- 7722 Feb, [facility] [address] [id number], [place] [address]- 7550 Feb, [facility] [address] [id number], [place] [address]- 4471 Jan, [facility] [address] [id number], [place] [address]- 8224 Jan, [facility] [address] [id number] Jan, [facility] [address] [id number], [place] [address]- 8257 Jan, [facility] [address] [id number], [place] [address]- 5498 Jan, [facility] [address] [id number], [place] [address]- 1437 Jan, [facility] [address] [id number], [place] [address]- 3384 Dec, [facility] [address] [id number]- 7348 Dec, [facility] [address] [id number], [place] [address]- 1796 Dec, [facility] [address] [id number], [place] [address]- 3016 Dec, [facility] [address] [id number], [place] [address]- 3496 Dec, [facility] [address] [facility] [id number] Dec, [facility] [address] [id number], [place] [address]- 6916 Dec, [facility] [address] [id number], [place] [address] 2546 Oct, [facility] [address] [facility] [id number] Oct, [facility] [address] [id number], [place] [address]- 0296 Sep, [facility] [address] [id number], [place] [address]- 8292 Sep, [facility] [address] [id number], [place] [address]- 9740 Sep, [facility] [address] [id number], [place] [address]- 5776 Aug, [facility] [address] [id number], [place] [address]- 2546 July, [facility] [address] [id number], [place] [address]- 2546 July, [facility] [address] [facility] [address] Jun, [facility] [address] [id number], [place] [address]- 2546 Jun, [facility] [address] [facility] [id number] Apr, [facility] [address] [id number], [place] [address]- 2546 Feb, [facility] [address] [facility] [id number] Feb, [facility] [address] [facility] [address] Dec, [facility] [address] [id number], [place] [address]- 2546 17 Dec, 2011 [facility] [address] [facility] [id number] Oct, [facility] [address] [id number], [place] [address]- 2846 Aug, [facility] [address] [facility] [id number] Aug, [facility] [address] [id number], [place] [address]- 2436 July, [facility] [address] [facility] [id number] Jun, [facility] [address] [id number], [place] [address]- 0731 May, [facility] [address] [facility] [id number] Apr, [facility] [address] [id number], [place] [address]- 9853 Mar, [facility] [address] [id number], [place] [address]- 1472 Feb, [facility] [address] [id number], [place] [address]- 9124 14 Feb, 2011 [facility] [address] [id number], [place] [address]- 1196 13 Feb, 2011 [facility] [address] [id number], [place]- 2872 Jan, [facility] [address] [id number], [place] [address]- 5960 Jan, [facility] [address] [id number], [place] [address] 2546 Dec, [facility] [address], [place] [address]- 1666 Jan, [facility] [address], [place] [address]- 2546 Dec, [facility] [address], [place] [address] 2546 Dec, [facility] [address]65[address], [place] [address]- 4306 Feb, [facility] [address]65[address], [place] [address] 2546 Jan, [facility] [address], [place] [address]- 6516 Dec, [facility] [address] [id number], [place] [address]- 3946 Sep, IMMUNIZATIONS No Known Immunizations SOCIAL HISTORY Never Assessed REASON FOR VISIT Routine visit PLAN OF CARE Activity Details Follow Up prn Reason: VITAL SIGNS MEDICATIONS Medication Instructions Dosage Frequency Start Date End Date Duration Status Mag-Al Plus 200-200-20 MG/5ML Orally Four times a day 30 ml as needed for heartburn 6h Active Visine-A 0.025-0.3 % PLACE TWO DROPS INTO AFFECTED EYE(S) FOUR TIMES DAILY NEEDED RED EYES 6h Active Morphine Sulfate (Concentrate) 20 MG/ML Orally every 15 minutes up to 6 consecutive doses 0.5 ml as needed for moderate pain Active HyoMax-SL 0.125 MG Sublingual every 2 hours 1 tablet under the tongue and allow to dissolve as needed for excessive secretions Active Docusate Sodium 50 MG/5ML Orally twice a day 10 ml as needed 12h Active Acetaminophen 325 MG Orally every 6 hrs 2 tablet 6h Jun, Active Phenobarbital 16.2 MG Orally Twice a day 1 tablet 12h 30 Active Keppra 100 MG/ML Orally every 12 hrs 20 ml 12h 30 Active MiraLax N/A Orally Once a day 17gm in 4-8oz of liquid 24h Sep, Active Mylanta 200-200-20 MG/5ML Orally Four times a day 10 ml as needed 6h Active IBU-200 200 mg Orally 3 times a day 2 tablet 8h Active Acetaminophen 650 MG Rectal every 4 hours as needed 1 suppository Active Levothyroxine Sodium 100 MCG TAKE 1 TABLET BY MOUTH EVERY DAY 30 Active Milk of Magnesia 1200 MG/15ML Orally Once a day for Constipation 530as needed Feb, Active Diastat AcuDial 10 MG insert 1 vial as needed for seizure activity lasts over 5 minutes. Jan, Active Haldol 5 MG/ML Injection every 8 hrs 0.5 ml 8h Sep, 30 day(s) Active Bisacodyl 10 MG Rectal Once a day 1 suppository as needed 24h Active Divalproex Sodium 125 MG TAKE SIX CAPSULES BY MOUTH EVERY MORNING AND TAKE EIGHT CAPSULES IN THE EVENING 30 Active RESULTS No Results PROCEDURES Procedure Date Ordered Result Body Site Stable Visit (10 minutes) Jan 19, 2017 INSTRUCTIONS MEDICATIONS ADMINISTERED No Known Medications
--- OUTSIDE RECORDS SUMMARY | 2018-03-06 18:32 | XMS REPORT ---
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 Name Role Phone JEANETTE ZHU Unavailable PROBLEMS Type Condition ICD9-CM Code MSS75-SW Code Onset Dates Condition Status SNOMED Code Problem Atopic dermatitis, mild L20.9 Active 72609476 Problem Seizure disorder G40.909 Active 036146210 Problem Seizures R56.9 Active 22844914 Problem Profoundly mentally retarded F73 Active 70881458 Problem Unspecified intellectual disabilities F79 Active [id number] ALLERGIES No Information ENCOUNTERS Encounter Location Date Diagnosis [facility] [id number] [place] [address] Aug, [facility] [address] [place] [id number] July, Profoundly mentally retarded F73 and Seizures R56.9 [facility] [address] [address] Jun, [facility] [address] [place] [id number] May, Sepsis, due to unspecified organism A41.9 [facility] [address] [place] [id number] May, Profoundly mentally retarded F73 and Seizures R56.9 [facility] [id number] [id number] Apr, [facility] [id number] [id number] Mar, [facility] [address] [address] Mar, [facility] [address] [place] [id number] Mar, Profoundly mentally retarded F73 and Seizures R56.9 [facility] [id number] [id number] Mar, [facility] [address] [address] Mar, Acute pain of right knee M25.561 [facility] [address] [place] [id number] Mar, Acute pain of right knee M25.561 and Profoundly mentally retarded F73 [facility] [address] [id number] [address] 98[address] Feb, [facility] [address] [place] [id number] Jan, Profoundly mentally retarded F73 and Seizure disorder G40.909 [facility] [address] [address] 28[address] Jan, [facility] [id number] [place] [id number] Jan, Upper respiratory tract infection, unspecified type J06.9 [facility] [id number] [place] [id number] Nov, [facility] [address] [id number] Nov, Atopic dermatitis, mild L20.[address] [facility] [address] [id number] Nov, Profoundly mentally retarded F73 [facility] [id number] [id number] Oct, [facility] [id number] [place] [address]- 1543 Sep, [facility] [address] [place] [id number] Sep, Profoundly mentally retarded F73 [facility] [address] [id number] [address] July, [facility] [id number] July, Profoundly mentally retarded F73 and Seizure disorder G40.909 [facility] [id number] [place] [address]- 6243 Jun, [facility] [id number] [place] [address]386- 2429 Jun, [facility] [id number] [place] [address] 270[address]- 6581 May, [facility] [address] [id number] May, Profoundly mentally retarded F73 [facility] [id number] [place] [address] 78959- 8320 Mar, Seizures R56.9 [facility] [id number] [place] [address]74- 7527 Mar, Seizures R56.[address] [facility] [address] [id number] Feb, Profoundly mentally retarded F73 and Hx of bacterial pneumonia Z87.01 [facility] [id number] [place] [address] 00326- 2620 Jan, [facility] [id number] [place] [address]- 4554 Jan, [facility] [address] [id number] Dec, Fever, unspecified fever cause R50.[address] [id number] Nov, Seizure disorder G40.909 and Seizures R56.9 [facility] [id number] [place] [address] 65593- 1538 Oct, [facility] [id number] [place] [address] 61566- 7362 Oct, [facility] [id number] [place] [address] 31090- 2304 Oct, [facility] [address] [id number] Oct, Seizures R56.9 ; Profoundly mentally retarded F73 ; Hypoxia R09.02 and Hypothyroidism E03.9 [facility] [address]005[address]100[place] [address] 44[address] Sep, [facility] [id number] [place] [address] 93106- 8540 Sep, [facility] [address]00565100[place] [address]- [address] Sep, [facility] [address] [id number] Aug, Profoundly mentally retarded F73 [facility] [address]005[address]100[place] [address] July, Seizures R56.9 [facility] [address] [id number] [address] 8[address] Jun, [facility] [address] [address]- 6369 Jun, [facility] [address]00565100[place] [address] 56[address] Jun, [facility] [address] [address] Jun, Hypoxia R09.02 [facility] [address]100[place] [address]- 5009 May, [facility] [address]100[place] [address]- 3034 May, [facility] [address] [address] 7538 Apr, [facility] [address] [id number] [address] 8036 Apr, [facility] [address] [id number] Apr, Unspecified intellectual disabilities F79 [facility] [address] [id number] [address] 9[address] Mar, [facility] [address] 42[address] Mar, [facility] [address]100[place] [address]- 2946 Mar, [facility] [address] Mar, [facility] [address] [address]- 6[address] Feb, [facility] [address] [address]- 5933 Jan, [facility] [address] [address]- 7606 Dec, Seizures R56.9 and Profoundly mentally retarded F73 [facility] [address]005[address]100[place] [address]- 7[address] Dec, [facility] [address] [address]- 9084 Nov, Mental retardation 319 and Seizures 780.39 [facility] [address]005[address]100[place] [address]- 1698 Sep, Seizures 780.39 and Severely mentally retarded 318.1 [facility] [address] [id number] July, Seizures 780.39 and Severe mental retardation 318.1 [facility] [address] [address]- 6037 Jun, [facility] [address] [address]- 1306 Jun, [facility] [address] [id number] [address]- 1382 May, [facility] [address] [id number] May, [facility] [address] [id number] [address]- [address] Apr, [facility] [address] [id number] [place] [address]- 3511 Apr, [facility] [address] [id number] [place] [address]- 0633 Mar, [facility] [address] [id number] [place] [address]- 7213 Mar, [facility] [address] [id number] [place] [address]- 6503 Mar, [facility] [address] [id number] Mar, [facility] [address] [id number] [place] [address]- 1658 Jan, [facility] [address] [id number] [place] [address]- 0425 Jan, [facility] [address] [id number] [address]- 6118 Jan, [facility] [address] [id number] Jan, [facility] [address] [id number] [place] [address]- 6312 Dec, [facility] [address] [id number] [address]- 8524 Dec, [facility] [address] [id number] [place] [address]- 1465 Nov, [facility] [address] [id number] Nov, [facility] [address] [id number] [place] [address]- 8770 Oct, [facility] [address] [id number] [place] [address]- 4855 Oct, [facility] [address] [id number] [place] [address]- 4777 Oct, [facility] [address] [id number] Oct, [facility] [address] [id number] [place] [address]- 6306 Aug, [facility] [address] [id number] [place] [address]- 8936 Aug, [facility] [address] [id number] [place] [address]- 0305 Aug, [facility] [address] [id number] Aug, [facility] [address] [id number] [place] [address]- 7949 Aug, [facility] [address] [id number] [place] [address]- 7117 Aug, [facility] [address] [id number] [place] [address]- 7532 Jun, [facility] [address] [id number] [place] [address]- 6215 Jun, [facility] [address] [id number] [place] [address]- 3580 Jun, [facility] [address] [id number] [place] [address]- 1435 Jun, [facility] [address] [id number] [place] [address]- 3933 May, [facility] [address] [id number] [place] [address]- 4852 May, [facility] [address] [facility] [id number] Apr, [facility] [address] [id number] [place] [address]- 5023 Apr, [facility] [address] [id number] [place] [address]- 6437 Apr, [facility] [address] [id number] [place] [address]- 1964 Apr, [facility] [address] [id number] [place] [address]- 3530 Mar, [facility] [address] [id number] [place] [address]- 7936 Mar, [facility] [address] [id number] [address]- 4875 Feb, [facility] [address] [id number] Feb, [facility] [address] [facility] [id number] [address]- 8353 Feb, [facility] [address] [id number] [place] [address]- 8813 Feb, [facility] [address] [id number] [place] [address]- 9321 Jan, [facility] [address] [facility] [id number] [place] [address]- 3291 Jan, [facility] [address] [id number] Jan, [facility] [address] [id number] [place] [address]- 7556 Jan, [facility] [address] [id number] [place] [address]- 3895 Jan, [facility] [address] [id number] [place] [address]- 3808 Jan, [facility] [address] [id number] [place] [address]- 4449 Dec, [facility] [address] [id number] [place] [address]- 9946 Dec, [facility] [address] [id number] [place] [address]- 1126 Dec, [facility] [address] [id number] [place] [address]- 8866 Dec, [facility] [address] [id number] [place] [address] 2546 Dec, [facility] [address] [place] [id number] Dec, [facility] [address] [id number] [place] [address] 2546 Dec, [facility] [address] [id number] [place] [address]- 7556 Oct, [facility] [address] [address] Oct, [facility] [address] [id number] [place] [address]- 6186 Sep, [facility] [address] [id number] [place] [address]- 4368 Sep, [facility] [address] [id number] [place] [address]- 6066 Sep, [facility] [address] [id number] [place] [address]- 7876 Aug, [facility] [address] [id number] [place] [address]- 2546 July, [facility] [address] [id number] [place] [address]- 2546 July, [facility] [address] [id number] Jun, [facility] [address] [id number] [place] [address]- 2546 Jun, [facility] [address] [id number] Apr, [facility] [address] [id number] [place] [address]- 5866 Feb, [facility] [address] [facility] [id number] Feb, [facility] [address] [facility] [id number] Dec, [facility] [address] [id number] [place] [address]- 1986 Dec, [facility] [address] [facility] [id number] Oct, [facility] [address] [id number] [place] [address]- 2616 Aug, [facility] [address] [facility] [id number] Aug, [facility] [address] [id number] [place] [address]- 0266 July, [facility] [address] [facility] [id number] Jun, [facility] [address] [id number] [place] [address]- 6709 May, [facility] [address] [facility] [id number] Apr, [facility] [address] [id number] [place] [address]- 3286 Mar, [facility] [address] [id number] [place] [address]- 3806 Feb, [facility] [address] [id number] [place] [address]- 1431 Feb, [facility] [address] [id number] [place] [address]- 0216 Feb, [facility] [address] [id number] [place] [address]- 1489 16 Jan, 2011 [facility] [address] [id number] [place] [address]- 2546 Jan, [facility] [address] [address] 2546 Dec, [facility] [address] [address]- 9116 Jan, [facility] [address] [address] 2546 Dec, [facility] [address] [place] [address]176 2543 Dec, [facility] [address] [address]- 1483 Feb, [facility] [address] [address] 2546 Jan, [facility] [address] [address]- 7561 Dec, [facility] [address] [address] 2549 Sep, IMMUNIZATIONS No Known Immunizations SOCIAL HISTORY Never Assessed REASON FOR VISIT abnormal Valproic acid PLAN OF CARE VITAL SIGNS MEDICATIONS Unknown Medications RESULTS No Results PROCEDURES No Known procedures INSTRUCTIONS MEDICATIONS ADMINISTERED No Known Medications
--- OUTSIDE RECORDS SUMMARY | 2018-03-06 18:33 | XMS REPORT ---
Author Author DULCE GALLAGHER Organization [facility] [facility] Address [address] [place] [address] Care Team Providers Care Automobile Technician Name Role Phone DULCE GALLAGHER Unavailable PROBLEMS Type Condition ICD9-CM Code FEX40-GC Code Onset Dates Condition Status SNOMED Code Problem Atopic dermatitis, mild L20.9 Active 89215174 Problem Seizure disorder G40.909 Active 026989110 Problem Seizures R56.9 Active 17073503 Problem Profoundly mentally retarded F73 Active 67273748 Problem Unspecified intellectual disabilities F79 Active [id number] ALLERGIES No Information ENCOUNTERS Encounter Location Date Diagnosis [facility] [facility] [address] [id number] [id number] Jun, [facility] [address] [place] [id number] May, Sepsis, due to unspecified organism [facility] [address] [place] [id number] May, Profoundly mentally retarded F73 and Seizures R56.9 [facility] [address] [id number] [id number] Apr, [facility] [id number] [id number] Mar, [facility] [facility] [address] [facility] [id number] [address] Mar, [facility] [address] [place] [id number] Mar, Profoundly mentally retarded F73 and Seizures R56.9 [facility] [address] [id number] [id number] Mar, [facility] [address] [facility] [id number], [place] [address] Mar, Acute pain of right knee M25.561 [facility] [address] [place] [id number] Mar, Acute pain of right knee M25.561 and Profoundly mentally retarded F73 [facility] [facility] [address] [id number], [place] [address] Feb, [facility] [address] [id number] Jan, Profoundly mentally retarded F73 and Seizure disorder G40.909 [facility] [facility] [address] [id number], [place] [address] Jan, [facility] [id number] [place] [id number] Jan, Upper respiratory tract infection, unspecified type J06.9 [facility] [address] [id number] [address] Nov, [facility] [address] [place] [id number] Nov, Atopic dermatitis, mild L20.9 [facility] [address] [place] [id number] Nov, Profoundly mentally retarded F73 [facility] [id number] [place] [id number] Oct, [facility] [facility] [address] [id number], [place] [address] Sep, [facility] [address] [place] [id number] Sep, Profoundly mentally retarded F73 [facility] [address] [id number], [place] [address] July, [facility] [address] [id number] July, Profoundly mentally retarded F73 and Seizure disorder G40.909 [facility] [id number], [place] [address] Jun, [facility] [facility] [address]00565100[place], [place] [address] Jun, [place] [id number] [place] [address] May, [facility] [address] [id number] May, Profoundly mentally retarded F73 [place] [id number] [place] [address]98- 2785 Mar, Seizures R56.9 [place] [id number] [place] [address]71- [address] Mar, Seizures R56.[address] [facility] [address] [id number] Feb, Profoundly mentally retarded F73 and Hx of bacterial pneumonia Z87.01 [place] [id number] [place] [address]16- 7864 Jan, [place] [id number] [place] [address]- 1982 Jan, [facility] [address] [id number] Dec, Fever, unspecified fever cause R50.[address] [facility] [address] [id number] Nov, Seizure disorder G40.909 and Seizures R56.9 [place] [id number] [place] [address]- 0637 Oct, [place] [id number] [place] [address] 12271- 7372 Oct, [place] [id number] [place] [address]- 7902 Oct, [facility] [address] [id number] Oct, Seizures R56.9 ; Profoundly mentally retarded F73 ; Hypoxia R09.02 and Hypothyroidism E03.9 [place] [id number] [place] [address] [place] [address] Sep, [facility] [address], [place] [address] Sep, [facility] [facility] [address], [place] [address] Sep, [facility] [address] [place] [id number] Aug, Profoundly mentally retarded F73 [facility] [id number] [place] [address]- 7044 July, Seizures R56.9 [facility] [id number] [place] [address]39- 3765 Jun, [facility] [facility] [id number] [place] [address] 38633- 9879 Jun, [facility] [id number] [place] [address] 91796- 6071 Jun, [facility] [address] [place] [id number] Jun, Hypoxia R09.02 [facility] [address] [place] [address]- 2360 May, [facility] [address], [place] [address] May, [facility] [address], [place] [address] 1671 Apr, [facility] [address], [place] [address] Apr, [facility] [address] [id number] Apr, Unspecified intellectual disabilities F79 [facility] [address], [place] [address] 07[address] Mar, [facility] [address] [place] [address]43- 7110 Mar, [facility] [id number], [place] [address] 2978 Mar, [facility] [address], [place] [address] 6[address] Mar, [facility] [id number], [place] [address] 8912 Feb, [facility] [id number] [place] [address]- 8138 Jan, [facility] [address], [place] [address]- 6507 Dec, Seizures R56.9 and Profoundly mentally retarded F73 [facility] [address], [place] [address] Dec, [facility] [address] [place] [address] 76972- 0579 Nov, Mental retardation 319 and Seizures 780.39 [facility] [address], [place] [address]67 Sep, Seizures 780.39 and Severely mentally retarded 318.[address] [facility] [address] [id number] July, Seizures 780.39 and Severe mental retardation 318.1 [facility] [address], [place] [address] 0[address] Jun, [facility] [address], [place] [address] 8072 Jun, [facility] [id number], [place] [address] 59[address] May, [facility] [address] [place] [id number] May, [facility] [id number], [place] [address] 1486 Apr, [facility] [id number] [place] [address] 26876- 5239 Apr, [facility] [address] [id number] [place] [address]- [address] Mar, [facility] [address] [id number] [place] [address] Mar, [facility] [address] [id number] [place] [address]- 2198 Mar, [facility] [address] [id number] Mar, [facility] [address] [id number] [place] [address]- 3909 Jan, [facility] [address] [id number] [place] [address]- 2618 Jan, [facility] [address] [id number] [place] [address]- 6390 Jan, [facility] [address] [id number] Jan, [facility] [address] [id number] [place] [address]- 1057 Dec, [facility] [address] [id number] [place] [address]- 6500 Dec, [facility] [address] [id number], [place] [address]- 9319 Nov, [facility] [address] [id number] Nov, [facility] [address] [id number], [place] [address]- 1561 Oct, [facility] [address] [id number] [place] [address]- 4192 Oct, [facility] [address] [id number], [place] [address]- 6867 Oct, [facility] [address] [id number] Oct, [facility] [address] [id number] [place] [address]- 0627 Aug, [facility] [address] [id number] [place] [address]- 8651 Aug, [facility] [address] [id number] [place] [address]- 5552 Aug, [facility] [address] [facility] [id number] Aug, [facility] [address] [id number] [place] [address]- 3035 Aug, [facility] [address] [id number] [place] [address]- 5716 Aug, [facility] [address] [id number] [place] [address]- 6757 Jun, [facility] [address] [id number] [place] [address]- 2111 Jun, [facility] [address] [id number] [place] [address]- 0457 Jun, [facility] [address] [id number] [place] [address]- 5919 Jun, [facility] [address] [id number] [place] [address]- 4987 May, [facility] [address] [id number] [place] [address]- 6411 May, [facility] [address] [facility] [place] [id number] Apr, [facility] [address] [id number] [place] [address]- 1297 Apr, [facility] [place] [facility] [address] [id number] [place] [address]- 9036 Apr, [facility] [address] [id number] [place] [address]- 4537 Apr, [facility] [address] [id number] [place] [address]- 3233 Mar, [facility] [address] [id number] [place] [address]- 0426 Mar, [facility] [address] [id number] [place] [address]- 2256 Feb, [facility] [address] [facility] [place] [id number] Feb, [facility] [address] [id number] [place] [address]- 2466 Feb, [facility] [address] [id number] [place] [address]- 2546 Feb, [facility] [address] [facility] [id number] [place] [address]- 2066 Jan, [facility] [address] [id number] [place] [address]- 1186 Jan, [facility] [address] [facility] [id number] Jan, [facility] [address] [id number] [place] [address]- 9186 Jan, [facility] [address] [id number] [place] [address]- 1471 Jan, [facility] [address] [id number] [place] [address]- 2546 Jan, [facility] [address] [id number] [place] [address]- 6635 Dec, [facility] [address] [id number] [place] [address]- 9506 Dec, [facility] [address] [id number] [place] [address]- 0086 Dec, [facility] [address] [id number] [place] [address]- 2256 Dec, [facility] [facility] [address] [id number], [place] [address]- 2256 Dec, [facility] [address] [facility] [id number] Dec, [facility] [facility] [address] [id number], [place] [address]- 2546 Dec, [facility] [facility] [address] [id number], [place] [address]- 2546 Oct, [facility] [address] [facility] [id number] Oct, [facility] [facility] [address] [id number] [place] [address]- 5866 Sep, [facility] [facility] [address] [id number] [place] [address]- 2976 Sep, [facility] [facility] [address] [id number] [place] [address]- 4096 Sep, [facility] [facility] [address] [id number], [place] [address]- 1033 Aug, [facility] [facility] [address] [id number] [place] [address]- 2546 July, [facility] [facility] [address] [id number], [place] [address]- 7996 July, [facility] [address] [place] [id number] Jun, [facility] [address] [id number], [place] [address]- 2546 Jun, [facility] [address] [place] [id number] Apr, [facility] [address] [id number], [place] [address]- 2546 Feb, [facility] [address] [id number] Feb, [facility] [address] [id number] 17 Dec, 2011 [facility] [address] [id number] [place] [address] 2546 17 Dec, 2011 [facility] [address] [facility] [place] [id number] 15 Oct, 2011 [facility] [address] [id number], [place] [address] 2546 16 Aug, 2011 [facility] [address] [facility] [id number] Aug, [facility] [address] [id number], [place] [address] 2546 July, [facility] [address] [facility] [id number] Jun, [facility] [address] [id number], [place] [address]- 2546 May, [facility] [address] [facility] [id number] 15 Apr, 2011 [facility] [facility] [address] [id number] [place] [address]- 2910 Mar, [facility] [address] [id number] [place] [address]- 2496 Feb, [facility] [address] [id number], [place] [address]- 5300 14 Feb, 2011 [facility] [address] [id number] [place] [address]- 5452 Feb, [facility] [address] [id number] [place] [address]- 9603 Jan, [facility] [address] [id number] [place] [address]- 0149 Jan, [facility] [address] [id number] [place] [address]- 9086 Dec, [facility] [address] [id number] [place] [address]- 5558 Jan, [facility] [facility] [address] [facility] [id number], [place] [address]- 2546 Dec, [facility] [facility] [id number], [place] [address]- 2546 Dec, [facility] [facility] [id number], [place] [address]- 2546 Feb, [facility] [facility] [address], [place] [address]- 2546 Jan, [facility] [facility] [address] [facility] [id number], [place] [address]- 8326 Dec, [facility] [facility] [id number], [place] [address]- 9476 Sep, IMMUNIZATIONS No Known Immunizations SOCIAL HISTORY Never Assessed REASON FOR VISIT Not feeling well PLAN OF CARE VITAL SIGNS MEDICATIONS Medication Instructions Dosage Frequency Start Date End Date Duration Status PredniSONE 20 mg Orally Once a day 2 tablets 24h Jan, Jan, 05 days Active Cefdinir 300 MG Orally every 12 hrs 1 capsule 12h Jan, Jan, 07 days Active RESULTS No Results PROCEDURES No Known procedures INSTRUCTIONS MEDICATIONS ADMINISTERED No Known Medications
--- OUTSIDE RECORDS SUMMARY | 2018-03-06 18:33 | XMS REPORT ---
Author Author JEANETTE ZHU Organization [facility] Address [address] [place] [address] Care Team Providers Care Furniture Stainer Name Role Phone JEANETTE ZHU Unavailable PROBLEMS Type Condition ICD9-CM Code [id number] Code Onset Dates Condition Status SNOMED Code Problem Atopic dermatitis, mild L20.9 Active 22133851 Problem Seizure disorder G40.909 Active 406589881 Problem Seizures R56.9 Active 92441981 Problem Profoundly mentally retarded F73 Active 91881264 Problem Unspecified intellectual disabilities F79 Active [id number] ALLERGIES No Information ENCOUNTERS Encounter Location Date Diagnosis [facility] [address] [id number] July, Profoundly mentally retarded F73 and Seizures R56.9 [facility] [address] [facility] [id number] [address] Jun, [facility] [address] [place] [id number] May, Sepsis, due to unspecified organism A41.9 [facility] [address] [place] [id number] May, Profoundly mentally retarded F73 and Seizures R56.9 [facility] [address] [id number] [place] [id number] Apr, [facility] [address] [id number] [place] [id number] Mar, [facility] [address] [id number] [address] Mar, [facility] [address] [id number] Mar, Profoundly mentally retarded F73 and Seizures R56.9 [facility] [id number] [place] [address] Mar, [facility] [address] [id number] [address] Mar, Acute pain of right knee M25.561 [facility] [address] [id number] Mar, Acute pain of right knee M25.561 and Profoundly mentally retarded F73 [facility] [address] [id number] [address] Feb, [facility] [address] [id number] Jan, Profoundly mentally retarded F73 and Seizure disorder G40.909 [place] [address] [id number] [address] Jan, [facility] [address] [id number] [id number] Jan, Upper respiratory tract infection, unspecified type J06.9 [facility] [id number] [place] [id number] Nov, [facility] [address] [place] [id number] Nov, Atopic dermatitis, mild L20.[address] [facility] [address] [id number] Nov, Profoundly mentally retarded F73 [facility] [id number] [place] [id number] Oct, [facility] [address] [id number] [address] Sep, [facility] [address] [id number] Sep, Profoundly mentally retarded F73 [facility] [address] [id number] [address] July, [facility] [address] [place] [id number] July, Profoundly mentally retarded F73 and Seizure disorder G40.909 [facility] [address]00565100[place] [address] Jun, [facility] [id number] [place] [address] Jun, [facility] [address]00565100[place] [address] May, [facility] [address] [place] [address] May, Profoundly mentally retarded F73 [facility] [address] [place] [address] Mar, Seizures R56.9 [facility] [id number] [place] [address]- [address] Mar, Seizures R56.[address] [id number] Feb, Profoundly mentally retarded F73 and Hx of bacterial pneumonia Z87.01 [facility] [address]00565100[place] [address] Jan, [facility] [address] [place] [address] Jan, [facility] [address] [place] [address] Dec, Fever, unspecified fever cause R50.9 [facility] [address] [place] [address] Nov, Seizure disorder G40.909 and Seizures R56.9 [facility] [address]00565100[place] [address] Oct, [facility] [id number] [place] [address]- 1706 Oct, [facility] [address]00565100[place] [address] Oct, [facility] [address] [address] Oct, Seizures R56.9 ; Profoundly mentally retarded F73 ; Hypoxia R09.02 and Hypothyroidism E03.9 [facility] [id number] [place] [address]- 67[address] Sep, [facility] [id number] [place] [address]- 0692 Sep, [facility] [id number] [place] [address]- [address]35 Sep, [facility] [address] [place] [id number] Aug, Profoundly mentally retarded F73 [facility] [id number] [place] [address]- [address] July, Seizures R56.9 [facility] [id number] [place] [address]- 6165 Jun, [facility] [id number] [place] [address]- 0422 Jun, [facility] [id number] [place] [address]- [address]103 Jun, [facility] [address] [place] [address] Jun, Hypoxia R09.02 [facility] [id number] [place] [address]- 8459 May, [facility] [id number] [place] [address]- 9565 May, [facility] [id number] [place] [address]- 7778 Apr, [facility] [id number] [place] [address]- [address] Apr, [facility] [address] [place] [id number] Apr, Unspecified intellectual disabilities F79 [facility] [id number] [place] [address]- 2546 Mar, [facility] [address] [id number] [address] Mar, [facility] [address]00565100[place] [address] Mar, [facility] [address]65100[place] [address] Mar, [facility] [address]00565100[place] [address] Feb, [facility] [address]65100[place] [address]- [address] Jan, [facility] [address]100[place] [address] Dec, Seizures R56.9 and Profoundly mentally retarded F73 [facility] [address]00565100[place] [address] Dec, [facility] [address]65100[place] [address] Nov, Mental retardation 319 and Seizures 780.39 [facility] [address]65100[place] [address] Sep, Seizures 780.39 and Severely mentally retarded 318.1 [facility] [address] [id number] July, Seizures 780.39 and Severe mental retardation 318.1 [facility] [address] [id number] [address]25 Jun, [facility] [address]65100[place] [address]- [address]2 Jun, [facility] [address]100[place] [address] May, [facility] [address] [id number] May, [facility] [address] [id number] [place] [address] Apr, [facility] [address] [id number] [place] [address]- [address]87 Apr, [facility] [address] [id number] [place] [address]- 1683 Mar, [facility] [address] [id number] [place] [address]- 1159 Mar, [facility] [address] [id number] [place] [address]- [address]67 Mar, [facility] [address] [id number] Mar, [facility] [address] [id number] [place] [address]- 8513 Jan, [facility] [address] [id number] [place] [address] 12[address] Jan, [facility] [address] [id number] [place] [address]- 0055 Jan, [facility] [address] [id number] Jan, [facility] [address] [id number] [place] [address]- 2422 Dec, [facility] [address] [id number] [address]- 5768 Dec, [facility] [address] [id number] [place] [address]- 9844 Nov, [facility] [address] [place] [id number] Nov, [facility] [address] [id number] [place] [address]- 8965 Oct, [facility] [address] [id number] [place] [address]- 0202 Oct, [facility] [address] [id number] [place] [address]- 5875 Oct, [facility] [address] [facility] [place] [id number] Oct, [facility] [address] [id number] [place] [address]- 0104 Aug, [facility] [address] [id number] [place] [address]- 1872 Aug, [facility] [address] [id number] [place] [address]- 0591 Aug, [facility] [address] [facility] [id number] Aug, [facility] [address] [id number] [place] [address]- 2956 Aug, [facility] [address] [id number] [place] [address]- 4514 Aug, [facility] [address] [id number] [place] [address]- 2898 Jun, [facility] [address] [id number] [place] [address]- 9568 Jun, [facility] [address] [id number] [place] [address]- 0328 Jun, [facility] [address] [id number] [address]- 0865 Jun, [facility] [address] [id number] [place] [address]- 0361 May, [facility] [address] [id number] [place] [address]- 2259 May, [facility] [address] [facility] [id number] Apr, [facility] [address] [id number] [place] [address]- 9421 Apr, [facility] [address] [id number] [place] [address]- 4424 Apr, [facility] [address] [id number] [place] [address]- 7658 Apr, [facility] [address] [id number] [place] [address]- 6059 Mar, [facility] [address] [id number] [place] [address]- 1523 Mar, [facility] [address] [id number] [place] [address]- 3031 Feb, [facility] [address] [id number] Feb, [facility] [address] [id number] [place] [address]- 8621 Feb, [facility] [address] [id number] [place] [address]- 3273 Feb, [facility] [address] [id number] [place] [address]- 8334 Jan, [facility] [address] [id number] [place] [address]- 7861 Jan, [facility] [address] [id number] Jan, [facility] [address] [id number] [place] [address]- 2891 Jan, [facility] [address] [id number] [place] [address]- 7019 Jan, [facility] [address] [id number] [place] [address]- 4112 Jan, [facility] [address] [id number] [place] [address]- 1152 Dec, [facility] [address] [id number] [place] [address]148 Dec, [facility] [address] [id number] [place] [address]- 4136 Dec, [facility] [address] [id number] [place] [address]- 8826 Dec, [facility] [address] [id number] [place] [address]- 7936 Dec, [facility] [address] [facility] [id number] Dec, [facility] [address] [id number] [place] [address]- 3266 Dec, [facility] [address] [id number] [place] [address] 2546 Oct, [facility] [address] [facility] [id number] Oct, [facility] [address] [id number] [address]- 0846 Sep, [facility] [address] [id number] [place] [address]- 0096 Sep, [facility] [address] [id number] [place] [address]- 3150 Sep, [facility] [address] [id number] [place] [address]- 9956 Aug, [facility] [address] [id number] [place] [address]- 2546 July, [facility] [address] [id number] [place] [address]- 2546 July, [facility] [address] [facility] [id number] Jun, [facility] [address] [id number] [place] [address]- 2546 Jun, [facility] [address] [facility] [id number] Apr, [facility] [address] [id number] [place] [address]- 2546 Feb, [facility] [address] [facility] [id number] Feb, [facility] [address] [facility] [id number] Dec, [facility] [address] [id number] [place] [address]- 2546 17 Dec, 2011 [facility] [address] [facility] [id number] Oct, [facility] [address] [id number] [place] [address]- 9806 Aug, [facility] [address] [facility] [id number] Aug, [facility] [address] [id number] [place] [address]- 1726 July, [facility] [address] [facility] [id number] Jun, [facility] [address] [id number] [place] [address]- 3771 May, [facility] [address] [facility] [id number] Apr, [facility] [address] [id number] [place] [address]- 7448 Mar, [facility] [address] [id number] [place] [address]- 9016 Feb, [facility] [address] [id number] [place] [address]- 8355 14 Feb, 2011 [facility] [address] [id number] [place] [address]- 9225 13 Feb, 2011 [facility] [address] [id number] [place] [address] Jan, [facility] [address] [id number] [place] [address]- 8934 Jan, [facility] [address] [id number] [place] [address] 2546 Dec, [facility] [address]65100[place] [address] 2546 Jan, [facility] [address]65100[place] [address] 2546 Dec, [facility] [address]65100[place] [address]- 2546 Dec, [facility] [address]65100[place] [address] 2546 Feb, [facility] [address]65100[place] [address] 2546 Jan, [facility] [address]65100[place] [address] 2546 Dec, [facility] [address]100[place] [address]- 8908 Sep, IMMUNIZATIONS No Known Immunizations SOCIAL HISTORY Never Assessed REASON FOR VISIT Refill request PLAN OF CARE VITAL SIGNS MEDICATIONS Medication Instructions Dosage Frequency Start Date End Date Duration Status Phenobarbital 16.2 MG Orally Twice a day 1 tablet 12h 30 Active RESULTS No Results PROCEDURES No Known procedures INSTRUCTIONS MEDICATIONS ADMINISTERED No Known Medications
--- OUTSIDE RECORDS SUMMARY | 2018-03-06 18:34 | XMS REPORT ---
Author Author JEANETTE ZHU [facility] Address [address] [place] [address] Care Team Providers Care Client Support Representative Name Role Phone JEANETTE ZHU Unavailable PROBLEMS Type Condition ICD9-CM Code OAX13-DS Code Onset Dates Condition Status SNOMED Code Problem Atopic dermatitis, mild L20.9 Active 08851591 Problem Seizure disorder G40.909 Active 224630968 Problem Seizures R56.9 Active 85972247 Problem Profoundly mentally retarded F73 Active 96038438 Problem Unspecified intellectual disabilities F79 Active [id number] ALLERGIES No Information ENCOUNTERS Encounter Location Date Diagnosis [facility] [address] [place] [id number] May, Sepsis, due to unspecified organism A41.9 [facility] [address] [place] [id number] May, Profoundly mentally retarded F73 and Seizures R56.9 [facility] [address] [id number] [id number] Apr, [facility] [address] [id number] [id number] Mar, [facility] [address] [id number] [address] Mar, [facility] [address] [place] [id number] Mar, Profoundly mentally retarded F73 and Seizures R56.9 [facility] [address] [id number] [id number] Mar, [facility] [address] [facility] [id number] [address] Mar, Acute pain of right knee M25.561 [facility] [address] [place] [id number] Mar, Acute pain of right knee M25.561 and Profoundly mentally retarded F73 [facility] [address]00565100[place], [place] [address] Feb, [facility] [id number] Jan, Profoundly mentally retarded F73 and Seizure disorder G40.909 [facility] [address] [place] [address] 4474 Jan, [facility] [id number] [place] [address] [id number] Jan, Upper respiratory tract infection, unspecified type J06.9 [facility] [id number] [place] [id number] Nov, [facility] [id number] Nov, Atopic dermatitis, mild L20.[address] [facility] [address] [id number] Nov, Profoundly mentally retarded F73 [facility] [id number] [place] [address] [id number] Oct, [facility] [address]65[address], [place] [address] Sep, [facility] [id number] Sep, Profoundly mentally retarded F73 [facility] [address] [place] [address]- 5579 July, [facility] [address] [place] [id number] July, Profoundly mentally retarded F73 and Seizure disorder G40.909 [facility] [address]65[address], [place] [address] Jun, [facility] [address] [place] [address]9711- 4818 Jun, [facility] [address]00565100[place], [place] [address] May, [facility] [address] [place] [id number] May, Profoundly mentally retarded F73 [facility] [address]00565100[place], [place] [address] Mar, Seizures R56.9 [facility] [id number] [place] [address]- 0978 Mar, Seizures R56.9 [facility] [address] [place] [id number] Feb, Profoundly mentally retarded F73 and Hx of bacterial pneumonia Z87.01 [facility] [id number] [place] [address]- 7257 Jan, [facility] [id number] [place] [address]- 4766 Jan, [facility] [address] [place] [id number] Dec, Fever, unspecified fever cause R50.[address] [facility] [address] [id number] Nov, Seizure disorder G40.909 and Seizures R56.9 [facility] [address], [place] [address]77 Oct, [facility] [address] [place] [address]65- 9643 Oct, [facility] [address] [place] [address] 47628- 1299 Oct, [facility] [address] [place] [id number] Oct, Seizures R56.9 ; Profoundly mentally retarded F73 ; Hypoxia R09.02 and Hypothyroidism E03.9 [facility] [address]65100[place], [place] [address] 34[address] Sep, [facility] [address] [place], [place] [address] 132[address] Sep, [facility] [address]65[address], [place] [address] 8[address] Sep, [facility] [address] [place] [id number] Aug, Profoundly mentally retarded F73 [facility] [address], [place] [address] 69[address] July, Seizures R56.9 [facility] [address] [id number], [place] [address] Jun, [facility] [id number] [place] [address]- 4051 Jun, [facility] [address]65[address], [place] [address] Jun, [facility] [address] [place] [id number] Jun, Hypoxia R09.02 [facility] [address]00565100[place], [place] [address] 5717 May, [facility] [address]65[address], [place] [address] 9899 May, [facility] [address]65[address], [place] [address] 0698 Apr, [facility] [address]65[address], [place] [address] 74[address] Apr, [facility] [address] [place] [id number] Apr, Unspecified intellectual disabilities F79 [facility] [address]65100[place], [place] [address] 6[address] Mar, [facility] [address]65100[place], [place] [address] 6[address] Mar, [facility] [address]65100[place], [place] [address] 2354 Mar, [facility] [address], [place] [address] Mar, [facility] [address]65[address], [place] [address] 5899 Feb, [facility] [address]65100[place], [place] [address]- 9685 Jan, [facility] [id number] [place] [address] 348977- 6733 Dec, Seizures R56.9 and Profoundly mentally retarded F73 [facility] [id number] [place] [address] 91371- 8018 Dec, [facility] [address] [place] [address] 51809- 4688 Nov, Mental retardation 319 and Seizures 780.39 [facility] [id number] [place] [address]606- 4414 Sep, Seizures 780.39 and Severely mentally retarded 318.1 [facility] [address] [place] [id number] July, Seizures 780.39 and Severe mental retardation 318.1 [facility] [address], [place] [address]- 0081 Jun, [facility] [address], [place] [address] 2393 Jun, [facility] [address], [place] [address] 3509 May, [facility] [address] [place] [id number] May, [facility] [address]65100[place], [place] [address] Apr, [facility] [address]100[place], [place] [address] 7356 Apr, [facility] [id number] [place] [address], [place] [address]18 Mar, [facility] [address] [id number] [place] [address] Mar, [facility] [address] [id number] [place] [address]- 6930 Mar, [facility] [address] [place] [id number] Mar, [facility] [address] [id number], [place] [address] 5[address] Jan, [facility] [address] [id number] [place] [address]- 4621 Jan, [facility] [address] [id number] [place] [address]- 3737 Jan, [facility] [address] [place] [id number] Jan, [facility] [address] [id number] [place] [address]- 0402 Dec, [facility] [address] [id number] [place] [address]- 2531 Dec, [facility] [address] [id number], [place] [address]- 9550 Nov, [facility] [address] [place] [id number] Nov, [facility] [address] [id number], [place] [address]- 9007 Oct, [facility] [address] [id number], [place] [address]- 5069 Oct, [facility] [address] [id number], [place] [address]- 9760 Oct, [facility] [address] [id number] Oct, [facility] [address] [id number], [place] [address]- 9781 Aug, [facility] [address] [id number] [place] [address]- 3658 Aug, [facility] [place] [facility] [address] [id number] [place] [address]- 8480 Aug, [facility] [address] [facility] [id number] Aug, [facility] [place] [facility] [address] [id number] [place] [address]- 1542 Aug, [facility] [place] [facility] [address] [id number] [place] [address]- 4382 Aug, [facility] [place] [facility] [address] [id number] [place] [address]- 7462 Jun, [facility] [place] [facility] [address] [id number] [place] [address]- 0339 Jun, [facility] [place] [facility] [address] [id number] [place] [address]- 4216 Jun, [facility] [place] [facility] [address] [id number] [place] [address]- 6233 Jun, [facility] [place] [facility] [address] [id number] [place] [address]- 5714 May, [facility] [place] [facility] [address] [id number] [place] [address]- 7601 May, [facility] [address] [facility] [id number] Apr, [facility] [place] [facility] [address] [id number] [place] [address]- 6763 Apr, [facility] [place] [facility] [address] [id number] [place] [address]- 5434 Apr, [facility] [place] [facility] [address] [id number] [place] [address]- 6042 Apr, [facility] [place] [facility] [address] [id number] [place] [address]- 7090 Mar, [facility] [address] [id number] [place] [address]- 9507 Mar, [facility] [address] [id number] [place] [address]- 4783 Feb, [facility] [address] [place] [id number] Feb, [facility] [address] [id number] [place] [address]- 9025 Feb, [facility] [address] [id number] [place] [address]- 4643 Feb, [facility] [address] [id number] [place] [address]- 2586 Jan, [facility] [address] [id number] [place] [address]- 3277 Jan, [facility] [address] [facility] [id number] Jan, [facility] [address] [id number] [place] [address]- 3071 Jan, [facility] [address] [id number] [place] [address]- 5639 Jan, [facility] [address] [id number], [place] [address]- 4695 Jan, [facility] [place] [facility] [address] [id number], [place] [address]- 8077 Dec, [facility] [place] [facility] [address] [id number] [place] [address]- 0143 Dec, [facility] [place] [facility] [address] [id number] [place] [address]- 5554 Dec, [facility] [place] [facility] [address] [id number] [place] [address]- 5017 Dec, [facility] [place] [facility] [address] [id number] [place] [address]- 1627 Dec, [facility] [address] [facility] [id number] Dec, [facility] [address] [id number] [place] [address]- 1626 Dec, [facility] [address] [id number] [place] [address]- 5266 Oct, [facility] [address] [facility] [id number] Oct, [facility] [address] [id number] [place] [address]- 9236 Sep, [facility] [address] [id number] [place] [address]- 1545 Sep, [facility] [address] [id number] [place] [address]- 3893 Sep, [facility] [address] [id number] [place] [address]- 6741 Aug, [facility] [address] [id number] [place] [address]- 9462 July, [facility] [address] [id number], [place] [address]- 4736 July, [facility] [address] [facility] [id number] Jun, [facility] [address] [id number], [place] [address]- 8956 Jun, [facility] [address] [facility] [id number] Apr, [facility] [address] [id number], [place] [address]- 9776 Feb, [facility] [address] [facility] [id number] Feb, [facility] [address] [facility] [id number] Dec, [facility] [address] [id number], [place] [address]- 3266 17 Dec, 2011 [facility] [address] [facility] [id number] Oct, [facility] [address] [id number], [place] [address]- 9776 16 Aug, 2011 [facility] [address] [facility] [id number] Aug, [facility] [address] [id number], [place] [address]- 6786 July, [facility] [address] [facility] [id number] Jun, [facility] [address] [id number], [place] [address]- 0196 May, [facility] [address] [facility] [id number] 15 Apr, 2011 [facility] [address] [id number], [place] [address]- 8186 Mar, [facility] [address] [id number], [place] [address]- 1028 Feb, [facility] [address] [id number], [place] [address]- 0469 Feb, [facility] [address] [id number], [place] [address]- 8261 Feb, [facility] [address] [id number], [place] [address]- 6669 Jan, [facility] [address] [id number], [place] [address]- 2568 Jan, [facility] [address] [id number] [place] [address]- 8952 Dec, [facility] [address] [id number], [place] [address]- 8896 Jan, [facility] [address] [id number], [place] [address]- 1688 Dec, [facility] [address] [facility] [id number], [place] [address]- 2546 Dec, [facility] [address], [place] [address]- [address] Feb, [facility] [address] [id number], [place] [address]- 2546 Jan, [facility] [address], [place] [address]- 0212 Dec, [facility] [address] [id number], [place] [address]- 5088 Sep, IMMUNIZATIONS No Known Immunizations SOCIAL HISTORY Never Assessed REASON FOR VISIT Requests return call PLAN OF CARE VITAL SIGNS MEDICATIONS Unknown Medications RESULTS No Results PROCEDURES No Known procedures INSTRUCTIONS MEDICATIONS ADMINISTERED No Known Medications
--- OUTSIDE RECORDS SUMMARY | 2018-03-06 18:35 | XMS REPORT ---
Author Author JEANETTE ZHU [facility] [address] Address [address] [place] [address] Care Team Providers Care Architect In Training Name Role Phone JEANETTE ZHU Unavailable PROBLEMS Type Condition ICD9-CM Code NIB62-LY Code Onset Dates Condition Status SNOMED Code Problem Atopic dermatitis, mild L20.9 Active 64478798 Problem Seizure disorder G40.909 Active 088523585 Problem Seizures R56.9 Active 87742503 Problem Profoundly mentally retarded F73 Active 69756464 Problem Unspecified intellectual disabilities F79 Active [id number] ALLERGIES No Information ENCOUNTERS Encounter Location Date Diagnosis [facility] [address] [place] [id number] May, Sepsis, due to unspecified organism A41.9 [facility] [address] [place] [id number] May, Profoundly mentally retarded F73 and Seizures R56.9 [facility] [address] [id number] [id number] Apr, [facility] [address] [id number][place] [id number] Mar, [facility] [address] [id number] [address] Mar, [facility] [address] [place] [id number] Mar, Profoundly mentally retarded F73 and Seizures R56.9 [facility] [address] [id number] [id number] Mar, [facility] [address] [facility] [id number] [address] [address] Mar, Acute pain of right knee M25.561 [facility] [address] [place] [id number] Mar, Acute pain of right knee M25.561 and Profoundly mentally retarded F73 [facility] [address]00565100[place], [place] [address] Feb, [facility] [id number] Jan, Profoundly mentally retarded F73 and Seizure disorder G40.909 [facility] [id number] [place] [address] 6034 Jan, [facility] [id number] [place] [id number] Jan, Upper respiratory tract infection, unspecified type J06.9 [facility] [id number] [place] [id number] Nov, [facility] [id number] Nov, Atopic dermatitis, mild L20.[address] [facility] [address] [id number] Nov, Profoundly mentally retarded F73 [facility] [id number] [place] [id number] Oct, [facility] [address]00565100[place], [place] [address] Sep, [facility] [id number] Sep, Profoundly mentally retarded F73 [facility] [id number] [place] [address]- 6866 July, [facility] [address] [place] [id number] July, Profoundly mentally retarded F73 and Seizure disorder G40.909 [facility] [address]00565100[place], [place] [address] Jun, [facility] [id number] [place] [address]994- 4270 Jun, [facility] [address]00565100[place], [place] [address] 69[address] May, [facility] [address] [place] [id number] May, Profoundly mentally retarded F73 [facility] [address]00565100[place], [place] [address] Mar, Seizures R56.9 [facility] [id number] [place] [address]51- 6084 Mar, Seizures R56.9 [facility] [address] [place] [id number] Feb, Profoundly mentally retarded F73 and Hx of bacterial pneumonia Z87.01 [address] [id number] [place] [address]00- 8301 Jan, [facility] [id number] [place] [address]29- 5653 Jan, [facility] [address] [place] [address] Dec, Fever, unspecified fever cause R50.[address] [facility] [address] [id number] Nov, Seizure disorder G40.909 and Seizures R56.9 [facility] [address]00565100[place], [place] [address] Oct, [facility] [id number] [place] [address] 15375- 5521 Oct, [facility] [id number] [place] [address] 68851- 7854 Oct, [facility] [address] [place] [id number] Oct, Seizures R56.9 ; Profoundly mentally retarded F73 ; Hypoxia R09.02 and Hypothyroidism E03.9 [facility] [address]00565100[place], [place] [address] Sep, [facility] [address] 88349[place], [place] [address] 77[address] Sep, [facility] [address]00565100[place], [place] [address] Sep, [facility] [address] [place] [id number] Aug, Profoundly mentally retarded F73 [facility] [address]00565[address], [place] [address] 4029 July, Seizures R56.9 [facility] [address] [id number], [place] [address] 2926 Jun, [facility] [id number] [place] [address]- 0987 Jun, [facility] [address]00565100[place], [place] [address] Jun, [facility] [address] [place] [address] Jun, Hypoxia R09.02 [facility] [address]00565100[place], [place] [address] 1045 May, [facility] [address]00565100[place], [place] [address] 4023 May, [facility] [address]00565100[place], [place] [address] 3952 Apr, [facility] [address]00565100[place], [place] [address] Apr, [facility] [address] [id number] Apr, Unspecified intellectual disabilities F79 [facility] [address]00565100[place], [place] [address] Mar, [facility] [address]00565100[place], [place] [address] Mar, [facility] [address]00565100[place], [place] [address] 9[address] Mar, [facility] [address]65100[place], [place] [address] 7560 Mar, [facility] [address]65100[place], [place] [address] 3796 Feb, [facility] [address]00565100[place], [place] [address]- 9659 Jan, [facility] [id number] [place] [address]463- 0463 Dec, Seizures R56.9 and Profoundly mentally retarded F73 [facility] [id number] [place] [address]- 2663 Dec, [facility] [id number] [place] [address] 42156- 7535 Nov, Mental retardation 319 and Seizures 780.39 [facility] [id number] [place] [address] 97566- 9289 Sep, Seizures 780.39 and Severely mentally retarded 318.1 [facility] [address] [id number] July, Seizures 780.39 and Severe mental retardation 318.1 [facility] [address]65[address], [place] [address]- 0120 Jun, [facility] [address]00565100[place], [place] [address] 3701 Jun, [facility] [address]65[address], [place] [address] 9598 May, [facility] [address] [id number] May, [facility] [address]65100[place], [place] [address]- 8926 Apr, [facility] [address]00565100[place], [place] [address]- 4806 Apr, [facility] [id number] [place] [address], [place] [address] Mar, [facility] [address] [id number] [place] [address] 2770 Mar, [facility] [address] [id number] [place] [address] 2751 Mar, [facility] [address] [place] [id number] Mar, [facility] [address] [id number], [place] [address] 8215 Jan, [facility] [address] [id number] [place] [address]- 8709 Jan, [facility] [address] [id number] [place] [address]- 8901 Jan, [facility] [address] [address] Jan, [facility] [address] [id number] [place] [address]- 0302 Dec, [facility] [address] [id number] [place] [address]- 5300 Dec, [facility] [address] [id number], [place] [address]- 6918 Nov, [facility] [address] [id number] Nov, [facility] [address] [id number], [place] [address]- 6541 Oct, [facility] [address] [id number], [place] [address]- 2249 Oct, [facility] [address] [id number], [place] [address]- 6802 Oct, [facility] [address] [id number] Oct, [facility] [address] [id number], [place] [address]- 7057 Aug, [facility] [address] [id number] [place] [address]- 6987 Aug, [facility] [place] [facility] [address] [id number] [place] [address]- 0726 Aug, [facility] [address] [facility] [id number] Aug, [facility] [place] [facility] [address] [id number] [place] [address]- 5189 Aug, [facility] [place] [facility] [address] [id number] [place] [address]- 9049 Aug, [facility] [place] [facility] [address] [id number] [place] [address]- 8687 Jun, [facility] [place] [facility] [address] [id number] [place] [address]- 9971 Jun, [facility] [place] [facility] [address] [id number] [place] [address]- 7563 Jun, [facility] [place] [facility] [address] [id number] [place] [address]- 3802 Jun, [facility] [place] [facility] [address] [id number] [place] [address]- 9501 May, [facility] [place] [facility] [address] [id number] [place] [address]- 6337 May, [facility] [address] [facility] [id number] Apr, [facility] [place] [facility] [address] [id number] [place] [address]- 7538 Apr, [facility] [place] [facility] [address] [id number] [place] [address]- 6478 Apr, [facility] [place] [facility] [address] [id number] [place] [address]- 3022 Apr, [facility] [place] [facility] [address] [id number] [place] [address]- 0845 Mar, [facility] [address] [id number] [place] [address]- 7219 Mar, [facility] [address] [id number] [place] [address]- 0817 Feb, [facility] [address] [address] Feb, [facility] [address] [id number] [place] [address]- 4085 Feb, [facility] [address] [id number] [place] [address]- 6808 Feb, [facility] [address] [id number] [place] [address]- 2340 Jan, [facility] [address] [id number] [place] [address]- 7371 Jan, [facility] [address] [facility] [id number] Jan, [facility] [address] [id number] [place] [address]- 7232 Jan, [facility] [address] [id number] [place] [address]- 6764 Jan, [facility] [address] [id number], [place] [address]- 5638 Jan, [facility] [place] [facility] [address] [id number], [place] [address]- 9111 Dec, [facility] [place] [facility] [address] [id number] [place] [address]- 9987 Dec, [facility] [place] [facility] [address] [id number] [place] [address]- 8440 Dec, [facility] [place] [facility] [address] [id number] [place] [address]- 0063 Dec, [facility] [place] [facility] [address] [id number] [place] [address]- 9784 Dec, [facility] [address] [facility] [id number] Dec, [facility] [address] [id number] [place] [address]- 0726 Dec, [facility] [address] [id number] [place] [address]- 2416 Oct, [facility] [address] [facility] [id number] Oct, [facility] [address] [id number] [place] [address]- 5143 Sep, [facility] [address] [id number] [place] [address]- 0761 Sep, [facility] [address] [id number] [place] [address]- 8537 Sep, [facility] [address] [id number] [place] [address]- 8321 Aug, [facility] [address] [id number] [place] [address]- 7421 July, [facility] [address] [id number], [place] [address]- 7322 July, [facility] [address] [facility] [id number] Jun, [facility] [address] [id number], [place] [address]- 3756 Jun, [facility] [address] [facility] [id number] Apr, [facility] [address] [id number], [place] [address]- 8976 Feb, [facility] [address] [facility] [id number] Feb, [facility] [address] [facility] [id number] Dec, [facility] [address] [id number], [place] [address]- 2996 17 Dec, 2011 [facility] [address] [facility] [id number] Oct, [facility] [address] [id number], [place] [address]- 5836 16 Aug, 2011 [facility] [address] [facility] [id number] Aug, [facility] [address] [id number][place] [address]- 8246 July, [facility] [address] [facility] [id number] Jun, [facility] [address] [id number], [place] [address]- 9336 May, [facility] [address] [facility] [id number] 15 Apr, 2011 [facility] [address] [id number], [place] [address]- 4836 Mar, [facility] [address] [id number], [place] [address]- 3028 Feb, [facility] [address] [id number], [place] [address]- 0790 Feb, [facility] [address] [id number], [place] [address]- 3769 Feb, [facility] [address] [id number], [place] [address]- 7990 Jan, [facility] [address] [id number], [place] [address]- 4052 Jan, [facility] [address] [id number] [place] [address]- 2737 Dec, [facility] [address] [id number][place] [address]- 8796 Jan, [facility] [address] [id number], [place] [address]- 2932 Dec, [facility] [address] [facility] [id number], [place] [address]- 2546 Dec, [facility] [address], [place] [address]- 2546 Feb, [facility] [address]65100[place], [place] [address]- 2546 Jan, [facility] [address], [place] [address]- 2546 Dec, [facility] [address] [id number], [place] [address]- 2546 Sep, IMMUNIZATIONS No Known Immunizations SOCIAL HISTORY Never Assessed REASON FOR VISIT Routine Visit PLAN OF CARE Activity Details Follow Up prn Reason: VITAL SIGNS MEDICATIONS Unknown Medications RESULTS No Results PROCEDURES Procedure Date Ordered Result Body Site Stable Visit (10 minutes) September 20, 2016 INSTRUCTIONS MEDICATIONS ADMINISTERED No Known Medications
--- OUTSIDE RECORDS SUMMARY | 2018-03-06 18:36 | XMS REPORT | Continuity of Care Document ---
Author Author [facility] Address Unknown Phone Unavailable Allergies Active [...] sulfa drug Drug Allergy 07/16/2009 Yes piperacillin [id number] Drug Allergy Mild unknown 12/22/2015 Yes estrone [id number] Drug Allergy Unknown N/A 12/22/2015 Yes mirtazapine [id number] Drug Allergy Unknown N/A 12/22/2015 Yes piperazine [id number] Drug Allergy Unknown N/A 12/22/2015 Yes Sulfa (Sulfonamide Antibiotics) [id number] Drug Allergy Unknown N/A 2015 Medications There [...] APRNNDA S V58.69 taking high-risk medication 12/18/2007 ELIANE ZHU APRNNDA S 780.39 Convulsions [as Sx] [...] S V58.69 taking high-risk medication 12/18/2007 [facility], JEANETTE S 780.39 Convulsions [as Sx] 12/18/2007 [...] [place], JEANETTE S 285.9 ANEMIA 09/16/2008 [facility], JEANETTE S 319 Mental Retardation 09/16/2008 [facility], JEANETTE S 486 Pneumonitis 09/16/2008 [facility], JEANETTE S 285.9 ANEMIA 09/16/2008 [facility], JEANETTE S 319 Mental Retardation 09/16/2008 [facility], JEANETTE S 486 Pneumonitis 09/16/2008 [facility], JEANETTE S 285.9 ANEMIA 09/16/2008 [facility], JEANETTE S 319 Mental Retardation 09/16/2008 [facility], JEANETTE S 486 Pneumonitis 09/16/2008 [facility], JEANETTE S 285.9 ANEMIA 09/16/2008 [facility], JEANETTE S 319 Mental Retardation 09/16/2008 [facility], JEANETTE S 486 Pneumonitis 09/16/2008 [facility], JEANETTE S 285.9 ANEMIA 09/16/2008 [facility], JEANETTE S 319 Mental Retardation 09/16/2008 [facility], JEANETTE S 486 Pneumonitis 09/16/2008 [facility], JEANETTE S 285.9 ANEMIA 09/16/2008 [facility], JEANETTE S 319 Mental Retardation 09/16/2008 [facility], JEANETTE S 486 Pneumonitis 07/08/2009 244.9 HYPOTHYROIDISM 07/08/2009 244.9 HYPOTHYROIDISM 07/08/2009 [facility], JEANETTE S 244.9 HYPOTHYROIDISM 07/08/2009 244.9 HYPOTHYROIDISM 07/08/2009 244.9 HYPOTHYROIDISM 07/08/2009 244.9 HYPOTHYROIDISM 07/08/2009 [facility], JEANETTE S 244.9 HYPOTHYROIDISM 07/08/2009 [facility], JEANETTE S 244.9 HYPOTHYROIDISM 07/08/2009 CATHY NICOLE, TAMIKO Baker 244.9 HYPOTHYROIDISM 07/08/2009 [facility], JEANETTE S 244.9 HYPOTHYROIDISM 07/08/2009 ELLIOTT NICOLE, DULCE 244.9 HYPOTHYROIDISM 07/08/2009 [facility], JEANETTE S 244.9 HYPOTHYROIDISM 07/08/2009 [facility], JEANETTE S 244.9 HYPOTHYROIDISM 07/08/2009 [facility], JEANETTE S 244.9 HYPOTHYROIDISM 07/08/2009 [facility], JEANETTE S 244.9 HYPOTHYROIDISM 07/08/2009 [facility], JEANETTE S 244.9 HYPOTHYROIDISM 07/08/2009 [facility], JEANETTE S 244.9 HYPOTHYROIDISM 08/19/2009 729.5 Pain In Limb 08/19/2009 729.5 Pain In Limb 08/19/2009 [facility], JEANETTE S 729.5 Pain In Limb 08/19/2009 729.5 Pain In Limb 08/19/2009 729.5 Pain In Limb 08/19/2009 729.5 Pain In Limb 08/19/2009 [facility], JEANETTE S 729.5 Pain In Limb 08/19/2009 [facility], JEANETTE S 729.5 Pain In Limb 08/19/2009 CATHY NICOLE, TAMIKO Baker 729.5 Pain In Limb 08/19/2009 [facility], JEANETTE S 729.5 Pain In Limb 08/19/2009 DULCE GALLAGHER MD 729.5 Pain In Limb 08/19/2009 [facility], JEANETTE S 729.5 Pain In Limb 08/19/2009 [facility], JEANETTE S 729.5 Pain In Limb 08/19/2009 [facility], JEANETTE S 729.5 Pain In Limb 08/19/2009 [facility], JEANETTE S 729.5 Pain In Limb 08/19/2009 [facility], JEANETTE S 729.5 Pain In Limb 08/19/2009 [facility], JEANETTE S 729.5 Pain In Limb 08/26/2009 682.7 Other Cellulitis And Abscess, Foot, Except Toes 08/26/2009 682.7 Other Cellulitis And Abscess, Foot, Except Toes 08/26/2009 [facility], JEANETTE S 682.7 Other Cellulitis And Abscess, Foot, Except Toes 08/26/2009 682.7 Other Cellulitis And Abscess, Foot, Except Toes 08/26/2009 682.7 Other Cellulitis And Abscess, Foot, Except Toes 08/26/2009 682.7 Other Cellulitis And Abscess, Foot, Except Toes 08/26/2009 [facility], JEANETTE S 682.7 Other Cellulitis And Abscess, Foot, Except Toes 08/26/2009 [facility], JEANETTE S 682.7 Other Cellulitis And Abscess, Foot, Except Toes 08/26/2009 TAMIKO MORGAN MD 682.7 Other Cellulitis And Abscess, Foot, Except Toes 08/26/2009 [facility], JEANETTE S 682.7 Other Cellulitis And Abscess, Foot, Except Toes 08/26/2009 ELLIOTT NICOLE, DULCE 682.7 Other Cellulitis And Abscess, Foot, Except Toes 08/26/2009 [facility], JEANETTE S 682.7 Other Cellulitis And Abscess, Foot, Except Toes 08/26/2009 [facility], JEANETTE S 682.7 Other Cellulitis And Abscess, Foot, Except Toes 08/26/2009 [facility], JEANETTE S 682.7 Other Cellulitis And Abscess, Foot, Except Toes 08/26/2009 [facility], JEANETTE S 682.7 Other Cellulitis And Abscess, Foot, Except Toes 08/26/2009 [facility], JEANETTE S 682.7 Other Cellulitis And Abscess, Foot, Except Toes 08/26/2009 [facility], JEANETTE S 682.7 Other Cellulitis And Abscess, Foot, Except Toes 12/16/2009 133.0 Scabies 12/16/2009 133.0 Scabies 12/16/2009 [facility], JEANETTE S 133.0 Scabies 12/16/2009 133.0 Scabies 12/16/2009 133.0 Scabies 12/16/2009 133.0 Scabies 12/16/2009 [facility], JEANETTE S 133.0 Scabies 12/16/2009 [facility], JEANETTE S 133.0 Scabies 12/16/2009 TAMIKO OMRGAN MD 133.0 Scabies 12/16/2009 [facility], JEANETTE S 133.0 Scabies 12/16/2009 ELLIOTT NICOLE, DULCE 133.0 Scabies 12/16/2009 [facility], JEANETTE S 133.0 Scabies 12/16/2009 [facility], JEANETTE S 133.0 Scabies 12/16/2009 [facility], JEANETTE S 133.0 Scabies 12/16/2009 [facility], JEANETTE S 133.0 Scabies 12/16/2009 [facility], JEANETTE S 133.0 Scabies 12/16/2009 [facility], JEANETTE S 133.0 Scabies 12/23/2009 782.1 Rash 12/23/2009 782.1 Rash 12/23/2009 [facility], JEANETTE S 782.1 Rash 12/23/2009 782.1 Rash 12/23/2009 782.1 Rash 12/23/2009 782.1 Rash 12/23/2009 [facility], JEANETTE S 782.1 Rash 12/23/2009 [facility], JEANETTE S 782.1 Rash 12/23/2009 CATHY NICOLE, TAMIKO M 782.1 Rash 12/23/2009 [facility], JEANETTE S 782.1 Rash 12/23/2009 DULCE GALLAGHER MD 782.1 Rash 12/23/2009 [facility], JEANETTE S 782.1 Rash 12/23/2009 [facility], JEANETTE S 782.1 Rash 12/23/2009 [facility], JEANETTE S 782.1 Rash 12/23/2009 [facility], JEANETTE S 782.1 RASH 12/23/2009 [facility], JEANETTE S 782.1 RASH 12/23/2009 [facility], JEANETTE S 782.1 RASH 02/16/2011 599.0 URINARY TRACT INFECTION SITE NOT SPECIFIED 02/16/2011 599.0 URINARY TRACT INFECTION SITE NOT SPECIFIED 02/16/2011 [facility], JEANETTE S 599.0 URINARY TRACT INFECTION SITE NOT SPECIFIED 02/16/2011 599.0 URINARY TRACT INFECTION SITE NOT SPECIFIED 02/16/2011 599.0 URINARY TRACT INFECTION SITE NOT SPECIFIED 02/16/2011 599.0 URINARY TRACT INFECTION SITE NOT SPECIFIED 02/16/2011 [facility], JEANETTE S 599.0 URINARY TRACT INFECTION SITE NOT SPECIFIED 02/16/2011 [facility], JEANETTE S 599.0 URINARY TRACT INFECTION SITE NOT SPECIFIED 02/16/2011 TAMIKO MORGAN MD 599.0 URINARY TRACT INFECTION SITE NOT SPECIFIED 02/16/2011 [facility], JEANETTE S 599.0 URINARY TRACT INFECTION SITE NOT SPECIFIED 02/16/2011 DULCE GALLAGHER MD 599.0 URINARY TRACT INFECTION SITE NOT SPECIFIED 02/16/2011 [facility], JEANETTE S 599.0 URINARY TRACT INFECTION SITE NOT SPECIFIED 02/16/2011 [facility], JEANETTE S 599.0 URINARY TRACT INFECTION SITE NOT SPECIFIED 02/16/2011 [facility], JEANETTE S 599.0 URINARY TRACT INFECTION SITE NOT SPECIFIED 02/16/2011 [facility], JEANETTE S 599.0 URINARY TRACT INFECTION SITE NOT SPECIFIED 02/16/2011 [facility], JEANETTE S 599.0 URINARY TRACT INFECTION SITE NOT SPECIFIED 02/16/2011 [facility], JEANETTE S 599.0 URINARY TRACT INFECTION SITE NOT SPECIFIED 02/22/2012 345.10 GENERALIZED CONVULSIVE EPILEPSY WITHOUT INTRACTABLE EPILEPSY 02/22/2012 [facility], JEANETTE S 345.10 GENERALIZED CONVULSIVE EPILEPSY WITHOUT INTRACTABLE EPILEPSY 02/22/2012 345.10 GENERALIZED CONVULSIVE EPILEPSY WITHOUT INTRACTABLE EPILEPSY 02/22/2012 345.10 GENERALIZED CONVULSIVE EPILEPSY WITHOUT INTRACTABLE EPILEPSY 02/22/2012 345.10 GENERALIZED CONVULSIVE EPILEPSY WITHOUT INTRACTABLE EPILEPSY 02/22/2012 [facility], JEANETTE S 345.10 GENERALIZED CONVULSIVE EPILEPSY WITHOUT INTRACTABLE EPILEPSY 02/22/2012 [facility], JEANETTE S 345.10 GENERALIZED CONVULSIVE EPILEPSY WITHOUT [...] CONVULSIVE EPILEPSY WITHOUT INTRACTABLE EPILEPSY 02/22/2012 [facility], JEANETTE S 345.10 GENERALIZED CONVULSIVE EPILEPSY WITHOUT INTRACTABLE EPILEPSY 02/22/2012 [facility], JEANETTE S 345.10 GENERALIZED CONVULSIVE EPILEPSY WITHOUT INTRACTABLE EPILEPSY 02/22/2012 MARKO VILLARN, JEANETTE S 345.10 GENERALIZED CONVULSIVE EPILEPSY WITHOUT INTRACTABLE EPILEPSY 02/22/2012 [facility], JEANETTE S 345.10 GENERALIZED CONVULSIVE EPILEPSY WITHOUT [...] OF ANKLE AND FOOT JOINT 02/20/2013 [facility], JEANETTE S 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 02/20/2013 [facility], JEANETTE S 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 02/20/2013 [facility], JEANETTE S 718.47 CONTRACTURE OF ANKLE AND [...] OF LOWER EXTREMITIES WITH INFLAMMATION 04/10/2013 [facility], JEANETTE S 459.81 VENOUS (PERIPHERAL) INSUFFICIENCY UNSPECIFIED 04/10/2013 MARKO [place], JEANETTE S 454.1 VARICOSE VEINS OF LOWER EXTREMITIES WITH INFLAMMATION 04/10/2013 [facility], JEANETTE S 459.81 VENOUS (PERIPHERAL) INSUFFICIENCY UNSPECIFIED 04/10/2013 [facility] [place], JEANETTE S 454.1 VARICOSE VEINS OF LOWER EXTREMITIES WITH INFLAMMATION 04/10/2013 [facility], JEANETTE S 459.81 VENOUS (PERIPHERAL) INSUFFICIENCY UNSPECIFIED 11/21/2013 MARKO [place] JEANETTE S 372.30 CONJUNCTIVITIS UNSPECIFIED 11/21/2013 ELAINE ZHU APRNNDA S 782.1 RASH 11/21/2013 MARKO VILLARN, JEANETTE S 372.30 CONJUNCTIVITIS UNSPECIFIED 11/21/2013 [facility], JEANETTE S 782.1 RASH 11/21/2013 [facility], JEANETTE S 372.30 CONJUNCTIVITIS UNSPECIFIED 11/21/2013 [facility], JEANETTE S 782.1 RASH 11/21/2013 [facility], JEANETTE S 372.30 CONJUNCTIVITIS UNSPECIFIED 11/21/2013 MARKO [...] ENCOUNTER FOR PALLIATIVE CARE 12/22/2015 LETICIA HASSAN MD Ot Z66 DO NOT RESUSCITATE 05/19/2017 LINNEA MATIAS MD Ot A09 INFECTIOUS GASTROENTERITIS AND COLITIS, 05/19/2017 LINNEA MATIAS MD Ot A41.9 SEPSIS, UNSPECIFIED ORGANISM 05/19/2017 LINNEA MATIAS MD Ot E03.9 HYPOTHYROIDISM, UNSPECIFIED 05/19/2017 LINNEA MATIAS MD Ot E44.0 MODERATE PROTEIN-CALORIE MALNUTRITION 05/19/2017 LINNEA MATIAS MD Ot E83.42 HYPOMAGNESEMIA 05/19/2017 LINNEA MATIAS MD Ot E87.2 ACIDOSIS 05/19/2017 LINNEA MATIAS MD Ot F79 UNSPECIFIED INTELLECTUAL DISABILITIES 05/19/2017 LINNEA MATIAS MD Ot G40.909 EPILEPSY, UNSP, NOT INTRACTABLE, WITHOUT 05/19/2017 LINNEA MATIAS MD Ot G82.20 PARAPLEGIA, UNSPECIFIED 05/19/2017 LINNEA MATIAS MD Ot J18.9 PNEUMONIA, UNSPECIFIED ORGANISM 05/19/2017 LINNEA MATIAS MD Ot J98.11 ATELECTASIS 05/19/2017 LINNEA MATIAS MD Ot K21.9 GASTRO-ESOPHAGEAL REFLUX DISEASE WITHOUT 05/19/2017 LINNEA MATIAS MD Ot K59.00 CONSTIPATION, UNSPECIFIED 05/19/2017 LINNEA MATIAS MD Ot Q02 MICROCEPHALY 05/19/2017 LINNEA MATIAS MD Ot R47.01 APHASIA 05/19/2017 LINNEA MATIAS MD Ot Z66 DO NOT RESUSCITATE 05/19/2017 LINNEA MATIAS MD Ot A09 INFECTIOUS GASTROENTERITIS AND COLITIS, 05/19/2017 LINNEA MATIAS MD Ot A41.9 SEPSIS, UNSPECIFIED ORGANISM 05/19/2017 LINNEA MATIAS MD Ot E03.9 HYPOTHYROIDISM, UNSPECIFIED 05/19/2017 LINNEA MATIAS MD Ot E44.0 MODERATE PROTEIN-CALORIE MALNUTRITION 05/19/2017 LINNEA MATIAS MD Ot E83.42 HYPOMAGNESEMIA 05/19/2017 LINNEA MATIAS MD Ot E87.2 ACIDOSIS 05/19/2017 LINNEA MATIAS MD Ot F79 UNSPECIFIED INTELLECTUAL DISABILITIES 05/19/2017 LINNEA MATIAS MD Ot G40.909 EPILEPSY, UNSP, NOT INTRACTABLE, WITHOUT 05/19/2017 LINNEA MATIAS MD Ot G82.20 PARAPLEGIA, UNSPECIFIED 05/19/2017 LINNEA MATIAS MD Ot J18.9 PNEUMONIA, UNSPECIFIED ORGANISM 05/19/2017 LINNEA MATIAS MD Ot J98.11 ATELECTASIS 05/19/2017 FLORENCIO NICOLE, LINNEA Henry Ot K21.9 GASTRO-ESOPHAGEAL REFLUX DISEASE WITHOUT 05/19/2017 FLORENCIO NICOLE, LINNEA Henry Ot K59.00 CONSTIPATION, UNSPECIFIED 05/19/2017 FLORENCIO NICOLE, LINNEA R Ot Q02 MICROCEPHALY 05/19/2017 LINNEA MATIAS MD Ot R47.01 APHASIA 05/19/2017 LINNEA MATIAS MD Ot Z66 DO NOT RESUSCITATE 05/20/2017 LINNEA MATIAS MD Ot A09 INFECTIOUS GASTROENTERITIS AND COLITIS, 05/20/2017 LINNEA MATIAS MD Ot A41.9 SEPSIS, UNSPECIFIED ORGANISM 05/20/2017 LINNEA MATIAS MD Ot E03.9 HYPOTHYROIDISM, UNSPECIFIED 05/20/2017 FLORENCIO NICOLE, LINNEA Henry Ot E44.0 MODERATE PROTEIN-CALORIE MALNUTRITION 05/20/2017 LINNEA MATIAS MD Ot E83.42 HYPOMAGNESEMIA 05/20/2017 LINNEA MATIAS MD Ot E87.2 ACIDOSIS 05/20/2017 FLORENCIO NICOLE, LINNEA Henry Ot F79 UNSPECIFIED INTELLECTUAL DISABILITIES 05/20/2017 FLORENCIO NICOLE, LINNEA Henry Ot G40.909 EPILEPSY, UNSP, NOT INTRACTABLE, WITHOUT 05/20/2017 FLORENCIO NICOLE, LINNEA Henry Ot G82.20 PARAPLEGIA, UNSPECIFIED 05/20/2017 FLORENCIO NICOLE, LINNEA Henry Ot J18.9 PNEUMONIA, UNSPECIFIED ORGANISM 05/20/2017 LINNEA MATIAS MD Ot J98.11 ATELECTASIS 05/20/2017 LINNEA MATIAS MD Ot K21.9 GASTRO-ESOPHAGEAL REFLUX DISEASE WITHOUT 05/20/2017 LINNEA MATIAS MD Ot K59.00 CONSTIPATION, UNSPECIFIED 05/20/2017 LINNEA MATIAS MD Ot Q02 MICROCEPHALY 05/20/2017 LINNEA MATIAS MD Ot R47.01 APHASIA 05/20/2017 LINNEA MATIAS MD Ot Z66 DO NOT RESUSCITATE 05/20/2017 LINNEA MATIAS MD Ot A09 INFECTIOUS GASTROENTERITIS AND COLITIS, 05/20/2017 LINNEA MATIAS MD Ot A41.9 SEPSIS, UNSPECIFIED ORGANISM 05/20/2017 LINNEA MATIAS MD Ot E03.9 HYPOTHYROIDISM, UNSPECIFIED 05/20/2017 LINNEA MATIAS MD Ot E44.0 MODERATE PROTEIN-CALORIE MALNUTRITION 05/20/2017 LINNEA MATIAS MD Ot E83.42 HYPOMAGNESEMIA 05/20/2017 LINNEA MATIAS MD Ot E87.2 ACIDOSIS 05/20/2017 LINNEA MATIAS MD Ot F79 UNSPECIFIED INTELLECTUAL DISABILITIES 05/20/2017 LINNEA MATIAS MD, Ot G40.909 EPILEPSY, UNSP, NOT INTRACTABLE, WITHOUT 05/20/2017 LINNEA MATIAS MD Ot G82.20 PARAPLEGIA, UNSPECIFIED 05/20/2017 LINNEA MATIAS MD, Ot J18.9 PNEUMONIA, UNSPECIFIED ORGANISM 05/20/2017 LINNEA MATIAS MD, Ot J98.11 ATELECTASIS 05/20/2017 LINNEA MATIAS MD, Ot K21.9 GASTRO-ESOPHAGEAL REFLUX DISEASE WITHOUT 05/20/2017 LINNEA MATIAS MD Ot K59.00 CONSTIPATION, UNSPECIFIED 05/20/2017 LINNEA MATIAS MD Ot Q02 MICROCEPHALY 05/20/2017 LINNEA MATIAS MD Ot R47.01 APHASIA 05/20/2017 LINNEA MATIAS MD Ot Z66 DO NOT RESUSCITATE Procedures Code Description [place] [address] OXIMETRY 10/16/2012 Results Test Result Range Complete [...] INFLUENZA A AND B ANTIGENS BY IA [facility] Comprehensive metabolic panel - 12/22/15 06:28 Serum [...] or plasma urea nitrogen/creatinine mass ratio 20 NR Serum or plasma creatinine measurement with calculation of estimated glomerular filtration rate > [facility] Serum or plasma glucose measurement (mass/volume) 108 [...] Blood erythrocyte morphology finding identification NORMAL NRG Bacterial blood culture - 05/17/17 18:50 Bacterial blood culture NG NRG Complete urinalysis [...] (T4) free measurement (mass/volume) 0.92 ng/dL 0.70-1.48 [id number] - 05/17/17 19:10 [id number] 36.2 ug/mL 50.0-100.0 Bacterial blood culture - 05/17/17 19:10 Bacterial blood culture [facility] Influenza virus A and B antigen detection - 05/17/17 19:14 FLU RESULT NEGATIVE FOR INFLUENZA A AND B ANTIGENS BY IA NR Serum or plasma lactate measurement (moles/volume) - 05/17/17 21:35 Serum or plasma lactate measurement (moles/volume) 2.19 mmol/L 0.50-2.00 Complete blood count (CBC) with automated white blood cell (WBC) differential - 05/18/17 03:20 Blood leukocytes automated count (number/volume) 18.1 10*3/uL 4.3-11.0 Blood erythrocytes automated count (number/volume) 3.49 10*6/uL 4.35-5.85 Venous blood hemoglobin measurement (mass/volume) 11.0 g/dL 11.5-16.0 Blood hematocrit (volume fraction) 34 % 35-52 Automated erythrocyte mean corpuscular volume 98 [foz_us] 80-99 Automated erythrocyte mean corpuscular hemoglobin (mass per erythrocyte) 32 pg 25-34 Automated erythrocyte mean corpuscular hemoglobin concentration measurement ( mass/volume) 32 g/dL 32-36 Automated erythrocyte distribution width ratio 15.5 % 10.0-14.5 Automated blood platelet count (count/volume) 298 10*3/uL 130-400 Automated blood platelet mean volume measurement 9.8 [foz_us] 7.4-10.4 Automated blood neutrophils/100 leukocytes 62 % 42-75 Automated blood lymphocytes/100 leukocytes 19 % 12-44 Blood monocytes/100 leukocytes 19 % 0-12 Automated blood eosinophils/100 leukocytes 0 % 0-10 Automated blood basophils/100 leukocytes 0 % 0-10 Blood neutrophils automated count (number/volume) 11.2 10*3 1.8-7.8 Blood lymphocytes automated count (number/volume) 3.4 10*3 1.0-4.0 Blood monocytes automated count (number/volume) 3.4 10*3 0.0-1.0 Automated eosinophil count 0.1 10*3/uL 0.0-0.3 Automated blood basophil count (count/volume) 0.0 10*3/uL 0.0-0.1 Comprehensive metabolic panel - 05/18/17 03:20 Serum or plasma sodium measurement (moles/volume) 137 mmol/L 135-145 Serum or plasma potassium measurement (moles/volume) 4.7 mmol/L 3.6-5.0 Serum or plasma chloride measurement (moles/volume) 105 mmol/L 98-107 Carbon dioxide 27 mmol/L 21-32 Serum or plasma anion gap determination (moles/volume) 5 mmol/L 5-14 Serum or plasma urea nitrogen measurement (mass/volume) 10 mg/dL 7-18 Serum or plasma creatinine measurement (mass/volume) 0.57 mg/dL 0.60-1.30 Serum or plasma urea nitrogen/creatinine mass ratio 18 NRG Serum or plasma creatinine measurement with calculation of estimated glomerular filtration rate > NRG Serum or plasma glucose measurement (mass/volume) 126 mg/dL 70-105 Serum or plasma calcium measurement (mass/volume) 8.2 mg/dL 8.5-10.1 Serum or plasma total bilirubin measurement (mass/volume) 0.1 mg/dL 0.1-1.0 Serum or plasma alkaline phosphatase measurement (enzymatic activity/volume) 148 U/L 40-136 Serum or plasma aspartate aminotransferase measurement (enzymatic activity/ volume) 35 U/L 5-34 Serum or plasma alanine aminotransferase measurement (enzymatic activity/volume ) 29 U/L 0-55 Serum or plasma protein measurement (mass/volume) 5.9 g/dL 6.4-8.2 Serum or plasma albumin measurement (mass/volume) 2.8 g/dL 3.2-4.5 Serum or plasma phosphate measurement (mass/volume) - 05/18/17 03:20 Serum or plasma phosphate measurement (mass/volume) 4.0 mg/dL 2.3-4.7 Magnesium - 05/18/17 03:20 Magnesium 1.3 mg/dL 1.8-2.4 Blood lactic acid measurement (moles/volume) - 05/18/17 09:38 Blood lactic acid measurement (moles/volume) 0.98 mmol/L 0.50-2.00 Complete blood count (CBC) with automated white blood cell (WBC) differential - 05/19/17 02:05 Blood leukocytes automated count (number/volume) 12.0 10*3/uL 4.3-11.0 Blood erythrocytes automated count (number/volume) 3.70 10*6/uL 4.35-5.85 Venous blood hemoglobin measurement (mass/volume) 11.8 g/dL 11.5-16.0 Blood hematocrit (volume fraction) 36 % 35-52 Automated erythrocyte mean corpuscular volume 97 [foz_us] 80-99 Automated erythrocyte mean corpuscular hemoglobin (mass per erythrocyte) 32 pg 25-34 Automated erythrocyte mean corpuscular hemoglobin concentration measurement ( mass/volume) 33 g/dL 32-36 Automated erythrocyte distribution width ratio 15.5 % 10.0-14.5 Automated blood platelet count (count/volume) 333 10*3/uL 130-400 Automated blood platelet mean volume measurement 10.4 [foz_us] 7.4-10.4 Automated blood neutrophils/100 leukocytes 57 % 42-75 Automated blood lymphocytes/100 leukocytes 25 % 12-44 Blood monocytes/100 leukocytes 15 % 0-12 Automated blood eosinophils/100 leukocytes 3 % 0-10 Automated blood basophils/100 leukocytes 0 % 0-10 Blood neutrophils automated count (number/volume) 6.9 10*3 1.8-7.8 Blood lymphocytes automated count (number/volume) 3.0 10*3 1.0-4.0 Blood monocytes automated count (number/volume) 1.8 10*3 0.0-1.0 Automated eosinophil count 0.3 10*3/uL 0.0-0.3 Automated blood basophil count (count/volume) 0.0 10*3/uL 0.0-0.1 Whole blood basic metabolic panel - 05/19/17 02:05 Serum or plasma sodium measurement (moles/volume) 138 mmol/L 135-145 Serum or plasma potassium measurement (moles/volume) 4.6 mmol/L 3.6-5.0 Serum or plasma chloride measurement (moles/volume) 104 mmol/L 98-107 Carbon dioxide 28 mmol/L 21-32 Serum or plasma anion gap determination (moles/volume) 6 mmol/L 5-14 Serum or plasma urea nitrogen measurement (mass/volume) 5 mg/dL 7-18 Serum or plasma creatinine measurement (mass/volume) 0.54 mg/dL 0.60-1.30 Serum or plasma urea nitrogen/creatinine mass ratio 9 NRG Serum or plasma creatinine measurement with calculation of estimated glomerular filtration rate > NRG Serum or plasma glucose measurement (mass/volume) 102 mg/dL 70-105 Serum or plasma calcium measurement (mass/volume) 8.9 mg/dL 8.5-10.1 Serum or plasma phosphate measurement (mass/volume) - 05/19/17 02:05 Serum or plasma phosphate measurement (mass/volume) 3.9 mg/dL 2.3-4.7 Magnesium - 05/19/17 02:05 Magnesium 2.0 mg/dL 1.8-2.4 Encounters ACCT No. Visit Date/Time Discharge Status Pt. Type Provider Facility Loc./Unit Complaint [id number] 05/07/2014 07:57:00 05/07/2014 23:59:59 CLS Outpatient JEANETTE ZHU APRN S [id number] 03/12/2014 07:44:00 03/12/2014 23:59:59 CLS Outpatient THUY ZHU APRNA S [id number] 01/08/2014 08:46:00 01/08/2014 23:59:59 CLS Outpatient THUY ZHU APRNA S [id number] 11/21/2013 09:00:00 11/21/2013 23:59:59 CLS Outpatient THUY ZHU APRNA S [id number] 10/09/2013 07:31:00 10/09/2013 23:59:59 CLS Outpatient MARKO VILLARNTHUYA S [id number] 08/07/2013 08:27:00 08/07/2013 23:59:59 CLS Outpatient MARKO VILLARNTHUYA S [id number] 04/10/2013 10:08:00 04/10/2013 23:59:59 CLS Outpatient DULCE GALLAGHER MD [id number] 02/20/2013 08:09:00 02/20/2013 23:59:59 CLS Outpatient MARKO VILLARNTHUYA S [id number] 01/09/2013 13:17:00 01/09/2013 23:59:59 CLS Outpatient TAMIKO MORGAN MD [id number] 12/19/2012 08:02:00 12/19/2012 23:59:59 CLS Outpatient MARKO VILLARNTHUYA S [id number] 10/10/2012 15:02:00 10/10/2012 23:59:59 CLS Outpatient MARKO VILLARNTHUYA S [id number] 04/25/2012 08:22:00 04/25/2012 23:59:59 CLS Outpatient MARKO VILLARNTHUYA S [id number] 02/22/2012 08:38:00 02/22/2012 23:59:59 CLS Outpatient [id number] 12/21/2011 09:33:00 12/21/2011 23:59:59 CLS Outpatient [id number] 10/10/2012 15:02:00 Document Registration [id number] 08/01/2012 08:41:00 Document Registration [id number] 06/27/2012 10:48:00 Document Registration [id number] 05/17/2017 21:14:00 05/20/2017 14:32:00 DIS Inpatient LINNEA MATIAS MD [facility] 4TH SEPSIS, COLITIS, ABD PAIN , CONSTIPATION [id number] 12/22/2015 07:27:00 12/22/2015 14:55:00 DIS Inpatient LETICIA HASSAN MD [facility] 4TH SEVERE SEPSIS, PNEUMONIA WITH HYPOXIA [id number] 05/28/2015 12:14:00 05/29/2015 14:20:00 DIS Inpatient JAYNA ZAMUDIO MD [facility] 4TH [id number] 05/23/2015 06:15:00 05/28/2015 11:57:00 DIS Inpatient JAYNA ZAMUDIO MD [facility] 4TH [id number] 04/09/2013 14:31:00 04/09/2013 17:34:00 [facility] Emergency [id number] 03/31/2013 14:08:00 03/31/2013 17:05:00 [facility] Emergency
--- NOTE | 2018-03-06 18:56 | NUR ---
Pt's BP 57/47 due to contracture of arm. Pt's arm and cuff repositioned. BP now 106/91.
[2018-03-06 19:13] LABS: BASOPHILS # (AUTO) 0.1 10^3/uL (0.0-0.1); BASOPHILS % (AUTO) 0 % (0-10); EOSINOPHILS # (AUTO) 0.3 10^3/uL (0.0-0.3); EOSINOPHILS % (AUTO) 2 % (0-10); HEMATOCRIT 43 % (35-52); HEMOGLOBIN 13.3 G/DL (11.5-16.0); LYMPHOCYTES # (AUTO) 3.6 X 10^3 (1.0-4.0); LYMPHOCYTES % (AUTO) 21 % (12-44); MEAN CORPUSCULAR HEMOGLOBIN 30 PG (25-34); MEAN CORPUSCULAR HGB CONC 31 G/DL (32-36); MEAN CORPUSCULAR VOLUME 95 FL (80-99); MEAN PLATELET VOLUME 10.5 FL (7.4-10.4); MONOCYTES # (AUTO) 3.5 X 10^3 (0.0-1.0); MONOCYTES % (AUTO) 20 % (0-12); NEUTROPHILS # (AUTO) 10.1 X 10^3 (1.8-7.8); NEUTROPHILS % (AUTO) 58 % (42-75); PLATELET COUNT 334 10^3/uL (130-400); RED BLOOD COUNT 4.48 10^6/uL (4.35-5.85); RED CELL DISTRIBUTION WIDTH 17.3 % (10.0-14.5); WHITE BLOOD COUNT 17.5 10^3/uL (4.3-11.0)
[2018-03-06 19:18] LABS: PROTHROMBIN TIME PATIENT 13.1 SEC (12.2-14.7)
[2018-03-06 19:29] LABS: ALANINE AMINOTRANSFERASE 35 U/L (0-55); ALBUMIN 3.7 GM/DL (3.2-4.5); ALKALINE PHOSPHATASE 176 U/L (40-136); BILIRUBIN,TOTAL 0.2 MG/DL (0.1-1.0); BUN/CREATININE RATIO 21; CALCIUM 9.3 MG/DL (8.5-10.1); CARBON DIOXIDE 25 MMOL/L (21-32); CHLORIDE 99 MMOL/L (98-107); CREATININE SERUM 0.62 MG/DL (0.60-1.30); GFR ESTIMATED > 60; GLUCOSE 97 MG/DL (70-105); MAGNESIUM 1.8 MG/DL (1.8-2.4); POTASSIUM 4.7 MMOL/L (3.6-5.0); SODIUM 136 MMOL/L (135-145); TOTAL PROTEIN 7.7 GM/DL (6.4-8.2)
--- NOTE | 2018-03-06 19:38 | Diagnostic Imaging Report ---
INDICATION: Fever, hypertension. TECHNIQUE: Single view chest 7:13 PM. CORRELATION STUDY: 05/19/2017 FINDINGS: Scoliotic curvature thoracic spine with slight distortion of the chest anatomy. Given this, heart size borderline enlarged but stable. Vasculature overall within normal limits. Minimal atelectasis and/or perhaps scarring about the left mid and lower lung field. Lung ded ios otherwise clear. No significant infiltrate. IMPRESSION: 1. Minimal left basilar atelectasis and/or scarring. Mild cardiac enlargement without failure. Dictated by: Dictated on workstation # [id number]
[2018-03-06 19:43] LABS: ANISOCYTOSIS SLIGHT; BAND NEUTROPHILS 4 %; BASOPHILS % (MANUAL) 1 %; EOSINOPHILS % (MANUAL) 0 %; LYMPHOCYTES % (MANUAL) 18 %; MONOCYTES % (MANUAL) 14 %; NEUTROPHILS % (MANUAL) 63 %; NUCLEATED RED BLOOD CELLS 1
[2018-03-06 19:49] LABS: TSH (THYROID ANALYZER) 2.92 UIU/ML (0.35-4.94); VALPROIC ACID 48.1 UG/ML (50.0-100.0)
[2018-03-06 19:53] LABS: BILIRUBIN,URINE NEGATIVE (NEGATIVE); CLARITY,URINE CLEAR; COLOR,URINE YELLOW; GLUCOSE, URINE (UA) NEGATIVE (NEGATIVE); KETONES,URINE 1+ (NEGATIVE); LEUKOCYTE ESTERASE ,URINE 1+ (NEGATIVE); NITRITE,URINE NEGATIVE (NEGATIVE); PH,URINE 7 (5-9); PROTEIN,URINE 1+ (NEGATIVE); UROBILINOGEN,URINE NORMAL (NORMAL)
[2018-03-06 20:00] LABS: BACTERIA,URINE NEGATIVE /HPF; SQUAMOUS EPITHELIAL CELL,UR RARE /HPF; WBC,URINE RARE /HPF
[2018-03-06] MEDS ORDERED: RT-ALBUTEROL/IPRATROPIUM 3 ML (DUONEB) VIAL INH ONE (20:00)
--- NOTE | 2018-03-06 20:00 | NUR ---
axillary temp 98.7
[2018-03-06 20:11] LABS: ABG BASE EXCESS 5.5 MMOL/L (-2.5-2.5); ABG OXYGEN SATURATION 98 % (94-100); ABG PCO2 47 MMHG (35-45); ABG PH 7.42 (7.37-7.43); ABG PO2 93 MMHG (79-93); ABG TCO2 31.1 MMOL/L (21.0-31.0); ALLENS TEST POSITIVE; INSPIRED O2 4; PATIENT TEMP 99.8; VENTILATOR NO
[2018-03-06] MEDS ORDERED: cefTRIAXone FOR IV USE 1,000 MG in NS (IVPB) 50 ML IV ONE (20:45)
[2018-03-06] MEDS ORDERED: CEFEPIME INJECTION 2,000 MG in NS (IVPB) 50 ML IV ONE (21:00)
--- NOTE | 2018-03-06 21:00 | NUR ---
Pt's BP 87/77 due to contracture of arm. Pt's arm and cuff repositioned. BP now 106/91.
--- NOTE | 2018-03-06 21:24 | NUR ---
attempted report. nurse unavailable.
--- NOTE | 2018-03-06 22:20 | NUR ---
URIEL MCDOWELL admitted to room 431-1, with an admitting diagnosis of PNEUMONIA,MR. LEAL, on 03/06/18 from ED via stretcher, accompanied by ed staff.URIEL MCDOWELL introduced to surroundings, call light, bed controls, phone, TV, temperature control, lights, meal times, smoking policy, visitor policy, side rail policy, bathrooms and showers. Patient Rights given to patient in the handbook. URIEL MCDOWELL verbalizes understanding that [facility] is not responsible for the loss or damage to any personal effects or valuables that are kept in the patients possession during their hospitalization. URIEL MCDOWELL verbalizes understanding of Interdisciplinary Patient Education. Patient and/or family were informed about the Rapid Response Team and its purpose.
[2018-03-06 22:25] VITALS: BP 126/59
--- NOTE | 2018-03-06 23:00 | NUR ---
Order to put a Contreras. This RN attempted to insert Contreras without any success. NORY Metcalf attempted to insert Contreras with success. Post bladder scan residual 9cc. Will continuo to monitor Addendum: 03/07/18 at 0535 by LUH STEELE RN It was mean to say Dixon attempted to Contreras in without success
[2018-03-06] MEDS ORDERED: ACETAMINOPHEN 500 MG TAB (TYLENOL) PO PRN (23:30)
[2018-03-07] VITALS (13 sets, daily range): BP systolic 109–142; BP diastolic 9–83
[2018-03-07] MEDS: D5 1/2 NS W/KCL 20 MEQ/L 1,000 ML IV SCH ×2 (00:09→10:59)
--- NOTE | 2018-03-07 05:00 | NUR ---
Bladder scan showed 0 ml
[2018-03-07] MEDS ORDERED: FLU QUADRIvalent (5+ YOA) 2018-2019 (AFLURIA) 0.5 ML IM ONE (07:45)
[2018-03-07 08:53] LABS: BASOPHILS % (AUTO) 0 % (0-10); EOSINOPHILS # (AUTO) 0.3 10^3/uL (0.0-0.3); EOSINOPHILS % (AUTO) 3 % (0-10); HEMATOCRIT 40 % (35-52); HEMOGLOBIN 12.4 G/DL (11.5-16.0); LYMPHOCYTES # (AUTO) 2.5 X 10^3 (1.0-4.0); LYMPHOCYTES % (AUTO) 23 % (12-44); MEAN CORPUSCULAR HEMOGLOBIN 30 PG (25-34); MEAN CORPUSCULAR HGB CONC 31 G/DL (32-36); MEAN CORPUSCULAR VOLUME 96 FL (80-99); MEAN PLATELET VOLUME 10.2 FL (7.4-10.4); MONOCYTES # (AUTO) 1.9 X 10^3 (0.0-1.0); MONOCYTES % (AUTO) 18 % (0-12); NEUTROPHILS # (AUTO) 6.1 X 10^3 (1.8-7.8); NEUTROPHILS % (AUTO) 56 % (42-75); PLATELET COUNT 334 10^3/uL (130-400); RED BLOOD COUNT 4.18 10^6/uL (4.35-5.85); RED CELL DISTRIBUTION WIDTH 17.4 % (10.0-14.5); WHITE BLOOD COUNT 10.9 10^3/uL (4.3-11.0)
--- NOTE | 2018-03-07 09:09 | History & Physical-Hospitalist ---
History of Present Illness HPI/Chief Complaint CC: Left lower lobe pneumonia HPI: This is a 62-year-old white female severely mentally challenged who [facility] a [facility] who presented to the ER with altered mental status found to have left lower lobe pneumonia and patient is unable to communicate. I reviewed her home medication and admission labs. Patient appears to be ready for breakfast with help from a feeder. Source: RN/MD Exam Limitations: physical impairment Date Seen 03/07/18 Time Seen by a Provider: 08:30 Attending Physician Johanna Rivers DO PCP Elvin Albert MD Referring Physician Date of Admission Mar 06, 2018 at 20:00 Home Medications & Allergies Home Medications Reviewed patient Home Medication Reconciliation performed by pharmacy medication reconciliations optometric technician and/or nursing. Patients Allergies have been reviewed. Allergies Allergies Coded Allergies piperacillin (Verified Allergy, Mild, unknown, 12/22/15) Sulfa (Sulfonamide Antibiotics) (Verified Allergy, Unknown, 12/22/15) estrone (Verified Allergy, Unknown, 12/22/15) mirtazapine (Verified Allergy, Unknown, 12/22/15) piperazine (Verified Allergy, Unknown, 12/22/15) Past Vykmspu-Wbuybf-Yajlcc Hx Past Med/Social Hx: Reviewed Nursing Past Med/Soc Hx, Reviewed and Corrections made Patient Social History Marrital Status: single Alcohol Use: Denies Use Recreational Drug Use: No Smoking Status: Never a Smoker 2nd Hand Smoke Exposure: No Physical Abuse Screen: No (unexplained bruises present) Sexual Abuse: No Recent Foreign Travel: No Contact w/other who traveled: No Recent Hopitalizations: No Recent Infectious Disease Expo: No Immunizations Up To Date Date of Pneumonia Vaccine: Jan 10, 2011 Date of Influenza Vaccine: Dec 09, 2016 Seasonal Allergies Seasonal Allergies: No Past Medical History Surgeries: Orthopedic Respiratory: Pneumonia Currently Using CPAP: No Currently Using BIPAP: No Neurological: Developmental Disorder, Paralysis, Seizure Disorder Reproductive: No Sexually Transmitted Disease: No HIV/AIDS: No Menopausal Gastrointestinal: Gastroesophageal Reflux, Chronic Constipation Endocrine: Hypothyroidsim History of Blood Disorders: Yes (ANEMIA-IRON DEFICIENCY) Review of Systems ROS-Unable to Obtain: Due to mentally challenged Constitutional: other Physical Exam Physical Exam Vital Signs Vital Signs - First Documented 03/06/18 03/06/18 18:21 21:55 Temp 99.8 Pulse 100 Resp 17 B/P (MAP) 115/83 (94) Pulse Ox 97 O2 Delivery Nasal Cannula O2 Flow Rate 4.00 Capillary Refill : Less Than 3 Seconds Height, Weight, BMI Height: 4'10.00" Weight: 134lbs. 4.0oz. 60.714900rp; 27.6 BMI Method:Estimated General Appearance: No Apparent Distress, WD/WN, Chronically ill, Thin Eyes: Bilateral Eye Normal Inspection, Bilateral Eye PERRL HEENT: PERRL/EOMI, Normal ENT Inspection, Pharynx Normal Neck: Full Range of Motion, Normal Inspection, Non Tender, Supple, Carotid Bruit Respiratory: Chest Non Tender, No Accessory Muscle Use, No Respiratory Distress , Crackles, Decreased Breath Sounds Cardiovascular: Regular Rate, Rhythm, No Edema, No Gallop, No JVD, No Murmur, Normal Peripheral Pulses Gastrointestinal: Normal Bowel Sounds, No Organomegaly, No Pulsatile Mass, Non Tender, Soft Back: Normal Inspection, No CVA Tenderness, No Vertebral Tenderness Extremity: Normal Capillary Refill, Normal Inspection, Normal Range of Motion, Non Tender, No Calf Tenderness, No Pedal Edema Neurologic/Psychiatric: Alert, Other (Mentally challenged) Skin: Normal Color, Warm/Dry Lymphatic: No Adenopathy Results Results/Procedures Labs Laboratory Tests 03/06/18 18:55 03/07/18 08:42 Patient resulted labs reviewed. Assessment/Plan Admission Diagnosis Assessment: Left lower lobe pneumonia Profound mentally challenged status Dehydration Leukocytosis Seizure disorder Plan: Home meds Monitor closely IV fluid IV antibiotics Admission Status: Inpatient Order (span 2 midnights) Reason for Inpatient Admission: Pneumonia in a mentally challenged patient with leukocytosis and dehydration will require 3 days of hospital stay Diagnosis/Problems Diagnosis/Problems (1) Pneumonia involving right lung Status: Acute (2) Hx of seizure disorder Status: Chronic (3) Non-verbal learning disorder Status: Chronic (4) Paraplegia Status: Chronic (5) Hypoxia Status: Acute Clinical Quality Measures DVT/VTE Risk/Contraindication: Risk Factor Score Per Nursin RFS Level Per Nursing on Admit: 4+=Very High JOHANNA RIVERS DO Mar 07, 2018 09:09
[2018-03-07 09:19] LABS: ALANINE AMINOTRANSFERASE 32 U/L (0-55); ALBUMIN 3.5 GM/DL (3.2-4.5); ALKALINE PHOSPHATASE 135 U/L (40-136); BILIRUBIN,TOTAL 0.3 MG/DL (0.1-1.0); BUN/CREATININE RATIO 25; CALCIUM 8.9 MG/DL (8.5-10.1); CARBON DIOXIDE 27 MMOL/L (21-32); CHLORIDE 100 MMOL/L (98-107); CREATININE SERUM 0.56 MG/DL (0.60-1.30); GFR ESTIMATED > 60; GLUCOSE 111 MG/DL (70-105); POTASSIUM 4.5 MMOL/L (3.6-5.0); SODIUM 136 MMOL/L (135-145); TOTAL PROTEIN 7.2 GM/DL (6.4-8.2)
[2018-03-07] MEDS ORDERED: [UNRECOGNIZED DRUG - CODE] OU (10:41)
--- NOTE | 2018-03-07 10:56 | NUR ---
[facility]
[2018-03-07] MEDS: CEFEPIME INJECTION 2,000 MG in NS (IVPB) 50 ML IV SCH ×2 (10:59→21:13)
[2018-03-07] MEDS ORDERED: ACETAMINOPHEN 325 MG TABLET PO PRN (12:15)
[2018-03-07] MEDS ORDERED: MILK OF MAGNESIA 400 MG/5 ML 30 ML UDC PO PRN (12:15)
[2018-03-07] MEDS ORDERED: ACETAMINOPHEN 650 MG SUPP (TYLENOL) PR PRN (12:15)
[2018-03-07] MEDS ORDERED: BISACODYL 10 MG SUPP (DULCOLAX) RC PRN (12:15)
[2018-03-07] MEDS ORDERED: ACETAMINOPHEN 650 MG RC PRN (12:15)
[2018-03-07] MEDS ORDERED: RT-ALBUTEROL SULF 2.5 MG/3 ML PRE-MIX VIAL INH PRN (12:15)
[2018-03-07] MEDS: NAPHA/PHEN (NAPHCON-A, OPCON-A) OP SOLN 15 ML BTL OU SCH ×3 (14:53→21:13)
[2018-03-07] MEDS: ENOXAPARIN 40 MG/0.4 ML (LOVENOX) SYR SC SCH (14:53)
--- NOTE | 2018-03-07 15:38 | NUR ---
Pastoral Care Visit.
[2018-03-07] MEDS ORDERED: LEVETIRACETAM PO SCH (21:00)
[2018-03-07] MEDS: DIVALPROX SPRINKLE 125 MG (DEPAKOTE) CAP PO SCH (21:13)
[2018-03-07] MEDS: LEVETIRACETAM 500 MG/ 5 ML UDC ORAL SOLN (KEPPRA) PO SCH (21:13)
[2018-03-07] MEDS: PHENobarbital 16.2 MG (1/4 GRAIN) TABLET PO SCH (21:13)
[2018-03-08] VITALS: BP 116/58
[2018-03-08] MEDS: LEVOTHYROXINE 100 MCG (LEVOTHROID) TAB PO SCH (05:58)
[2018-03-08 06:30] LABS: BASOPHILS % (AUTO) 0 % (0-10); EOSINOPHILS # (AUTO) 0.4 10^3/uL (0.0-0.3); EOSINOPHILS % (AUTO) 4 % (0-10); HEMATOCRIT 39 % (35-52); HEMOGLOBIN 12.3 G/DL (11.5-16.0); LYMPHOCYTES # (AUTO) 3.1 X 10^3 (1.0-4.0); LYMPHOCYTES % (AUTO) 31 % (12-44); MEAN CORPUSCULAR HEMOGLOBIN 30 PG (25-34); MEAN CORPUSCULAR HGB CONC 32 G/DL (32-36); MEAN CORPUSCULAR VOLUME 96 FL (80-99); MEAN PLATELET VOLUME 10.2 FL (7.4-10.4); MONOCYTES # (AUTO) 1.7 X 10^3 (0.0-1.0); MONOCYTES % (AUTO) 17 % (0-12); NEUTROPHILS # (AUTO) 4.7 X 10^3 (1.8-7.8); NEUTROPHILS % (AUTO) 47 % (42-75); PLATELET COUNT 305 10^3/uL (130-400); RED BLOOD COUNT 4.08 10^6/uL (4.35-5.85); RED CELL DISTRIBUTION WIDTH 17.1 % (10.0-14.5); WHITE BLOOD COUNT 9.9 10^3/uL (4.3-11.0)
[2018-03-08 07:08] LABS: ALANINE AMINOTRANSFERASE 42 U/L (0-55); ALBUMIN 3.1 GM/DL (3.2-4.5); ALKALINE PHOSPHATASE 169 U/L (40-136); BILIRUBIN,TOTAL 0.2 MG/DL (0.1-1.0); BUN/CREATININE RATIO 20; CALCIUM 8.9 MG/DL (8.5-10.1); CARBON DIOXIDE 27 MMOL/L (21-32); CHLORIDE 103 MMOL/L (98-107); CREATININE SERUM 0.51 MG/DL (0.60-1.30); GFR ESTIMATED > 60; GLUCOSE 89 MG/DL (70-105); POTASSIUM 4.3 MMOL/L (3.6-5.0); SODIUM 139 MMOL/L (135-145); TOTAL PROTEIN 6.5 GM/DL (6.4-8.2)
[2018-03-08] MEDS: CEFEPIME INJECTION 2,000 MG in NS (IVPB) 50 ML IV SCH ×2 (07:45→21:07)
[2018-03-08] MEDS: DIVALPROX SPRINKLE 125 MG (DEPAKOTE) CAP PO SCH ×2 (07:45→21:06)
[2018-03-08] MEDS: NAPHA/PHEN (NAPHCON-A, OPCON-A) OP SOLN 15 ML BTL OU SCH ×4 (07:46→21:07)
[2018-03-08] MEDS: LEVETIRACETAM 500 MG/ 5 ML UDC ORAL SOLN (KEPPRA) PO SCH ×2 (07:46→21:06)
[2018-03-08] MEDS: PHENobarbital 16.2 MG (1/4 GRAIN) TABLET PO SCH ×2 (07:46→21:06)
[2018-03-08 08:39] VITALS: BP 138/80
--- NOTE | 2018-03-08 09:55 | Progress Note-Hospitalist ---
Subjective HPI/CC On Admission Date Seen by Provider: Mar 08, 2018 Time Seen by Provider: 09:00 CC: Left lower lobe pneumonia HPI: This is a 62-year-old white female severely mentally challenged who lives in a longterm who presented to the ER with altered mental status found to have left lower lobe pneumonia and patient is unable to communicate. I reviewed her home medication and admission labs. Patient appears to be ready for breakfast with help from a feeder. Subjective/Events-last exam Patient doing much better Difficult communicating with the patient due to profound mental deficiency Labs reviewed Checked meds Review of Systems General: Fatigue Focused Exam Lactate Level 03/06/18 18:55: Lactic Acid Level 1.46 Objective Exam Vital Signs Vital Signs Date Time Temp Pulse Resp B/P (MAP) Pulse Ox O2 Delivery O2 Flow Rate FiO2 03/08/18 08:39 97.0 77 18 138/80 (99) 95 Nasal Cannula 2.00 Capillary Refill : Less Than 3 Seconds General Appearance: No Apparent Distress, WD/WN, Chronically ill Respiratory: Chest Non Tender, Lungs Clear, Normal Breath Sounds, No Accessory Muscle Use, No Respiratory Distress Cardiovascular: Regular Rate, Rhythm, No Edema, No Gallop, No JVD, No Murmur, Normal Peripheral Pulses Neurologic/Psychiatric: Alert Results/Procedures Lab Laboratory Tests 03/08/18 06:20 Patient resulted labs reviewed. Assessment/Plan Assessment and Plan Assess & Plan/Chief Complaint Assessment: Left lower lobe pneumonia Profound mentally challenged status Dehydration resolved Leukocytosis resolved Seizure disorder Plan: Maintain antibiotics Likely discharge tomorrow Diagnosis/Problems Diagnosis/Problems (1) Pneumonia involving right lung Status: Acute (2) Hx of seizure disorder Status: Chronic (3) Non-verbal learning disorder Status: Chronic (4) Paraplegia Status: Chronic (5) Hypoxia Status: Acute Clinical Quality Measures DVT/VTE Risk/Contraindication: Risk Factor Score Per Nursin RFS Level Per Nursing on Admit: 4+=Very High SUSANNA PURCELL DO Mar 08, 2018 09:55
--- NOTE | 2018-03-08 12:05 | NUR ---
CM/SS. Physician indicates patient will discharge tomorrow unless situation changes to warrant. Patcher Wood Welder updated [facility]/Valeri Tate re same. Patient is intellectually disabled, there is no plan for Medicare skilled unless [facility] updates continuity writer to request.
[2018-03-08] MEDS: ENOXAPARIN 40 MG/0.4 ML (LOVENOX) SYR SC SCH (12:55)
[2018-03-08 16:45] VITALS: BP 127/58
[2018-03-09 00:15] VITALS: BP 104/55
[2018-03-09] MEDS: LEVOTHYROXINE 100 MCG (LEVOTHROID) TAB PO SCH (05:35)
[2018-03-09 08:00] VITALS: BP 127/59
[2018-03-09] MEDS: CEFEPIME INJECTION 2,000 MG in NS (IVPB) 50 ML IV SCH (08:38)
[2018-03-09] MEDS: DIVALPROX SPRINKLE 125 MG (DEPAKOTE) CAP PO SCH (08:39)
[2018-03-09] MEDS: LEVETIRACETAM 500 MG/ 5 ML UDC ORAL SOLN (KEPPRA) PO SCH (08:40)
[2018-03-09] MEDS: PHENobarbital 16.2 MG (1/4 GRAIN) TABLET PO SCH (08:40)
[2018-03-09] MEDS: NAPHA/PHEN (NAPHCON-A, OPCON-A) OP SOLN 15 ML BTL OU SCH (08:40)
--- NOTE | 2018-03-09 09:43 | NUR ---
HOME OXYGEN STUDY PT PLACED ON ROOM AIR FOR 20 MINUTES AND DESATTED TO 83% PLACED BACK ON 2 LPM NASAL CANNULA AND SPO2 INCREASED TO 93% PT WILL REQUIRE 2 LPM NASAL CANNULA AT ALL TIMES.
[2018-03-09] MEDS ORDERED: CEFD300C3 PO (10:00)
--- NOTE | 2018-03-09 10:02 | Discharge Summary-Hospitalist ---
Diagnosis/Chief Complaint Date of Admission Mar 06, 2018 at 20:00 Date of Discharge Discharge Date: Mar 09, 2018 Admission Diagnosis Assessment: Left lower lobe pneumonia Profound mentally challenged status Dehydration Leukocytosis Seizure disorder Plan: Home meds Monitor closely IV fluid IV antibiotics Discharge Diagnosis (1) Pneumonia involving right lung Status: Acute (2) Hx of seizure disorder Status: Chronic (3) Non-verbal learning disorder Status: Chronic (4) Paraplegia Status: Chronic (5) Hypoxia Status: Acute (6) Oxygen dependent Status: Acute Discharge Summary Discharge Physical Exam Allergies: Coded Allergies: piperacillin (Verified Allergy, Mild, unknown, 12/22/15) Sulfa (Sulfonamide Antibiotics) (Verified Allergy, Unknown, 12/22/15) estrone (Verified Allergy, Unknown, 12/22/15) mirtazapine (Verified Allergy, Unknown, 12/22/15) piperazine (Verified Allergy, Unknown, 12/22/15) Vitals & I&Os Vital Signs Date Time Temp Pulse Resp B/P (MAP) Pulse Ox O2 Delivery O2 Flow Rate FiO2 03/09/18 09:41 93 2.00 03/09/18 08:00 97.6 80 18 127/59 (81) Nasal Cannula General Appearance: No Apparent Distress, WD/WN, Chronically ill Respiratory: Chest Non Tender, Lungs Clear, Normal Breath Sounds, No Accessory Muscle Use, No Respiratory Distress Cardiovascular: Regular Rate, Rhythm, No Edema, No Gallop, No JVD, No Murmur, Normal Peripheral Pulses Neurologic/Psychiatric: Alert Hospital Course Hospital course: Patient was admitted for pneumonia and placed on adequate treatment per protocol nebulizer treatments and oxygen supplementation. Labs returned back to normal and overall patient's status improved although severe mental challenge on a chronic basis makes it difficult to ascertain improvement or some other status. She did meet criteria for oxygen on discharge so that was placed and she will complete antibiotics by oral route at discharge. Labs (last 24 hrs) Microbiology 03/06/18 Blood Culture - Preliminary, Resulted No growth 03/06/18 Throat Culture - Final, Complete No Beta Strep isolated Patient resulted labs reviewed. Discussion & Recommendations Discharge Planning: <30 minutes discharge planning Discharge Home Medications: Active Scripts Active Cefdinir 300 Mg Capsule 300 Mg PO BID Reported Visine-A Eye Allergy Drops (Naphazoline HCl/Pheniramine) 15 Ml Drops 2 Drops OU QID Gold Mcclain Ultimate Eczema Rlf (Colloidal Oatmeal) 226 Gm Cream..g. TP Q12H PRN Albuterol Sulfate 2.5 Mg/3 Ml Vial.neb 2.5 Mg NEB Q4H PRN Levothyroxine Sodium 100 Mcg Tablet 100 Mcg PO DAILY Levetiracetam 100 Mg/Ml Solution 20 Ml PO BID Divalproex Sodium 125 Mg Cap.sprink 1,000 Mg PO HS TAKES 8 (125MG) CAPSULES Milk of Magnesia (Magnesium Hydroxide) 400 Mg/5 Ml Oral.susp 30 Ml PO DAILY PRN Bisacodyl 10 Mg Supp.rect 10 Mg RC DAILY PRN Acetaminophen 325 Mg Tablet 650 Mg PO Q6H PRN TAKES 2 (325 MG) TABLETS Acetaminophen 650 Mg Supp.rect 650 Mg RC Q4H PRN Phenobarbital 16.2 Mg Tablet 16.2 Mg PO BID Depakote Sprinkle (Divalproex Sodium) 125 Mg Cap 750 Mg PO DAILY TAKES 6 (125MG) CAPSULES Instructions to patient/family Please see electronic discharge instructions given to patient. Clinical Quality Measures DVT/VTE Risk/Contraindication: Risk Factor Score Per Nursin RFS Level Per Nursing on Admit: 4+=Very High SUSANNA PURCELL DO Mar 09, 2018 10:02
--- NOTE | 2018-03-09 11:45 | NUR ---
CM/SS. Patient discharged to her established placement with [facility], assisted care. She is unable to participate meaningfully in skilled therapies. MI scheduled worm picker for 1200. Faxed orders to [facility], prepared continuum of care packet to accompany patient. Unit RN updated. Legal Guardian/Ana Cristina Delaneyly, notified.
--- NOTE | 2018-03-09 12:15 | NUR ---
DC'D TO [facility] WITH DC PERSONNEL.
--- NOTE | 2018-03-09 12:57 | NUR ---
REPORT TO [facility] NURSE VIA PHONE.
== END 2018-03-09 12:15 | DRG 194 ==
LOC: EDUNIT# 18:20 → ER 18:21 → 4TH 20:00
PROVIDERS: ADMIT Internal Medicine; ATTEND Internal Medicine
DX: J18.1 Lobar pneumonia, unspecified organism (principal); R09.02 Hypoxemia; F73 Profound intellectual disabilities; G82.20 Paraplegia, unspecified; E86.0 Dehydration; Z66 Do not resuscitate; F81.89 Other developmental disorders of scholastic skills; G40.909 Epilepsy, unspecified, not intractable, without status epilepticus; K21.9 Gastro-esophageal reflux disease without esophagitis; K59.09 Other constipation; E03.9 Hypothyroidism, unspecified; Z99.81 Dependence on supplemental oxygen; Z88.1 Allergy status to other antibiotic agents; Z88.2 Allergy status to sulfonamides; Z88.8 Allergy status to other drugs, medicaments and biological substances
CPT/HCPCS: 36415; 36600; 51701; 71045; 80053; 80164; 80184; 81000; 82805; 82962; 83605; 83735; 83880; 84443; 85007; 85025; 85027; 85610; 85730; 87040; 87430; 87804; 93041; 94640; 94760; 94761; 96365

== ENCOUNTER 2018-05-24 12:46 | Observation (INO) | payer MEDICARE, MEDICAID ==
[~2018-05-24] VITALS: Ht 147.3 cm; Wt 63.2 kg
[~2018-05-24 12:46] MED LIST changes: +CEFD300C3 PO; +[UNRECOGNIZED DRUG - CODE] OU
[2018-05-24] MEDS ORDERED: fentaNYL INJECTION 100 MCG/2 ML AMP IVP PRN (13:00)
[2018-05-24 13:12] LABS: BASOPHILS # (AUTO) 0.1 10^3/uL (0.0-0.1); BASOPHILS % (AUTO) 0 % (0-10); EOSINOPHILS # (AUTO) 0.2 10^3/uL (0.0-0.3); EOSINOPHILS % (AUTO) 1 % (0-10); HEMATOCRIT 43 % (35-52); HEMOGLOBIN 13.3 G/DL (11.5-16.0); LYMPHOCYTES % (AUTO) 27 % (12-44); MEAN CORPUSCULAR HEMOGLOBIN 29 PG (25-34); MEAN CORPUSCULAR HGB CONC 31 G/DL (32-36); MEAN CORPUSCULAR VOLUME 96 FL (80-99); MEAN PLATELET VOLUME 11.1 FL (7.4-10.4); MONOCYTES # (AUTO) 3.2 X 10^3 (0.0-1.0); MONOCYTES % (AUTO) 17 % (0-12); NEUTROPHILS # (AUTO) 10.2 X 10^3 (1.8-7.8); NEUTROPHILS % (AUTO) 55 % (42-75); PLATELET COUNT 287 10^3/uL (130-400); RED CELL DISTRIBUTION WIDTH 16.2 % (10.0-14.5); WHITE BLOOD COUNT 18.7 10^3/uL (4.3-11.0)
--- NOTE | 2018-05-24 13:12 | ED General ---
General Stated Complaint: OUT OF MEDS;FEVER Source of Information: Patient Exam Limitations: No Limitations History of Present Illness Date Seen by Provider: May 24, 2018 Time Seen by Provider: 13:09 Initial Comments Is to ER as per EMS from [facility] [place] with reports of fever and being out of her phenobarbital. She is mentally retarded. She takes phenobarbital for seizure prophylaxis, had her dose yesterday and today. She was noted to be febrile at 101.5. [facility] staff also reports that she was hypoxic at 72%, they applied 2 L of oxygen and increased to 80%. On arrival to ER she is wearing 3 L of oxygen is 94%. She is nonverbal. Severity: Moderate Associated Systoms: Fever/Chills Allergies and Home Medications Allergies Coded Allergies: piperacillin (Verified Allergy, Mild, unknown, 12/22/15) Sulfa (Sulfonamide Antibiotics) (Verified Allergy, Unknown, 12/22/15) estrone (Verified Allergy, Unknown, 12/22/15) mirtazapine (Verified Allergy, Unknown, 12/22/15) piperazine (Verified Allergy, Unknown, 12/22/15) Home Medications Acetaminophen 650 Mg Supp.rect, 650 MG RC Q4H PRN for PAIN-MILD OR TEMPATURE, ( Reported) Acetaminophen 325 Mg Tablet, 650 MG PO Q6H PRN for PAIN-MILD OR TEMPATURE, ( Reported) TAKES 2 (325 MG) TABLETS Albuterol Sulfate 2.5 Mg/3 Ml Vial.neb, 2.5 MG NEB Q4H PRN for SHORTNESS OF BREATH, (Reported) Bisacodyl 10 Mg Supp.rect, 10 MG RC DAILY PRN for CONSTIPATION-4TH LINE, ( Reported) Colloidal Oatmeal 226 Gm Cream..g., TP Q12H PRN for RASH, (Reported) Divalproex Sodium 125 Mg Cap, 750 MG PO BID, (Reported) TAKES 6 (125MG) CAPSULES Levetiracetam 100 Mg/Ml Solution, 20 ML PO BID, (Reported) Levothyroxine Sodium 100 Mcg Tablet, 100 MCG PO DAILY, (Reported) Magnesium Hydroxide 400 Mg/5 Ml Oral.susp, 30 ML PO DAILY PRN for CONSTIPATION- 7TH LINE, (Reported) Naphazoline HCl/Pheniramine 15 Ml Drops, 2 DROPS OU QID, (Reported) Phenobarbital 16.2 Mg Tablet, 16.2 MG PO BID, (Reported) Patient Home Medication List Home Medication List Reviewed: Yes Review of Systems Review of Systems Constitutional: see HPI, fever, other (unable to contribute to history of present illness or review of symptoms) Past Coqjbov-Awytoc-Kelcas Hx Patient Social History 2nd Hand Smoke Exposure: No Recent Hopitalizations: No Immunizations Up To Date Date of Pneumonia Vaccine: Jan 10, 2011 Date of Influenza Vaccine: Dec 14, 2017 Seasonal Allergies Seasonal Allergies: No Past Medical History Surgeries: Yes Orthopedic Respiratory: No Currently Using CPAP: No Currently Using BIPAP: No Cardiac: Yes Chronic Edema/Swelling Neurological: Yes (SEVERE MR; APHASIA; MICROCEPHALY; PARAPLEGIA; TREMORS) Developmental Disorder, Paralysis, Seizure Disorder Reproductive Disorders: 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 4.0oz. 60.571327ht; 27.6 BMI Method:Estimated General Appearance: No Apparent Distress, WD/WN, Other (elderly-appearing, alert no obvious distress. Oxygen saturation 93% on 3 L. Blood pressure 121/70. Heart rate 116.) Eyes: Bilateral Eye Normal Inspection, Bilateral Eye PERRL, Bilateral Eye EOMI HEENT: PERRL/EOMI Neck: Full Range of Motion, Normal Inspection Respiratory: Normal Breath Sounds, No Accessory Muscle Use, No Respiratory Distress Cardiovascular: Regular Rate, Rhythm, Normal Peripheral Pulses Gastrointestinal: Normal Bowel Sounds, Non Tender, Soft Extremity: Normal Capillary Refill, Normal Inspection Neurologic/Psychiatric: Alert Skin: Normal Color, Warm/Dry Focused Exam Lactate Level 05/24/18 13:00: Lactic Acid Level 2.10*H 05/24/18 15:10: Lactic Acid Level 1.64 Lactic Acid Level Laboratory Tests Test 05/24/18 13:00 05/24/18 15:10 Lactic Acid Level 2.10 MMOL/L (0.50-2.00) *H 1.64 MMOL/L (0.50-2.00) Progress/Results/Core Measures Suspected Sepsis SIRS Temperature: Pulse: Respiratory Rate: Laboratory Tests 05/24/18 13:00: White Blood Count 18.7H Blood Pressure / Mean: 05/24/18 13:00: Lactic Acid Level 2.10*H 05/24/18 15:10: Lactic Acid Level 1.64 Laboratory Tests 05/24/18 13:00: Creatinine 0.60, Platelet Count 287, Total Bilirubin 0.2 Results/Orders Lab Results Laboratory Tests Test 05/24/18 13:00 05/24/18 14:05 05/24/18 15:10 Range/Units White Blood Count 18.7 H 4.3-11.0 10^3/uL Red Blood Count 4.52 4.35-5.85 10^6/uL Hemoglobin 13.3 11.5-16.0 G/DL Hematocrit 43 35-52 % Mean Corpuscular Volume 96 80-99 FL Mean Corpuscular Hemoglobin 29 25-34 PG Mean Corpuscular Hemoglobin Concent 31 L 32-36 G/DL Red Cell Distribution Width 16.2 H 10.0-14.5 % Platelet Count 287 130-400 10^3/uL Mean Platelet Volume 11.1 H 7.4-10.4 FL Neutrophils (%) (Auto) 55 42-75 % Lymphocytes (%) (Auto) 27 12-44 % Monocytes (%) (Auto) 17 H 0-12 % Eosinophils (%) (Auto) 1 0-10 % Basophils (%) (Auto) 0 0-10 % Neutrophils # (Auto) 10.2 H 1.8-7.8 X 10^3 Lymphocytes # (Auto) 5.0 H 1.0-4.0 X 10^3 Monocytes # (Auto) 3.2 H 0.0-1.0 X 10^3 Eosinophils # (Auto) 0.2 0.0-0.3 10^3/uL Basophils # (Auto) 0.1 0.0-0.1 10^3/uL Neutrophils % (Manual) 45 % Lymphocytes % (Manual) 32 % Monocytes % (Manual) 15 % Eosinophils % (Manual) 2 % Basophils % (Manual) 0 % Band Neutrophils 6 % Anisocytosis SLIGHT Sodium Level 137 135-145 MMOL/L Potassium Level 4.8 3.6-5.0 MMOL/L Chloride Level 99 98-107 MMOL/L Carbon Dioxide Level 31 21-32 MMOL/L Anion Gap 7 5-14 MMOL/L Blood Urea Nitrogen 13 7-18 MG/DL Creatinine 0.60 0.60-1.30 MG/DL Estimat Glomerular Filtration Rate > 60 BUN/Creatinine Ratio 22 Glucose Level 88 70-105 MG/DL Lactic Acid Level 2.10 *H 1.64 0.50-2.00 MMOL/L Calcium Level 9.5 8.5-10.1 MG/DL Corrected Calcium 9.8 8.5-10.1 MG/DL Total Bilirubin 0.2 0.1-1.0 MG/DL Aspartate Amino Transf (AST/SGOT) 29 5-34 U/L Alanine Aminotransferase (ALT/SGPT) 24 0-55 U/L Alkaline Phosphatase 139 H 40-136 U/L Total Creatine Kinase 17 L 29-168 U/L Total Protein 7.4 6.4-8.2 GM/DL Albumin 3.6 3.2-4.5 GM/DL Urine Color YELLOW Urine Clarity CLEAR Urine pH 8 5-9 Urine Specific [place] 1.010 L 1.016-1.022 Urine Protein 1+ H NEGATIVE Urine Glucose (UA) NEGATIVE NEGATIVE Urine Ketones 1+ H NEGATIVE Urine Nitrite NEGATIVE NEGATIVE Urine Bilirubin NEGATIVE NEGATIVE Urine Urobilinogen NORMAL NORMAL MG/DL Urine Leukocyte Esterase 1+ H NEGATIVE Urine RBC (Auto) NEGATIVE NEGATIVE Urine RBC 2-5 H /HPF Urine WBC 0-2 /HPF Urine Squamous Epithelial Cells 0-2 /HPF Urine Crystals NONE /LPF Urine Bacteria TRACE /HPF Urine Casts NONE /LPF Urine Mucus SMALL H /LPF Urine Culture Indicated NO Micro Results Microbiology 05/24/18 Influenza Types A,B Antigen (RYAN) - Final, Complete My Orders Orders - SHARAD LANGSTON APRN Cbc With Automated Diff (05/24/18 13:00) Comprehensive Metabolic Panel (05/24/18 13:00) Ua Culture If Indicated (05/24/18 13:00) Creatine Kinase (05/24/18 13:00) Iv Heplock-Insert (Order) (05/24/18 13:00) Fentanyl Injection (Sublimaze Injection (05/24/18 13:00) Influenza A And B Antigens (05/24/18 13:04) Blood Culture (05/24/18 13:04) Lactic Acid Analyzer (05/24/18 13:04) Chest 1 View, Ap/Pa Only (05/24/18 13:04) Ibuprofen Suspension (Motrin Suspension) (05/24/18 13:15) Ns Iv 500 Ml (Sodium Chloride 0.9%) (05/24/18 13:15) Phenobarbital Tablet (Phenobarbital Tabl (05/24/18 13:15) Manual Differential (05/24/18 13:00) Ct Abdomen/Pelvis Wo (05/24/18 13:28) Ibuprofen Tablet (Motrin Tablet) (05/24/18 15:30) Medications Given in ED Current Medications Medications Dose Ordered Sig/Tea Route Start Time Stop Time Status Last Admin Dose Admin Ibuprofen 600 mg ONCE ONCE PO 05/24/18 13:15 05/24/18 13:16 DC 05/24/18 15:10 600 MG Ibuprofen 800 mg ONCE ONCE PO 05/24/18 15:30 05/24/18 15:31 DC 05/24/18 15:40 800 MG Phenobarbital 16.2 mg ONCE ONCE PO 05/24/18 13:15 05/24/18 13:16 DC 05/24/18 15:04 16.2 MG Vital Signs/I&O Capillary Refill : Diagnostic Imaging Diagonstic Imaging: Xray Plain Films/CT/US/NM/MRI: chest Comments NAME: URIEL MCDOWELL [facility] REC#: [id number] PT STATUS: REG ER : 1955 PHYSICIAN: SHARAD LANGSTON APRN ADMIT DATE: 05/24/18/ER Draft Date of Exam:05/24/18 CHEST 1 VIEW, AP/PA ONLY INDICATION: Fever Frontal chest obtained at 153 hours p.m., and compared to 03/06/18. The heart is borderline in size. The mediastinal silhouette is unremarkable. There is linear scarring and/or atelectasis which is unchanged compared to the prior study of 03/06/2018. There is no new abnormality in the lung parenchyma. IMPRESSION: Unchanged linear scarring versus atelectasis in left lung base. No new abnormality compared to the previous study. Dictated on workstation # [id number] Dict: 05/24/18 1413 Trans: 05/24/18 1415 [facility] [id number] Interpreted by: KENNY PRAJAPATI MD Electronically signed by: Departure Communication (Admissions) Time/Spoke to Admitting Phy: 16:16 Do not have a clear source of infection. Flu swab was negative, chest x-ray clear. Discussed the case with Dr. Morgan. We'll admit observation, hydration and Rocephin. Recheck in the morning. Impression Primary Impression: Fever Qualified Codes: R50.9 - Fever, unspecified Additional Impression: Hypoxia Disposition: ADMITTED INPATIENT Condition: Stable Admissions Decision to Admit Reason: Admit from ER (General) Decision to Admit/Date: May 24, 2018 Time/Decision to Admit Time: 16:16 Departure-Patient Inst. Referrals: DULCE GALLAGHER MD (PCP/Family) Primary Care Physician SHARAD LANGSTON APRN May 24, 2018 13:12
[2018-05-24] MEDS ORDERED: IBUPROFEN SUSP 100MG/5ML (MOTRIN) UDC PO ONE (13:15)
[2018-05-24] MEDS ORDERED: PHENobarbital 16.2 MG (1/4 GRAIN) TABLET PO ONE (13:15)
[2018-05-24] MEDS ORDERED: NS IV 500 ML 500 ML IV SCH (13:15)
[2018-05-24 13:35] LABS: ALANINE AMINOTRANSFERASE 24 U/L (0-55); ALBUMIN 3.6 GM/DL (3.2-4.5); ALKALINE PHOSPHATASE 139 U/L (40-136); BILIRUBIN,TOTAL 0.2 MG/DL (0.1-1.0); BUN/CREATININE RATIO 22; CALCIUM 9.5 MG/DL (8.5-10.1); CARBON DIOXIDE 31 MMOL/L (21-32); CHLORIDE 99 MMOL/L (98-107); CREATINE KINASE 17 U/L (29-168); GFR ESTIMATED > 60; GLUCOSE 88 MG/DL (70-105); POTASSIUM 4.8 MMOL/L (3.6-5.0); SODIUM 137 MMOL/L (135-145); TOTAL PROTEIN 7.4 GM/DL (6.4-8.2)
[2018-05-24 13:37] LABS: ANISOCYTOSIS SLIGHT; BAND NEUTROPHILS 6 %; BASOPHILS % (MANUAL) 0 %; EOSINOPHILS % (MANUAL) 2 %; LYMPHOCYTES % (MANUAL) 32 %; MONOCYTES % (MANUAL) 15 %; NEUTROPHILS % (MANUAL) 45 %
--- NOTE | 2018-05-24 14:15 | Diagnostic Imaging Report ---
INDICATION: Fever Frontal chest obtained at 153 hours p.m., and compared to 03/06/18. The heart is borderline in size. The mediastinal silhouette is unremarkable. There is linear scarring and/or atelectasis which is unchanged compared to the prior study of 03/06/2018. There is no new abnormality in the lung parenchyma. IMPRESSION: Unchanged linear scarring versus atelectasis in left lung base. No new abnormality compared to the previous study. Dictated by: Dictated on workstation # [id number]
[2018-05-24 14:17] LABS: BILIRUBIN,URINE NEGATIVE (NEGATIVE); CLARITY,URINE CLEAR; COLOR,URINE YELLOW; GLUCOSE, URINE (UA) NEGATIVE (NEGATIVE); KETONES,URINE 1+ (NEGATIVE); LEUKOCYTE ESTERASE ,URINE 1+ (NEGATIVE); NITRITE,URINE NEGATIVE (NEGATIVE); PH,URINE 8 (5-9); PROTEIN,URINE 1+ (NEGATIVE); UROBILINOGEN,URINE NORMAL (NORMAL)
[2018-05-24 14:27] LABS: BACTERIA,URINE TRACE /HPF; SQUAMOUS EPITHELIAL CELL,UR 0-2 /HPF; WBC,URINE 0-2 /HPF
--- NOTE | 2018-05-24 15:17 | NUR ---
Pt has developmental delays. Pt refusing to take ibu at this time. Temperature 101.2 at this time. Darius Brennan notified.
[2018-05-24] MEDS ORDERED: IBUPROFEN 800 MG (MOTRIN) TAB PO ONE (15:30)
--- NOTE | 2018-05-24 15:31 | Diagnostic Imaging Report ---
PROCEDURE: CT abdomen and pelvis without contrast. TECHNIQUE: Multiple contiguous axial images were obtained through the abdomen and pelvis without the use of intravenous contrast. Auto exposure controls were utilized during the CT exam to meet ALARA standards for radiation dose reduction. INDICATION: Fever. COMPARISON: 05/17/2017. FINDINGS: Colonic constipation and mild rectal impaction could not be excluded. No fluid collection or perforation. Sensitivity limited by the absence of contrast as well as substantial patient motion artifact. No evidence for free air or pneumatosis. No focal inflammatory changes can be identified. There is no hydronephrosis. Hepatic density is consistent with fatty infiltration without biliary dilatation or visualized stone. Aorta is non-nonaneurysmal. The uterus and adnexa are nonacute. The unopacified urinary bladder was poorly distended but appears nonacute. No abscess, hematoma or other fluid collection. IMPRESSION: 1. Limited by motion. No obstructive features or inflammatory process is found. Colonic constipation suspected. Mild rectal impaction not excluded but no overt obstruction. 2. No fluid collection, ascites or focal inflammatory process. Dictated by: Dictated on workstation # [id number]
--- NOTE | 2018-05-24 15:40 | NUR ---
Motrin given crushed in applesauce.
--- NOTE | 2018-05-24 16:12 | NUR ---
UPD[facility] MED [facility]
--- OUTSIDE RECORDS SUMMARY | 2018-05-24 16:36 | XMS REPORT | Continuity of Care Document ---
Author Author [facility] C[facility] of [facility] of [facility] Address Unknown Phone Unavailable Allergies Active Description Code Type Severity Reaction Onset Reported/Identified Relationship to Patient Clinical Status Yes estrone Drug Allergy N/A N/A 07/16/2009 Yes piperacillin Drug Allergy N/ A N/A 07/16/2009 Yes Remeron Drug Allergy N/A N/A 07/16/2009 Yes estrone Drug Allergy 07/16/2009 Yes piperacillin Drug Allergy 07/16/2009 Yes Remeron Drug Allergy 07/16/2009 Yes sulfa drug Drug Allergy 07/16/2009 Yes piperacillin [id number] Drug Allergy Mild unknown 12/22/2015 Yes estrone [id number] Drug Allergy Unknown N/A 12/22/2015 Yes mirtazapine [id number] Drug Allergy Unknown N/A 12/22/2015 Yes piperazine [id number] Drug Allergy Unknown N/A 12/22/2015 Yes Sulfa (Sulfonamide Antibiotics) [id number] Drug Allergy Unknown N/A 2015 Medications There [...] V58.69 taking high- risk medication 12/18/2007 MARKO JN JEANETTE S 780.39 Convulsions [as Sx] 12/18/2007 [...] S V58.69 taking high-risk medication 12/18/2007 MARKO [employer], JEANETTE S 780.39 Convulsions [as Sx] 12/18/2007 [...] NJ, JEANETTE S 285.9 ANEMIA 09/16/2008 MARKO [employer], JEANETTE S 319 Mental Retardation 09/16/2008 MARKO [employer], JEANETTE S 486 Pneumonitis 09/16/2008 MARKO D[employer], JEANETTE S 285.9 ANEMIA 09/16/2008 MARKO D[employer], JEANETTE S 319 Mental Retardation 09/16/2008 MARKO D[employer], JEANETTE S 486 Pneumonitis 09/16/2008 MARKO D[employer], JEANETTE S 285.9 ANEMIA 09/16/2008 MARKO D[employer]ATER, JEANETTE S 319 Mental Retardation 09/16/2008 MARKO D[employer]ATER, JEANETTE S 486 Pneumonitis 09/16/2008 MARKO D[employer], JEANETTE S 285.9 ANEMIA 09/16/2008 MARKO D[employer]ATER, JEANETTE S 319 Mental Retardation 09/16/2008 MARKO D[employer], JEANETTE S 486 Pneumonitis 09/16/2008 MARKO D[employer], JEANETTE S 285.9 ANEMIA 09/16/2008 MARKO D[employer], JEANETTE S 319 Mental Retardation 09/16/2008 MARKO D[employer], JEANETTE S 486 Pneumonitis 09/16/2008 MARKO [employer], JEANETTE S 285.9 ANEMIA 09/16/2008 MARKO D[employer], JEANETTE S 319 Mental Retardation 09/16/2008 MARKO D[employer]ATER, JEANETTE S 486 Pneumonitis 07/08/2009 244.9 HYPOTHYROIDISM 07/08/2009 244.9 HYPOTHYROIDISM 07/08/2009 MARKO [employer], JEANETTE S 244.9 HYPOTHYROIDISM 07/08/2009 244.9 HYPOTHYROIDISM 07/08/2009 244.9 HYPOTHYROIDISM 07/08/2009 244.9 HYPOTHYROIDISM 07/08/2009 MARKO [employer], JEANETTE S 244.9 HYPOTHYROIDISM 07/08/2009 MARKO D[employer]ATER, JEANETTE S 244.9 HYPOTHYROIDISM 07/08/2009 CATHY NICOLE, TAMIKO Baker 244.9 HYPOTHYROIDISM 07/08/2009 MARKO D[employer], JEANETTE S 244.9 HYPOTHYROIDISM 07/08/2009 ELLIOTT NICOLE, DULCE 244.9 HYPOTHYROIDISM 07/08/2009 MARKO D[employer], JEANETTE S 244.9 HYPOTHYROIDISM 07/08/2009 MARKO D[employer]ATER, JEANETTE S 244.9 HYPOTHYROIDISM 07/08/2009 MARKO D[employer]REATER, JEANETTE S 244.9 HYPOTHYROIDISM 07/08/2009 MARKO D[employer]ATER, JEANETTE S 244.9 HYPOTHYROIDISM 07/08/2009 MARKO D[employer]ATER, JEANETTE S 244.9 HYPOTHYROIDISM 07/08/2009 MARKO D[employer], JEANETTE S 244.9 HYPOTHYROIDISM 08/19/2009 729.5 Pain In Limb 08/19/2009 729.5 Pain In Limb 08/19/2009 MARKO [employer], JEANETTE S 729.5 Pain In Limb 08/19/2009 729.5 Pain In Limb 08/19/2009 729.5 Pain In Limb 08/19/2009 729.5 Pain In Limb 08/19/2009 MARKO [employer], JEANETTE S 729.5 Pain In Limb 08/19/2009 MARKO D[employer], JEANETTE S 729.5 Pain In Limb 08/19/2009 CATHY NICOLE, TAMIKO Baker 729.5 Pain In Limb 08/19/2009 MARKO [employer], JEANETTE S 729.5 Pain In Limb 08/19/2009 DULCE GALLAGHER MD 729.5 Pain In Limb 08/19/2009 MARKO [employer], JEANETTE S 729.5 Pain In Limb 08/19/2009 MARKO [employer], JEANETTE S 729.5 Pain In Limb 08/19/2009 MARKO D[employer]ATER, JEANETTE S 729.5 Pain In Limb 08/19/2009 MARKO D[employer], JEANETTE S 729.5 Pain In Limb 08/19/2009 MARKO [employer], JEANETTE S 729.5 Pain In Limb 08/19/2009 MARKO [employer], JEANETTE S 729.5 Pain In Limb 08/26/2009 682.7 Other Cellulitis And Abscess, Foot, Except Toes 08/26/2009 682.7 Other Cellulitis And Abscess, Foot, Except Toes 08/26/2009 MARKO [employer], JEANETTE S 682.7 Other Cellulitis And Abscess, Foot, Except Toes 08/26/2009 682.7 Other Cellulitis And Abscess, Foot, Except Toes 08/26/2009 682.7 Other Cellulitis And Abscess, Foot, Except Toes 08/26/2009 682.7 Other Cellulitis And Abscess, Foot, Except Toes 08/26/2009 MARKO [employer], JEANETTE S 682.7 Other Cellulitis And Abscess, Foot, Except Toes 08/26/2009 MARKO D[employer], JEANETTE S 682.7 Other Cellulitis And Abscess, Foot, Except Toes 08/26/2009 TAMIKO MORGAN MD 682.7 Other Cellulitis And Abscess, Foot, Except Toes 08/26/2009 MARKO [employer], JEANETTE S 682.7 Other Cellulitis And Abscess, Foot, Except Toes 08/26/2009 ELLIOTT NICOLE, DULCE 682.7 Other Cellulitis And Abscess, Foot, Except Toes 08/26/2009 MARKO [employer], JEANETTE S 682.7 Other Cellulitis And Abscess, Foot, Except Toes 08/26/2009 MARKO D[employer], JEANETTE S 682.7 Other Cellulitis And Abscess, Foot, Except Toes 08/26/2009 MARKO [employer], JEANETTE S 682.7 Other Cellulitis And Abscess, Foot, Except Toes 08/26/2009 MARKO D[employer], JEANETTE S 682.7 Other Cellulitis And Abscess, Foot, Except Toes 08/26/2009 MARKO [employer], JEANETTE S 682.7 Other Cellulitis And Abscess, Foot, Except Toes 08/26/2009 MARKO [employer], JEANETTE S 682.7 Other Cellulitis And Abscess, Foot, Except Toes 12/16/2009 133.0 Scabies 12/16/2009 133.0 Scabies 12/16/2009 MARKO [employer], JEANETTE S 133.0 Scabies 12/16/2009 133.0 Scabies 12/16/2009 133.0 Scabies 12/16/2009 133.0 Scabies 12/16/2009 MARKO [employer], JEANETTE S 133.0 Scabies 12/16/2009 MARKO D[employer], JEANETTE S 133.0 Scabies 12/16/2009 TAMIKO MORGAN MD 133.0 Scabies 12/16/2009 MARKO D[employer], JEANETTE S 133.0 Scabies 12/16/2009 ELLIOTT NICOLE, DULCE 133.0 Scabies 12/16/2009 MARKO [employer], JEANETTE S 133.0 Scabies 12/16/2009 MARKO D[employer]ATER, JEANETTE S 133.0 Scabies 12/16/2009 MARKO D[employer], JEANETTE S 133.0 Scabies 12/16/2009 MARKO D[employer], JEANETTE S 133.0 Scabies 12/16/2009 MARKO D[employer], JEANETTE S 133.0 Scabies 12/16/2009 MARKO D[employer], JEANETTE S 133.0 Scabies 12/23/2009 782.1 Rash 12/23/2009 782.1 Rash 12/23/2009 MARKO [employer], JEANETTE S 782.1 Rash 12/23/2009 782.1 Rash 12/23/2009 782.1 Rash 12/23/2009 782.1 Rash 12/23/2009 MARKO [employer], JEANETTE S 782.1 Rash 12/23/2009 MARKO D[employer], JEANETTE S 782.1 Rash 12/23/2009 CATHY NICOLE, TAMIKO M 782.1 Rash 12/23/2009 MARKO [employer], JEANETTE S 782.1 Rash 12/23/2009 DULCE GALLAGHER MD 782.1 Rash 12/23/2009 MARKO [employer], JEANETTE S 782.1 Rash 12/23/2009 MARKO D[employer], JEANETTE S 782.1 Rash 12/23/2009 MARKO D[employer], JEANETTE S 782.1 Rash 12/23/2009 MARKO D[employer], JEANETTE S 782.1 RASH 12/23/2009 MARKO [employer], JEANETTE S 782.1 RASH 12/23/2009 MARKO [employer], JEANETTE S 782.1 RASH 02/16/2011 599.0 URINARY TRACT INFECTION SITE NOT SPECIFIED 02/16/2011 599.0 URINARY TRACT INFECTION SITE NOT SPECIFIED 02/16/2011 MARKO D[employer], JEANETTE S 599.0 URINARY TRACT INFECTION SITE NOT SPECIFIED 02/16/2011 599.0 URINARY TRACT INFECTION SITE NOT SPECIFIED 02/16/2011 599.0 URINARY TRACT INFECTION SITE NOT SPECIFIED 02/16/2011 599.0 URINARY TRACT INFECTION SITE NOT SPECIFIED 02/16/2011 MARKO D[employer]ATER, JEANETTE S 599.0 URINARY TRACT INFECTION SITE NOT SPECIFIED 02/16/2011 MARKO D[employer]ATER, JEANETTE S 599.0 URINARY TRACT INFECTION SITE NOT SPECIFIED 02/16/2011 TAMIKO MORGAN MD 599.0 URINARY TRACT INFECTION SITE NOT SPECIFIED 02/16/2011 MARKO D[employer]ATER, JEANETTE S 599.0 URINARY TRACT INFECTION SITE NOT SPECIFIED 02/16/2011 DULCE GALLAGHER MD 599.0 URINARY TRACT INFECTION SITE NOT SPECIFIED 02/16/2011 MARKO D[employer]ATER, JEANETTE S 599.0 URINARY TRACT INFECTION SITE NOT SPECIFIED 02/16/2011 MARKO D[employer]ATER, JEANETTE S 599.0 URINARY TRACT INFECTION SITE NOT SPECIFIED 02/16/2011 MARKO D[employer]ATER, JEANETTE S 599.0 URINARY TRACT INFECTION SITE NOT SPECIFIED 02/16/2011 MARKO D[employer]ATER, JEANETTE S 599.0 URINARY TRACT INFECTION SITE NOT SPECIFIED 02/16/2011 MARKO D[employer]ATER, JEANETTE S 599.0 URINARY TRACT INFECTION SITE NOT SPECIFIED 02/16/2011 MARKO D[employer]ATER, JEANETTE S 599.0 URINARY TRACT INFECTION SITE NOT SPECIFIED 02/22/2012 345.10 GENERALIZED CONVULSIVE EPILEPSY WITHOUT INTRACTABLE EPILEPSY 02/22/2012 MARKO [employer], JEANETTE S 345.10 GENERALIZED CONVULSIVE EPILEPSY WITHOUT INTRACTABLE EPILEPSY 02/22/2012 345.10 GENERALIZED CONVULSIVE EPILEPSY WITHOUT INTRACTABLE EPILEPSY 02/22/2012 345.10 GENERALIZED CONVULSIVE EPILEPSY WITHOUT INTRACTABLE EPILEPSY 02/22/2012 345.10 GENERALIZED CONVULSIVE EPILEPSY WITHOUT INTRACTABLE EPILEPSY 02/22/2012 MARKO D[employer]ATER, JEANETTE S 345.10 GENERALIZED CONVULSIVE EPILEPSY WITHOUT INTRACTABLE EPILEPSY 02/22/2012 MARKO D[employer], JEANETTE S 345.10 GENERALIZED CONVULSIVE EPILEPSY WITHOUT [...] CONVULSIVE EPILEPSY WITHOUT INTRACTABLE EPILEPSY 02/22/2012 MARKO D[employer], JEANETTE S 345.10 GENERALIZED CONVULSIVE EPILEPSY WITHOUT INTRACTABLE EPILEPSY 02/22/2012 MARKO D[employer], JEANETTE S 345.10 GENERALIZED CONVULSIVE EPILEPSY WITHOUT INTRACTABLE EPILEPSY 02/22/2012 MARKO VILLARN, JEANETTE S 345.10 GENERALIZED CONVULSIVE EPILEPSY WITHOUT INTRACTABLE EPILEPSY 02/22/2012 MARKO [employer], JEANETTE S 345.10 GENERALIZED CONVULSIVE EPILEPSY WITHOUT [...] OF ANKLE AND FOOT JOINT 02/20/2013 MARKO [employer], JEANETTE S 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 02/20/2013 MARKO [employer], JEANETTE S 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 02/20/2013 MARKO D[employer], JEANETTE S 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 02/20/2013 MARKO D[employer], JEANETTE S 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 03/31/2013 SHARAD LANGSTON D[employer]REATER Ot 729.5 PAIN IN LIMB 03/31/2013 SHARAD LANGSTON [employer] Ot 729.81 SWELLING OF LIMB 04/09/2013 AJITH HAIR Ot 459.81 VENOUS INSUFFICIENCY NOS 04/09/2013 AJITH HAIR Ot 682.6 CELLULITIS OF LEG 04/09/2013 AJITH HAIR Ot 729.81 SWELLING OF LIMB 04/10/2013 DULCE GALLAGHER MD 454.1 VARICOSE VEINS OF LOWER EXTREMITIES WITH INFLAMMATION 04/10/2013 DULCE GALLAGHER MD 459.81 VENOUS (PERIPHERAL) INSUFFICIENCY UNSPECIFIED 04/10/2013 MARKO D[employer], JEANETTE S 454.1 VARICOSE VEINS OF LOWER EXTREMITIES WITH INFLAMMATION 04/10/2013 MARKO NJ, JEANETTE S 459.81 VENOUS (PERIPHERAL) INSUFFICIENCY UNSPECIFIED 04/10/2013 MARKO D[employer], JEANETTE S 454.1 VARICOSE VEINS OF LOWER EXTREMITIES WITH INFLAMMATION 04/10/2013 MARKO D[employer], JEANETTE S 459.81 VENOUS (PERIPHERAL) INSUFFICIENCY UNSPECIFIED 04/10/2013 MARKO VILLARN, JEANETTE S 454.1 VARICOSE VEINS OF LOWER EXTREMITIES WITH INFLAMMATION 04/10/2013 MARKO D[employer]ATER, JEANETTE S 459.81 VENOUS (PERIPHERAL) INSUFFICIENCY UNSPECIFIED 04/10/2013 MARKO D[employer], JEANETTE S 454.1 VARICOSE VEINS OF LOWER EXTREMITIES WITH INFLAMMATION 04/10/2013 MARKO D[employer], JEANETTE S 459.81 VENOUS (PERIPHERAL) INSUFFICIENCY UNSPECIFIED 04/10/2013 MARKO D[employer], JEANETTE S 454.1 VARICOSE VEINS OF LOWER EXTREMITIES WITH INFLAMMATION 04/10/2013 MARKO D[employer], JEANETTE S 459.81 VENOUS (PERIPHERAL) INSUFFICIENCY UNSPECIFIED 04/10/2013 MARKO D[employer], JEANETTE S 454.1 VARICOSE VEINS OF LOWER EXTREMITIES WITH INFLAMMATION 04/10/2013 MARKO D[employer]ATER, JEANETTE S 459.81 VENOUS (PERIPHERAL) INSUFFICIENCY UNSPECIFIED 11/21/2013 MARKO D[employer]ATER, JEANETTE S 372.30 CONJUNCTIVITIS UNSPECIFIED 11/21/2013 MARKO D[employer], JEANETTE S 782.1 RASH 11/21/2013 MARKO D[employer], JEANETTE S 372.30 CONJUNCTIVITIS UNSPECIFIED 11/21/2013 MARKO D[employer]ATER, JEANETTE S 782.1 RASH 11/21/2013 MARKO D[employer]ATER, JEANETTE S 372.30 CONJUNCTIVITIS UNSPECIFIED 11/21/2013 MARKO D[employer]ATER, JEANETTE S 782.1 RASH 11/21/2013 MARKO D[employer]ATER, JEANETTE S 372.30 CONJUNCTIVITIS UNSPECIFIED 11/21/2013 MARKO D[employer], JEANETTE S 782.1 RASH 05/28/2015 JAYNA ZAMUDIO [...] EFFECT OF BARBITURATES, INITIAL 05/28/2015 JAYNA ZAMUDIO MD Ot T42.6X5A ADVERSE EFFECT OF ANTIEPILEPTIC AND [...] LETICIA HASSAN MD Ot Q02 MICROCEPHALY 12/22/2015 SONYA NICOLE, LETICIA Aleman Ot Z51.5 ENCOUNTER FOR PALLIATIVE CARE 12/22/2015 [...] G40.909 EPILEPSY, UNSP, NOT INTRACTABLE, WITHOUT 05/19/2017 FLORENCIO NICOLE, LINNEA Henry Ot G82.20 PARAPLEGIA, UNSPECIFIED 05/19/2017 LINNEA MATIAS [...] LINNEA MATIAS MD Ot E87.2 ACIDOSIS 05/19/2017 FLORENCIO NICOLE, LINNEA Henry Ot F79 UNSPECIFIED INTELLECTUAL DISABILITIES 05/19/2017 LINNEA [...] F79 UNSPECIFIED INTELLECTUAL DISABILITIES 05/20/2017 LINNEA MATIAS MD Ot G40.909 EPILEPSY, UNSP, NOT INTRACTABLE, WITHOUT 05/20/2017 LINNEA MATIAS MD Ot G82.20 PARAPLEGIA, UNSPECIFIED 05/20/2017 LINNEA MATIAS MD Ot J18.9 PNEUMONIA, UNSPECIFIED ORGANISM 05/20/2017 LINNEA MATIAS MD Ot J98.11 ATELECTASIS 05/20/2017 LINNEA MATIAS MD Ot K21.9 GASTRO-ESOPHAGEAL REFLUX DISEASE WITHOUT 05/20/2017 LINNEA MATIAS MD Ot K59.00 CONSTIPATION, UNSPECIFIED 05/20/2017 GAULT MD, LINNEA R Ot Q02 MICROCEPHALY 05/20/2017 FLORENCIO NICOLE, LINNEA Henry Ot R47.01 APHASIA 05/20/2017 FLORENCIO NICOLE, LINNEA Henry Ot Z66 DO NOT RESUSCITATE 05/20/2017 FLORENCIO NICOLE, LINNEA Henry Ot A09 INFECTIOUS GASTROENTERITIS AND COLITIS, 05/20/2017 FLORENCIO NICOLE, LINNEA Henry Ot A41.9 SEPSIS, UNSPECIFIED ORGANISM 05/20/2017 FLORENCIO NICOLE, LINNEA Henry Ot E03.9 HYPOTHYROIDISM, UNSPECIFIED 05/20/2017 FLORENCIO NICOLE, LINNEA Henry Ot E44.0 MODERATE PROTEIN-CALORIE MALNUTRITION 05/20/2017 FLORENCIO NICOLE, LINNEA Henry Ot E83.42 HYPOMAGNESEMIA 05/20/2017 FLORENCIO NICOLE, LINNEA Henry Ot E87.2 ACIDOSIS 05/20/2017 FLORENCIO NICOLE, LINNEA Henry Ot F79 UNSPECIFIED INTELLECTUAL DISABILITIES 05/20/2017 FLORENCIO NICOLE, LINNEA Henry Ot G40.909 EPILEPSY, UNSP, NOT INTRACTABLE, WITHOUT 05/20/2017 FLORENCIO NICOLE, LINNEA Henry Ot G82.20 PARAPLEGIA, UNSPECIFIED 05/20/2017 FLORENCIO NICOLE, LINNEA Henry Ot J18.9 PNEUMONIA, UNSPECIFIED ORGANISM 05/20/2017 FLORENCIO NICOLE, LINNEA Henry Ot J98.11 ATELECTASIS 05/20/2017 FLORENCIO NICOLE, LINNEA Henry Ot K21.9 GASTRO-ESOPHAGEAL REFLUX DISEASE WITHOUT 05/20/2017 FLORENCIO NICOLE, LINNEA Henry Ot K59.00 CONSTIPATION, UNSPECIFIED 05/20/2017 LINNEA MATIAS MD R Ot Q02 MICROCEPHALY 05/20/2017 FLORENCIO NICOLE, LINNEA Henry Ot R47.01 APHASIA 05/20/2017 FLORENCIO NICOLE, LINNEA Henry Ot Z66 DO NOT RESUSCITATE 03/07/2018 JAZZY FORMAN SUSANNA Ot E03.9 HYPOTHYROIDISM, UNSPECIFIED 03/07/2018 JAZZY FORMAN SUSANNA Ot E86.0 DEHYDRATION 03/07/2018 JAZZY FORMAN SUSANNA Ot F73 PROFOUND INTELLECTUAL DISABILITIES 03/07/2018 JAZZY FORMAN SUSANNA Ot F81.89 OTHER DEVELOPMENTAL DISORDERS OF [facility] 03/07/2018 JAZZY FORMAN SUSANNA Ot G40.909 EPILEPSY, UNSP, NOT INTRACTABLE, WITHOUT 03/07/2018 JAZZY FORMAN SUSANNA Ot G82.20 PARAPLEGIA, UNSPECIFIED 03/07/2018 PURCELL DO, SUSANNA Ot J18.1 LOBAR PNEUMONIA, UNSPECIFIED ORGANISM 03/07/2018 PURCELL DO, SUSANNA Ot K21.9 GASTRO-ESOPHAGEAL REFLUX DISEASE WITHOUT 03/07/2018 PURCELL DO, SUSANNA Ot K59.09 OTHER CONSTIPATION 03/07/2018 PURCELL DO, SUSANNA Ot R09.02 HYPOXEMIA 03/08/2018 PURCELL DO, SUSANNA Ot E03.9 HYPOTHYROIDISM, UNSPECIFIED 03/08/2018 PURCELL DO, SUSANNA Ot E86.0 DEHYDRATION 03/08/2018 PURCELL DO, SUSANNA Ot F73 PROFOUND INTELLECTUAL DISABILITIES 03/08/2018 PURCELL DO, SUSANNA Ot F81.89 OTHER DEVELOPMENTAL DISORDERS OF [facility] 03/08/2018 PURCELL DO, SUSANNA Ot G40.909 EPILEPSY, UNSP, NOT INTRACTABLE, WITHOUT 03/08/2018 PURCELL DO, SUSANNA Ot G82.20 PARAPLEGIA, UNSPECIFIED 03/08/2018 PURCELL DO, SUSANNA Ot J18.1 LOBAR PNEUMONIA, UNSPECIFIED ORGANISM 03/08/2018 PURCELL DO, SUSANNA Ot K21.9 GASTRO-ESOPHAGEAL REFLUX DISEASE WITHOUT 03/08/2018 PURCELL DO, SUSANNA Ot K59.09 OTHER CONSTIPATION 03/08/2018 PURCELL DO, SUSANNA Ot R09.02 HYPOXEMIA 03/09/2018 PURCELL DO, SUSANNA Ot E03.9 HYPOTHYROIDISM, UNSPECIFIED 03/09/2018 PURCELL DO, SUSANNA Ot E86.0 DEHYDRATION 03/09/2018 PURCELL DO, SUSANNA Ot F73 PROFOUND INTELLECTUAL DISABILITIES 03/09/2018 PURCELL DO, SUSANNA Ot F81.89 OTHER DEVELOPMENTAL DISORDERS OF [facility] 03/09/2018 PURCELL DO, SUSANNA Ot G40.909 EPILEPSY, UNSP, NOT INTRACTABLE, WITHOUT 03/09/2018 PURCELL DO, SUSANNA Ot G82.20 PARAPLEGIA, UNSPECIFIED 03/09/2018 PURCELL DO, SUSANNA Ot J18.1 LOBAR PNEUMONIA, UNSPECIFIED ORGANISM 03/09/2018 PURCELL DO, SUSANNA Ot K21.9 GASTRO-ESOPHAGEAL REFLUX DISEASE WITHOUT 03/09/2018 PURCELL DO, SUSANNA Ot K59.09 OTHER CONSTIPATION 03/09/2018 PURCELL DO, SUSANNA Ot R09.02 HYPOXEMIA 03/09/2018 PURCELL DO, SUSANNA Ot Z66 DO NOT RESUSCITATE 03/09/2018 SUSANNA PURCELL DO Ot Z88.1 ALLERGY STATUS TO OTHER ANTIBIOTIC AGENT 03/09/2018 SUSANNA PURCELL DO Ot Z88.2 ALLERGY STATUS TO SULFONAMIDES STATUS 03/09/2018 SUSANNA PURCELL DO Ot Z88.8 ALLERGY STATUS TO OTH DRUG/MEDS/BIOL SUB 03/09/2018 SUSANNA PURCELL DO Ot Z99.81 DEPENDENCE ON SUPPLEMENTAL OXYGEN Procedures Code Description [place] [address] OXIMETRY 10/16/2012 Results Test Result Range Complete [...] INFLUENZA A AND B ANTIGENS BY IA [facility] Comprehensive metabolic panel - 12/22/15 06:28 [...] calculation of estimated glomerular filtration rate > [facility] Serum or plasma glucose measurement (mass/volume) 108 [...] 12/22/15 06:28 Blood monocytes/100 leukocytes 18 % NR Manual blood segmented neutrophils/100 leukocytes 48 % NRG Blood band neutrophils/100 leukocytes 8 % NRG Manual blood lymphocytes/100 leukocytes 25 % NRG Manual eosinophils/100 leukocytes in nose 0 % NRG Manual blood basophils/100 leukocytes 0 % NR Blood erythrocyte morphology finding identification NORMAL [facility] Manual blood myelocytes/100 leukocytes 1 % NRG [...] (T4) free measurement (mass/volume) 0.92 ng/dL 0.70-1.48 [id number] - 05/17/17 19:10 [id number] 36.2 ug/mL 50.0-100.0 Bacterial blood culture - 05/17/17 19:10 Bacterial blood culture [facility] Influenza virus A and B antigen detection - 05/17/17 19:14 FLU RESULT NEGATIVE FOR INFLUENZA A AND B ANTIGENS BY IA [facility] Serum or plasma lactate measurement (moles/volume) - [...] - 05/19/17 02:05 Magnesium 2.0 mg/dL 1.8-2.4 Influenza virus A and B antigen detection - 03/06/18 18:44 FLU RESULT NEGATIVE FOR INFLUENZA A AND B ANTIGENS BY IA NR Complete blood count (CBC) with automated white blood cell (WBC) differential - 03/06/18 18:55 Blood leukocytes automated count (number/volume) 17.5 10*3/uL 4.3-11.0 Blood erythrocytes automated count (number/volume) 4.48 10*6/uL 4.35-5.85 Venous blood hemoglobin measurement (mass/volume) 13.3 g/dL 11.5-16.0 Blood hematocrit (volume fraction) 43 % 35-52 Automated erythrocyte mean corpuscular volume 95 [foz_us] 80-99 Automated erythrocyte mean corpuscular hemoglobin (mass per erythrocyte) 30 pg 25-34 Automated erythrocyte mean corpuscular hemoglobin concentration measurement ( mass/volume) 31 g/dL 32-36 Automated erythrocyte distribution width ratio 17.3 % 10.0-14.5 Automated blood platelet count (count/volume) 334 10*3/uL 130-400 Automated blood platelet mean volume measurement 10.5 [foz_us] 7.4-10.4 Automated blood neutrophils/100 leukocytes 58 % 42-75 Automated blood lymphocytes/100 leukocytes 21 % 12-44 Blood monocytes/100 leukocytes 20 % 0-12 Automated blood eosinophils/100 leukocytes 2 % 0-10 Automated blood basophils/100 leukocytes 0 % 0-10 Blood neutrophils automated count (number/volume) 10.1 10*3 1.8-7.8 Blood lymphocytes automated count (number/volume) 3.6 10*3 1.0-4.0 Blood monocytes automated count (number/volume) 3.5 10*3 0.0-1.0 Automated eosinophil count 0.3 10*3/uL 0.0-0.3 Automated blood basophil count (count/volume) 0.1 10*3/uL 0.0-0.1 PT panel in platelet poor plasma by coagulation assay - 03/06/18 18:55 Prothrombin time (PT) in platelet poor plasma by coagulation assay 13.1 s 12.2-14.7 INR in platelet poor plasma or blood by coagulation assay 1.0 0.8-1.4 Activated partial thromboplastin time (aPTT) in platelet poor plasma bycoagulation assay - 03/06/18 18:55 Activated partial thromboplastin time (aPTT) in platelet poor plasma bycoagulation assay 29 s 24-35 Blood lactic acid measurement (moles/volume) - 03/06/18 18:55 Blood lactic acid measurement (moles/volume) 1.46 mmol/L 0.50-2.00 Comprehensive metabolic panel - 03/06/18 18:55 Serum or plasma sodium measurement (moles/volume) 136 mmol/L 135-145 Serum or plasma potassium measurement (moles/volume) 4.7 mmol/L 3.6-5.0 Serum or plasma chloride measurement (moles/volume) 99 mmol/L 98-107 Carbon dioxide 25 mmol/L 21-32 Serum or plasma anion gap determination (moles/volume) 12 mmol/L 5-14 Serum or plasma urea nitrogen measurement (mass/volume) 13 mg/dL 7-18 Serum or plasma creatinine measurement (mass/volume) 0.62 mg/dL 0.60-1.30 Serum or plasma urea nitrogen/creatinine mass ratio 21 NRG Serum or plasma creatinine measurement with calculation of estimated glomerular filtration rate > NRG Serum or plasma glucose measurement (mass/volume) 97 mg/dL 70-105 Serum or plasma calcium measurement (mass/volume) 9.3 mg/dL 8.5-10.1 Serum or plasma total bilirubin measurement (mass/volume) 0.2 mg/dL 0.1-1.0 Serum or plasma alkaline phosphatase measurement (enzymatic activity/volume) 176 U/L 40-136 Serum or plasma aspartate aminotransferase measurement (enzymatic activity/ volume) 39 U/L 5-34 Serum or plasma alanine aminotransferase measurement (enzymatic activity/volume ) 35 U/L 0-55 Serum or plasma protein measurement (mass/volume) 7.7 g/dL 6.4-8.2 Serum or plasma albumin measurement (mass/volume) 3.7 g/dL 3.2-4.5 CALCIUM CORRECTED 9.5 mg/dL 8.5-10.1 Magnesium - 03/06/18 18:55 Magnesium 1.8 mg/dL 1.8-2.4 Serum or plasma lithium measurement (moles/volume) - 03/06/18 18:55 BNP level 16.4 pg/mL <100.0 Blood manual differential performed detection - 03/06/18 18:55 Blood monocytes/100 leukocytes 14 % NRG Manual blood segmented neutrophils/100 leukocytes 63 % NRG Blood band neutrophils/100 leukocytes 4 % NRG Manual blood lymphocytes/100 leukocytes 18 % NRG Manual eosinophils/100 leukocytes in nose 0 % NRG Manual blood basophils/100 leukocytes 1 % NRG Blood anisocytosis detection by light microscopy SLIGHT NRG Manual blood nucleated erythrocytes/100 leukocytes ratio 1 NRG Serum or plasma thyrotropin measurement by detection limit <=0.05 miu/l (units/ volume) - 03/06/18 18:55 Serum or plasma thyrotropin measurement by detection limit <=0.05 miu/l (units/ volume) 2.92 u[iU]/mL 0.35-4.94 [id number] - 03/06/18 18:55 [id number] 48.1 ug/mL 50.0-100.0 Bacterial blood culture - 03/06/18 18:55 Bacterial blood culture NG NRG PHENOBARBITAL - 03/06/18 18:55 PHENOBARBITA 11.0 % 15.0-40.0 Streptococcus pyogenes antigen detection - 03/06/18 19:40 Streptococcus pyogenes antigen detection NEGATIVE NEGATIVE Bacterial throat culture - 03/06/18 19:40 Bacterial throat culture NBS NRG Complete urinalysis with reflex to culture - 03/06/18 19:45 Urine color determination YELLOW NRG Urine clarity determination CLEAR NRG Urine pH measurement by test strip 7 5-9 Specific gravity of urine by test strip 1.005 1.016- 1.022 Urine protein assay by test strip, semi-quantitative 1+ NEGATIVE Urine glucose detection by automated test strip NEGATIVE NEGATIVE Erythrocytes detection in urine sediment by light microscopy NEGATIVE NEGATIVE Urine ketones detection by automated test strip 1+ NEGATIVE Urine nitrite detection by test strip NEGATIVE NEGATIVE Urine total bilirubin detection by test strip NEGATIVE NEGATIVE Urine urobilinogen measurement by automated test strip (mass/volume) NORMAL NORMAL Urine leukocyte esterase detection by dipstick 1+ NEGATIVE Automated urine sediment erythrocyte count by microscopy (number/high power field) NONE NRG Automated urine sediment leukocyte count by microscopy (number/high power field ) RARE NRG Bacteria detection in urine sediment by light microscopy NEGATIVE NRG Squamous epithelial cells detection in urine sediment by light microscopy RARE NRG Crystals detection in urine sediment by light microscopy NONE NRG Casts detection in urine sediment by light microscopy NONE NRG Mucus detection in urine sediment by light microscopy NEGATIVE NRG Complete urinalysis with reflex to culture NO NRG Arterial blood gas measurement - 03/06/18 19:57 Blood pCO2 47 mm[Hg] 35-45 Blood pO2 93 mm[Hg] 79-93 Arterial blood bicarbonate measurement (moles/volume) 30 mmol/L 23-27 Arterial blood base excess by calculation 5.5 mmol/L -2.5 -2.5 Arterial blood oxygen saturation measurement 98 % 94-100 * Inhaled oxygen flow rate 4 NRG Arterial blood pH measurement with patient temperature correction 7.42 7.37-7.43 Arterial blood carbon dioxide, total measurement (moles/volume) 31.1 mmol/L 21.0-31.0 Body site RIGHT RADIAL NRG Assessment of wrist artery patency prior to arterial puncture POSITIVE NRG Setting of ventilation mode NO NRG Measurement of body temperature 99.8 NRG Bacterial blood culture - 03/06/18 20:05 Bacterial blood culture NG NRG Complete blood count (CBC) with automated white blood cell (WBC) differential - 03/07/18 08:42 Blood leukocytes automated count (number/volume) 10.9 10*3/uL 4.3-11.0 Blood erythrocytes automated count (number/volume) 4.18 10*6/uL 4.35-5.85 Venous blood hemoglobin measurement (mass/volume) 12.4 g/dL 11.5-16.0 Blood hematocrit (volume fraction) 40 % 35-52 Automated erythrocyte mean corpuscular volume 96 [foz_us] 80-99 Automated erythrocyte mean corpuscular hemoglobin (mass per erythrocyte) 30 pg 25-34 Automated erythrocyte mean corpuscular hemoglobin concentration measurement ( mass/volume) 31 g/dL 32-36 Automated erythrocyte distribution width ratio 17.4 % 10.0-14.5 Automated blood platelet count (count/volume) 334 10*3/uL 130-400 Automated blood platelet mean volume measurement 10.2 [foz_us] 7.4-10.4 Automated blood neutrophils/100 leukocytes 56 % 42-75 Automated blood lymphocytes/100 leukocytes 23 % 12-44 Blood monocytes/100 leukocytes 18 % 0-12 Automated blood eosinophils/100 leukocytes 3 % 0-10 Automated blood basophils/100 leukocytes 0 % 0-10 Blood neutrophils automated count (number/volume) 6.1 10*3 1.8-7.8 Blood lymphocytes automated count (number/volume) 2.5 10*3 1.0-4.0 Blood monocytes automated count (number/volume) 1.9 10*3 0.0-1.0 Automated eosinophil count 0.3 10*3/uL 0.0-0.3 Automated blood basophil count (count/volume) 0.0 10*3/uL 0.0-0.1 Comprehensive metabolic panel - 03/07/18 08:42 Serum or plasma sodium measurement (moles/volume) 136 mmol/L 135-145 Serum or plasma potassium measurement (moles/volume) 4.5 mmol/L 3.6-5.0 Serum or plasma chloride measurement (moles/volume) 100 mmol/L 98-107 Carbon dioxide 27 mmol/L 21-32 Serum or plasma anion gap determination (moles/volume) 9 mmol/L 5-14 Serum or plasma urea nitrogen measurement (mass/volume) 14 mg/dL 7-18 Serum or plasma creatinine measurement (mass/volume) 0.56 mg/dL 0.60-1.30 Serum or plasma urea nitrogen/creatinine mass ratio 25 NRG Serum or plasma creatinine measurement with calculation of estimated glomerular filtration rate > NRG Serum or plasma glucose measurement (mass/volume) 111 mg/dL 70-105 Serum or plasma calcium measurement (mass/volume) 8.9 mg/dL 8.5-10.1 Serum or plasma total bilirubin measurement (mass/volume) 0.3 mg/dL 0.1-1.0 Serum or plasma alkaline phosphatase measurement (enzymatic activity/volume) 135 U/L 40-136 Serum or plasma aspartate aminotransferase measurement (enzymatic activity/ volume) 30 U/L 5-34 Serum or plasma alanine aminotransferase measurement (enzymatic activity/volume ) 32 U/L 0-55 Serum or plasma protein measurement (mass/volume) 7.2 g/dL 6.4-8.2 Serum or plasma albumin measurement (mass/volume) 3.5 g/dL 3.2-4.5 CALCIUM CORRECTED 9.3 mg/dL 8.5-10.1 Capillary blood glucose measurement by glucometer (mass/volume) - 03/07/18 21: 42 Capillary blood glucose measurement by glucometer (mass/volume) 123 mg/dL 70-110 Complete blood count (CBC) with automated white blood cell (WBC) differential - 03/08/18 06:20 Blood leukocytes automated count (number/volume) 9.9 10*3/uL 4.3-11.0 Blood erythrocytes automated count (number/volume) 4.08 10*6/uL 4.35-5.85 Venous blood hemoglobin measurement (mass/volume) 12.3 g/dL 11.5-16.0 Blood hematocrit (volume fraction) 39 % 35-52 Automated erythrocyte mean corpuscular volume 96 [foz_us] 80-99 Automated erythrocyte mean corpuscular hemoglobin (mass per erythrocyte) 30 pg 25-34 Automated erythrocyte mean corpuscular hemoglobin concentration measurement ( mass/volume) 32 g/dL 32-36 Automated erythrocyte distribution width ratio 17.1 % 10.0-14.5 Automated blood platelet count (count/volume) 305 10*3/uL 130-400 Automated blood platelet mean volume measurement 10.2 [foz_us] 7.4-10.4 Automated blood neutrophils/100 leukocytes 47 % 42-75 Automated blood lymphocytes/100 leukocytes 31 % 12-44 Blood monocytes/100 leukocytes 17 % 0-12 Automated blood eosinophils/100 leukocytes 4 % 0-10 Automated blood basophils/100 leukocytes 0 % 0-10 Blood neutrophils automated count (number/volume) 4.7 10*3 1.8-7.8 Blood lymphocytes automated count (number/volume) 3.1 10*3 1.0-4.0 Blood monocytes automated count (number/volume) 1.7 10*3 0.0-1.0 Automated eosinophil count 0.4 10*3/uL 0.0-0.3 Automated blood basophil count (count/volume) 0.0 10*3/uL 0.0-0.1 Comprehensive metabolic panel - 03/08/18 06:20 Serum or plasma sodium measurement (moles/volume) 139 mmol/L 135-145 Serum or plasma potassium measurement (moles/volume) 4.3 mmol/L 3.6-5.0 Serum or plasma chloride measurement (moles/volume) 103 mmol/L 98-107 Carbon dioxide 27 mmol/L 21-32 Serum or plasma anion gap determination (moles/volume) 9 mmol/L 5-14 Serum or plasma urea nitrogen measurement (mass/volume) 10 mg/dL 7-18 Serum or plasma creatinine measurement (mass/volume) 0.51 mg/dL 0.60-1.30 Serum or plasma urea nitrogen/creatinine mass ratio 20 NRG Serum or plasma creatinine measurement with calculation of estimated glomerular filtration rate > NRG Serum or plasma glucose measurement (mass/volume) 89 mg/dL 70-105 Serum or plasma calcium measurement (mass/volume) 8.9 mg/dL 8.5-10.1 Serum or plasma total bilirubin measurement (mass/volume) 0.2 mg/dL 0.1-1.0 Serum or plasma alkaline phosphatase measurement (enzymatic activity/volume) 169 U/L 40-136 Serum or plasma aspartate aminotransferase measurement (enzymatic activity/ volume) 41 U/L 5-34 Serum or plasma alanine aminotransferase measurement (enzymatic activity/volume ) 42 U/L 0-55 Serum or plasma protein measurement (mass/volume) 6.5 g/dL 6.4-8.2 Serum or plasma albumin measurement (mass/volume) 3.1 g/dL 3.2-4.5 CALCIUM CORRECTED 9.6 mg/dL 8.5-10.1 Complete blood count (CBC) with automated white blood cell (WBC) differential - 05/24/18 13:00 Blood leukocytes automated count (number/volume) 18.7 10*3/uL 4.3-11.0 Blood erythrocytes automated count (number/volume) 4.52 10*6/uL 4.35-5.85 Venous blood hemoglobin measurement (mass/volume) 13.3 g/dL 11.5-16.0 Blood hematocrit (volume fraction) 43 % 35-52 Automated erythrocyte mean corpuscular volume 96 [foz_us] 80-99 Automated erythrocyte mean corpuscular hemoglobin (mass per erythrocyte) 29 pg 25-34 Automated erythrocyte mean corpuscular hemoglobin concentration measurement ( mass/volume) 31 g/dL 32-36 Automated erythrocyte distribution width ratio 16.2 % 10.0-14.5 Automated blood platelet count (count/volume) 287 10*3/uL 130-400 Automated blood platelet mean volume measurement 11.1 [foz_us] 7.4-10.4 Automated blood neutrophils/100 leukocytes 55 % 42-75 Automated blood lymphocytes/100 leukocytes 27 % 12-44 Blood monocytes/100 leukocytes 17 % 0-12 Automated blood eosinophils/100 leukocytes 1 % 0-10 Automated blood basophils/100 leukocytes 0 % 0-10 Blood neutrophils automated count (number/volume) 10.2 10*3 1.8-7.8 Blood lymphocytes automated count (number/volume) 5.0 10*3 1.0-4.0 Blood monocytes automated count (number/volume) 3.2 10*3 0.0-1.0 Automated eosinophil count 0.2 10*3/uL 0.0-0.3 Automated blood basophil count (count/volume) 0.1 10*3/uL 0.0-0.1 Influenza virus A and B antigen detection - 05/24/18 13:00 FLU RESULT NEGATIVE FOR INFLUENZA A AND B ANTIGENS BY [facility] Blood lactic acid measurement (moles/volume) - 05/24/18 13:00 Blood lactic acid measurement (moles/volume) 2.10 mmol/L 0.50-2.00 Comprehensive metabolic panel - 05/24/18 13:00 Serum or plasma sodium measurement (moles/volume) 137 mmol/L 135-145 Serum or plasma potassium measurement (moles/volume) 4.8 mmol/L 3.6-5.0 Serum or plasma chloride measurement (moles/volume) 99 mmol/L 98-107 Carbon dioxide 31 mmol/L 21-32 Serum or plasma anion gap determination (moles/volume) 7 mmol/L 5-14 Serum or plasma urea nitrogen measurement (mass/volume) 13 mg/dL 7-18 Serum or plasma creatinine measurement (mass/volume) 0.60 mg/dL 0.60-1.30 Serum or plasma urea nitrogen/creatinine mass ratio 22 NRG Serum or plasma creatinine measurement with calculation of estimated glomerular filtration rate > NRG Serum or plasma glucose measurement (mass/volume) 88 mg/dL 70-105 Serum or plasma calcium measurement (mass/volume) 9.5 mg/dL 8.5-10.1 Serum or plasma total bilirubin measurement (mass/volume) 0.2 mg/dL 0.1-1.0 Serum or plasma alkaline phosphatase measurement (enzymatic activity/volume) 139 U/L 40-136 Serum or plasma aspartate aminotransferase measurement (enzymatic activity/ volume) 29 U/L 5-34 Serum or plasma alanine aminotransferase measurement (enzymatic activity/volume ) 24 U/L 0-55 Serum or plasma protein measurement (mass/volume) 7.4 g/dL 6.4-8.2 Serum or plasma albumin measurement (mass/volume) 3.6 g/dL 3.2-4.5 CALCIUM CORRECTED 9.8 mg/dL 8.5-10.1 Serum or plasma creatine kinase measurement (enzymatic activity/volume) - 05/24 13:00 Serum or plasma creatine kinase measurement (enzymatic activity/volume) 17 U/L 29-168 Blood manual differential performed detection - 05/24/18 13:00 Blood monocytes/100 leukocytes 15 % NRG Manual blood segmented neutrophils/100 leukocytes 45 % NRG Blood band neutrophils/100 leukocytes 6 % NRG Manual blood lymphocytes/100 leukocytes 32 % NRG Manual eosinophils/100 leukocytes in nose 2 % NRG Manual blood basophils/100 leukocytes 0 % NRG Blood anisocytosis detection by light microscopy SLIGHT NRG Complete urinalysis with reflex to culture - 05/24/18 14:05 Urine color determination YELLOW NRG Urine clarity determination CLEAR NRG Urine pH measurement by test strip 8 5-9 Specific gravity of urine by test strip 1.010 1.016- 1.022 Urine protein assay by test strip, semi-quantitative 1+ NEGATIVE Urine glucose detection by automated test strip NEGATIVE NEGATIVE Erythrocytes detection in urine sediment by light microscopy NEGATIVE NEGATIVE Urine ketones detection by automated test strip 1+ NEGATIVE Urine nitrite detection by test strip NEGATIVE NEGATIVE Urine total bilirubin detection by test strip NEGATIVE NEGATIVE Urine urobilinogen measurement by automated test strip (mass/volume) NORMAL NORMAL Urine leukocyte esterase detection by dipstick 1+ NEGATIVE Automated urine sediment erythrocyte count by microscopy (number/high power field) [HPF] NRG Automated urine sediment leukocyte count by microscopy (number/high power field ) [HPF] NRG Bacteria detection in urine sediment by light microscopy TRACE NRG Squamous epithelial cells detection in urine sediment by light microscopy 0-2 NRG Crystals detection in urine sediment by light microscopy NONE NRG Casts detection in urine sediment by light microscopy NONE NRG Mucus detection in urine sediment by light microscopy SMALL NRG Complete urinalysis with reflex to culture NO NRG Serum or plasma lactate measurement (moles/volume) - 05/24/18 15:10 Serum or plasma lactate measurement (moles/volume) 1.64 mmol/L 0.50-2.00 Encounters ACCT No. Visit Date/Time Discharge Status Pt. Type Provider Facility Loc./Unit Complaint [id number] 05/07/2014 07:57:00 05/07/2014 23:59:59 CLS Outpatient JEANETTE ZHU APRN S [id number] 03/12/2014 07:44:00 03/12/2014 23:59:59 CLS Outpatient JEANETTE ZHU APRN S [id number] 01/08/2014 08:46:00 01/08/2014 23:59:59 CLS Outpatient JEANETTE ZHU APRN S [id number] 11/21/2013 09:00:00 11/21/2013 23:59:59 CLS Outpatient THUY ZHU APRNA S [id number] 10/09/2013 07:31:00 10/09/2013 23:59:59 CLS Outpatient THUY ZHU APRNA S [id number] 08/07/2013 08:27:00 08/07/2013 23:59:59 CLS Outpatient THUY ZHU APRNA S [id number] 04/10/2013 10:08:00 04/10/2013 23:59:59 CLS Outpatient ELLIOTT NICOLE, DULCE [id number] 02/20/2013 08:09:00 02/20/2013 23:59:59 CLS Outpatient JEANETTE ZHU APRN S [id number] 01/09/2013 13:17:00 01/09/2013 23:59:59 CLS Outpatient TAMIKO MORGAN MD [id number] 12/19/2012 08:02:00 12/19/2012 23:59:59 CLS Outpatient JEANETTE ZHU APRN S [id number] 10/10/2012 15:02:00 10/10/2012 23:59:59 CLS Outpatient JEANETTE ZHU APRN S [id number] 04/25/2012 08:22:00 04/25/2012 23:59:59 CLS Outpatient JEANETTE ZHU APRN S [id number] 02/22/2012 08:38:00 02/22/2012 23:59:59 CLS Outpatient [id number] 12/21/2011 09:33:00 12/21/2011 23:59:59 CLS Outpatient [id number] 10/10/2012 15:02:00 Document Registration [id number] 08/01/2012 08:41:00 Document Registration [id number] 06/27/2012 10:48:00 Document Registration [id number] 03/06/2018 20:00:00 03/09/2018 12:15:00 DIS Inpatient SUSANNA PURCELL DO [facility] 4TH PNEUMONIA,SEPSIS,MR [id number] 05/17/2017 21:14:00 05/20/2017 14:32:00 DIS Inpatient LINNEA MATIAS MD [facility] 4TH SEPSIS, COLITIS, ABD PAIN , CONSTIPATION [id number] 12/22/2015 07:27:00 12/22/2015 14:55:00 DIS Inpatient LETICIA HASSAN MD [facility] 4TH SEVERE SEPSIS, PNEUMONIA WITH HYPOXIA [id number] 05/28/2015 12:14:00 05/29/2015 14:20:00 DIS Inpatient JAYNA ZAMUDIO MD [facility] 4TH SWB-PNEUMONIA,HYPOXIA, DEHYDRATION [id number] 05/23/2015 06:15:00 05/28/2015 11:57:00 DIS Inpatient JAYNA ZAMUDIO MD [facility] 4TH PNEUMONIA,HYPOXIA, DEHYDRATION [id number] 04/09/2013 14:31:00 04/09/2013 17:34:00 DIS Emergency AJITH HAIR [facility] ER LLE PAIN EDEMA DISCOLORATION [id number] 03/31/2013 14:08:00 03/31/2013 17:05:00 DIS Emergency SHARAD LNAGSTON APRN [facility] ER L UPPER LEG SWELLING [id number] 05/24/2018 12:47:00 ACT Emergency SHARAD LANGSTON APRN [facility] ER OUT OF MEDS;FEVER
--- NOTE | 2018-05-24 17:24 | NUR ---
Pt DNR per NORY Mayer at detention.
[2018-05-24] MEDS ORDERED: NS IV 1000 ML 1,000 ML IV SCH (17:30)
[2018-05-24 17:45] VITALS: BP 109/61
--- NOTE | 2018-05-24 18:28 | NUR ---
URIEL MCDOWELL admitted to room 422-1, with an admitting diagnosis of hypoxia, on 05/24/18 from ER via stretcher, accompanied by staff .URIEL MCDOWELL introduced to surroundings, call light, bed controls, phone, TV, temperature control, lights, meal times, smoking policy, visitor policy, side rail policy, bathrooms and showers. Patient Rights given to patient in the handbook. URIEL MCDOWELL verbalizes understanding that [facility] is not responsible for the loss or damage to any personal effects or valuables that are kept in the patients posession during their hospitalization. The following Patient Care Plans and discharge were discussed with the patient. URIEL MCDOWELL verbalizes understanding of Interdisciplinary Patient Education. reinforcement needed patient MR (unable to comprehend)
[2018-05-24] MEDS ORDERED: IBUPROFEN 600 MG (MOTRIN) TAB PO PRN (18:30)
[2018-05-24] MEDS ORDERED: CATHETER FLUSH 10 ML SYR IV PRN (18:30)
[2018-05-24] MEDS: NS IV 1000 ML 1,000 ML IV SCH (19:02)
[2018-05-24] MEDS: cefTRIAXone 1,000 MG/SWFI 10 ML IV PUSH IV SCH ×2 (19:02)
[2018-05-24 19:16] VITALS: BP 89/52
[2018-05-25] VITALS: BP 99/62
[2018-05-25 03:10] VITALS: BP 133/64
[2018-05-25] MEDS: NS IV 1000 ML 1,000 ML IV SCH (04:47)
[2018-05-25 06:37] LABS: BASOPHILS % (AUTO) 0 % (0-10); EOSINOPHILS # (AUTO) 0.2 10^3/uL (0.0-0.3); EOSINOPHILS % (AUTO) 2 % (0-10); HEMATOCRIT 41 % (35-52); HEMOGLOBIN 12.7 G/DL (11.5-16.0); LYMPHOCYTES # (AUTO) 2.5 X 10^3 (1.0-4.0); LYMPHOCYTES % (AUTO) 15 % (12-44); MEAN CORPUSCULAR HEMOGLOBIN 30 PG (25-34); MEAN CORPUSCULAR HGB CONC 31 G/DL (32-36); MEAN CORPUSCULAR VOLUME 97 FL (80-99); MEAN PLATELET VOLUME 10.3 FL (7.4-10.4); MONOCYTES # (AUTO) 2.4 X 10^3 (0.0-1.0); MONOCYTES % (AUTO) 15 % (0-12); NEUTROPHILS % (AUTO) 68 % (42-75); PLATELET COUNT 247 10^3/uL (130-400); RED CELL DISTRIBUTION WIDTH 16.4 % (10.0-14.5); WHITE BLOOD COUNT 16.1 10^3/uL (4.3-11.0)
--- NOTE | 2018-05-25 06:50 | Diagnostic Imaging Report ---
Indication: Hypoxemia Portable chest 4:13 AM Heart size and pulmonary vascularity are normal. There is some left lower lung infiltrate and/or atelectasis. There is minimal right perihilar atelectasis. Impression: Bilateral atelectasis and possible infiltrate of left lung base. No appreciable change from previous day. Dictated by: Dictated on workstation # [id number]
[2018-05-25 06:55] LABS: BUN/CREATININE RATIO 20; CALCIUM 8.5 MG/DL (8.5-10.1); CARBON DIOXIDE 28 MMOL/L (21-32); CHLORIDE 103 MMOL/L (98-107); CREATININE SERUM 0.55 MG/DL (0.60-1.30); GFR ESTIMATED > 60; GLUCOSE 102 MG/DL (70-105); POTASSIUM 4.3 MMOL/L (3.6-5.0); SODIUM 139 MMOL/L (135-145)
[2018-05-25 06:56] LABS: ALANINE AMINOTRANSFERASE 23 U/L (0-55); ALBUMIN 3.1 GM/DL (3.2-4.5); ALKALINE PHOSPHATASE 127 U/L (40-136); BILIRUBIN,TOTAL 0.2 MG/DL (0.1-1.0); TOTAL PROTEIN 6.5 GM/DL (6.4-8.2)
[2018-05-25 08:00] VITALS: BP 163/55
[2018-05-25] MEDS: ACETAMINOPHEN 325 MG TABLET PO PRN (10:52)
--- NOTE | 2018-05-25 11:13 | History & Physicial (CHS) ---
HPI History of Present Illness: 62 yo F with MR that presented from [place] with fever and hypoxia. Patient is non verbal. Staff noticed yesterday that she was not acting like herself and she was found to have a fever. In ER she was found to have a leukocytosis but no obvious signs of infection Source: RN/MD, halfway records Exam Limitations: other (Non Verbal patient) Date seen by provider: May 25, 2018 Time Seen by Provider: 10:18 Attending Physician Rukhsana Wheeler MD PCP Elvin Albert MD Consult Date of Admission May 24, 2018 at 16:18 Home Medications Home Medications Reviewed patient Home Medication Reconciliation performed by pharmacy medication reconciliations tire service technician and/or nursing. Patients Allergies have been reviewed. Allergies Coded Allergies: piperacillin (Verified Allergy, Mild, unknown, 12/22/15) Sulfa (Sulfonamide Antibiotics) (Verified Allergy, Unknown, 12/22/15) estrone (Verified Allergy, Unknown, 12/22/15) mirtazapine (Verified Allergy, Unknown, 12/22/15) piperazine (Verified Allergy, Unknown, 12/22/15) [id number]-[id number]-Nsvrcx Hx Patient Social [facility] Alcohol Use: Denies Use Recreational Drug Use: No 2nd Hand Smoke Exposure: No Recent Foreign Travel: No Contact w/other who traveled: No Recent Hopitalizations: No Recent Infectious Disease Expo: No Physical Abuse Screen: No (unexplained bruises present) Sexual Abuse: No Immunizations Up To Date Date of Pneumonia Vaccine: Jan 10, 2011 Date of Influenza Vaccine: Dec 14, 2017 Past Medical History PMHx: Seizure disorder MR Hypothyroidism PSurgHx: Hip fracture Review of Systems (CHC) Constitutional: other (Non Verbal unable to obtain) Reviewed Test Results Reviewed Test Results Lab Laboratory Tests Test 05/24/18 13:00 05/24/18 14:05 05/24/18 15:10 05/25/18 06:20 Range/Units White Blood Count 18.7 H 16.1 H 4.3-11.0 10^3/uL Red Blood Count 4.52 4.26 L 4.35-5.85 10^6/uL Hemoglobin 13.3 12.7 11.5-16.0 G/DL Hematocrit 43 41 35-52 % Mean Corpuscular Volume 96 97 80-99 FL Mean Corpuscular Hemoglobin 29 30 25-34 PG Mean Corpuscular Hemoglobin Concent 31 L 31 L 32-36 G/DL Red Cell Distribution Width 16.2 H 16.4 H 10.0-14.5 % Platelet Count 287 247 130-400 10^3/uL Mean Platelet Volume 11.1 H 10.3 7.4-10.4 FL Neutrophils (%) (Auto) 55 68 42-75 % Lymphocytes (%) (Auto) 27 15 12-44 % Monocytes (%) (Auto) 17 H 15 H 0-12 % Eosinophils (%) (Auto) 1 2 0-10 % Basophils (%) (Auto) 0 0 0-10 % Neutrophils # (Auto) 10.2 H 11.0 H 1.8-7.8 X 10^3 Lymphocytes # (Auto) 5.0 H 2.5 1.0-4.0 X 10^3 Monocytes # (Auto) 3.2 H 2.4 H 0.0-1.0 X 10^3 Eosinophils # (Auto) 0.2 0.2 0.0-0.3 10^3/uL Basophils # (Auto) 0.1 0.0 0.0-0.1 10^3/uL Neutrophils % (Manual) 45 % Lymphocytes % (Manual) 32 % Monocytes % (Manual) 15 % Eosinophils % (Manual) 2 % Basophils % (Manual) 0 % Band Neutrophils 6 % Anisocytosis SLIGHT Sodium Level 137 139 135-145 MMOL/L Potassium Level 4.8 4.3 3.6-5.0 MMOL/L Chloride Level 99 103 98-107 MMOL/L Carbon Dioxide Level 31 28 21-32 MMOL/L Anion Gap 7 8 5-14 MMOL/L Blood Urea Nitrogen 13 11 7-18 MG/DL Creatinine 0.60 0.55 L 0.60-1.30 MG/DL Estimat Glomerular Filtration Rate > 60 > 60 BUN/Creatinine Ratio 22 20 Glucose Level 88 102 70-105 MG/DL Lactic Acid Level 2.10 *H 1.64 0.50-2.00 MMOL/L Calcium Level 9.5 8.5 8.5-10.1 MG/DL Corrected Calcium 9.8 9.2 8.5-10.1 MG/DL Total Bilirubin 0.2 0.2 0.1-1.0 MG/DL Aspartate Amino Transf (AST/SGOT) 29 27 5-34 U/L Alanine Aminotransferase (ALT/SGPT) 24 23 0-55 U/L Alkaline Phosphatase 139 H 127 40-136 U/L Total Creatine Kinase 17 L 29-168 U/L Total Protein 7.4 6.5 6.4-8.2 GM/DL Albumin 3.6 3.1 L 3.2-4.5 GM/DL Urine Color YELLOW Urine Clarity CLEAR Urine pH 8 5-9 Urine Specific [place] 1.010 L 1.016-1.022 Urine Protein 1+ H NEGATIVE Urine Glucose (UA) NEGATIVE NEGATIVE Urine Ketones 1+ H NEGATIVE Urine Nitrite NEGATIVE NEGATIVE Urine Bilirubin NEGATIVE NEGATIVE Urine Urobilinogen NORMAL NORMAL MG/DL Urine Leukocyte Esterase 1+ H NEGATIVE Urine RBC (Auto) NEGATIVE NEGATIVE Urine RBC 2-5 H /HPF Urine WBC 0-2 /HPF Urine Squamous Epithelial Cells 0-2 /HPF Urine Crystals NONE /LPF Urine Bacteria TRACE /HPF Urine Casts NONE /LPF Urine Mucus SMALL H /LPF Urine Culture Indicated NO Physical Exam-(CHC) Physical Exam Vital Signs VS - Last 72 Hours, by Label 05/24/18 05/24/18 05/24/18 05/24/18 12:46 17:30 17:45 18:34 Temp 101.2 101.2 98.7 Pulse 117 99 90 Resp 23 18 20 B/P (MAP) 196/163 (174) 114/96 (102) 109/61 (77) Pulse Ox 94 92 93 96 O2 Delivery Nasal Cannula Nasal Cannula Nasal Cannula Nasal Cannula O2 Flow Rate 3.00 2.00 2.00 2.00 05/24/18 05/24/18 05/24/18 05/24/18 18:40 18:52 19:00 19:16 Temp 98.4 Pulse 81 78 74 Resp 20 B/P (MAP) 89/52 (64) Pulse Ox 96 96 O2 Delivery Nasal Cannula Nasal Cannula O2 Flow Rate 2.00 2.00 2.00 05/24/18 05/25/18 05/25/18 05/25/18 20:00 00:00 01:00 03:10 Temp 97.4 96.4 Pulse 77 70 90 Resp 20 24 B/P (MAP) 99/62 (74) 133/64 (87) Pulse Ox 96 94 O2 Delivery Nasal Cannula Nasal Cannula Nasal Cannula O2 Flow Rate 2.00 2.00 2.00 05/25/18 05/25/18 05/25/18 05/25/18 07:00 08:00 08:59 10:52 Temp 100.2 100.2 Pulse 106 117 Resp 24 B/P (MAP) 163/55 (91) Pulse Ox 92 O2 Delivery Nasal Cannula Nasal Cannula O2 Flow Rate 2.00 2.00 Capillary Refill : NONE General Appearance: no apparent distress, thin Respiratory: chest non-tender, lungs clear, no respiratory distress, no accessory muscle use Cardiovascular: normal peripheral pulses, regular rate, rhythm, no murmur Gastrointestinal: normal bowel sounds, non tender, soft Extremities: pedal edema (2+) Neurologic/Psychiatric: other (Awake, no grimace with exam) Skin: normal color, warm/dry Lymphatic: no adenopathy Assessment/Plan Assessment/Plan Admission Status: Observation (1) Hypoxia Status: Acute Assessment & Plan: - MAT protocol, will repeat CXR today due to desaturations, titrate oxygen as tolerated (2) Fever Status: Acute Assessment & Plan: - Continues to have fever, cultures pending, Rocephin D2 Qualifiers: Qualified Codes: R50.9 - Fever, unspecified (3) Severe mental handicap Status: Acute (4) Hx of seizure disorder Status: Chronic Assessment & Plan: - Continue home meds, Sz precautions (5) Hypothyroidism Status: Chronic Assessment & Plan: - TSH pending, continue home dose Qualifiers: Qualified Codes: E03.9 - Hypothyroidism, unspecified (6) DVT prophylaxis Status: Acute Assessment & Plan: - Lovenox (7) Discharge planning issues Assessment & Plan: - IF labs improve and fever trending down, possible d/c to [place] tomorrow Clinical Quality Measures DVT/VTE Risk/Contraindication: Risk Factor Score Per Nursin RFS Level Per Nursing on Admit: 4+=Very High Copy Copies To 1: Serena LAIRD APRN GAULT, HOLLY R MD May 25, 2018 11:13
--- NOTE | 2018-05-25 11:54 | NUR ---
CM/SS spoke with [facility] to let them know that patient would likely return either 05/26 or 05/27. Will pass along number for facility to RNing to set up transportation at discharge.
[2018-05-25 12:00] VITALS: BP 90/50
[2018-05-25 16:00] VITALS: BP 104/51
[2018-05-25] MEDS: ENOXAPARIN 40 MG/0.4 ML (LOVENOX) SYR SC SCH (16:45)
[2018-05-25] MEDS: cefTRIAXone 1,000 MG/SWFI 10 ML IV PUSH IV SCH ×2 (18:28)
[2018-05-25] MEDS: LEVETIRACETAM 500 MG/ 5 ML UDC ORAL SOLN (KEPPRA) PO SCH (20:22)
[2018-05-25] MEDS: PHENobarbital 16.2 MG (1/4 GRAIN) TABLET PO SCH (20:22)
[2018-05-25] MEDS: DIVALPROX SPRINKLE 125 MG (DEPAKOTE) CAP PO SCH (20:22)
[2018-05-25 20:30] VITALS: BP 100/58
[2018-05-26 00:27] VITALS: BP 106/55
[2018-05-26] MEDS: LEVOTHYROXINE 100 MCG (LEVOTHROID) TAB PO SCH (06:13)
[2018-05-26 06:23] LABS: ALANINE AMINOTRANSFERASE 32 U/L (0-55); ALBUMIN 2.9 GM/DL (3.2-4.5); ALKALINE PHOSPHATASE 146 U/L (40-136); BILIRUBIN,TOTAL 0.2 MG/DL (0.1-1.0); BUN/CREATININE RATIO 17; CALCIUM 8.8 MG/DL (8.5-10.1); CARBON DIOXIDE 20 MMOL/L (21-32); CHLORIDE 105 MMOL/L (98-107); CREATININE SERUM 0.47 MG/DL (0.60-1.30); GFR ESTIMATED > 60; GLUCOSE 85 MG/DL (70-105); POTASSIUM 4.1 MMOL/L (3.6-5.0); SODIUM 136 MMOL/L (135-145); TOTAL PROTEIN 6.4 GM/DL (6.4-8.2)
[2018-05-26 06:27] LABS: BASOPHILS % (AUTO) 0 % (0-10); EOSINOPHILS # (AUTO) 0.4 10^3/uL (0.0-0.3); EOSINOPHILS % (AUTO) 3 % (0-10); HEMATOCRIT 38 % (35-52); HEMOGLOBIN 11.7 G/DL (11.5-16.0); LYMPHOCYTES # (AUTO) 3.4 X 10^3 (1.0-4.0); LYMPHOCYTES % (AUTO) 28 % (12-44); MEAN CORPUSCULAR HEMOGLOBIN 30 PG (25-34); MEAN CORPUSCULAR HGB CONC 31 G/DL (32-36); MEAN CORPUSCULAR VOLUME 97 FL (80-99); MEAN PLATELET VOLUME 11.1 FL (7.4-10.4); MONOCYTES # (AUTO) 1.5 X 10^3 (0.0-1.0); MONOCYTES % (AUTO) 13 % (0-12); NEUTROPHILS # (AUTO) 6.7 X 10^3 (1.8-7.8); NEUTROPHILS % (AUTO) 56 % (42-75); PLATELET COUNT 221 10^3/uL (130-400)
[2018-05-26 08:00] VITALS: BP 108/59
--- NOTE | 2018-05-26 09:08 | Progress Note (SOAP) ---
Subjective Subjective/Events-last exam Patient sitting up in bed and does not appear to be in any distress. She does smile. Review of Systems Date Seen by Provider: May 26, 2018 Time Seen by Provider: 08:25 Focused Exam Lactate Level 05/24/18 13:00: Lactic Acid Level 2.10*H 05/24/18 15:10: Lactic Acid Level 1.64 Objective Exam Last Set of Vital Signs Vital Signs Date Time Temp Pulse Resp B/P (MAP) Pulse Ox O2 Delivery O2 Flow Rate FiO2 05/26/18 08:00 96.2 77 18 108/59 (75) 94 Nasal Cannula 2.00 Capillary Refill : NONE I&O Intake and Output 05/26/18 00:00 Intake Total 650 ml Output Total 900 ml Balance -250 ml Intake Oral 150 ml IV Total 500 ml Output Urine Total 900 ml # Voids 1 # Bowel Movements 1 General: No Acute Distress Neck: Supple Lungs: Clear to Auscultation Heart: Regular Rate Abdomen: Soft Results/Procedures Lab Laboratory Tests 05/26/18 06:15: White Blood Count 12.0H, Red Blood Count 3.93L, Hemoglobin 11.7, Hematocrit 38, Mean Corpuscular Volume 97, Mean Corpuscular Hemoglobin 30, Mean Corpuscular Hemoglobin Concent 31L, Red Cell Distribution Width 16.0H, Platelet Count 221, Mean Platelet Volume 11.1H, Neutrophils (%) (Auto) 56, Lymphocytes (%) (Auto) 28 , Monocytes (%) (Auto) 13H, Eosinophils (%) (Auto) 3, Basophils (%) (Auto) 0, Neutrophils # (Auto) 6.7, Lymphocytes # (Auto) 3.4, Monocytes # (Auto) 1.5H, Eosinophils # (Auto) 0.4H, Basophils # (Auto) 0.0, Sodium Level 136, Potassium Level 4.1, Chloride Level 105, Carbon Dioxide Level 20L, Anion Gap 11, Blood Urea Nitrogen 8, Creatinine 0.47L, Estimat Glomerular Filtration Rate > 60, BUN/ Creatinine Ratio 17, Glucose Level 85, Calcium Level 8.8, Corrected Calcium 9.7 , Total Bilirubin 0.2, Aspartate Amino Transf (AST/SGOT) 39H, Alanine Aminotransferase (ALT/SGPT) 32, Alkaline Phosphatase 146H, Total Protein 6.4, Albumin 2.9L, Thyroid Stimulating Hormone (TSH) 1.68 Microbiology 3/21/19 Blood Culture - Preliminary, Resulted Staph, Coag Neg (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 There is some left lower lung infiltrate and/or atelectasis. There is minimal right perihilar atelectasis. Impression: Bilateral atelectasis and possible infiltrate of left lung base. No appreciable change from previous day. Dictated by: Dictated on workstation # [id number] Dict: 05/25/1847 Trans: 05/25/18647 Interpreted by: HILDA LOVE MD Electronically signed by: HILDA LOVE MD 05/25/1848 Assessment/Plan Assessment/Plan (1) Hypoxia Status: Acute Assessment & Plan: - MAT protocol, will repeat CXR today due to desaturations, titrate oxygen as tolerated (2) Fever Status: Acute Assessment & Plan: - Continues to have fever, cultures pending, Rocephin D2 05/26- chest x-ray reveals possible left lower lobe infiltrate. -Today is day number 3 of ceftriaxone 1 g Qualifiers: Qualified Codes: R50.9 - Fever, unspecified (3) Severe mental handicap Status: Acute (4) Hx of seizure disorder Status: Chronic Assessment & Plan: - Continue home meds, Sz precautions (5) Hypothyroidism Status: Chronic Assessment & Plan: - TSH pending, continue home dose Qualifiers: Qualified Codes: E03.9 - Hypothyroidism, unspecified (6) DVT prophylaxis Status: Acute Assessment & Plan: - Lovenox (7) Discharge planning issues Assessment & Plan: - IF labs improve and fever trending down, possible d/c to [facility] tomorrow Clinical Quality Measures DVT/VTE Risk/Contraindication: Risk Factor Score Per Nursin RFS Level Per Nursing on Admit: 4+=Very High YAMINI MILLER MD May 26, 2018 09:08
[2018-05-26] MEDS: DIVALPROX SPRINKLE 125 MG (DEPAKOTE) CAP PO SCH ×2 (09:44→22:22)
[2018-05-26] MEDS: LEVETIRACETAM 500 MG/ 5 ML UDC ORAL SOLN (KEPPRA) PO SCH ×2 (09:44→22:21)
[2018-05-26] MEDS: PHENobarbital 16.2 MG (1/4 GRAIN) TABLET PO SCH ×2 (09:44→22:21)
[2018-05-26 12:00] VITALS: BP 108/71
[2018-05-26] MEDS: ENOXAPARIN 40 MG/0.4 ML (LOVENOX) SYR SC SCH (12:15)
[2018-05-26 16:09] VITALS: BP 101/64
[2018-05-26] MEDS: cefTRIAXone 1,000 MG/SWFI 10 ML IV PUSH IV SCH ×2 (18:22)
[2018-05-26] MEDS: ACETAMINOPHEN 325 MG TABLET PO PRN (22:23)
[2018-05-27 00:10] VITALS: BP 155/66
[2018-05-27 05:13] LABS: BASOPHILS % (AUTO) 0 % (0-10); EOSINOPHILS # (AUTO) 0.4 10^3/uL (0.0-0.3); EOSINOPHILS % (AUTO) 4 % (0-10); HEMATOCRIT 36 % (35-52); LYMPHOCYTES # (AUTO) 3.4 X 10^3 (1.0-4.0); LYMPHOCYTES % (AUTO) 35 % (12-44); MEAN CORPUSCULAR HGB CONC 30 G/DL (32-36); MEAN CORPUSCULAR VOLUME 97 FL (80-99); MEAN PLATELET VOLUME 10.8 FL (7.4-10.4); MONOCYTES # (AUTO) 1.4 X 10^3 (0.0-1.0); MONOCYTES % (AUTO) 14 % (0-12); NEUTROPHILS # (AUTO) 4.4 X 10^3 (1.8-7.8); NEUTROPHILS % (AUTO) 46 % (42-75); PLATELET COUNT 258 10^3/uL (130-400); RED CELL DISTRIBUTION WIDTH 16.3 % (10.0-14.5); WHITE BLOOD COUNT 9.5 10^3/uL (4.3-11.0)
[2018-05-27 05:16] LABS: MEAN CORPUSCULAR HEMOGLOBIN 29 PG (25-34)
[2018-05-27] MEDS: LEVOTHYROXINE 100 MCG (LEVOTHROID) TAB PO SCH (06:17)
[2018-05-27 07:51] VITALS: BP 110/58
[2018-05-27] MEDS: DIVALPROX SPRINKLE 125 MG (DEPAKOTE) CAP PO SCH ×2 (08:27→20:07)
[2018-05-27] MEDS: LEVETIRACETAM 500 MG/ 5 ML UDC ORAL SOLN (KEPPRA) PO SCH ×2 (08:27→20:07)
[2018-05-27] MEDS: PHENobarbital 16.2 MG (1/4 GRAIN) TABLET PO SCH ×2 (08:27→20:07)
--- NOTE | 2018-05-27 09:24 | Progress Note (SOAP) ---
Subjective Subjective/Events-last exam Patient is now off nasal cannula oxygen but her saturations are at 90 percent. She does not appear to be in any distress. Review of Systems Date Seen by Provider: May 27, 2018 Time Seen by Provider: 07:50 Focused Exam Lactate Level 05/24/18 13:00: Lactic Acid Level 2.10*H 05/24/18 15:10: Lactic Acid Level 1.64 Objective Exam Last Set of Vital Signs Vital Signs Date Time Temp Pulse Resp B/P (MAP) Pulse Ox O2 Delivery O2 Flow Rate FiO2 05/27/18 07:51 96.8 76 21 110/58 (75) 90 Room Air 05/27/18 07:45 2.00 Capillary Refill : NONE I&O Intake and Output 05/27/18 00:00 Intake Total 380 ml Output Total 250 ml Balance 130 ml Intake Oral 380 ml Output Urine Total 250 ml # Voids 3 General: No Acute Distress Lungs: Clear to Auscultation Heart: Regular Rate Extremities: Other (Noted edema of the feet) Results/Procedures Lab Laboratory Tests 05/27/18 05:00: White Blood Count 9.5, Red Blood Count 3.73L, Hemoglobin 11.0L, Hematocrit 36, Mean Corpuscular Volume 97, Mean Corpuscular Hemoglobin 29, Mean Corpuscular Hemoglobin Concent 30L, Red Cell Distribution Width 16.3H, Platelet Count 258, Mean Platelet Volume 10.8H, Neutrophils (%) (Auto) 46, Lymphocytes (%) (Auto) 35 , Monocytes (%) (Auto) 14H, Eosinophils (%) (Auto) 4, Basophils (%) (Auto) 0, Neutrophils # (Auto) 4.4, Lymphocytes # (Auto) 3.4, Monocytes # (Auto) 1.4H, Eosinophils # (Auto) 0.4H, Basophils # (Auto) 0.0 Microbiology 05/24/18 Blood Culture - Preliminary, Resulted Staph, Coag 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 There is some left lower lung infiltrate and/or atelectasis. There is minimal right perihilar atelectasis. Impression: Bilateral atelectasis and possible infiltrate of left lung base. No appreciable change from previous day. Dictated by: Dictated on workstation # [id number] Dict: 05/25/1847 Trans: 05/25/18647 Interpreted by: HILDA LOVE MD Electronically signed by: HILDA LOVE MD 05/25/18647 Assessment/Plan Assessment/Plan (1) Hypoxia Status: Acute Assessment & Plan: - MAT protocol, will repeat CXR today due to desaturations, titrate oxygen as tolerated 05/27 -Patient was found by chest x-ray to have left lower lobe infiltrates from last film -She may need to continue with nasal cannula oxygen to maintain sats in the mid 90 percentile (2) Fever Status: Acute Assessment & Plan: - Continues to have fever, cultures pending, Rocephin D2 05/26- chest x-ray reveals possible left lower lobe infiltrate. -Today is day number 3 of ceftriaxone 1 g 05/27 Pneumonia left lower lobe -Fever has resolved as well as white blood cell count now 9.5. -She may be discharged when her hypoxemia is improved. I suspect she may be ready to go back to group home at [place] possibly tomorrow Qualifiers: Qualified Codes: R50.9 - Fever, unspecified (3) Severe mental handicap Status: Acute (4) Hx of seizure disorder Status: Chronic Assessment & Plan: - Continue home meds, Sz precautions (5) Hypothyroidism Status: Chronic Assessment & Plan: - TSH pending, continue home dose Qualifiers: Qualified Codes: E03.9 - Hypothyroidism, unspecified (6) DVT prophylaxis Status: Acute Assessment & Plan: - Lovenox (7) Discharge planning issues Assessment & Plan: - IF labs improve and fever trending down, possible d/c to [place] tomorrow Clinical Quality Measures DVT/VTE Risk/Contraindication: Risk Factor Score Per Nursin RFS Level Per Nursing on Admit: 4+=Very High YAMINI MILLER MD May 27, 2018 09:24
[2018-05-27 12:00] VITALS: BP 139/79
[2018-05-27] MEDS: ENOXAPARIN 40 MG/0.4 ML (LOVENOX) SYR SC SCH (12:19)
[2018-05-27 16:00] VITALS: BP 100/53
[2018-05-27] MEDS ORDERED: LIDOCAINE 1% INJ 20 ML 20 ML VIAL INJ SCH (18:30)
[2018-05-27] MEDS ORDERED: cefTRIAXone 1,000 MG IV (ROCEPHIN) VIAL IJ SCH (18:30)
[2018-05-27 23:35] VITALS: BP 112/56
[2018-05-28] MEDS: LEVOTHYROXINE 100 MCG (LEVOTHROID) TAB PO SCH (05:47)
[2018-05-28 08:00] VITALS: BP 113/56
[2018-05-28] MEDS ORDERED: CEFD300C3 PO (09:53)
[2018-05-28] MEDS: PHENobarbital 16.2 MG (1/4 GRAIN) TABLET PO SCH (09:53)
[2018-05-28] MEDS: LEVETIRACETAM 500 MG/ 5 ML UDC ORAL SOLN (KEPPRA) PO SCH (09:53)
[2018-05-28] MEDS: DIVALPROX SPRINKLE 125 MG (DEPAKOTE) CAP PO SCH (09:54)
--- NOTE | 2018-05-28 09:55 | Discharge Inst-Skilled Nursing ---
Discharge Inst-Skilled NF Patient Instructions Patient Problems: Pneumonia MR Seizures Goal: Return to baseline function Consult/Follow Up/Orders Follow Up Appt.: [facility] NH rounds Skilled NF Admit to: Certification (SNF) I certify that SNF services are required to be given on an inpatient basis because of the above named patient's need for alf care on a continuing basis for the conditions(s) for which he/she was receiving inpatient hospital services prior to his/her transfer to the SNF. [facility] Facility Order: Nursing Services, Outboard Motor Tester-Evaluate & Treat, Physical Therapy-Evaluate & Treat Oxygen Delivery Method: Nasal Cannula Daily Activity as Tolerated: Yes New & Resume Previous Orders Johanna Rivers May 28, 2018 09:54 JOHANNA RIVERS DO May 28, 2018 09:55
--- NOTE | 2018-05-28 09:55 | Discharge Summary-Hospitalist ---
Diagnosis/Chief Complaint Date of Admission May 24, 2018 at 16:18 Date of Discharge Discharge Date: May 28, 2018 Discharge Diagnosis (1) Hypoxia Status: Acute (2) Severe mental handicap Status: Chronic (3) Hx of seizure disorder Status: Chronic (4) Hypothyroidism Status: Chronic (5) Sepsis Status: Resolved (6) Pneumonia Status: Acute (7) Oxygen dependent Status: Acute Discharge Summary Discharge Physical Exam Allergies: Coded Allergies: piperacillin (Verified Allergy, Mild, unknown, 12/22/15) Sulfa (Sulfonamide Antibiotics) (Verified Allergy, Unknown, 12/22/15) estrone (Verified Allergy, Unknown, 12/22/15) mirtazapine (Verified Allergy, Unknown, 12/22/15) piperazine (Verified Allergy, Unknown, 12/22/15) Vitals & I&Os Vital Signs Date Time Temp Pulse Resp B/P (MAP) Pulse Ox O2 Delivery O2 Flow Rate FiO2 05/28/18 12:54 05/28/18 10:43 94 2.00 05/28/18 08:00 97.4 60 18 Nasal Cannula General Appearance: No Apparent Distress, WD/WN, Chronically ill Respiratory: Chest Non Tender, Lungs Clear, Normal Breath Sounds, No Accessory Muscle Use, No Respiratory Distress Neurologic/Psychiatric: Alert Hospital Course Was the Problem List Reviewed?: Yes Hospital Course: Pt had an uneventful hospital course for 4 days. She is a mentally retarded individual that had pneumonia and hypoxia. Pt placed on oxygen supplementation along with IV antibiotics. Pt was resumed on all of her home medication including seizure medication and she was deemed stable for DC with labs that returned back to normal and will have home O2 evaluation, likely will need to go home on home oxygen at least temporarily. Everything was arranged for intermediate DC where she previously was. [facility] was notified and will have close follow-up on intermediate rounds. 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 Discussion & Recommendations Discharge Planning: <30 minutes discharge planning Discharge Home Medications: Active Scripts Active Cefdinir 300 Mg Capsule 300 Mg PO BID Reported Visine-A Eye Allergy Drops (Naphazoline HCl/Pheniramine) 15 Ml Drops 2 Drops OU QID Gold Mcclain Ultimate Eczema Rlf (Colloidal Oatmeal) 226 Gm Cream..g. TP Q12H PRN Albuterol Sulfate 2.5 Mg/3 Ml Vial.neb 2.5 Mg NEB Q4H PRN Levothyroxine Sodium 100 Mcg Tablet 100 Mcg PO DAILY Levetiracetam 100 Mg/Ml Solution 20 Ml PO BID Milk of Magnesia (Magnesium Hydroxide) 400 Mg/5 Ml Oral.susp 30 Ml PO DAILY PRN Bisacodyl 10 Mg Supp.rect 10 Mg RC DAILY PRN Acetaminophen 325 Mg Tablet 650 Mg PO Q6H PRN TAKES 2 (325 MG) TABLETS Acetaminophen 650 Mg Supp.rect 650 Mg RC Q4H PRN Phenobarbital 16.2 Mg Tablet 16.2 Mg PO BID Depakote Sprinkle (Divalproex Sodium) 125 Mg Cap 750 Mg PO BID TAKES 6 (125MG) CAPSULES Instructions to patient/family Please see electronic discharge instructions given to patient. Clinical Quality Measures DVT/VTE Risk/Contraindication: Risk Factor Score Per Nursin RFS Level Per Nursing on Admit: 4+=Very High Problem Qualifiers (1) Hypothyroidism: Hypothyroidism type: acquired Qualified Codes: E03.9 - Hypothyroidism, unspecified (2) Pneumonia: Pneumonia type: due to unspecified organism Laterality: unspecified laterality Lung location: unspecified part of lung Qualified Codes: J18.9 - Pneumonia, unspecified organism SUSANNA PURCELL DO May 28, 2018 09:55
--- NOTE | 2018-05-28 10:48 | NUR ---
HOME OXYGEN STUDY PT RESTING ON ROOM AIR SPO2 IS 87%, PLACED PT ON 2 LPM NASAL CANNULA AND SPO2 INCREASED TO 94%. PT WILL REQUIRE 2 LPM NASAL CANNULA AT ALL TIMES.
--- NOTE | 2018-05-28 14:45 | NUR ---
CM/SS. Patient discharged back to established [facility] placement with [facility] via their transport. She was admitted OBS and, therefore, has no Medicare skilled benefits to access. Faxed orders to [place], prepared packet to accompany patient. Unit RN aware. Addendum: 05/28/18 at 1548 by OBIE ANDERSON SS Attempted to reach guardian, no answer and no message option. Contacted MAR[facility] and she will update from there.
[2018-05-28] MEDS ORDERED: LIDOCAINE 1% INJ 20 ML 20 ML VIAL IJ SCH (18:30)
[2018-05-28] MEDS ORDERED: cefTRIAXone 1,000 MG/2.86 ml vial (IM ONLY) IM SCH (18:30)
== END 2018-05-28 09:52 ==
LOC: EDUNIT# 12:46 → ER 12:47 → 4TH 16:18 → UNDOADMOB 16:18 → 4TH 18:00 → UNDODISOB 05-28 12:54
PROVIDERS: ADMIT Family Medicine; ATTEND Family Medicine
DX: A41.9 Sepsis, unspecified organism (principal); J18.9 Pneumonia, unspecified organism; R09.02 Hypoxemia; G40.909 Epilepsy, unspecified, not intractable, without status epilepticus; F72 Severe intellectual disabilities; G82.20 Paraplegia, unspecified; Z66 Do not resuscitate; K21.9 Gastro-esophageal reflux disease without esophagitis; K59.09 Other constipation; E03.9 Hypothyroidism, unspecified; D50.9 Iron deficiency anemia, unspecified; Z99.81 Dependence on supplemental oxygen; Z79.899 Other long term (current) drug therapy
CPT/HCPCS: 36415; 71045; 74176; 80053; 81000; 82550; 83605; 84443; 85007; 85025; 85027; 87040; 87804; 94761; 96360; G0378